=== PATIENT | male | born 1960 | race Caucasian/White ===

== ENCOUNTER → 2018-02-18 13:44 | Outpatient (CLI) | payer MEDICAID, SELFPAY ==
--- NOTE | 2018-02-18 13:48 | CT_ITS ---
STUDY: LOW DOSE CT LUNG CANCER SCREENING REASON FOR EXAM: Male, 57 years old. 40 pack-year smoking history. Hypertension. Lung cancer screening. History of positive PPD. RADIATION DOSAGE (If Supplied By Facility): CTDIvol = ( 2.01 ) mGy, DLP = ( 72.23 ) mGycm TECHNIQUE: No contrast was administered. Low dose technique was utilized (average mAS-38 and kVp 120). 1.25 mm axial source images with a slice interval of 1.25-mm were reconstructed in lung windows. Nodule measured using lung windows on PACS and/or independent workstation with automated measurement of minimum and maximum diameter. Nodule measurement reported as average diameter rounded to the nearest whole number. Growth is defined as an increase ins size of greater than 1.5 mm. COMPARISON: None. FINDINGS: Total lung nodules (excluding granulomas): Left lung subpleural less than 3 mm pulmonary nodule series 2 image 165 lateral pleural margin. No other left-sided pulmonary nodules. There are no right-sided pulmonary nodules. Emphysema: Severe bullous emphysema at the apices. Most prominent on the right. Endobronchial lesion: None. Aorta: Nondilated. Minimal arch atherosclerosis. Coronary arteries: There are densities are present in the proximal to mid LAD, proximal RCA, consistent with effort chronic calcifications, potentially a stent in the proximal LAD but uncertain. Heart: Normal heart size without effusion. Pulmonary artery: Normal caliber central pulmonary arteries. Mediastinal nodes: There is no evidence of mediastinal lymphadenopathy. Other chest and abdominal findings: No other acute upper abdominal, supraclavicular or thoracic process is evident in limited evaluation. CT/Low Dose CT Lung Screening IMPRESSION: Only a single tiny less than 3 mm solid subpleural pulmonary nodule is seen in the left lower lung along the lateral pleural margin. Nonspecific. No suspicious lesions. Bullous emphysema. Coronary atherosclerosis. ACR Lung RADS category 2, benign appearance, less than 1% chance of malignancy. One-year follow-up low dose CT of the chest is recommended for surveillance purposes. IMPORTANT NOTES FOR USE: ACR Lung-RADS Version 1.0 Assessment Categories Release Date: January 23, 2014 Category: Coded 0-4 bases on nodule(s) with highest degree of suspicion. Negative screen is defined as categories 1 and 2; a positive screen is defined as categories 3 and 4. Category 3 and 4A nodules that are unchanged on interval CT should be coded as category 2, and individuals returned to screening in 12 months. Category 4X: Category 3 or 4 nodules with additional imaging findings that increase the suspicion of lung cancer, such as spiculation, GGN that doubles in size in 1 year, enlarged lymph notes, etc. Category Modifiers: S (significant finding unrelated to lung cancer) and C (prior history of treated lung cancer) may be added to the 0-4 Lung-RADS Electronically Signed: Luis Adler, at 17:54 EDT Tel , Service support ,
== END ==
DX: J44.9 Chronic obstructive pulmonary disease, unspecified (principal); Z87.891 Personal history of nicotine dependence
CPT/HCPCS: G0297

== ENCOUNTER → 2018-05-20 07:23 | Outpatient (CLI) | payer MEDICAID, SELFPAY ==
--- NOTE | 2018-05-20 11:17 | PFTCOMP ---
COMPLETE PULMONARY FUNCTION TEST INTERPRETATION Brief HPI: Patient is a 58 year old male, currently under the care of myself, who presents to [facility] for complete pulmonary function tests secondary to diagnosis of COPD. Respiratory therapist reports good effort and reproducible results. Interpretation: Forced expiration spirometry shows a moderately-severe large airways obstructive ventilatory defect with an FEV1 of 56% predicted. There is no significant bronchodilator response by ATS criteria. Spirograms are of good quality and plateau slowly, indicating slowly emptying areas of the lungs. The respiratory flow volume loop shows decreased expiratory flow rates at all lung volumes consistent with airway obstruction. Lung volumes by body plethysmography show an elevated total lung capacity at 7.79 L, 116% predicted. FRC and RV are elevated out of proportion. Lung volume measurements are consistent with air-trapping. Diffusion capacity by carbon monoxide is decreased at 60% predicted. The airway resistance is elevated. Compared to previous pulmonary function tests from 04/23/2010, there has been a significant worsening in FEV1, air-trapping and DLCO. Impression: Irreversible moderately severe large airways obstructive ventilatory defect with a symmetric reduction diffusing capacity. There has been significant worsening compared to previous study.
== END ==
PROVIDERS: Visit Provider Internal Medicine Critical Care Medicine
DX: J44.9 Chronic obstructive pulmonary disease, unspecified (principal)
CPT/HCPCS: 94060; 94726; 94729

== ENCOUNTER → 2018-05-27 08:27 | Outpatient (CLI) | payer MEDICAID, SELFPAY ==
[2018-05-27 08:35] VITALS: PULSE 71; PULSE 73; PULSE 79; PULSE 81; PULSE 82; PULSE 83; PULSE 85; PULSE 89; O2SAT 95; O2SAT 98; O2SAT 99
--- NOTE | 2018-05-27 11:16 | PCM.PSN.6M ---
PSN 6 Minute Walk Test - 6 Minute Walk Test 6 Minute Walk Test: 6 Minute Walk Test PSN:6-Minute Walk Test Start: 05/27/18 09:00 Freq: Status: Active Protocol: RESP.6MINW Document 05/27/18 08:35 [facility] (Rec: 05/27/18 09:03 [facility] [id number]) 6 Minute Walk Test Date Performed 05/27/18 Time Performed 08:35 Height 5 ft 10 in Weight: 150 lb Weight in Pounds 150.[address]: Hernesto Johnson Assistive device used: None Pre-test Oxygen Delivery Method Room Air Pulse Ox (%) 98 Pulse Rate (60-100 beats/min) 71 Dyspnea Idania Scale (0-10) 0.5 Exertion Iadnia Scale (6-20) 6 1st minute Oxygen Delivery Method Room Air Pulse Ox (%) 99 Pulse Rate (60-100 beats/min) 85 Number of Rests Taken 0 2nd minute Oxygen Delivery Method Room Air Pulse Ox (%) 95 Pulse Rate (60-100 beats/min) 82 Number of Rests Taken 0 3rd minute Oxygen Delivery Method Room Air Pulse Ox (%) 95 Pulse Rate (60-100 beats/min) 79 Number of Rests Taken 0 Reported Symptoms Increased Work of Breathing 4th minute Oxygen Delivery Method Room Air Pulse Ox (%) 99 Pulse Rate (60-100 beats/min) 83 Number of Rests Taken 0 Reported Symptoms Increased Work of Breathing 5th minute Oxygen Delivery Method Room Air Pulse Ox (%) 98 Pulse Rate (60-100 beats/min) 81 Number of Rests Taken 0 Reported Symptoms Increased Work of Breathing 6th minute Oxygen Delivery Method Room Air Pulse Ox (%) 99 Pulse Rate (60-100 beats/min) 89 Number of Rests Taken 0 Reported Symptoms Increased Work of Breathing Post-test Oxygen Delivery Method Room Air Pulse Ox (%) 99 Pulse Rate (60-100 beats/min) 73 Dyspnea Idania Scale (0-10) 4 Exertion Idania Scale (6-20) 13 Reported Symptoms Increased Work of Breathing Full Laps Walked 18 Partial Lap, Number of Tiles Walked 17 Total Distance Walked (ft) 1079 - Interpretation Interpretation: The patient ambulated 1079 feet over the course of 6 minutes beginning on room air without assistive devices or breaks. Pretesting oxygen saturation was noted to be 98% on room air. With ambulation, the farhana oxygen saturation was 95%. There was no significant exertional oxygen desaturation. - Recommendations Recommendations: There is no indication for the use of supplemental oxygen at this time.
== END ==
PROVIDERS: Visit Provider Internal Medicine Critical Care Medicine
DX: J44.9 Chronic obstructive pulmonary disease, unspecified (principal)
CPT/HCPCS: 94618

== ENCOUNTER 2018-07-26 11:52 | Day surgery (SDC) | payer MEDICAID, SELFPAY ==
--- NOTE | 2018-07-26 11:55 | PCM.HP.BLA ---
History and Physical Date of Admission: 07/26/18 The patient presents today to update H&P for procedure scheduled with Dr. Davidson, at [facility] on 07/26/18, with MAC sedation. ?His PCP is reported to be Triny Patel, at the [facility]. I initially saw him on 06/02/18. That note has been reviewed. ?The patient has a history of polyps. The patient sees pain management, in [place], due to chronic back pain. The patient?drinks alcohol mostly on the weekends?and uses cannabis a few times a week. ???He also?has mild anxiety issues, but doesn't see anyone. ? The patient?requested?[facility] due to transportation issues. ? ? The patient was seen by Dr. Hwang?for colonoscopy 05/16/15. ?The procedure report has been reviewed and findings as follows: Impression: ??- Diverticulosis in the sigmoid colon and in the ?descending colon. ?- Two 5 mm polyps in the transverse colon and in the ?ascending colon. Resected and retrieved. ?- One 10 mm polyp in the descending colon. Resected and ?retrieved. ?- One 25 mm polyp at 20 cm proximal to the anus. ?Resected and retrieved. Clips were placed. ? FINAL DIAGNOSIS 1. Ascending colon, polypectomy (A) - Colonic mucosa with no significant diagnostic alteration. 2. Transverse colon, polypectomy (B) - Colonic mucosa with no significant diagnostic alteration. 3. Descending colon, polypectomy (C) - Fragments of tubular adenoma. 4. Colon, at 20 cm, polypectomy (D) - Tubular adenoma. ? I have reviewed the procedure and pathology reports, as well as the images, with the patient. ?Three year surveillance was recommended by Dr Hwang. ? ? Presenting complaint: The patient denies?change in bowel habits, rectal bleeding or abdominal pain. Having a bowel movement daily. ? ? The patient denies any upper GI complaints. ?He is edentulous and notes that eating chewy bread crust is difficult. ?He plans to get dentures as soon as possible. ? ?? REVIEW OF SYSTEMS: GENERAL: No weight loss, malaise or fevers. ?Plans to see dentist at [facility] regarding dentures. RESPIRATORY: ?COPD. ?Uses inhalers. CARDIOVASCULAR: Hypertension. On prescriptions with good control. GI: The patient states that his appetite has been good. ?He does?get hungry. There has been no?nausea, no?vomiting. He denies?dysphagia and denies?odynophagia. There has not?been indigestion or?heartburn. There has not?been regurgitation. Bowel habits have been regular. There has not?been diarrhea. There has not?been constipation. The patient denies?rectal bleeding. There has not?been melena. No abdominal pain. MUSCULOSKELETAL: Back pain relieved with Lyrica and?a TENS unit he uses once a day. PSYCH: Admits to mild situational anxiety. Negative for sleep disturbance, mood disorder and recent psychosocial stressors. HEMATOLOGY/LYMPHOLOGY Denies?prolonged bleeding, bruising easily or swollen nodes ENDOCRINE: Denies diabetes or thyroid. NEURO:Denies?history of headaches, syncope, paralysis, seizures or tremors All other reviewed and negative other than HPI. ? ? PAST?MEDICAL?HISTORY ? ? ? PAST MEDICAL HISTORY Diagnosis Date ? Back pain ? ? COPD (chronic obstructive pulmonary disease) (HCC) ? ? Unspecified essential hypertension ? ? ? PAST?SURGICAL?HISTORY ? PAST SURGICAL HISTORY Procedure Laterality Date ? COLONOSCOP W/ OR W/O BRSH SPEC ? 05/16/15 ? Colonoscopy ? PAST SURGICAL HISTORY OF ? 2005 ? implant on right eye ? PAST SURGICAL HISTORY OF ? 2013 ? growth removed from throat ? ? FAMILY?HISTORY ? FAMILY HISTORY Problem Relation Age of Onset ? other (lung cancer) Mother ? ? other (esophageal ?cancer) Father ? CURRENT?MEDICATIONS ? Current Outpatient Prescriptions: aclidinium bromide (TUDORZA PRESSAIR) 400 mcg/actuation aepb Inhale ?as instructed twice daily. Disp: Rfl: lisinopril (ZESTRIL, PRINIVIL) 20 mg tablet Take 20 mg by mouth once daily. Disp: Rfl: triamcinolone (KENALOG) 0.1 % lotion Apply ?to affected area twice daily. Disp: Rfl: budesonide-formoterol (SYMBICORT) 80-4.5 mcg/actuation inhaler Inhale 2 Puffs as instructed twice daily. Disp: Rfl: zolpidem (AMBIEN) 5 mg tablet Take 5 mg by mouth at bedtime as needed. Disp: Rfl: gabapentin (NEURONTIN) 600 mg tablet Take 600 mg by mouth every 8 hours. Disp: Rfl: ALBUTEROL SULFATE (PROVENTIL HFA INHALATION) Inhale ?as instructed as needed. ? Disp: Rfl: doxycycline 100 mg capsule Take 100 mg by mouth once daily. ? Disp: Rfl: amLODIPine (NORVASC) 2.5 mg tablet Take 2.5 mg by mouth once daily. ? Disp: Rfl: ? No current facility-administered medications for this visit. ? ? ? SOCIAL HISTORY: Patient is single. He quit smoking 4?years ago. ?He?reports his alcohol use as a 12 pack a week or so. The patient does smoke cannabis. ? ? PHYSICAL EXAMINATION: Blood pressure 120/71, pulse 81, height 177.8 cm (5' 10), weight 66.2 kg (146 lb). General Appearance: Well appearing, alert, in no acute distress, well-hydrated, well nourished. Skin: moderate rosacea. Head: Normocephalic, no masses, lesions or abnormalities. Eyes: Anicteric sclera. PEERLA Oropharynx: Teeth in various forms of repair. Some absent. Lips, mucosa, tongue normal, oropharynx normal. Neck: Supple, no adenopathy; thyroid symmetric, normal size. Lungs: Lungs clear to auscultation. No wheezing, rhonchi, rales. Heart: RRR without murmur. Abdomen: Abdomen soft, non-tender. Bowel sounds normal. No masses, organomegaly. Extremities: No deformities, edema, skin discoloration, clubbing or cyanosis. Peripheral Pulses: Normal. Neurologic: Gait normal. Reflexes normal and symmetric. Sensation grossly intact. ? ? Impression: history of polyps ?2)diverticulosis ? 3)chronic back pain - pain management ?4)COPD 5)anxiety ?6)alcohol and cannabis use ? ? Plan: This patient will be scheduled for a colonoscopy. I recommend MAC as his last procedure was with MAC and he sees pain management, drinks and uses cannabis. He requests [facility] due to transportation issues. ? The patient will be using GoL[employer]ely?as the prep. ?The preparation, as well as the procedure, has been explained in detail. The risks, benefits, anticipated outcomes and possible complications were mentioned. I explained the procedure in understandable terms and the patient was given printed material concerning the planned procedure. The patient had the opportunity to ask questions concerning the planned procedure. The patient freely consents to the planned procedure. ? The patient is asked to call with any questions for concerns, or should there be any change in health status between now and the scheduled procedure. ? ? I have personally interviewed and examined this patient. I have read the information the MA documented in this encounter. I spent 30?minutes in the visit, with more than 50% of the total [id number] time of the visit in counseling / coordination of care. ? Jazmin Mock RN APRN.[employer] ? ? ?2:07 PM
[2018-07-26 12:14] VITALS: BP 139/74; PULSE 87; RESP 18; TEMP 37.4; O2SAT 100; BMI 20.8
[2018-07-26 13:40] VITALS: BP 116/77; BP 139/74; PULSE 85; RESP 16; TEMP 36.9; O2SAT 97
--- NOTE | 2018-07-26 13:40 | OP.ENDO_ITS ---
Patient Name: Amor Bethea Procedure Date: 07/26/2018 1:04 PM Date of : 1960 Age: 58 Procedure: Colonoscopy Indications: High risk colon cancer surveillance: Personal history of colonic polyps Providers: Luis Davidson MD Referring MD: Luis Davidson MD Medicines: Monitored Anesthesia Care Patient Profile: This is a 58 year old male. Refer to note in patient chart for documentation of history and physical. Last Colonoscopy: more than 3 years ago. Complications: No immediate complications. Procedure: Pre-Anesthesia Assessment: - Prior to the procedure, a History and Physical was performed, and patient medications and allergies were reviewed. The patient is competent. The risks and benefits of the procedure and the sedation options and risks were discussed with the patient. All questions were answered and informed consent was obtained. Patient identification and proposed procedure were verified by the physician, the nurse and the wheel installer in the procedure room. Mental Status Examination: alert and oriented. Airway Examination: normal oropharyngeal airway and neck mobility. Respiratory Examination: clear to auscultation. CV Examination: normal. Prophylactic Antibiotics: The patient does not require prophylactic antibiotics. Prior Anticoagulants: The patient has taken no previous anticoagulant or antiplatelet agents. ASA Grade Assessment: III - A patient with severe systemic disease. After reviewing the risks and benefits, the patient was deemed in satisfactory condition to undergo the procedure. The anesthesia plan was to use monitored anesthesia care (MAC). Immediately prior to administration of medications, the patient was re-assessed for adequacy to receive sedatives. The heart rate, respiratory rate, oxygen saturations, blood pressure, adequacy of pulmonary ventilation, and response to care were monitored throughout the procedure. The physical status of the patient was re-assessed after the procedure. After I obtained informed consent, the scope was passed under direct vision. Throughout the procedure, the patient's blood pressure, pulse, and oxygen saturations were monitored continuously. The Colonoscope was introduced through the anus and advanced to the cecum, identified by the appendiceal orifice, ileocecal valve and palpation. The colonoscopy was performed without difficulty. The patient tolerated the procedure well. The quality of the bowel preparation was good. Scope In: 1:23:46 PM Scope Withdrawal Time 0 hours 7 minutes 42 seconds Scope Out: 1:36:10 PM Total Procedure Duration Time 0 hours 12 minutes 24 seconds Findings: The perianal and digital rectal examinations were normal. A few medium-mouthed diverticula were found in the sigmoid colon. The exam was otherwise without abnormality. The retroflexed view of the distal rectum and anal verge was normal and showed no anal or rectal abnormalities. Impression: - Diverticulosis in the sigmoid colon. - The examination was otherwise normal. - The distal rectum and anal verge are normal on retroflexion view. - No specimens collected. Recommendation: - Discharge patient to home. - Resume previous diet. - Continue present medications. - Repeat colonoscopy in 5 years for surveillance. Luis Davidson MD 07/26/2018 1:39:55 PM This report has been signed electronically. Number of Addenda: 0 Note Initiated On: 07/26/2018 1:04 PM
[2018-07-26 13:45] VITALS: BP 106/74; BP 139/74; PULSE 95; RESP 16; O2SAT 96
[2018-07-26 13:50] VITALS: BP 116/75; BP 139/74; PULSE 82; RESP 16; O2SAT 97
[2018-07-26 13:55] VITALS: BP 115/82; BP 139/74; PULSE 72; RESP 16; TEMP 36.9; O2SAT 96
[2018-07-26 14:11] VITALS: BP 139/74
== END 2018-07-26 14:11 | disposition home or self-care (01) ==
LOC: EN 11:52 → AC 11:54
PROVIDERS: Referring Provider Surgery; Visit Provider Surgery
PROC: 0DJD8ZZ Inspection of Lower Intestinal Tract, Via Natural or Artificial Opening Endoscopic (ICD-10-PCS; CPT 45378; principal; 2018-07-26 12:55)
DX: K57.30 Diverticulosis of large intestine without perforation or abscess without bleeding (principal); Z86.010 Personal history of colon polyps; M54.9 Dorsalgia, unspecified; G89.29 Other chronic pain; F41.9 Anxiety disorder, unspecified; J44.9 Chronic obstructive pulmonary disease, unspecified; I10 Essential (primary) hypertension; L71.9 Rosacea, unspecified; Z79.899 Other long term (current) drug therapy; F12.90 Cannabis use, unspecified, uncomplicated; F10.99 Alcohol use, unspecified with unspecified alcohol-induced disorder; F17.200 Nicotine dependence, unspecified, uncomplicated
CPT/HCPCS: 45378; J7120

== ENCOUNTER → 2018-09-09 10:20 | Outpatient (CLI) | payer MEDICAID, SELFPAY ==
[2018-08-31 09:07] VITALS: BMI 21.4
--- NOTE | 2018-09-09 11:02 | PCM.PR.TP ---
General Information - Education/Goals Individual Counseling: Initial Assessment: Dyspnea control techniques at rest, activity, and ADLs, Inhaled and respiratory medications, Exacerbation prevention & management, Smoking cessation, Advanced directives Patient Goals: Breathe better: Initial Assessment, Increase endurance/stamina: Initial Assessment, Return to recreation/hobby: Initial Assessment, Symptom management: Initial Assessment, Take medications correctly: Initial Assessment, Stop smoking/maintain cessation: Initial Assessment Exercise - Initial Assessment - Visit Date of Eval: 09/09/18 - Problem/Goals Problems: Deconditioning, No regular exercise, Knowledge deficit exercise guidelines, Knowledge deficit exercise safety Goals:: Aerobic exercise 30-60 mins x 9 weeks, SC: 2-3/wk - Exercise Prescription Mode:: Treadmill, Rower, Airdyne Frequency (x/week): 3 Duration:: 35-45 min MET LEVEL:: 2.5 HR (bpm):: 113 - 105-113 Exercise Progression: 0.5-1.0 METs/week - Plan Plan and Plan to Review:: Benefits of exercise, Core components of exercise, How to measure dyspnea level, How to monitor dyspnea level, Exercise intensity, Exercise safety guideline, Home exercise guidelines, Idania: 3-4/-13 Disease Management - Initial - Problems/Goals-Hypoxemia Hypoxemia Problems:: Poor knowledge of O2 use/safety Hypoxemia Goals:: Hypoxemia managed - Problems/Goals-Medications Medication Problems:: Incorrect inahled Rx use, technique Medication Goals: Adherence to prescribed medications, Correct technique/timing & care of MDI, DPI, nebulizer, and spacer. - Problems/Goals-Bronchial Hygiene Bronchial Hygiene Problems:: Respiratory infection Prevention/Management Bronchial Hygiene Goals:: Pt describes signs and symptoms of infection. - Initial Assessment SpO2:: 97 FiO2:: 21 Does pt report taking home meds as prescribed?: Yes Medications: Yes MDI, Yes DPI, No Spacer Patient Reports:: Prod cough daily <1 Tbsp - Plans Hypoxemia Plan:: Monitor SpO2 rest & with exercise, Train appropriate O2 use with exercise, Train O2 safety & systems Reviewed prescribed medications:: Purpose, Schedule, Side effects, Importance of compliance Instruct correct technique/timing & care:: MDI, DPI, Nebulizer, Return demo use of inhaler Bronchial Hygiene Plan: Controlled cough, Role of exercise in secretion clearance, Hydration, Hand hygiene, Signs/symptoms to report: Psychosocial - Initial Assess - Problems/Goals Problems: Impaired Q.O.L. Psychosocial Goals: Improved Q.O.L. - Psychosocial Test Depression:: Impaired QOL Referred to MD for counseling:: No - Plan Instructions given regarding:: Benefits of exercise, Relaxation techniques, Training in coping strategies Tobacco - Initial Assessment - Program Goals Tobacco Program Goals: Complete smoking cessation. Attend education classes. Improve Knowledge Test score - Stage of Change Stages of Change:: Action - Learning Barriers Learning Barriers: Vision, Ready to Learn - Family Support Do you have family support?: Yes - Tobacco Use Tobacco Use: Cigarettes How many cigarettes do you smoke per day?: 10 - >10/day Do you use smokeless tobacco?: No - Intervention Smoking Cessation Referral:: Yes - Patient needs Smoking Cessation Counseling; he is scheduled at 10:00 MWF Individual Education/Counseling:: Yes Education Schedule Given:: Yes - Education Gave Education Materials For:: Tobacco Triggers, Pulmonary Disease, Risk Factors, Breathing Techniques, Medical Compliance, Pulmonary A&P, Exacerbation Signs & Symptoms, Stress & Relaxation Nutrition/Wt Mgmt - Initial - Problems/Goals Goals: BMI 21-25 - Weight Management Knowledge Deficit Management of:: Lack of vitamin D/Ca++ supplement Admit Height:: 5 ft 10 in Admit Weight:: 147 lb 3.2 oz Admit BMI:: 21.1 - Diabetes Diabetes:: No - Intervention Referral to dietitian:: No Referral to Diabetic Clinic:: No Will attend diet classes:: Yes - Plan Nutrition Plan: Yes Review BMI or WC & identify target wt & strategies for wt control, Yes Nutrition education class:, Yes Medication education class [Prednisone]:, Yes Education re: Need for ongoing weight monitoring Patient Health Questionnaire Initial Assessment 1. Little interest or pleasure in doing things: Not at all 2. Feeling down, depressed, or hopeless: Not at all 3. Trouble falling or staying asleep, or sleeping too much: Not at all 4. Feeling tired or having little energy: More than half the days 5. Poor appetite or overeating: Not at all 6. Feeling bad about yourself -- or that you are a failure or have let yourself or your family down: Not at all 7. Trouble concentrating on things, such as reading the newspaper or watching television: Not at all 8. Moving or speaking so slowly that other people could have noticed. Or the opposite - being so fidgety or restless that you have been moving around a lot more than usual: Not at all 9. Thoughts that you would be better off , or of hurting yourself in some way: Not at all How difficult have these problems made it for you to do your work, take care of things at home, or get along with other people?: Not difficult at all Total Score: 2 COPD Knowledge Test Initial COPD is a lung disease that:: Makes it hard to breathe & gets worse over time In the [place] the term COPD describes 2 main lung conditions:: Emphysema & chronic bronchitis The most common lung irritant that causes COPD is:: Cigarette smoke Common signs and symptoms of COPD include:: An ongoing cough/cough that produces a large amount of mucus, & SOB If you have COPD, what steps can you take?: All of the above Swelling of the ankles is common in COPD:: False Fatigue [tiredness] is common in COPD:: False Wheezing is common in COPD:: True Crushing chest pain is common in COPD:: False Rapid weight loss is common in COPD:: False Breathlessness is a normal response to exercise: True Exercise should be avoided if it makes you short of breath: False All bronchodilators act within 10 minutes: True A spacer device increases the medication to the lungs: True Annual flu vaccine is recommended for pts w/lung disease: True COPD Knowledge Test Total Score:: 13 COPD Assessment Test [CAT] - Questions Never cough = 0, Cough all the time = 5: 5 No phlegm = 0, Chest full of phlegm = 5: 5 No chest tightness = 0, Chest very tight = 5: 1 No breathless w/exertion = 0, Very breathless w/exertion = 5: 5 No limitations w/activity = 0, Very limited w/activity = 5: 2 Confident leaving home = 0, Not at all confident = 5: 0 Sleep soundly = 0, Don't sleep soundly = 5: 0 Lots of energy = 0, No energy at all = 5: 3 Total CAT score:: 21 Self-Efficacy Initial Assessment We would like to know how confident you are in doing certain activities. Please select your confidence level for:: Select your confidence level for the following using the scale 1-10 where 1 is not at all confident and 10 is totally confident. Your score is the average of all 6 responses. Fatigue: How confident are you that you can keep the fatigue caused by your disease from interfering with the things you want to do? Select Number: 7 Physical Discomfort or Pain: How confident are you that you can keep the physical discomfort or pain of your disease from interfering with the things you want to do? Select Number: 7 Emotional Distress: How confident are you that you can keep the emotional distress caused by your disease from interfering with the things you want to do? Select Number: 8 Other Symptoms or Health Problems: How confident are you that you can keep other symptoms or health problems from interfering with the things you want to do? Select Number: 8 Different Tasks and Activities: How confident are you that you can do the different tasks and activities needed to manage your health condition so as to reduce your need to see a doctor? Select Number: 6 Medication: How confident are you that you can do things other than just taking medication to reduce how much your illness affects your everyday life? Select Number: 8 Total Score:: 7 Nutrition Survey - Nutrition Survey Instructions Scoring Instructions: Scoring is as follows: Yes = 1 points. No = 0 point. Patient score that is >/=12 is considered to be at potential nutritional risk and could benefit from a referral to a registered dietitian. - Nutrition Survey Initial Have you lost >10 lbs over the past 2 months without trying?: No Are you following a special diet at home for diabetes, low fat, or low salt?: No Are you interested in meeting with a dietitian for help understanding your diet?: No Do you eat less than 3 meals a day?: No Do you eat fatty meats (whatley, sausage, ribs, etc), fried foods, desserts, large amounts of salad dressings, margarine, butter, or cheese most days?: Yes Do you have food allergies? [Enter types in comment field]: No Do you eat in restaurants more than 3 times a week?: No Do you season food with salt, seasoning salt, or garlic salt?: Yes Do you used canned, boxed, frozen meals, or soups, seasoning packets?: Yes Total Score:: 3
--- NOTE | 2018-09-09 11:07 | PR.HP_ITS ---
History of Present Illness Arrival date:: 09/09/18 Arrival time:: 10:30 Date of Referral:: 08/31/18 Date of Evaluation: 09/09/18 Referring Physician: Dr. Hernesto Johnson Primary Diagnosis: COPD J44.9 History of Present Illness: Patient is a 58 yr old male patient of Dr. Johnson who recently had a PFT and 6- minute walk test performed to access his exercise tolerance and capability due to his COPD. mMRC Breathless Scale: When is the patient short of breath? Y/N Grade: Description of Breathlessness: 0 I only get breathless with strenuous exercise. 1 I get short of breath when hurrying on level ground or walking up a slight hill. 2 On level ground, I walk slower than people of the same age because of breathless, or have to stop for breath when walking at my own pace. 3 I stop for breath after walking 100 yards or after a few minutes on level ground. 4 I am too breathless to leave the house or I am breathless when dressing. Respiratory Problems: Yes: Fatigue, Able to Speak in Full Sentences, Dyspnea with Activity, Cough with Secretions No: Retain Secretions, Limited Range of Motion, Wheezing, Dizziness, Ankle Swelling, Hoarseness, Anxiety, Panic, Dyspnea Lying Down Flat Home Medications: Home Medications Amlodipine [Norvasc] 2.5 mg PO DAILY 08/05/13 Doxycycline [Vibramycin] 50 mg PO DAILY 08/05/13 Lisinopril [Zestril] 20 mg PO QHS 08/05/13 Aclidinium Ewell [Tudorza Pressair] 0 mcg IH BID 05/05/16 Albuterol Sulfate [Ventolin Hfa] 2 puff IH Q4H PRN 05/05/16 Pregabalin [Lyrica] 150 mg PO TID 05/05/16 Triamcinolone 0.1% Cream [Kenalog] 1 applic TP DAILY 05/05/16 mometasone-formoterol HFA 200 mcg-5 mcg/actuation aerosol inhaler 2 puff INHALATION Q12H 05/07/18 Ergocalciferol [Vitamin D] 50,000 unit PO SA 07/22/18 Allergies/Adverse Reactions: Allergies No Known Allergies Allergy (Verified 08/31/18 07:26) - Secretions Normal Color:: small amount maybe 1 teaspoon Thin:: Yes A.T.C.: Yes Hx of Sleep Apnea: No Do you snore loudly (louder than talking or can be heard through closed doors)?: Yes Do you often feel tired/ fatigued/ sleepy during daytime?: Yes Has anyone observed you stop breathing during sleep?: No History of Hypertension (for STOP score): Yes STOP Results: Positive Medical Utilization Do you use a peak flow meter at home?: No Do you use a spacer device with your inhalers?: No Number of hospital visits in the last year?: 0 Number of emergency room visits in the last year?: 0 Do you see your physician on a regular schedule?: Yes How often?: 3 months; both physician and Pauline Velásquez Advanced Directives - Advanced Directives Power of Legal Activity Adjudicator: No Living Will: No Advance Directives Information Provided: Yes Advance Directives on File: No DNR Order?:: No - MOLST See MOLST form: No Past Medical History Medical History: Past Medical History (Last Reviewed 08/31/18 @ 07:26 by Dinora Wright) Alcoholic fatty liver (Chronic) K70.0 Nicotine dependence (Chronic) F17.200 Alcohol abuse (Chronic) F10.10 GERD (gastroesophageal reflux disease) (Chronic) K21.9 Vitamin D deficiency (Chronic) E55.9 Hypertension (Chronic) I10 Hyponatremia (Acute) E87.1 COPD (chronic obstructive pulmonary disease) (Chronic) J44.9 Family History: Family History (Last Updated 09/09/18 @ 11:11 by Drake Goncalves, OPERATOR [employer], VISUAL BASIC DEVELOPER, BS) Other Cancer Hypertension Lung disease - Current/ Previous Services Pulmonary Rehab:: No - Comments Comments: Was previously doing exercise at [employer] and pool exercise for lower back problems. Social History - Smoking History Smoking Status: Heavy Smoker (>10/day) Years Smokin Packs Smoked per Day: 1 Hx Tobacco Use: Yes Hx Smoking Exposure: Yes - Alcohol Use Alcohol Usage: Yes - Beer's on weekend; previous alcoholic - Substance Abuse Hx Substance Use: No - Occupation Occupation (List type of work in comments):: Unemployed - Hobbies, Recreation, Social Activities Hobbies: None Recreational Activities: I am able to engage in all my recreational activities - caregiver for significant other; little time to enjoy recreation or social activities Functioning ADL/IADL - Current Ability Current Ability: Independent Self-Care (e.g.,grooming, dressing, & bathing), Independent Ambulation, Independent Transfer, Independent Household tasks (e.g., light meal prep, laundry, shopping) - Pt Functioning Prior to Problem Prior Functioning: Self-Care (e.g.,grooming, dressing, & bathing): Independent, Ambulation: Independent, Transfer: Independent, Household tasks (e.g., light meal prep, laundry, shopping): Independent Social Environment - Status Marital Status: Single - Current Living Arrangements Living Environment:: Spouse - 0 - Children How many children do you have?: 0 Do any of your children live nearby?: No - Safety Do you feel safe in your surroundings?: Yes - Assistance Do you need any assistance at home?: none Review of Systems Review of Systems: Right click = Denies ([place]). Left click = Reports ([place]) Respiratory: Reports: Cough, SOB upon Exertion, Appetite, Normal, Dizziness/Lightheadedness - if get up to fast or standing to fast, Fatigue, Sleep, Normal. Denies: Hemoptysis, Pleuritic Pain, SOB at Rest, Sputum production, Wheezing, Sexual changes Is Patient Pain Free?: Yes Pain Location: none, back - lower back pain; Dr. Cantu for pain management Risk Factor Assessment - Vital Signs Temperature: 98.7 F Pulse Rate: 89 Pulse Rhythm: Regular Respiratory Rate: 16 Pulse Ox: 97 Blood Pressure: 126/76 Nailbeds:: pink - Diabetes Nutrition Referral for Diabetes: No - Obesity Height: 5 ft 10 in Weight:: 147 lb 4.8 oz Weight in Pounds: 147.3 lbs Weight Source: Estimated by Patient Body Mass Index (BMI): 21.1 Nutritional Referral for Obesity: No - Physical Activity Physical Inactivity: None - Risk Stratification Risk Guidelines: Lowest Risk: Risk Factor for Smoking, Risk Factor for Dyslipidemia, Risk Factor for Diabetes, Risk Factor for Obesity, Risk Factor for Hypertension, Risk Factor for Depression, Moderate Risk: Risk Factor for Sedentary Lifestyle - caregiver for significant other is active. - For Smoking Smoking Risk Guidelines: Smoking Low Risk: None or quit greater than 6 months ago. Smoking Moderate Risk: Smoker or quit 6 months or less ago. Smoking High Risk: Smoker - For Dyslipidemia Dyslipidemia Risk Guidelines: Low Risk: Moderate Risk: High Risk: 15-25% fat 25.1-29% fat >/= 30% fat. <7% sat fat 7-9% sat fat >9% sat fat. <150 mg chol 150-299 mg chol >/= 300 mg chol. LDL <100 LDL 100-129 LDL >/= 130. Chol/HDL ratio <5.0 Chol/HDL ratio 5.0-6.0 Chol/HDL ratio >6.0. Triglycerides <100 Triglycerides 100-149 Triglycerides >/= 150 - For Diabetes Mellitus Diabetes Risk Guidelines: Diabetes Low Risk: HgA1c <6.5% and/or FBG <120. Diabetes Moderate Risk: HgA1c 6.6-7.9% and/or FBG 120-180. Diabetes High Risk: HgA1c >/= 8% and/or FBG >180 - For Obesity/Overweight Obesity/Overweight Risk Guidelines: Obesity Low Risk: BMI <25.0. Obesity Moderate Risk: BMI 25-29.9. Obesity High Risk: BMI >/= 30.0 - For Hypertension Hypertension Risk Guidelines: Hypertension Low Risk: Systolic <120 and Diastolic <80. Hypertension Moderate Risk: Systolic 120-139 and Diastolic 80-89. Hypertension High Risk: Systolic >/= 140 and Diastolic >/= 90 - For Sedentary Lifestyle Sedentary Lifestyle Risk Guidelines: Sedentary Lifestyle Low Risk: >/= 1,500 kcal/week. Sedentary Lifestyle Moderate Risk: 700-1,499 kcal/week. Sedentary Lifestyle High Risk: < 700 kcal/week - For Depression Depression Risk Guidelines: Depression Low Risk: Not clinically depressed. Depression Moderate Risk: Mildly depressed. Depression High Risk: Clinically depressed Motivation - Motivation to Participate On a scale of 1 to 10, how prepared are you to commit to attending program?: 10 What do you see as barriers to successfully being able to complete the program?: care of significant other @ home What do you see as the benefits of succesfully completing the program? In other words, what do you hope to get out of participating in the program?: able to do more activities lessen shortness of breath, stamina Are there issues you are dealing with that will interfere with completing the program?: none Do you have a spouse or signficant other, family or friends who will help support you to complete the program?: yes Diagnostic Data Review - Pulmonary Function Test FEV1:: 1.93 - 51% FVC:: 4.09 - 83% FEV1/FVC%:: 47 Gold Classification: GOLD class II(mod. COPD)with FEV1/FVC <70%, 50%</= FEV1< 50% predicted
[2018-09-09 11:22] VITALS: BP 126/76; PULSE 89; RESP 16; TEMP 37.1; O2SAT 97; BMI 21.1
[2018-09-09 12:01] VITALS: O2SAT 97; BMI 21.1
--- OUTSIDE RECORDS SUMMARY | 2018-10-26 04:48 | XMS RPT_ITS ---
:1960 Author Organization OHIP Support Name Relationship Address Phone MARCO A KAYLA Unavailable [address] + [place] [address] TALIA BETHEA Unavailable [address] + [place] [address] UE Unavailable Unavailable Unavailable DILDINE, KAYLA Unavailable [address] + [place] [address] MARLENE BETHEAN Unavailable [address] + [place] [address] UE Unavailable Unavailable Unavailable DILDINE, KAYLA Unavailable [address] + [place] [address] TALIA BETHEA Unavailable [address] + [place] [address] UE Unavailable Unavailable Unavailable DILDINE, KAYLA Unavailable [address] + [place] [address] ALEKSANDAR TALIA Unavailable [address] + [place] [address] UE Unavailable Unavailable Unavailable JOHN BETHEA Unavailable Unavailable +[place] [address] DILDINE, KAYLA Unavailable [address] + [place] [address] ALEKSANDAR TALIA Unavailable [address] + [place] [address] UE Unavailable Unavailable Unavailable DILDINE, KAYLA Unavailable [address] + [place] [address] MARLENE BETHEAN Unavailable [address] + [place] [address] UE Unavailable Unavailable Unavailable DILDINE, KAYLA Unavailable [address] + [place] [address] MARLENE BETHEAN Unavailable [address] + [place] [address] UE Unavailable Unavailable Unavailable DILDINE, KAYLA Unavailable [address] + [place] [address] MARLENE BETHEAN Unavailable [address] + [place] [address] UE Unavailable Unavailable Unavailable DILDINE, KAYLA Unavailable [address] + [place] [address] MARLENE BETHEAN Unavailable [address] + [place] [address] UE Unavailable Unavailable Unavailable DILDINE, KAYLA Unavailable [address] + [place] [address] TALIA BETHEA Unavailable [address] + [place] [address] UE Unavailable Unavailable Unavailable DILDINE, KAYLA Unavailable [address] + [place] [address] TALIA BETHEA Unavailable [address] + [place] [address] UE Unavailable Unavailable Unavailable JOHN BETHEA Unavailable Unavailable +[place] [address] DILDINE, KAYLA Unavailable [address] + [place] [address] TALIA BETHEA Unavailable Unavailable + [place] [address] UE Unavailable Unavailable Unavailable Care Team Providers Name Role Phone [facility] Attending Unavailable [facility], [facility] Referring Unavailable [facility], [facility] Primary Care Unavailable Triny Martinez Consulting Unavailable Hernesto Johnson Attending Unavailable Hernesto Johnson Referring Unavailable [facility] Primary Care Unavailable Hernesto Johnson Attending Unavailable [facility] Primary Care Unavailable Hernesto Johnson Attending Unavailable [facility] Primary Care Unavailable Alex, Hernesto Referring Unavailable Alex, Hernesto Attending Unavailable [facility], [facility] Referring Unavailable Alex, Hernesto Attending Unavailable Alex, Hernesto Referring Unavailable [facility] Primary Care Unavailable Alex, Hernesto Attending Unavailable [facility] Primary Care Unavailable Alex, Hernesto Referring Unavailable Alex, Hernesto Attending Unavailable Alex, Hernesto Referring Unavailable Kyle Bowles D.O. Attending Unavailable Alex, Hernesto Referring Unavailable Nurse, Standard Attending Unavailable [facility], [facility] Referring Unavailable Stuart, Luis Attending Unavailable [facility], [facility] Primary Care Unavailable Stuart, Luis Referring Unavailable Gurpreett EXPERIMENT[employer]CH[employer]IC [employer], Triny Consulting Unavailable Alex, Hernesto Attending Unavailable [facility], [facility] Referring Unavailable JAZMIN MOCK (FIBER DESIGNER) Attending Unavailable JAZMIN MOCK (FIBER DESIGNER) Attending Unavailable Sage Luna Attending Unavailable Amanda, Triny TEJADA Primary Care Unavailable Johan Enamorado Attending Unavailable Swimyrat, Triny TEJADA Primary Care Unavailable PROBLEMS PROBLEMS DATE TYPE CONDITION / CODE ATTENDING STATUS SOURCE 10/20/2018 Unknown J44.9 - Chronic Hernesto Johnson Active [place] obstructive [facility] pulmonary disease, [facility] unspecified / Repository J44.9(ICD-10) 07/19/2018 Active Encounter for JAZMIN MOCK Active [facility] screening for (FIBER DESIGNER) Clinic Main malignant neoplasm [place] of colon / Repository Z12.11(ICD-10) 07/19/2018 Active Personal history JAZMIN MOCK Active [facility] of colonic polyps (FIBER DESIGNER) Clinic Main / Z86.010(ICD-10) [facility] Repository 03/25/2018 Admitting Unknown / Sage Luna Active [facility] Medical diagnosis UNK(Unknown) [facility] Repository 02/18/2018 Unknown K76.0 - [facility] Active [place] (change of) liver, [facility] not elsewhere Hospital classified / Repository K76.0(ICD-10) 02/18/2018 Unknown E87.1 - CLINIC, [facility] Active [place] Hypo-osmolality [facility] and hyponatremia / Hospital E87.1(ICD-10) Repository PROCEDURES PROCEDURES No Procedure Records FoundRESULTS RESULTS LA - HISTORY AND Observed: 09/13/2018 Status: F Source: [place] PHYSICAL 7:03 PM [facility] [place] REPOSIT[facility] Pulmonary Rehab Reports [address] [place] [address] [place] - History AND Physical MR#: [id number] Acct: [id number] Name: ERIK BETHEA Rep #: [id number] : 1960 58 From: Drake Goncalves CROWN IRONER OPERATOR, COUNTER INTELLIGENCE TECHNICIAN, BS PCP: [facility] History of Present Illness Arrival date:: 09/09/18 Arrival time:: 10:30 Date of Referral:: 08/31/18 Date of Evaluation: 09/09/18 Referring Physician: Dr. Hernesto Johnson Primary Diagnosis: COPD J44.9 History of Present Illness: Patient is a 58 yr old male patient of Dr. Johnson who recently had a PFT and 6-minute walk test performed to access his exercise tolerance and capability due to his COPD. mMRC Breathless Scale: When is the patient short of breath? Y/N Grade: Description of Breathlessness: Respiratory Problems: Yes: Fatigue, Able to Speak in Full Sentences, Dyspnea with Activity, Cough with Secretions No: Retain Secretions, Limited Range of Motion, Wheezing, Dizziness, Ankle Swelling, Hoarseness, Anxiety, Panic, Dyspnea Lying Down Flat Home Medications: Home Medications Amlodipine [Norvasc] 2.5 mg PO DAILY 08/05/13 Doxycycline [Vibramycin] 50 mg PO DAILY 08/05/13 Lisinopril [Zestril] 20 mg PO QHS 08/05/13 Aclidinium [place] [Tudorza Pressair] 0 mcg IH BID 05/05/16 Albuterol Sulfate [Ventolin Hfa] 2 puff IH Q4H PRN 05/05/16 Pregabalin [Lyrica] 150 mg PO TID 05/05/16 Triamcinolone 0.1% Cream [Kenalog] 1 applic TP DAILY 05/05/16 mometasone-formoterol HFA 200 mcg-5 mcg/actuation aerosol inhaler 2 puff INHALATION Q12H 05/07/18 Ergocalciferol [Vitamin D] 50,000 unit PO SA 07/22/18 Allergies/Adverse Reactions: Allergies No Known Allergies Allergy (Verified 08/31/18 07:26) - Secretions Normal Color:: small amount maybe 1 teaspoon Thin:: Yes A.T.C.: Yes Hx of Sleep Apnea: No Do you snore loudly (louder than talking or can be heard through closed doors)?: Yes Do you often feel tired/ fatigued/ sleepy during daytime?: Yes Has anyone observed you stop breathing during sleep?: No History of Hypertension (for STOP score): Yes STOP Results: Positive Medical Utilization Do you use a peak flow meter at home?: No Do you use a spacer device with your inhalers?: No Number of hospital visits in the last year?: 0 Number of emergency room visits in the last year?: 0 Do you see your physician on a regular schedule?: Yes How often?: 3 months; both physician and Preston Velásquez Advanced Directives - Advanced Directives Power of Film Reader: No Living Will: No Advance Directives Information Provided: Yes Advance Directives on File: No DNR Order?:: No - MOLST See MOLST form: No Past Medical History Medical History: Past Medical History (Last Reviewed 08/31/18 @ 07:26 by Dinora Wright) Alcoholic fatty liver (Chronic) K70.0 Nicotine dependence (Chronic) F17.200 Alcohol abuse (Chronic) F10.10 GERD (gastroesophageal reflux disease) (Chronic) K21.9 Vitamin D deficiency (Chronic) E55.9 Hypertension (Chronic) I10 Hyponatremia (Acute) E87.1 COPD (chronic obstructive pulmonary disease) (Chronic) J44.9 Family History: Family History (Last Updated 09/09/18 @ 11:11 by Drake Goncalves, CROWN IRONER OPERATOR, COUNTER INTELLIGENCE TECHNICIAN, BS) Other Cancer Hypertension Lung disease - Current/ Previous Services Pulmonary Rehab:: No - Comments Comments: Was previously doing exercise at [employer] and pool exercise for lower back problems. Social History - Smoking History Smoking Status: Heavy Smoker (>10/day) Years Smokin Packs Smoked per Day: 1 Hx Tobacco Use: Yes Hx Smoking Exposure: Yes - Alcohol Use Alcohol Usage: Yes - Beer's on weekend; previous alcoholic - Substance Abuse Hx Substance Use: No - Occupation Occupation (List type of work in comments):: Unemployed - Hobbies, Recreation, Social Activities Hobbies: None Recreational Activities: I am able to engage in all my recreational activities - caregiver for significant other; little time to enjoy recreation or social activities Functioning ADL/IADL - Current Ability Current Ability: Independent Self-Care (e.g.,grooming, dressing, AND bathing), Independent Ambulation, Independent Transfer, Independent Household tasks (e.g., light meal prep, laundry, shopping) - Pt Functioning Prior to Problem Prior Functioning: Self-Care (e.g.,grooming, dressing, AND bathing): Independent, Ambulation: Independent, Transfer: Independent, Household tasks (e.g., light meal prep, laundry, shopping): Independent Social Environment - Status Marital Status: Single - Current Living Arrangements Living Environment:: Spouse - 0 - Children How many children do you have?: 0 Do any of your children live nearby?: No - Safety Do you feel safe in your surroundings?: Yes - Assistance Do you need any assistance at home?: none Review of Systems Review of Systems: Right click = Denies (Slash). Left click = Reports ([place]q) Respiratory: Reports: Cough, SOB upon Exertion, Appetite, Normal, Dizziness/Lightheadedness - if get up to fast or standing to fast, Fatigue, Sleep, Normal. Denies: Hemoptysis, Pleuritic Pain, SOB at Rest, Sputum production, Wheezing, Sexual changes Is Patient Pain Free?: Yes Pain Location: none, back - lower back pain; Dr. Cantu for pain management Risk Factor Assessment - Vital Signs Temperature: 98.7 F Pulse Rate: 89 Pulse Rhythm: Regular Respiratory Rate: 16 Pulse Ox: 97 Blood Pressure: 126/76 Nailbeds:: pink - Diabetes Nutrition Referral for Diabetes: No - Obesity Height: 5 ft 10 in Weight:: 147 lb 4.8 oz Weight in Pounds: 147.3 lbs Weight Source: Estimated by Patient Body Mass Index (BMI): 21.1 Nutritional Referral for Obesity: No - Physical Activity Physical Inactivity: None - Risk Stratification Risk Guidelines: Lowest Risk: Risk Factor for Smoking, Risk Factor for Dyslipidemia, Risk Factor for Diabetes, Risk Factor for Obesity, Risk Factor for Hypertension, Risk Factor for Depression, Moderate Risk: Risk Factor for Sedentary Lifestyle - caregiver for significant other is active. - For Smoking Smoking Risk Guidelines: Smoking Low Risk: None or quit greater than 6 months ago. Smoking Moderate Risk: Smoker or quit 6 months or less ago. Smoking High Risk: Smoker - For Dyslipidemia Dyslipidemia Risk Guidelines: Low Risk: Moderate Risk: High Risk: 15-25% fat 25.1-29% fat >/= 30% fat. <7% sat fat 7-9% sat fat >9% sat fat. <150 mg chol 150-299 mg chol >/= 300 mg chol. LDL <100 LDL 100-129 LDL >/= 130. Chol/HDL ratio <5.0 Chol/HDL ratio 5.0-6.0 Chol/HDL ratio >6.0. Triglycerides <100 Triglycerides 100-149 Triglycerides >/= 150 - For Diabetes Mellitus Diabetes Risk Guidelines: Diabetes Low Risk: HgA1c <6.5% and/or FBG <120. Diabetes Moderate Risk: HgA1c 6.6-7.9% and/or FBG 120- 180. Diabetes High Risk: HgA1c >/= 8% and/or FBG >180 - For Obesity/Overweight Obesity/Overweight Risk Guidelines: Obesity Low Risk: BMI <25.0. Obesity Moderate Risk: BMI 25-29.9. Obesity High Risk: BMI >/= 30.0 - For Hypertension Hypertension Risk Guidelines: Hypertension Low Risk: Systolic <120 and Diastolic <80. Hypertension Moderate Risk: Systolic 120-139 and Diastolic 80-89. Hypertension High Risk: Systolic >/= 140 and Diastolic >/= 90 - For Sedentary Lifestyle Sedentary Lifestyle Risk Guidelines: Sedentary Lifestyle Low Risk: >/= 1,500 kcal/week. Sedentary Lifestyle Moderate Risk: 700-1,499 kcal/week. Sedentary Lifestyle High Risk: < 700 kcal/week - For Depression Depression Risk Guidelines: Depression Low Risk: Not clinically depressed. Depression Moderate Risk: Mildly depressed. Depression High Risk: Clinically depressed Motivation - Motivation to Participate On a scale of 1 to 10, how prepared are you to commit to attending program?: 10 What do you see as barriers to successfully being able to complete the program?: care of significant other @ home What do you see as the benefits of succesfully completing the program? In other words, what do you hope to get out of participating in the program?: able to do more activities lessen shortness of breath, stamina Are there issues you are dealing with that will interfere with completing the program?: none Do you have a spouse or signficant other, family or friends who will help support you to complete the program?: yes Diagnostic Data Review - Pulmonary Function Test FEV1:: 1.93 - 51% FVC:: 4.09 - 83% FEV1/FVC%:: 47 Gold Classification: GOLD class II(mod. COPD)with FEV1/FVC <70%, 50%</= FEV1< 50% predicted 09/09/18 1124 <Electronically signed by Drake Goncalves CRT, RCP, BS> Date Drake Goncalves CRT, RCP, BS Outcome assessment reviewed. Exercise plan approved as documented. Treatment plan and goals support patient needs/abilities. Continue with current plan. I certify the patient demonstrates improvement and remains willing and capable of participation. the patient continues to benefit from pulmonary services/training. The patient may continue at current intensity, endurance and modality and progress per protocol. 09/13/18 190<Electronically signed by Lewis Chen MD> Cosigner Signature: Date Lewis Chen MD CC: Signed [place] - INDIVIDUAL Observed: 09/13/2018 Status: F Source: [place] TREATMENT PLAN 7:03 PM [facility] [place] RE[facility]IT[facility] Pulmonary Rehab Reports [address] [place] [address] [place] - Individual Treatment Plan MR#: [id number] Acct: [id number] Name: ERIK BETHEA Rep #: [id number] : 1960 58 From: Drake Goncalves CRT, RCP, BS PCP: [facility] General Information - Education/Goals Individual Counseling: Initial Assessment: Dyspnea control techniques at rest, activity, and ADLs, Inhaled and respiratory medications, Exacerbation prevention AND management, Smoking cessation, Advanced directives Patient Goals: Breathe better: Initial Assessment, Increase endurance/stamina: Initial Assessment, Return to recreation/hobby: Initial Assessment, Symptom management: Initial Assessment, Take medications correctly: Initial Assessment, Stop smoking/maintain cessation: Initial Assessment Exercise - Initial Assessment - Visit Date of Eval: 09/09/18 - Problem/Goals Problems: Deconditioning, No regular exercise, Knowledge deficit exercise guidelines, Knowledge deficit exercise safety Goals:: Aerobic exercise 30-60 mins x 9 weeks, [place]: 2-3/wk - Exercise Prescription Mode:: Treadmill, Rower, Airdyne Frequency (x/week): 3 Duration:: 35-45 min MET LEVEL:: 2.5 HR (bpm):: 113 - 105-113 Exercise Progression: 0.5-1.0 METs/week - Plan Plan and Plan to Review:: Benefits of exercise, Core components of exercise, How to measure dyspnea level, How to monitor dyspnea level, Exercise intensity, Exercise safety guideline, Home exercise guidelines, Idania: 3-4/11-13 Disease Management - Initial - Problems/Goals-Hypoxemia Hypoxemia Problems:: Poor knowledge of O2 use/safety Hypoxemia Goals:: Hypoxemia managed - Problems/Goals-Medications Medication Problems:: Incorrect inahled Rx use, technique Medication Goals: Adherence to prescribed medications, Correct technique/timing AND care of MDI, DPI, nebulizer, and spacer. - Problems/Goals-Bronchial Hygiene Bronchial Hygiene Problems:: Respiratory infection Prevention/Management Bronchial Hygiene Goals:: Pt describes signs and symptoms of infection. - Initial Assessment SpO2:: 97 FiO2:: 21 Does pt report taking home meds as prescribed?: Yes Medications: Yes MDI, Yes DPI, No Spacer Patient Reports:: Prod cough daily <1 Tbsp - Plans Hypoxemia Plan:: Monitor SpO2 rest AND with exercise, Train appropriate O2 use with exercise, Train O2 safety AND systems Reviewed prescribed medications:: Purpose, Schedule, Side effects, Importance of compliance Instruct correct technique/timing AND care:: MDI, DPI, Nebulizer, Return demo use of inhaler Bronchial Hygiene Plan: Controlled cough, Role of exercise in secretion clearance, Hydration, Hand hygiene, Signs/symptoms to report: Psychosocial - Initial Assess - Problems/Goals Problems: Impaired Q.O.L. Psychosocial Goals: Improved Q.O.L. - Psychosocial Test Depression:: Impaired QOL Referred to MD for counseling:: No - Plan Instructions given regarding:: Benefits of exercise, Relaxation techniques, Training in coping strategies Tobacco - Initial Assessment - Program Goals Tobacco Program Goals: Complete smoking cessation. Attend education classes. Improve Knowledge Test score - Stage of Change Stages of Change:: Action - Learning Barriers Learning Barriers: Vision, Ready to Learn - Family Support Do you have family support?: Yes - Tobacco Use Tobacco Use: Cigarettes How many cigarettes do you smoke per day?: 10 - >10/day Do you use smokeless tobacco?: No - Intervention Smoking Cessation Referral:: Yes - Patient needs Smoking Cessation Counseling; he is scheduled at 10:00 MWF Individual Education/Counseling:: Yes Education Schedule Given:: Yes - Education Gave Education Materials For:: Tobacco Triggers, Pulmonary Disease, Risk Factors, Breathing Techniques, Medical Compliance, Pulmonary A AND P, Exacerbation Signs AND Symptoms, Stress AND Relaxation Nutrition/Wt Mgmt - Initial - Problems/Goals Goals: BMI 21-25 - Weight Management Knowledge Deficit Management of:: Lack of vitamin D/Ca++ supplement Admit Height:: 5 ft 10 in Admit Weight:: 147 lb 3.2 oz Admit BMI:: 21.1 - Diabetes Diabetes:: No - Intervention Referral to dietitian:: No Referral to Diabetic Clinic:: No Will attend diet classes:: Yes - Plan Nutrition Plan: Yes Review BMI or WC AND identify target wt AND strategies for wt control, Yes Nutrition education class:, Yes Medication education class [Prednisone]:, Yes Education re: Need for ongoing weight monitoring Patient Health Questionnaire Initial Assessment 1. Little interest or pleasure in doing things: Not at all 2. Feeling down, depressed, or hopeless: Not at all 3. Trouble falling or staying asleep, or sleeping too much: Not at all 4. Feeling tired or having little energy: More than half the days 5. Poor appetite or overeating: Not at all 6. Feeling bad about yourself -- or that you are a failure or have let yourself or your family down: Not at all 7. Trouble concentrating on things, such as reading the newspaper or watching television: Not at all 8. Moving or speaking so slowly that other people could have noticed. Or the opposite - being so fidgety or restless that you have been moving around a lot more than usual: Not at all 9. Thoughts that you would be better off , or of hurting yourself in some way: Not at all How difficult have these problems made it for you to do your work, take care of things at home, or get along with other people?: Not difficult at all Total Score: 2 COPD Knowledge Test Initial COPD is a lung disease that:: Makes it hard to breathe AND gets worse over time In the [place] the term COPD describes 2 main lung conditions:: Emphysema AND chronic bronchitis The most common lung irritant that causes COPD is:: Cigarette smoke Common signs and symptoms of COPD include:: An ongoing cough/cough that produces a large amount of mucus, AND SOB If you have COPD, what steps can you take?: All of the above Swelling of the ankles is common in COPD:: False Fatigue [tiredness] is common in COPD:: False Wheezing is common in COPD:: True Crushing chest pain is common in COPD:: False Rapid weight loss is common in COPD:: False Breathlessness is a normal response to exercise: True Exercise should be avoided if it makes you short of breath: False All bronchodilators act within 10 minutes: True A spacer device increases the medication to the lungs: True Annual flu vaccine is recommended for pts w/lung disease: True COPD Knowledge Test Total Score:: 13 COPD Assessment Test [CAT] - Questions Never cough = 0, Cough all the time = 5: 5 No phlegm = 0, Chest full of phlegm = 5: 5 No chest tightness = 0, Chest very tight = 5: 1 No breathless w/exertion = 0, Very breathless w/exertion = 5: 5 No limitations w/activity = 0, Very limited w/activity = 5: 2 Confident leaving home = 0, Not at all confident = 5: 0 Sleep soundly = 0, Don't sleep soundly = 5: 0 Lots of energy = 0, No energy at all = 5: 3 Total CAT score:: 21 Self-Efficacy Initial Assessment We would like to know how confident you are in doing certain activities. Please select your confidence level for:: Select your confidence level for the following using the scale 1-10 where 1 is not at all confident and 10 is totally confident. Your score is the average of all 6 responses. Fatigue: How confident are you that you can keep the fatigue caused by your disease from interfering with the things you want to do? Select Number: 7 Physical Discomfort or Pain: How confident are you that you can keep the physical discomfort or pain of your disease from interfering with the things you want to do? Select Number: 7 Emotional Distress: How confident are you that you can keep the emotional distress caused by your disease from interfering with the things you want to do? Select Number: 8 Other Symptoms or Health Problems: How confident are you that you can keep other symptoms or health problems from interfering with the things you want to do? Select Number: 8 Different Tasks and Activities: How confident are you that you can do the different tasks and activities needed to manage your health condition so as to reduce your need to see a doctor? Select Number: 6 Medication: How confident are you that you can do things other than just taking medication to reduce how much your illness affects your everyday life? Select Number: 8 Total Score:: 7 Nutrition Survey - Nutrition Survey Instructions Scoring Instructions: Scoring is as follows: Yes = 1 points. No = 0 point. Patient score that is >/=12 is considered to be at potential nutritional risk and could benefit from a referral to a registered dietitian. - Nutrition Survey Initial Have you lost >10 lbs over the past 2 months without trying?: No Are you following a special diet at home for diabetes, low fat, or low salt?: No Are you interested in meeting with a dietitian for help understanding your diet?: No Do you eat less than 3 meals a day?: No Do you eat fatty meats (whatley, sausage, ribs, etc), fried foods, desserts, large amounts of salad dressings, margarine, butter, or cheese most days?: Yes Do you have food allergies? [Enter types in comment field]: No Do you eat in restaurants more than 3 times a week?: No Do you season food with salt, seasoning salt, or garlic salt?: Yes Do you used canned, boxed, frozen meals, or soups, seasoning packets?: Yes Total Score:: 3 09/09/18 1202 <Electronically signed by Drake Goncalves CRT, RCP, BS> Date Drake Goncalves CRT, RCP, BS Outcome assessment reviewed. Exercise plan approved as documented. Treatment plan and goals support patient needs/abilities. Continue with current plan. I certify the patient demonstrates improvement and remains willing and capable of participation. the patient continues to benefit from pulmonary services/training. The patient may continue at current intensity, endurance and modality and progress per protocol. 09/13/18 4353<Electronically signed by Lewis Chen MD> Cosigner Signature: Date Lewis Chen MD CC: Signed CBC AND DIFFERENTIAL Collected: 09/10/2018 Status: F Source: [place] 8:37 AM CLINIC REFERENCE REPOSITORY TYPE CODE TESTS RESULT OUT OF REFERENCE UNITS RANGE LAB WBC(LOINC) 3.70-11.00 k/uL WBC High 11.19 LAB RBC(LOINC) 4.20-6.00 m/uL RBC 4.54 LAB HGB(LOINC) 13.0-17.0 g/dL Hemoglobin 14.7 LAB HCT(LOINC) 39.0-51.0 % Hematocrit 44.6 LAB MCV(LOINC) 80.0-100.0 fL MCV 98.2 LAB MCH(LOINC) 26.0-34.0 pG MCH 32.4 LAB MCHC(LOINC 30.5-36.0 g/dL ) MCHC 33.0 LAB RDWCV(LOIN 11.5-15.0 % C) RDW-CV 13.9 LAB PLTCT(LOIN 150-400 k/uL C) Platelet Count 326 LAB MPV(LOINC) 9.0-12.7 fL MPV 10.3 LAB ANEUT(LOIN % C) Neut% 66.3 LAB AANEUT([place] 1.45-7.50 k/uL NC) Abs Neut 7.41 LAB ALYMP(LOIN % C) Lymph% 22.4 LAB AALYMP([place] 1.00-4.00 k/uL NC) Abs Lymph 2.51 LAB AMONO(LOIN % C) [place]% 9.2 LAB AAMONO([place] <0.87 k/uL NC) Abs [place] High 1.03 LAB AEOS(LOINC % ) Eosin% 1.5 LAB AAEOS(LOIN <0.46 k/uL C) Abs Eosin 0.17 LAB ABASO(LOIN % C) Baso% 0.6 LAB AABASO([place] <0.11 k/uL NC) Abs Baso 0.07 LAB AUNRBC([place] 0 /100 WBC NC) NRBCs 0.0 LAB ABNRBC([place] <0.01 k/uL NC) Absolute nRBC <0.01 LAB DTYP(LOINC ) DTYPE ADIFF Performed By: #### CBCDIF, CMP, TSH, HBA1C, VITD #### [facility] Routine Lab [address] [place], [place] [address] COMP METABOLIC PANEL Collected: 09/10/2018 Status: F Source: [place] 8:37 AM CLINIC REFERENCE REPOSITORY TYPE CODE TESTS RESULT OUT OF REFERENCE UNITS RANGE LAB TP(LOINC) 6.3-8.0 g/dL Protein, Total 6.9 LAB ALB(LOINC) 3.9-4.9 g/dL Albumin 4.1 LAB CA(LOINC) 8.5-10.2 mg/dL Calcium, Total 9.6 LAB TBIL(LOINC 0.2-1.3 mg/dL ) Bilirubin, Total 0.4 LAB ALKP(LOINC 38-113 U/L ) Alkaline Phosphatase 55 LAB AST(LOINC) 14-40 U/L AST 26 LAB GLU(LOINC) 74-99 mg/dL Glucose High 108 LAB BUN(LOINC) 9-24 mg/dL BUN 12 LAB CRET(LOINC 0.73-1.22 mg/dL ) Creatinine 0.86 LAB NA(LOINC) 136-144 mmol/L Sodium 136 LAB K(LOINC) 3.7-5.1 mmol/L Potassium 4.1 LAB CL(LOINC) 97-105 mmol/L Chloride 97 LAB CO2(LOINC) 22-30 mmol/L CO2 26 LAB AGAP(LOINC 9-18 mmol/L ) Anion Gap 13 LAB ALT(LOINC) 10-54 U/L ALT 15 LAB GFRAA(LOIN C) eGFR- >60 Amer. LAB GFRNAA([place] . NC) eGFR-All Other Races >60 Performed By: #### CBCDIF, CMP, TSH, HBA1C, VITD #### [facility] Routine Lab [address] [place], [place] [address] TSH Collected: 09/10/2018 Status: F Source: [place] 8:37 AM CLINIC REFERENCE REPOSITORY TYPE CODE TESTS RESULT OUT OF RANGE REFERENCE UNITS LAB TSH(LOINC) 0.400-5.500 uU/mL TSH 2.150 Performed By: #### CBCDIF, CMP, TSH, HBA1C, VITD #### [facility] Routine Lab [address] [place], [place] [address] HEMOGLOBIN A1C Collected: 09/10/2018 Status: F Source: [place] 8:37 AM [facility] REFERENCE REPOSITORY TYPE CODE TESTS RESULT OUT OF REFERENCE UNITS RANGE LAB HGBA1C([place] 4.3-5.6 % NC) Hemoglobin A1c 5.6 LAB HBA0(LOINC mg/dL ) Est. Average Glucose 114 Performed By: #### CBCDIF, CMP, TSH, HBA1C, VITD #### [facility] Routine Lab [address] [place], [place] [address] VITAMIN D 25 HYDROXY Collected: 09/10/2018 Status: F Source: [place] 8:37 AM [facility] REFERENCE REPOSITORY TYPE CODE TESTS RESULT OUT OF REFERENCE UNITS RANGE LAB VITD(LOINC) 31.0-80.0 ng/mL Vitamin D 25 41.9 Hydroxy Performed By: #### CBCDIF, CMP, TSH, HBA1C, VITD #### [facility] Routine Lab [address] [place], [place] [address] PULMONARY VISIT REPORT Observed: 08/31/2018 Status: F Source: [place] 9:37 AM [facility] REPOSITORY Pulmonary Medicine [address] [place] [address] OFFICE VISIT Date of Service: 08/31/18 MR#: [id number] Acct: [id number] Name: ERIK BETHEA Rep #: [id number] : 1960 Provider: Hernesto Johnson MD Age/Sex: 58/M Location: [facility] Status: Signed Assessment AND Plan Problems 1. Stage 2 moderate COPD by GOLD classification J44.9 Plan Patient is currently on triple therapy and appears to be tolerating this well. Discussed with patient about the signs and symptoms of exacerbation of the importance of avoiding such exposures. Patient also continues to smoke approximately 1/2 pack/day. Long discussion on the importance of complete smoking cessation given her advanced disease. Patient has lost 17% of lung function over the last 7 years. After extensive discussion, patient has agreed to attempt pulmonary rehab. After discussion of smoking cessation, patient states he will attempt cold turkey on September 28. Continue triple therapy. Referral to pulmonary rehab. Encourage smoking cessation. Orders Referrals: Plan Detail Follow Up 3 Months ([facility]) HPI 3 M FU: Chief Complaint: Follow-up test results Details: Patient is a 58-year-old male, currently in the care of [facility], who presents for evaluation secondary to recent test results. Since last visit, patient denies any ER visits, hospitalizations or prednisone burst. Overall, patient feels subjectively unchanged compared to previous. Patient reports that he has been compliant with Tudorza and Dulera therapy. Patient denies any complications such as thrush, hoarseness or sore throat. Patient feels that the medications are effective, but has had some difficulty with the cold weather. Patient has been using his albuterol, especially after exposure to this cold weather. Patient does report some difficulty with sleeping at night. Patient states that he typically wakes in the morning and because with production of clear sputum. Patient does not report any change in his cough production or frequency recently. Patient has attempted to cut back on his smoking. Patient rolls his own cigarettes, but estimates that he is only smoking 10/day as opposed to 20/day as he was previously. Patient states he is done this by extending periods between cigarettes. Patient does live with another smoker, but states that he has quit by cold turkey in the past. Testing personally reviewed with the patient Walking oximetry (05/27/2018): Ambulated 1079 feet over the course of 6 minutes with no significant desaturation Complete PFT (05/20/2018): Irreversible moderately severe large airways obstructive ventilatory defect with a symmetric reduction diffusing capacity and significant worsening compared to previous study in 2009 (FVC 87%, FEV1 56%, TLC 116%, DLCO 60%) HPI Comments Details: Intake Vital Signs08/31/18 Height 5 ft 10 in 08/31/18 Weight: 67.585 kg Intake Visit Reasons: 3 M FU Process Specialist Required: No Accompanied by: Self Is patient in pain?: No Allergies No Known Allergies Allergy (Verified 08/31/18 07:26) Medications Amlodipine [Norvasc] 2.5 mg PO DAILY 08/05/13 [History Confirmed 08/31/18] Doxycycline [Vibramycin] 50 mg PO DAILY 08/05/13 [History Confirmed 08/31/18] Lisinopril [Zestril] 20 mg PO QHS 08/05/13 [History Confirmed 08/31/18] Aclidinium [place] [Tudorza Pressair] 0 mcg IH BID 05/05/16 [History Confirmed 08/31/18] Albuterol Sulfate [Ventolin Hfa] 2 puff IH Q4H PRN 05/05/16 [History Confirmed 08/31/18] Pregabalin [Lyrica] 150 mg PO TID 05/05/16 [History Confirmed 08/31/18] Triamcinolone 0.1% Cream [Kenalog] 1 applic TP DAILY 05/05/16 [History Confirmed 08/31/18] mometasone-formoterol HFA 200 mcg-5 mcg/actuation aerosol inhaler 2 puff INHALATION Q12H 05/07/18 [History Confirmed 08/31/18] Ergocalciferol [Vitamin D] 50,000 unit PO SA 07/22/18 [History Confirmed 08/31/18] PFSH Medical History Alcoholic fatty liver (Chronic) Nicotine dependence (Chronic) Alcohol abuse (Chronic) GERD (gastroesophageal reflux disease) (Chronic) Vitamin D deficiency (Chronic) Hypertension (Chronic) Hyponatremia (Acute) COPD (chronic obstructive pulmonary disease) (Chronic) Social History Smoking Status: Current every day smoker second hand exposure: Yes alcohol intake: current alcohol intake frequency: a few times a week Alcohol type: beer substance use type: does not use Review of Systems Const CONSTITUTIONAL: Positive fatigue; negative anorexia, body ache, chills, daytime sleepiness, fever(s), night sweats, oral thrush, stops breathing during sleep, weight loss, sleeping in chair, weight loss, weight gain, frequent colds, seasonal allergies, other, headache(s) or orthopnea EETM Ear Nose Throat Mouth: Positive hearing normal; negative hoarseness, dry mouth in morning, change in vision, itchy eyes, eye pain, swallowing Difficulty, ear pain, headache(s), mouth pain, nasal congestion, nasal discharge, sinus pain, sinus pressure, sore throat, other, hard of hearing, nose bleed or post nasal drip Cardio Cardiovascular: Negative chest pain, chest pain at rest, chest pain with activity, irregular heart rhythm, edema, shortness of breath when lying down, palpitations, other or murmur Resp Respiratory: Positive as per HPI, shortness of breath shortness of breath: Positive with activity, wheezing, cough cough: Positive productive color: Positive clear and inhalers; negative pain with cough, chest congestion, chest tightness, pain on inspiration, increase use of rescue inhalers, snoring, apnea or other Gastro Gastrointestional: Negative bloody stools, change in appetite, difficulty swallowing, reflux, hematemesis, melena stool, loose stool, constipation or other Genitourinary: Negative blood in urine, nocturia, pain with urination or other Musc Musculoskeletal: Negative body pain, back pain, neck pain or other Skin/Breast Skin/Breast: Negative dry skin, itching, unusual bruising, breast lump, other or rash Neuro Neurological: Negative restless legs, confusion, weakness or other Psych Psychocological: Negative abnormal sleep pattern, anxiety, thoughts of hurting self/others, hopelessness or other Lymph Lymphatic: Negative easy bleeding, easy bruising, other or swollen lymph nodes Exam Const Constitutional: Positive conversant, cooperative, in no acute respiratory distress, healthy appearing, well developed, well nourished, good hygiene, appears older than stated age, smells of smoke and thin; negative ill appearing or wearing supplemental oxygen Head Head: Positive normocephalic and atraumatic; negative cyanosis of lips/distal nose, frontal sinus tenderness or maxillary sinus tenderness Eyes Eye: Positive clear conjunctiva; negative nystagmus, scleral abnormality or cataract present Ears Ear: Positive hearing normal and external ears normal; negative hard of hearing Nose Nose: Positive external nose normal, septum normal and no nasal discharge; negative epistaxis or nasal polyp Mouth Mouth: Positive oral mucosae normal, no lesions and posterior oropharynx is adequate; negative post nasal drip, malodorous breath or oral thrush present Mallampati Score: II: Mallampati Score Neck Neck: Positive normal visual inspection, full ROM and trachea midline; negative lymphadenopathy or JVD Chest Wall Chest: Positive symmetric chest movement and increased A/P diameter; negative crepitus or tenderness Resp lung sounds: Positive diminished and prolonged expiratory time; negative wheezes, rhonchi, rales, use of accessory muscles, wheeze present on forced exhalation or dullness to percussion Cardio Cardiac: Positive regular rate, regular rhythm, S1 normal and S2 normal; negative murmur, rub or gallop GI GI: Positive normal to inspection and normal bowel sounds; negative distended, ascites or epigastric tenderness Genitourinary: Positive deferred Musc Musculoskeletal: Positive steady gait; negative using an assistive device for ambulation, kyphosis or scoliosis Skin Pulmonary Skin Exam: Positive intact and dermal atrophy; negative rash, lesion, ulcers or scaly Pulses Pulse: Yes radial pulses present Extremities Extremities: Yes capillary refill normal, Yes clubbing, No cyanosis, No edema Tobacco stained digits Neuro Neurologic: Yes conversant, Yes no focal neuro deficits, Yes normal concentration, Yes understands questions, Yes cooperative, Yes normal cognition, Yes normal coordination Lymph Lymphatic: No lymphadenopathy Psych Appearance: Positive grossly normal Mental Status: Positive mental status grossly normal Mood: Positive congruent mood Affect: Positive normal affect Pulmonary Procedure Smoking Cessation Education: Yes education provided, 3-10 minutes, expresses understanding, continue to encourage smoking cessation and needs reinforcement Coding Level of Care Code Off vis,est,level 4 Diagnoses Stage 2 moderate COPD by GOLD classification J44.9 08/31/18 0937 <Electronically signed by Hernesto Johnson MD> Date Hernesto Johnson MD Cosigner Signature: Date (if applicable) CC: [facility] PROGRESS Observed: 08/01/2018 Status: COMPLETED Source: [place] 12:58 PM [facility] REPOSITORY HNO ID: [id number] Author: Luis Winchester Service: (none) Author Type: Physician Type: Progress Notes Filed: 08/01/2018 1:02 PM Note Text: OPERATIVE NOTATION FOR [facility] SURGICAL PROCEDURE. July 26, 2018 Leroy Bethea 1960 [id number] male PROCEDURE: COLONOSCOPY - [id number] SURGEON: Edita Winchester M.D. FACS HIV COUNSELOR: None DEPT: WQ PROVIDER: [id number] Winchester MD POS: [id number] DIAGNOSIS: (Z86.010) Personal history of colonic polyps (primary encounter diagnosis) ASA CLASS: 3 - Severe FINDINGS: COMPLICATIONS: None PMHx - PAST MEDICAL HISTORY Diagnosis Date - Back pain - COPD (chronic obstructive pulmonary disease) (HCC) - Unspecified essential hypertension COMORBIDITIES - COPD, Coumadin Tx and HTN Post Op Occurrences - None Wound Classification - Clean Contaminated Operative note dictated in the [facility] dictation system. Luis Winchester MD OPERATIVE REPORT - Observed: 07/26/2018 Status: F Source: [place] ENDOSCOPY 1:40 PM [facility] REPOSITORY [facility] Medical Records Department [address] [place] [address] Operative Report - Endoscopy MR#: [id number] Acct: [id number] Name: ERIK BETHEA Rep #: [id number] : 1960 58 From: Luis Winchester MD PCP: [facility] Status: [facility] Patient Name: Erik Bethea Procedure Date: 07/26/2018 1:04 PM Date of : 1960 Age: 58 Procedure: Colonoscopy Indications: High risk colon cancer surveillance: Personal history of colonic polyps Providers: Luis Winchester MD Referring MD: Luis Winchester MD Medicines: Monitored Anesthesia Care Patient Profile: This is a 58 year old male. Refer to note in patient chart for documentation of history and physical. Last Colonoscopy: more than 3 years ago. Complications: No immediate complications. Procedure: Pre-Anesthesia Assessment: - Prior to the procedure, a History and Physical was performed, and patient medications and allergies were reviewed. The patient is competent. The risks and benefits of the procedure and the sedation options and risks were discussed with the patient. All questions were answered and informed consent was obtained. Patient identification and proposed procedure were verified by the physician, the nurse and the care assistant in the procedure room. Mental Status Examination: alert and oriented. Airway Examination: normal oropharyngeal airway and neck mobility. Respiratory Examination: clear to auscultation. CV Examination: normal. Prophylactic Antibiotics: The patient does not require prophylactic antibiotics. Prior Anticoagulants: The patient has taken no previous anticoagulant or antiplatelet agents. ASA Grade Assessment: III - A patient with severe systemic disease. After reviewing the risks and benefits, the patient was deemed in satisfactory condition to undergo the procedure. The anesthesia plan was to use monitored anesthesia care (MAC). Immediately prior to administration of medications, the patient was re-assessed for adequacy to receive sedatives. The heart rate, respiratory rate, oxygen saturations, blood pressure, adequacy of pulmonary ventilation, and response to care were monitored throughout the procedure. The physical status of the patient was re-assessed after the procedure. After I obtained informed consent, the scope was passed under direct vision. Throughout the procedure, the patient's blood pressure, pulse, and oxygen saturations were monitored continuously. The Colonoscope was introduced through the anus and advanced to the cecum, identified by the appendiceal orifice, ileocecal valve and palpation. The colonoscopy was performed without difficulty. The patient tolerated the procedure well. The quality of the bowel preparation was good. Scope In: 1:23:46 PM Scope Withdrawal Time 0 hours 7 minutes 42 seconds Scope Out: 1:36:10 PM Total Procedure Duration Time 0 hours 12 minutes 24 seconds Findings: The perianal and digital rectal examinations were normal. A few medium-mouthed diverticula were found in the sigmoid colon. The exam was otherwise without abnormality. The retroflexed view of the distal rectum and anal verge was normal and showed no anal or rectal abnormalities. Impression: - Diverticulosis in the sigmoid colon. - The examination was otherwise normal. - The distal rectum and anal verge are normal on retroflexion view. - No specimens collected. Recommendation: - Discharge patient to home. - Resume previous diet. - Continue present medications. - Repeat colonoscopy in 5 years for surveillance. Luis Winchester MD 07/26/2018 1:39:55 PM This report has been signed electronically. Number of Addenda: 0 Note Initiated On: 07/26/2018 1:04 PM 07/26/18 1340 Date Luis Winchester [facility] Signature: Date (if indicated) CC: Triny TEJADA; Luis Winchester MD; [facility] Date Dictated: 07/26/18 1304 Date Transcribed: Deli Manager: DANI Signed HISTORY AND PHYSICAL Observed: 07/26/2018 Status: F Source: [place] EXAM 11:57 AM [facility] REPOSITORY [facility] Medical Records Department [address] [place] [address] History and Physical 07/26/18 1155 MR#: [id number] Acct: [id number] Name: ERIK BETHEA Rep #: [id number] : 1960 58 From: Luis Winchester MD PCP: [facility] Status: REG [facility] Y Location: [place] [address] History and Physical Date of Admission: 07/26/18 The patient presents today to update H AND P for procedure scheduled with Dr. Winchester, at [facility] on , with MAC sedation. His PCP is reported to be Triny Patel, at the [facility]. I initially saw him on 06/02/18. That note has been reviewed. The patient has a history of polyps. The patient sees pain management, in [place], due to chronic back pain. The patient drinks a lcohol mostly onthe weekends and uses cannabis a few times a week. He also has mild anxi ety issues, but doesn't see anyone. The patient requested [facility] due to transporta tion issues. The patient was seen by Dr. Hwang for colonoscopy 05/16/15. The procedure r eport has been reviewed and findings as follows: Impression: - Diverticulosis in the sigmoid colon and in thedescending colon. - Two 5 mm polyps in the transverse co rene and in the ascending colon. Resected and retrieved. - One 10 mm polyp in the descending colon. Resected and retrieved . - One 25 mm polyp at 20 cm proximal to the anus. Resected and retrieved. Clips were placed. FINAL DIAGNOSIS 1. Ascending colon, polypecto my (A) - Colonic mucosa with no significant diagnostic alteration. 2. Transverse colon, poly pectomy (B) - Colonic mucosa with no significant diagnostic alteration. 3. Descending colon, polypectomy (C) - Fragments of tubular adenoma. 4. Colon, at 20 cm, polypectomy (D) - Tubula r adenoma. I have reviewed the procedure and pathology reports, as well as the images, with t he patient. Three year surveillance was recommended by Dr Hwang. Presenting complaint: The patient denies change in bowel habits, rectal bleeding or abdominal pain. Having a bowel mo vement daily. The patient denies any upper GI complaints. He is edentulous and notes that eating chewy bread crust is difficult. He plans to get dentures as soonas possible. REVI EW OF SYSTEMS: GENERAL: No weight loss, malaise or fevers. Plans to see dentist at [facility] egarding dentures. RESPIRATORY: COPD. Uses inhalers. CARDIOVASCULAR: Hypertension. On presc riptions with good control. GI: The patient states that his appetite has been good. He does g et hungry. There has been no nausea, no vomiting. He denies dysphagia and denies odynophagia. T here has not been indigestion or heartburn. There has not been regurgitation. Bowel habits have been regular. There has not been diarrhea. There has not been constipation. The patient denies rectalbleeding. There has not been melena. No abdominal pain. MUSCULOSKELETAL: Back pain relie liane with Lyrica and a TENS unit he uses once a day. PSYCH: Admits to mild situational anxiety. Negative for sleep disturbance, mood disorder and recent psychosocial stressors. HEMATOLOGY/LY MPHOLOGY Denies prolonged bleeding, bruising easily or swollen nodes ENDOCRINE: Denies diabetes or thyroid. NEURO:Denieshistory of headaches, syncope, paralysis, seizures or tremors All othe r reviewed and negative other than HPI. PAST MEDICAL HISTORY PAST MEDICAL HISTORY Diagnosis Date Back pain COPD (chronic obstructive pulmonary disease) (HCC) Unspec ified essential hypertension PAST SURGICAL HISTORY PAST SURGICAL HISTORY Pr ocedure Laterality Date COLONOSCOP W/ OR W/O [facility] SPEC 05/16/15 Colonoscopy PAST SURG ICAL HISTORY OF 2005 implant on right eye PAST SURGICAL HISTORY OF 2013 growth rem elisabeth from throat FAMILY HISTORY FAMILYHISTORY Problem Relation Age of Onset other (lung cancer) Mother other (esophageal cancer) Father CURRENT MEDICATI ONS Current Outpatient Prescriptions: aclidinium bromide (TUDORZA PRESSAIR) 400 mcg/actuatio n aepb Inhale as instructed twice daily. Disp: Rfl: lisinopril (ZESTRIL, PRINIVIL) 20 mg ta blet Take 20 mg by mouth once daily. Disp: Rfl: triamcinolone (KENALOG)0.1 % lotion Apply t o affected area twice daily. Disp: Rfl: budesonide-formoterol (SYMBICORT) 80-4.5 mcg/actuati on inhaler Inhale 2 Puffs as instructed twice daily. Disp: Rfl: zolpidem (AMBIEN) 5 mg table t Take 5 mg by mouth at bedtime as needed. Disp: Rfl: gabapentin (NEURONTIN) 600 mg tablet T nicole 600 mg by mouth every 8 hours. Disp: Rfl: ALBUTEROL SULFATE (PROVENTIL HFA INHALATION)In javed as instructed as needed. Disp: Rfl: doxycycline 100 mg capsule Take 100 mg by mouth once daily. Disp: Rfl: amLODIPine (NORVASC) 2.5 mg tablet Take 2.5 mg by mouth once daily. Disp: Rfl: No current facility-administered medications for this visit. SOCIAL HISTORY: Patient is single. He quit smoking 4 years ago. He reports his alcohol use as a 12 p ack a week or so. The patient does smoke cannabis. PHYSICAL EXAMINATION: Blood pressure 12 0/71, pulse 81, height 177.8 cm (5' 10), weight 66.2 kg (146 lb). General Appearance: Well rosalind earing, alert, in no acutedistress, well-hydrated, well nourished. Skin: moderate rosacea. Head : Normocephalic, no masses, lesions or abnormalities. Eyes: Anicteric sclera. PEERLA Oropharynx : Teeth in various forms of repair.Some absent. Lips, mucosa, tongue normal, oropharynx normal. Neck: Supple, no adenopathy; thyroid symmetric, normal size. Lungs: Lungs clear to auscultatio n. No wheezing, rhonchi, rales. Heart: RRR without murmur. Abdomen: Abdomen soft, non-tender. B owel sounds normal. No masses, organomegaly. Extremities: No deformities, edema, skin discolora tion, clubbing or cyanosis. Peripheral Pulses: Normal.Neurologic: Gait normal. Reflexes normal and symmetric. Sensation grossly intact. Impression: history of polyps 2)diverticulosis 3)chronic back pain - pain management 4)COPD 5)anxiety 6)alcohol and cannabis use Plan: This patient will be scheduled for a colonoscopy. I recommend [facility] as his last procedure was [facility] and he sees pain management, drinks and [facility]. [facility] The patient will be using GoLytely as the prep. The preparation, a s well as the procedure, has been explained in detail. The risks, benefits, anticipated outcome s and possible complications were mentioned. I explained the procedure in understandable terms and the patient was given printed material concerning the planned procedure. The patient hadthe opportunity to ask questions concerning the planned procedure. The patient freely consents to the planned procedure. The patient is asked to call with any questions for concerns, or s hould there be any change in health status between now and the scheduled procedure. I have personally interviewed and examined this patient. I have read the information the MA documented in this encounter. I spent 30 minutes in the visit, with more than 50% of the total face-to-fa ce time of the visit in counseling / coordination of care. Jazmin Mock RN ROLL WEIGHER.SUPERVISOR FINISHING 07/26/18 1157 <Electronically signed by Luis Winchester MD> Date Luis Winchester MD [facility] Signature: Date (if applicable) CC: Luis Winchester MD; [facility] Signed CNOP Observed: 07/26/2018 Status: COMPLETED Source: [place] 12:00 AM [facility] REPOSITORY Operative Note (Enc) (GENSWS) Progress Notes: Luis Winchester MD 08/01/2018 1:02 PM Signed OPERATIVE NOTATION FOR [facility] SURGICAL PROCEDURE. July 26, 2018 Leroy Bethea 1960 [id number] male PROCEDURE: COLONOSCOPY - [id number] SURGEON: Edita Winchester M.D. FACS HIV COUNSELOR: None DEPT: WQ PROVIDER: [id number] Winchester MD POS: [id number] DIAGNOSIS: (Z86.010) Personal history of colonic polyps (primary encounter diagnosis) ASA CLASS: 3 - Severe FINDINGS: COMPLICATIONS: None PMHx - PAST MEDICAL HISTORY Diagnosis Date - Back pain - COPD (chronic obstructive pulmonary disease) (HCC) - Unspecified essential hypertension COMORBIDITIES - COPD, Coumadin Tx and HTN Post Op Occurrences - None Wound Classification - Clean Contaminated Operative note dictated in the [facility] dictation system. Luis Winchester MD Encounter Status:Closed by LUIS WINCHESTER MD on 08/01/18 CNOV Observed: 07/19/2018 Status: COMPLETED Source: [place] 1:20 PM [facility] REPOSITORY [facility] LEROY BETHEA ([id number]) 1960 M Date Time Provider Department 07/19/18 1:20 PM JAZMIN MOCK ([place]) [facility] During your visit today, we recorded the following information about you: Pulse Blood pressure Weight Height 81/minute 120/71 66.2 kg 1.778 m Jazmin Mock RN ROLL WEIGHER.SUPERVISOR FINISHING 07/19/2018 2:07 PM Signed The patient presents today to update [facility] for procedure scheduled with Dr. Winchester, at [facility] on 07/26/18, with MAC sedation. His PCP is reported to be Triny Patel, at the [facility]. I initially saw him on 06/02/18. That note has been reviewed. The patient has a history of polyps. The patient sees pain management, in [place], due to chronic back pain. The patient drinks alcohol mostly on the weekends and uses cannabis a few times a week. He also has mild anxiety issues, but doesn't see anyone. The patient requested [facility] due to transportation issues. ? The patient was seen by Dr. Hwang for colonoscopy 05/16/15. The procedure report has been reviewed and findings as follows: Impression: ? - Diverticulosis in the sigmoid colon and in the ? descending colon. ? - Two 5 mm polyps in the transverse colon and in the ? ascending colon. Resected and retrieved. ? - One 10 mm polyp in the descending colon. Resected and ? retrieved. ? - One 25 mm polyp at 20 cm proximal to the anus. ? Resected and retrieved. Clips were placed. ? FINAL DIAGNOSIS 1. Ascending colon, polypectomy (A) - Colonic mucosa with no significant diagnostic alteration. 2. Transverse colon, polypectomy (B) - Colonic mucosa with no significant diagnostic alteration. 3. Descending colon, polypectomy (C) - Fragments of tubular adenoma. 4. Colon, at 20 cm, polypectomy (D) - Tubular adenoma. ? I have reviewed the procedure and pathology reports, as well as the images, with the patient. Three year surveillance was recommended by Dr Hwang. ? ? Presenting complaint: The patient denies change in bowel habits, rectal bleeding or abdominal pain. Having a bowel movement daily. ? The patient denies any upper GI complaints. He is edentulous and notes that eating chewy bread crust is difficult. He plans to get dentures as soon as possible. ? REVIEW OF SYSTEMS: GENERAL: No weight loss, malaise or fevers. Plans to see dentist at [facility] regarding dentures. RESPIRATORY: COPD. Uses inhalers. CARDIOVASCULAR: Hypertension. On prescriptions with good control. GI: The patient states that his appetite has been good. He does get hungry. There has been no nausea, no vomiting. He denies dysphagia and denies odynophagia. There has not been indigestion or heartburn. There has not been regurgitation. Bowel habits have been regular. There has not been diarrhea. There has not been constipation. The patient denies rectal bleeding. There has not been melena. No abdominal pain. MUSCULOSKELETAL: Back pain relieved with Lyrica and a TENS unit he uses once a day. PSYCH: Admits to mild situational anxiety. Negative for sleep disturbance, mood disorder and recent psychosocial stressors. HEMATOLOGY/LYMPHOLOGY Denies prolonged bleeding, bruising easily or swollen nodes ENDOCRINE: Denies diabetes or thyroid. NEURO:Denies history of headaches, syncope, paralysis, seizures or tremors All other reviewed and negative other than HPI. ? ? PAST?MEDICAL?HISTORY PAST MEDICAL HISTORY Diagnosis Date - Back pain ? - COPD (chronic obstructive pulmonary disease) (HCC) ? - Unspecified essential hypertension ? ? ? PAST?SURGICAL?HISTORY PAST SURGICAL HISTORY Procedure Laterality Date - COLONOSCOP W/ OR W/O [facility] SPEC ? 05/16/15 ? Colonoscopy - PAST SURGICAL HISTORY OF ? 2005 ? implant on right eye - PAST SURGICAL HISTORY OF ? 2013 ? growth removed from throat ? ? FAMILY?HISTORY FAMILY HISTORY Problem Relation Age of Onset - other (lung cancer) Mother ? - other (esophageal cancer) Father ? ? ? CURRENT?MEDICATIONS ? Current Outpatient Prescriptions: aclidinium bromide (TUDORZA PRESSAIR) 400 mcg/actuation aepb Inhale as instructed twice daily. Disp: Rfl: lisinopril (ZESTRIL, PRINIVIL) 20 mg tablet Take 20 mg by mouth once daily. Disp: Rfl: triamcinolone (KENALOG) 0.1 % lotion Apply to affected area twice daily. Disp: Rfl: budesonide-formoterol (SYMBICORT) 80-4.5 mcg/actuation inhaler Inhale 2 Puffs as instructed twice daily. Disp: Rfl: zolpidem (AMBIEN) 5 mg tablet Take 5 mg by mouth at bedtime as needed. Disp: Rfl: gabapentin (NEURONTIN) 600 mg tablet Take 600 mg by mouth every 8 hours. Disp: Rfl: ALBUTEROL SULFATE (PROVENTIL HFA INHALATION) Inhale as instructed as needed. Disp: Rfl: doxycycline 100 mg capsule Take 100 mg by mouth once daily. Disp: Rfl: amLODIPine (NORVASC) 2.5 mg tablet Take 2.5 mg by mouth once daily. Disp: Rfl: ? No current facility-administered medications for this visit. ? ? SOCIAL HISTORY: Patient is single. He quit smoking 4 years ago. He reports his alcohol use as a 12 pack a week or so. The patient does smoke cannabis. ? ? PHYSICAL EXAMINATION: Blood pressure 120/71, pulse 81, height 177.8 cm (5' 10), weight 66.2 kg (146 lb). General Appearance: Well appearing, alert, in no acute distress, well-hydrated, well nourished. Skin: moderate rosacea. Head: Normocephalic, no masses, lesions or abnormalities. Eyes: Anicteric sclera. PEERLA Oropharynx: Teeth in various forms of repair. Some absent. Lips, mucosa, tongue normal, oropharynx normal. Neck: Supple, no adenopathy; thyroid symmetric, normal size. Lungs: Lungs clear to auscultation. No wheezing, rhonchi, rales. Heart: RRR without murmur. Abdomen: Abdomen soft, non-tender. Bowel sounds normal. No masses, organomegaly. Extremities: No deformities, edema, skin discoloration, clubbing or cyanosis. Peripheral Pulses: Normal. Neurologic: Gait normal. Reflexes normal and symmetric. Sensation grossly intact. ? ? Impression: history of polyps 2)diverticulosis 3)chronic back pain - pain management 4)COPD 5)anxiety 6)alcohol and cannabis use ? ? Plan: This patient will be scheduled for a colonoscopy. I recommend MAC as his last procedure was with MAC and he sees pain management, drinks and uses cannabis. He [facility] due to [facility] issues. The patient will be using GoLytely as the prep. The preparation, as well as the procedure, has been explained in detail. The risks, benefits, anticipated outcomes and possible complications were mentioned. I explained the procedure in understandable terms and the patient was given printed material concerning the planned procedure. The patient had the opportunity to ask questions concerning the planned procedure. The patient freely consents to the planned procedure. ? The patient is asked to call with any questions for concerns, or should there be any change in health status between now and the scheduled procedure. ? I have personally interviewed and examined this patient. I have read the information the MA documented in this encounter. I spent 30 minutes in the visit, with more than 50% of the total atkp-ly-fdel time of the visit in counseling / coordination of care. Jazmin Mock RN APRN.FELICITY Mock RN APRN.FELICITY 07/19/2018 1:51 PM Signed Please follow the provided instructions for colonoscopy. You will be using GoLytely as the laxative during the preparation. You may start the laxative as early as 1:00 in the afternoon. Your procedure will be with Dr. Winchester, on July 26. Referring Provider: SELF [[id number]] Allergies As of Date: 07/19/2018 (No Known Allergies) Date Reviewed: 07/19/2018 Reviewed by: Jackie Luna Ma - Fully Assessed Reason for Visit: Colonoscopy Consultation [Other] Primary Visit Diagnosis:Encounter for colonoscopy due to history of adenomatous colonic polyps [Z12.11, Z86.010] Order(s):COLONOSCOPY GEN ANES [[id number]] Order #: [id number] FUTURE peg 3350-electrolytes (COLYTE) 240-22.72-6.72 -5.84 gram solutionTake 4,000 mL by mouth one time only for 1 dose.Disp: 1 BottleRfl: 0 Prescriptions as of 07/19/2018 Sig: PEG 3350 240 GRAM-ELECTROLYTE* Take 4,000 mL by mouth one ti* LYRICA 150 MG CAPSULE Take 150 mg by mouth three ti* DULERA 200 MCG-5 MCG/ACTUATIO* Inhale 2 Puffs as instructed * VITAMIN D2 50,000 UNIT CAPSULE Take 1 capsule by mouth once * DOXYCYCLINE MONOHYDRATE 50 MG* Take 50 mg by mouth once huang* VENTOLIN HFA 90 MCG/ACTUATION* Inhale 2 Puffs as instructed * ACLIDINIUM BROMIDE 400 MCG/AC* Inhale as instructed twice d* LISINOPRIL 20 MG TABLET Take 20 mg by mouth once huang* TRIAMCINOLONE ACETONIDE 0.1 %* Apply to affected area twice* * PROVENTIL HFA INHALATION Inhale as instructed as need* * AMLODIPINE 2.5 MG TABLET Take 2.5 mg by mouth once santino* Problem List As Of Date 07/19/2018 Noted Resolved Sebaceous cyst [L72.3] INVALID FOR* Unspecified essential hypertension [I10] Back pain [M54.9] COPD (chronic obstructive pulmonary disease) (H*INVALID FOR* Special screening for malignant neoplasms, colo*INVALID FOR* Other instructions from your clinician: Please follow the provided instructions for colonoscopy. You will be using GoLytely as the laxative during the preparation. You may start the laxative as early as 1:00 in the afternoon. Your procedure will be with Dr. Winchester, on July 26. Prescriptions ordered this encounter Disp Refills Start End PEG 3350 240 GRAM-ELECTROLYTES 22.72* 1 Aly* 0 07/19/2018 07/19/2018 Route: ORAL Sig: Take 4,000 mL by mouth one time only for 1 dose. Encounter Status:Closed by JAZMIN MOCK CNP on 07/19/18 HISTORY PHYSICAL Observed: 07/18/2018 Status: COMPLETED Source: [place] 8:36 PM [facility] [place] REPOSITORY O ID: [id number] Author: Jazmin (Clock And Watch Assembler) [place] Service: (none) Author Type: Nurse Practitioner Type: HANDP Filed: 07/19/2018 2:07 PM Note Text: The patient presents today to update HANDP for procedure scheduled with Dr. Winchester, at [facility] on 07/26/18, with MAC sedation. His PCP is reported to be Triny Patel, at the [facility]. I initially saw him on 06/02/18. That note has been reviewed. The patient has a history of polyps. The patient sees pain management, in [place], due to chronic back pain. The patient drinks alcohol mostly on the weekends and uses cannabis a few times a week. He also has mild anxiety issues, but doesn't see anyone. The patient requested [facility] due to transportation issues. ? The patient was seen by Dr. Hwang for colonoscopy 05/16/15. The procedure report has been reviewed and findings as follows: Impression: ? - Diverticulosis in the sigmoid colon and in the ? descending colon. ? - Two 5 mm polyps in the transverse colon and in the ? ascending colon. Resected and retrieved. ? - One 10 mm polyp in the descending colon. Resected and ? retrieved. ? - One 25 mm polyp at 20 cm proximal to the anus. ? Resected and retrieved. Clips were placed. ? FINAL DIAGNOSIS 1. Ascending colon, polypectomy (A) - Colonic mucosa with no significant diagnostic alteration. 2. Transverse colon, polypectomy (B) - Colonic mucosa with no significant diagnostic alteration. 3. Descending colon, polypectomy (C) - Fragments of tubular adenoma. 4. Colon, at 20 cm, polypectomy (D) - Tubular adenoma. ? I have reviewed the procedure and pathology reports, as well as the images, with the patient. Three year surveillance was recommended by Dr Hwang. ? ? Presenting complaint: The patient denies change in bowel habits, rectal bleeding or abdominal pain. Having a bowel movement daily. ? The patient denies any upper GI complaints. He is edentulous and notes that eating chewy bread crust is difficult. He plans to get dentures as soon as possible. ? REVIEW OF SYSTEMS: GENERAL: No weight loss, malaise or fevers. Plans to see dentist at [facility] regarding dentures. RESPIRATORY: COPD. Uses inhalers. CARDIOVASCULAR: Hypertension. On prescriptions with good control. GI: The patient states that his appetite has been good. He does get hungry. There has been no nausea, no vomiting. He denies dysphagia and denies odynophagia. There has not been indigestion or heartburn. There has not been regurgitation. Bowel habits have been regular. There has not been diarrhea. There has not been constipation. The patient denies rectal bleeding. There has not been melena. No abdominal pain. MUSCULOSKELETAL: Back pain relieved with Lyrica and a TENS unit he uses once a day. PSYCH: Admits to mild situational anxiety. Negative for sleep disturbance, mood disorder and recent psychosocial stressors. HEMATOLOGY/LYMPHOLOGY Denies prolonged bleeding, bruising easily or swollen nodes ENDOCRINE: Denies diabetes or thyroid. NEURO:Denies history of headaches, syncope, paralysis, seizures or tremors All other reviewed and negative other than HPI. ? ? PAST?MEDICAL?HISTORY PAST MEDICAL HISTORY Diagnosis Date - Back pain ? - COPD (chronic obstructive pulmonary disease) (HCC) ? - Unspecified essential hypertension ? ? ? PAST?SURGICAL?HISTORY PAST SURGICAL HISTORY Procedure Laterality Date - COLONOSCOP W/ OR W/O [facility] SPEC ? 05/16/15 ? Colonoscopy - PAST SURGICAL HISTORY OF ? 2005 ? implant on right eye - PAST SURGICAL HISTORY OF ? 2013 ? growth removed from throat ? ? FAMILY?HISTORY FAMILY HISTORY Problem Relation Age of Onset - other (lung cancer) Mother ? - other (esophageal cancer) Father ? ? ? CURRENT?MEDICATIONS ? Current Outpatient Prescriptions: aclidinium bromide (TUDORZA PRESSAIR) 400 mcg/actuation aepb Inhale as instructed twice daily. Disp: Rfl: lisinopril (ZESTRIL, PRINIVIL) 20 mg tablet Take 20 mg by mouth once daily. Disp: Rfl: triamcinolone (KENALOG) 0.1 % lotion Apply to affected area twice daily. Disp: Rfl: budesonide-formoterol (SYMBICORT) 80-4.5 mcg/actuation inhaler Inhale 2 Puffs as instructed twice daily. Disp: Rfl: zolpidem (AMBIEN) 5 mg tablet Take 5 mg by mouth at bedtime as needed. Disp: Rfl: gabapentin (NEURONTIN) 600 mg tablet Take 600 mg by mouth every 8 hours. Disp: Rfl: ALBUTEROL SULFATE (PROVENTIL HFA INHALATION) Inhale as instructed as needed. Disp: Rfl: doxycycline 100 mg capsule Take 100 mg by mouth once daily. Disp: Rfl: amLODIPine (NORVASC) 2.5 mg tablet Take 2.5 mg by mouth once daily. Disp: Rfl: ? No current facility-administered medications for this visit. ? ? SOCIAL HISTORY: Patient is single. He quit smoking 4 years ago. He reports his alcohol use as a 12 pack a week or so. The patient does smoke cannabis. ? ? PHYSICAL EXAMINATION: Blood pressure 120/71, pulse 81, height 177.8 cm (5' 10), weight 66.2 kg (146 lb). General Appearance: Well appearing, alert, in no acute distress, well-hydrated, well nourished. Skin: moderate rosacea. Head: Normocephalic, no masses, lesions or abnormalities. Eyes: Anicteric sclera. PEERLA Oropharynx: Teeth in various forms of repair. Some absent. Lips, mucosa, tongue normal, oropharynx normal. Neck: Supple, no adenopathy; thyroid symmetric, normal size. Lungs: Lungs clear to auscultation. No wheezing, rhonchi, rales. Heart: RRR without murmur. Abdomen: Abdomen soft, non-tender. Bowel sounds normal. No masses, organomegaly. Extremities: No deformities, edema, skin discoloration, clubbing or cyanosis. Peripheral Pulses: Normal. Neurologic: Gait normal. Reflexes normal and symmetric. Sensation grossly intact. ? ? Impression: history of polyps 2)diverticulosis 3)chronic back pain - pain management 4)COPD 5)anxiety 6)alcohol and cannabis use ? ? Plan: This patient will be scheduled for a colonoscopy. I recommend MAC as his last procedure was with MAC and he sees pain management, drinks and uses cannabis. He requests [facility] due to transportation issues. The patient will be using GoLytely as the prep. The preparation, as well as the procedure, has been explained in detail. The risks, benefits, anticipated outcomes and possible complications were mentioned. I explained the procedure in understandable terms and the patient was given printed material concerning the planned procedure. The patient had the opportunity to ask questions concerning the planned procedure. The patient freely consents to the planned procedure. ? The patient is asked to call with any questions for concerns, or should there be any change in health status between now and the scheduled procedure. ? I have personally interviewed and examined this patient. I have read the information the MA documented in this encounter. I spent 30 minutes in the visit, with more than 50% of the total ziyh-tf-pdub time of the visit in counseling / coordination of care. Jazmin Mock RN ROLL WEIGHER.SUPERVISOR FINISHING PROGRESS Observed: 06/04/2018 Status: COMPLETED Source: [place] 3:48 PM [facility] REPOSITORY HNO ID: [id number] Author: David Choi Service: (none) Author Type: (none) Type: Progress Notes Filed: 06/04/2018 3:51 PM Note Text: Patient explained to me Sheron called and referred him to Dr Jacob and Aleshia. . However after speaking to the patient they decided to stay within the [facility] ~ Patient will be scheduled with Dr Winchester on David Choi CBC AND DIFFERENTIAL Collected: 06/04/2018 Status: F Source: [place] 8:39 AM CLINIC REFERENCE REPOSITORY TYPE CODE TESTS RESULT OUT OF REFERENCE UNITS RANGE LAB WBC(LOINC) 3.70-11.00 k/uL WBC 9.89 LAB RBC(LOINC) 4.20-6.00 m/uL RBC 4.56 LAB HGB(LOINC) 13.0-17.0 g/dL Hemoglobin 14.4 LAB HCT(LOINC) 39.0-51.0 % Hematocrit 42.8 LAB MCV(LOINC) 80.0-100.0 fL MCV 93.9 LAB MCH(LOINC) 26.0-34.0 pG MCH 31.6 LAB MCHC(LOINC 30.5-36.0 g/dL ) MCHC 33.6 LAB RDWCV(LOIN 11.5-15.0 % C) RDW-CV 13.4 LAB PLTCT(LOIN 150-400 k/uL C) Platelet Count 319 LAB MPV(LOINC) 9.0-12.7 fL MPV 10.0 LAB ANEUT(LOIN % C) Neut% 62.4 LAB AANEUT([place] 1.45-7.50 k/uL NC) Abs Neut 6.17 LAB ALYMP(LOIN % C) Lymph% 27.3 LAB AALYMP([place] 1.00-4.00 k/uL NC) Abs Lymph 2.70 LAB AMONO(LOIN % C) [place]% 7.6 LAB AAMONO([place] <0.87 k/uL NC) Abs [place] 0.75 LAB AEOS(LOINC % ) Eosin% 2.2 LAB AAEOS(LOIN <0.46 k/uL C) Abs Eosin 0.22 LAB ABASO(LOIN % C) Baso% 0.5 LAB AABASO([place] <0.11 k/uL NC) Abs Baso 0.05 LAB AUNRBC([place] 0 /100 WBC NC) NRBCs 0.0 LAB ABNRBC([place] <0.01 k/uL NC) Absolute nRBC <0.01 LAB DTYP(LOINC ) DTYPE ADIFF COMP METABOLIC PANEL Collected: 06/04/2018 Status: F Source: [place] 8:39 AM CLINIC REFERENCE REPOSITORY TYPE CODE TESTS RESULT OUT OF REFERENCE UNITS RANGE LAB TP(LOINC) 6.3-8.0 g/dL Protein, Total 6.7 LAB ALB(LOINC) 3.9-4.9 g/dL Albumin 4.1 LAB CA(LOINC) 8.5-10.2 mg/dL Calcium, Total 9.3 LAB TBIL(LOINC 0.2-1.3 mg/dL ) Bilirubin, Total 0.4 LAB ALKP(LOINC 36-108 U/L ) Alkaline Phosphatase 59 LAB AST(LOINC) 14-40 U/L AST 35 LAB GLU(LOINC) 74-99 mg/dL Glucose High 102 LAB BUN(LOINC) 9-24 mg/dL Low BUN 5 LAB CRET(LOINC 0.73-1.22 mg/dL ) Creatinine 0.80 LAB NA(LOINC) 136-144 mmol/L Low Sodium 127 LAB K(LOINC) 3.7-5.1 mmol/L Potassium 4.0 LAB CL(LOINC) 97-105 mmol/L Low Chloride 89 LAB CO2(LOINC) 22-30 mmol/L Low CO2 20 LAB AGAP(LOINC 9-18 mmol/L ) Anion Gap 18 LAB ALT(LOINC) 10-54 U/L ALT 18 LAB GFRAA(LOIN C) eGFR- >60 Amer. LAB GFRNAA([place] . NC) eGFR-All Other Races >60 LIPID PANEL, BASIC Collected: 06/04/2018 Status: F Source: [place] 8:39 AM CLINIC REFERENCE REPOSITORY TYPE CODE TESTS RESULT OUT OF REFERENCE UNITS RANGE LAB CHOL(LOINC <200 mg/dL ) Cholesterol 126 LAB TRIGLY([place] <150 mg/dL NC) Triglyceride 52 LAB HDL(LOINC) >39 mg/dL HDL-Cholesterol 66 LAB LDL(LOINC) <100 mg/dL LDL-Cholesterol 50 LAB NONHDL([place] <130 mg/dL NC) Non HDL Cholesterol 60 LAB FT(LOINC) hrs Fasting Time 12 LAB VLDL(LOINC <30 mg/dL ) VLDL Cholesterol 10 LAB TCHDL(LOIN <5.10 C) TC:HDL Ratio 1.91 LAB LDLHDL([place] <2.54 NC) LDL:HDL Ratio 0.76 HEMOGLOBIN A1C Collected: 06/04/2018 Status: F Source: [place] 8:39 AM [facility] REFERENCE REPOSITORY TYPE CODE TESTS RESULT OUT OF REFERENCE UNITS RANGE LAB HGBA1C([place] 4.3-5.6 % NC) Hemoglobin A1c 5.6 LAB HBA0(LOINC mg/dL ) Est. Average Glucose 114 VITAMIN D 25 HYDROXY Collected: 06/04/2018 Status: F Source: [place] 8:39 AM [facility] REFERENCE REPOSITORY TYPE CODE TESTS RESULT OUT OF REFERENCE UNITS RANGE LAB VITD(LOINC) 31.0-80.0 ng/mL Vitamin D 25 44.1 Hydroxy HISTORY PHYSICAL Observed: 06/02/2018 Status: COMPLETED Source: [place] 2:16 PM [facility] REPOSITORY HNO ID: [id number] Author: Jazmin Mock Service: (none) Author Type: Nurse Practitioner Type: HANDP Filed: 06/02/2018 5:26 PM Note Text: Leroy Bethea a 58 year old male who is returning for surveillance colonoscopy. His PCP is reported to be Triny Patel, at the [facility]. The patient was seen by Dr. Hwang for colonoscopy 05/16/15. The procedure report has been reviewed and findings as follows: Impression: ? ? - Diverticulosis in the sigmoid colon and in the ? descending colon. ? - Two 5 mm polyps in the transverse colon and in the ? ascending colon. Resected and retrieved. ? - One 10 mm polyp in the descending colon. Resected and ? retrieved. ? - One 25 mm polyp at 20 cm proximal to the anus. ? Resected and retrieved. Clips were placed. FINAL DIAGNOSIS 1. Ascending colon, polypectomy (A) - Colonic mucosa with no significant diagnostic alteration. 2. Transverse colon, polypectomy (B) - Colonic mucosa with no significant diagnostic alteration. 3. Descending colon, polypectomy (C) - Fragments of tubular adenoma. 4. Colon, at 20 cm, polypectomy (D) - Tubular adenoma. I have reviewed the procedure and pathology reports, as well as the images, with the patient. Three year surveillance was recommended by Dr Hwang. Presenting complaint: The patient denies change in bowel habits, rectal bleeding or abdominal pain. Having a bowel movement daily. REVIEW OF SYSTEMS: GENERAL: No weight loss, malaise or fevers RESPIRATORY: Reported history of COPD. Uses inhalers. CARDIOVASCULAR: Hypertension. On prescriptions with good control. GI: The patient states that his appetite has been good. He does get hungry. There has been no nausea, no vomiting. He denies dysphagia and denies odynophagia. There has not been indigestion or heartburn. There has not been regurgitation. Bowel habits have been regular. There has not been diarrhea. There has not been constipation. The patient denies rectal bleeding. There has not been melena. No abdominal pain. MUSCULOSKELETAL: Back pain relieved with Lyrica. Has a TENS unit he uses once a day. PSYCH: Negative for sleep disturbance, mood disorder and recent psychosocial stressors. HEMATOLOGY/LYMPHOLOGY Negative for prolonged bleeding, bruising easily or swollen nodes ENDOCRINE: Negative for cold or heat intolerance, polyuria, polydipsia and goiter NEURO: No history of headaches, syncope, paralysis, seizures or tremors All other reviewed and negative other than HPI. PAST MEDICAL HISTORY Diagnosis Date - Back pain - COPD (chronic obstructive pulmonary disease) (HCC) - Unspecified essential hypertension PAST SURGICAL HISTORY Procedure Laterality Date - COLONOSCOP W/ OR W/O [facility] SPEC 05/16/15 Colonoscopy - PAST SURGICAL HISTORY OF 2005 implant on right eye - PAST SURGICAL HISTORY OF 2013 growth removed from throat FAMILY HISTORY Problem Relation Age of Onset - other (lung cancer) Mother - other (esophageal cancer) Father Current Outpatient Prescriptions: aclidinium bromide (TUDORZA PRESSAIR) 400 mcg/actuation aepb Inhale as instructed twice daily. Disp: Rfl: lisinopril (ZESTRIL, PRINIVIL) 20 mg tablet Take 20 mg by mouth once daily. Disp: Rfl: triamcinolone (KENALOG) 0.1 % lotion Apply to affected area twice daily. Disp: Rfl: budesonide-formoterol (SYMBICORT) 80-4.5 mcg/actuation inhaler Inhale 2 Puffs as instructed twice daily. Disp: Rfl: zolpidem (AMBIEN) 5 mg tablet Take 5 mg by mouth at bedtime as needed. Disp: Rfl: gabapentin (NEURONTIN) 600 mg tablet Take 600 mg by mouth every 8 hours. Disp: Rfl: ALBUTEROL SULFATE (PROVENTIL HFA INHALATION) Inhale as instructed as needed. Disp: Rfl: doxycycline 100 mg capsule Take 100 mg by mouth once daily. Disp: Rfl: amLODIPine (NORVASC) 2.5 mg tablet Take 2.5 mg by mouth once daily. Disp: Rfl: No current facility-administered medications for this visit. SOCIAL HISTORY: Patient is single. He quit smoking 4 years ago. He reports his alcohol use as a 12 pack a week or so. The patient does smoke cannabis. PHYSICAL EXAMINATION: Blood pressure 132/72, pulse 75, height 177.8 cm (5' 10), weight 67.1 kg (148 lb). General Appearance: Well appearing, alert, in no acute distress, well-hydrated, well nourished. Skin: moderate rosacea. Head: Normocephalic, no masses, lesions or abnormalities. Eyes: Anicteric sclera. PEERLA Oropharynx: Teeth in various forms of repair. Some absent. Lips, mucosa, tongue normal, oropharynx normal. Neck: Supple, no adenopathy; thyroid symmetric, normal size. Lungs: Lungs clear to auscultation. No wheezing, rhonchi, rales. Heart: RRR without murmur. Abdomen: Abdomen soft, non-tender. Bowel sounds normal. No masses, organomegaly. Extremities: No deformities, edema, skin discoloration, clubbing or cyanosis. Peripheral Pulses: Normal. Neurologic: Gait normal. Reflexes normal and symmetric. Sensation grossly intact. Impression: history of polyps 2)diverticulosis 3)chronic back pain - pain management 4)anxiety 5)alcohol and cannabis use Plan: This patient will be scheduled for a colonoscopy. I recommend MAC as his last procedure was with MAC and he has anxiety issues, sees pain management, drinks and uses cannabis. He requests [facility] due to transportation issues. The patient will be using GoLytely as the prep. The preparation, as well as the procedure, has been explained in detail. The risks, benefits, anticipated outcomes and possible complications were mentioned. I explained the procedure in understandable terms and the patient was given printed material concerning the planned procedure. The patient had the opportunity to ask questions concerning the planned procedure. The patient freely consents to the planned procedure. The patient is asked to call with any questions for concerns, or should there be any change in health status between now and the scheduled procedure. I have personally interviewed and examined this patient. I have read the information the MA documented in this encounter. I spent 30 minutes in the visit, with more than 50% of the total [id number] time of the visit in counseling / coordination of care. Jazmin Mock RN APRN.FELICITY CASTRO Observed: 06/02/2018 Status: COMPLETED Source: [place] 2:00 PM [facility] REPOSITORY [facility] LEROY BETHEA ([id number]) 1960 M Date Time Provider Department 06/02/18 2:00 PM JAZMIN MOCK ([place]) [facility] During your visit today, we recorded the following information about you: Pulse Blood pressure Weight Height 75/minute 132/72 67.1 kg 1.778 m Jazmin Mock RN ROLL WEIGHER.SUPERVISOR FINISHING 06/02/2018 5:26 PM Signed Leroy Bethea a 58 year old male who is returning for surveillance colonoscopy. His PCP is reported to be Triny Patel, at the [facility]. The patient was seen by Dr. Hwang for colonoscopy 05/16/15. The procedure report has been reviewed and findings as follows: Impression: ? ? - Diverticulosis in the sigmoid colon and in the ? descending colon. ? - Two 5 mm polyps in the transverse colon and in the ? ascending colon. Resected and retrieved. ? - One 10 mm polyp in the descending colon. Resected and ? retrieved. ? - One 25 mm polyp at 20 cm proximal to the anus. ? Resected and retrieved. Clips were placed. FINAL DIAGNOSIS 1. Ascending colon, polypectomy (A) - Colonic mucosa with no significant diagnostic alteration. 2. Transverse colon, polypectomy (B) - Colonic mucosa with no significant diagnostic alteration. 3. Descending colon, polypectomy (C) - Fragments of tubular adenoma. 4. Colon, at 20 cm, polypectomy (D) - Tubular adenoma. I have reviewed the procedure and pathology reports, as well as the images, with the patient. Three year surveillance was recommended by Dr Hwang. Presenting complaint: The patient denies change in bowel habits, rectal bleeding or abdominal pain. Having a bowel movement daily. REVIEW OF SYSTEMS: GENERAL: No weight loss, malaise or fevers RESPIRATORY: Reported history of COPD. Uses inhalers. CARDIOVASCULAR: Hypertension. On prescriptions with good control. GI: The patient states that his appetite has been good. He does get hungry. There has been no nausea, no vomiting. He denies dysphagia and denies odynophagia. There has not been indigestion or heartburn. There has not been regurgitation. Bowel habits have been regular. There has not been diarrhea. There has not been constipation. The patient denies rectal bleeding. There has not been melena. No abdominal pain. MUSCULOSKELETAL: Back pain relieved with Lyrica. Has a TENS unit he uses once a day. PSYCH: Negative for sleep disturbance, mood disorder and recent psychosocial stressors. HEMATOLOGY/LYMPHOLOGY Negative for prolonged bleeding, bruising easily or swollen nodes ENDOCRINE: Negative for cold or heat intolerance, polyuria, polydipsia and goiter NEURO: No history of headaches, syncope, paralysis, seizures or tremors All other reviewed and negative other than HPI. PAST MEDICAL HISTORY Diagnosis Date - Back pain - COPD (chronic obstructive pulmonary disease) (HCC) - Unspecified essential hypertension PAST SURGICAL HISTORY Procedure Laterality Date - COLONOSCOP W/ OR W/O [facility] SPEC 05/16/15 Colonoscopy - PAST SURGICAL HISTORY OF 2005 implant on right eye - PAST SURGICAL HISTORY OF 2013 growth removed from throat FAMILY HISTORY Problem Relation Age of Onset - other (lung cancer) Mother - other (esophageal cancer) Father Current Outpatient Prescriptions: aclidinium bromide (TUDORZA PRESSAIR) 400 mcg/actuation aepb Inhale as instructed twice daily. Disp: Rfl: lisinopril (ZESTRIL, PRINIVIL) 20 mg tablet Take 20 mg by mouth once daily. Disp: Rfl: triamcinolone (KENALOG) 0.1 % lotion Apply to affected area twice daily. Disp: Rfl: budesonide-formoterol (SYMBICORT) 80-4.5 mcg/actuation inhaler Inhale 2 Puffs as instructed twice daily. Disp: Rfl: zolpidem (AMBIEN) 5 mg tablet Take 5 mg by mouth at bedtime as needed. Disp: Rfl: gabapentin (NEURONTIN) 600 mg tablet Take 600 mg by mouth every 8 hours. Disp: Rfl: ALBUTEROL SULFATE (PROVENTIL HFA INHALATION) Inhale as instructed as needed. Disp: Rfl: doxycycline 100 mg capsule Take 100 mg by mouth once daily. Disp: Rfl: amLODIPine (NORVASC) 2.5 mg tablet Take 2.5 mg by mouth once daily. Disp: Rfl: No current facility-administered medications for this visit. SOCIAL HISTORY: Patient is single. He quit smoking 4 years ago. He reports his alcohol use as a 12 pack a week or so. The patient does smoke cannabis. PHYSICAL EXAMINATION: Blood pressure 132/72, pulse 75, height 177.8 cm (5' 10), weight 67.1 kg (148 lb). General Appearance: Well appearing, alert, in no acute distress, well-hydrated, well nourished. Skin: moderate rosacea. Head: Normocephalic, no masses, lesions or abnormalities. Eyes: Anicteric sclera. PEERLA Oropharynx: Teeth in various forms of repair. Some absent. Lips, mucosa, tongue normal, oropharynx normal. Neck: Supple, no adenopathy; thyroid symmetric, normal size. Lungs: Lungs clear to auscultation. No wheezing, rhonchi, rales. Heart: RRR without murmur. Abdomen: Abdomen soft, non-tender. Bowel sounds normal. No masses, organomegaly. Extremities: No deformities, edema, skin discoloration, clubbing or cyanosis. Peripheral Pulses: Normal. Neurologic: Gait normal. Reflexes normal and symmetric. Sensation grossly intact. Impression: history of polyps 2)diverticulosis 3)chronic back pain - pain management 4)anxiety 5)alcohol and cannabis use Plan: This patient will be scheduled for a colonoscopy. I recommend MAC as his last procedure was with MAC and he has anxiety issues, sees pain management, drinks and uses cannabis. He requests [facility] due to transportation issues. The patient will be using GoLytely as the prep. The preparation, as well as the procedure, has been explained in detail. The risks, benefits, anticipated outcomes and possible complications were mentioned. I explained the procedure in understandable terms and the patient was given printed material concerning the planned procedure. The patient had the opportunity to ask questions concerning the planned procedure. The patient freely consents to the planned procedure. The patient is asked to call with any questions for concerns, or should there be any change in health status between now and the scheduled procedure. I have personally interviewed and examined this patient. I have read the information the MA documented in this encounter. I spent 30 minutes in the visit, with more than 50% of the total [id number] time of the visit in counseling / coordination of care. Jazmin Mock RN ROLL WEIGHER.FELICITY Mock RN APRN.FELICITY 06/02/2018 5:19 PM Addendum Please follow the provided instructions for colonoscopy. You will be using GoLytely as the laxative during the preparation. You may start the laxative as early as 1:00 in the afternoon. Your procedure will be with the deeper sedation you had before. This will be at [facility], due to your transportation problems. This might not be until late June or July. The personnel scheduler will contact you to schedule your procedure. David Choi 06/04/2018 3:51 PM Signed Patient explained to me Sheron called and referred him to Dr Jacob and Aleshia. . 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] Order(s):COLONOSCOPY GEN ANES [[id number]] Order #: [id number] FUTURE Prescriptions as of 06/02/2018 Sig: LYRICA 150 MG CAPSULE Take 150 mg by mouth three ti* DULERA 200 MCG-5 MCG/ACTUATIO* Inhale 2 Puffs as instructed * VITAMIN D2 50,000 UNIT CAPSULE Take 1 capsule by mouth once * DOXYCYCLINE MONOHYDRATE 50 MG* Take 50 mg by mouth once huang* VENTOLIN HFA 90 MCG/ACTUATION* Inhale 2 Puffs as instructed * ACLIDINIUM BROMIDE 400 MCG/AC* Inhale as instructed twice d* LISINOPRIL 20 MG TABLET Take 20 mg by mouth once huang* TRIAMCINOLONE ACETONIDE 0.1 %* Apply to affected area twice* * PROVENTIL HFA INHALATION Inhale as instructed as need* * AMLODIPINE 2.5 MG TABLET Take 2.5 mg by mouth once santino* Problem List As Of Date 06/02/2018 Noted Resolved Sebaceous cyst [L72.3] INVALID FOR* Unspecified essential hypertension [I10] Back pain [M54.9] COPD (chronic obstructive pulmonary disease) (H*INVALID FOR* Special screening for malignant neoplasms, colo*INVALID FOR* Other instructions from your clinician: Please follow the provided instructions for colonoscopy. You will be using GoLytely as the laxative during the preparation. You may start the laxative as early as 1:00 in the afternoon. Your procedure will be with the deeper sedation you had before. This will be at [facility], due to your transportation problems. This might not be until late June or July. The personnel scheduler will contact you to schedule your procedure. Medications Discontinued During This Encounter gabapentin (NEURONTIN) 600 mg tablet 06/02/2018 Class: Historical Med Route: ORAL Sig: Take 600 mg by mouth every 8 hours. Disc: Course of therapy completed zolpidem (AMBIEN) 5 mg tablet 06/02/2018 Class: Historical Med Route: ORAL Sig: Take 5 mg by mouth at bedtime as needed. Disc: Course of therapy completed doxycycline 100 mg capsule 06/02/2018 Class: Historical Med Route: ORAL Sig: Take 100 mg by mouth once daily. Disc: Reason for discontinue is not on file. budesonide-formoterol (SYMBICORT) 80* 06/02/2018 Class: Historical Med Route: INHALATION Sig: Inhale 2 Puffs as instructed twice daily. Disc: Reason for discontinue is not on file. Follow-up and Disposition History Recorded Encounter Status:Closed by JAZMIN MOCK CNP on 06/02/18 6 MINUTE WALK TEST Observed: 05/27/2018 Status: F Source: [place] 11:18 AM [facility] [place] REPOSITORY [facility] Pulmonary Services/Neurology [address] [place] [address] MR#: [id number] Acct: [id number] Name: ERIK BETHEA Glenda Rep #: [id number] : 1960 58 From: Kyle Bowles DO Referring Dr: Hernesto Johnson MD Date: Ordering Dr: Sex: M C Location: PSN PSN 6 Minute Walk Test - 6 Minute Walk Test 6 Minute Walk Test: 6 Minute Walk Test PSN:6-Minute Walk Test Start: 05/27/18 09:00 Freq: Status: Active Protocol: [id number].[id number] Document 05/27/18 08:35 [facility] [place] (Rec: 05/27/18 09:03 [facility] [id number] 6 Minute Walk Test Date Performed 05/27/18 Time Performed 08:35 Height 5 ft 10 in Weight: 150 lb Weight in Pounds 150.[address]: Hernesto Johnson Assistive device used: None Pre-test Oxygen Delivery Method Room Air Pulse Ox (%) 98 Pulse Rate (60-100 beats/min) 71 Dyspnea Idania Scale (0-10) 0.5 Exertion Idania Scale (6-20) 6 1st minute Oxygen Delivery Method Room Air Pulse Ox (%) 99 Pulse Rate (60-100 beats/min) 85 Number of Rests Taken 0 2nd minute Oxygen Delivery Method Room Air Pulse Ox (%) 95 Pulse Rate (60-100 beats/min) 82 Number of Rests Taken 0 3rd minute Oxygen Delivery Method Room Air Pulse Ox (%) 95 Pulse Rate (60-100 beats/min) 79 Number of Rests Taken 0 Reported Symptoms Increased Work of Breathing 4th minute Oxygen Delivery Method Room Air Pulse Ox (%) 99 Pulse Rate (60-100 beats/min) 83 Number of Rests Taken 0 Reported Symptoms Increased Work of Breathing 5th minute Oxygen Delivery Method Room Air Pulse Ox (%) 98 Pulse Rate (60-100 beats/min) 81 Number of Rests Taken 0 Reported Symptoms Increased Work of Breathing 6th minute Oxygen Delivery Method Room Air Pulse Ox (%) 99 Pulse Rate (60-100 beats/min) 89 Number of Rests Taken 0 Reported Symptoms Increased Work of Breathing Post-test Oxygen Delivery Method Room Air Pulse Ox (%) 99 Pulse Rate (60-100 beats/min) 73 Dyspnea Idania Scale (0-10) 4 Exertion Idania Scale (6-20) 13 Reported Symptoms Increased Work of Breathing Full Laps Walked 18 Partial Lap, Number of Tiles Walked 17 Total Distance Walked (ft) 1079 - Interpretation Interpretation: The patient ambulated 1079 feet over the course of 6 minutes beginning on room air without assistive devices or breaks. Pretesting oxygen saturation was noted to be 98% on room air. With ambulation, the farhana oxygen saturation was 95%. There was no significant exertional oxygen desaturation. - Recommendations Recommendations: There is no indication for the use of supplemental oxygen at this time. 05/27/18 1118 <Electronically signed by Kyle Bowles DO> Date Kyle Bowles DO CC: Date Dictated: 05/27/181115 Date Transcribed: 05/27/181115 Deli Manager: Kyle Bowles DO Signed PULMONARY FUNCTION Observed: 05/20/2018 Status: F Source: [place] REPORT COMP 11:20 AM [facility] [place] REPOSITORY [facility] Pulmonary Services/Neurology [address] [place] [address] MR#: [id number] Acct: [id number] Name: ERIK BETHEA Rep #: [id number] : 1960 58 From: Hernesto Johnson MD Referring Dr: Hernesto Johnson MD Status: REG CLI Ordering Dr: Date: Location[place] [facility] [place] Sex: M C COMPLETE PULMONARY FUNCTION TEST INTERPRETATION Brief HPI: Patient is a 58 year old male, currently under the care of myself, who presents to [facility] for complete pulmonary function tests secondary to diagnosis of COPD. Respiratory therapist reports good effort and reproducible results. Interpretation: Forced expiration spirometry shows a moderately-severe large airways obstructive ventilatory defect with an FEV1 of 56% predicted. There is no significant bronchodilator response by ATS criteria. Spirograms are of good quality and plateau slowly, indicating slowly emptying areas of the lungs. The respiratory flow volume loop shows decreased expiratory flow rates at all lung volumes consistent with airway obstruction. Lung volumes by body plethysmography show an elevated total lung capacity at 7.79 L, 116% predicted. FRC and RV are elevated out of proportion. Lung volume measurements are consistent with air-trapping. Diffusion capacity by carbon monoxide is decreased at 60% predicted. The airway resistance is elevated. Compared to previous pulmonary function tests from 04/23/2010, there has been a significant worsening in FEV1, air-trapping and DLCO. Impression: Irreversible moderately severe large airways obstructive ventilatory defect with a symmetric reduction diffusing capacity. There has been significant worsening compared to previous study. 05/20/18 1120 <Electronically signed by Hernesto Johnson MD> Date Hernesto Johnson MD CC: Hernesto Johnson MD; [facility] Date Dictated: 05/20/181116 Date Transcribed: 05/20/181116 Deli Manager: ROSSY Signed PULMONARY VISIT REPORT Observed: 05/13/2018 Status: F Source: [place] 4:39 PM [facility] [place] REPOSITORY [facility] [place] [address] [place] [address] OFFICE VISIT Date of Service: 05/13/18 MR#: [id number] Acct: [id number] Name: ERIK BETHEA Rep #: [id number] : 1960 Provider: Hernesto Johnson MD Age/Sex: 58/M [facility] Status: Signed Assessment AND Plan 1. Centrilobular emphysema J43.2 Plan Patient with extensive emphysematous changes right greater than left upper lobes. Patient may be a candidate for lung volume reduction surgery pending the results of complete pulmonary function test and walking oximetry. Did stress to the patient that continued smoking would lead to progression of disease. Will obtain an alpha-1 antitrypsin level given advanced lung disease at such young age. Cannot exclude patient being evaluated for lung transplantation. Patient is on appropriate inhaler therapy at this time, so no changes will be made. Obtain complete PFT and walking oximetry. Continue current medications. Possible LVRS 2. Cigarette nicotine dependence without complication F17.210 Plan Patient has quit 2 times previously with cold turkey technique. Stressed to the patient that active tobacco abuse will limit therapeutic options moving forward. Patient is aware that this will also lead to progression of disease. Patient will not be able to receive surgical interventions without smoking cessation. After review of options available, patient states that he plans on setting a quit date for tomorrow. Patient understands that 6 months of abstinence will be required for any alpha 1 antitrypsin replacement or surgical intervention evaluation. Total discussion time of 12 minutes Encourage smoking cessation by cold turkey technique Plan Detail Other Orders Orders: HPI Chronic obstructive pulmonary disease: Chief Complaint: Shortness of breath on exertion Details: Patient is a 58-year-old male, currently under the care of the [facility], who presents for evaluation secondary to concern with shortness of breath on exertion. Patient reports that he was diagnosed with COPD approximately 25 years ago with spirometry. Patient does give an extensive smoking history and has been placed on Tudorza and Dulera therapy with significant improvement in overall condition. Patient denies any thrush, hoarseness or sore throat. Patient does require albuterol approximately 2-4 times per week. Patient does have a cough productive of clear sputum, typically in the morning. Patient does report wheezing and chest tightness on a daily basis. Patient is unable to quantify exercise tolerance, but states he deals with breathlessness on a daily basis. Patient states that he tends to sleep okay. Patient denies any snoring or apneic events. Patient states that his partner of 25 years recently had a stroke and take significant time to care for during the day. Patient has been smoking one half pack a day for at least 35 years. Patient states he has quit twice in the past using a cold turkey technique. Patient does report some tremulous hands associated with use of nicotine repletion. Patient states that he typically fails smoking cessation secondary to high stress situations. Documentation reviewed 26 pages of documentation were reviewed from patient's primary care physician. Patient is currently on Tudorza, Dulera and albuterol. Chemistries are significant for hyponatremia of 131 with normal renal function. Patient's hemoglobin is 14.5 with no significant eosinophilia. Patient does suffer from chronic pain. Patient reportedly did have pulmonary care and [place] with last PFTs 5 years ago. Patient did have a screening CT scan of the chest that was personally reviewed with the patient. This does show extensive bullous formation, right greater than left apex. Intake Vital Signs05/13/18 Height 5 ft 10 in 05/13/18 Weight: 66.678 kg Intake Visit Reasons: COPD Accompanied by: Self Allergies No Known Allergies Allergy (Verified 05/05/16 09:06) Medications Amlodipine [Norvasc] 2.5 mg PO DAILY 08/05/13 [History Confirmed 05/13/16] Doxycycline [Vibramycin] 50 mg PO DAILY 08/05/13 [History Confirmed 05/05/16] Lisinopril [Zestril] 20 mg PO DAILY 08/05/13 [History Confirmed 05/05/16] Aclidinium [place] [Tudorza Pressair] 0 mcg IH BID 05/05/16 [History Confirmed 05/05/16] Albuterol Sulfate [Ventolin Hfa] 2 puff IH Q4H PRN 05/05/16 [History Confirmed 05/05/16] Budesonide/Formoterol Fumarate [Symbicort 80-4.5 Mcg Inhaler] 2 puff IH BID 05/05/16 [History Confirmed 05/13/16] Methocarbamol 750 mg PO TID 05/05/16 [History Confirmed 05/05/16] Pregabalin [Lyrica] 75 mg PO BID 05/05/16 [History Confirmed 05/05/16] Triamcinolone 0.1% Cream [Kenalog] 1 applic TP DAILY 05/05/16 [History Confirmed 05/05/16] mometasone-formoterol HFA 200 mcg-5 mcg/actuation aerosol inhaler 2 puff INHALATION Q12H 05/07/18 [History Confirmed 05/07/18] PFS Medical History Alcoholic fatty liver (Chronic) Nicotine dependence (Chronic) Alcohol abuse (Chronic) GERD (gastroesophageal reflux disease) (Chronic) Vitamin D deficiency (Chronic) Hypertension (Chronic) Hyponatremia (Acute) COPD (chronic obstructive pulmonary disease) (Chronic) Social History Smoking Status: Current every day smoker second hand exposure: Yes alcohol intake: current alcohol intake frequency: a few times a week Alcohol type: beer substance use type: does not use Review of Systems Const CONSTITUTIONAL: Negative anorexia, body ache, chills, daytime sleepiness, fever(s), night sweats, oral thrush, stops breathing during sleep, weight loss, sleeping in chair, fatigue, weight loss, weight gain, frequent colds, seasonal allergies, other, headache(s) or orthopnea EETM Ear Nose Throat Mouth: Positive hearing normal; negative hard of hearing, hoarseness, dry mouth in morning, change in vision, itchy eyes, eye pain, swallowing Difficulty, ear pain, nose bleed, headache(s), mouth pain, nasal congestion, nasal discharge, post nasal drip, sinus pain, sinus pressure, sore throat or other Cardio Cardiovascular: Negative chest pain, chest pain at rest, chest pain with activity, irregular heart rhythm, edema, shortness of breath when lying down, palpitations, murmur or other Resp Respiratory: Positive as per HPI, shortness of breath shortness of breath: Positive with activity, wheezing, cough cough: Positive productive color: Positive clear and chest tightness; negative pain with cough, chest congestion, pain on inspiration, inhalers, increase use of rescue inhalers, snoring, apnea or other Gastro Gastrointestional: Negative bloody stools, change in appetite, difficulty swallowing, reflux, hematemesis, melena stool, loose stool, constipation or other Genitourinary: Negative blood in urine, nocturia, pain with urination or other Musc Musculoskeletal: Negative body pain, back pain, neck pain or other Skin/Breast Skin/Breast: Negative dry skin, itching, rash, unusual bruising, breast lump or other Neuro Neurological: Negative restless legs, confusion, weakness or other Psych Psychocological: Negative abnormal sleep pattern, anxiety, thoughts of hurting self/others, hopelessness or other Lymph Lymphatic: Negative easy bleeding, easy bruising, swollen lymph nodes or other Exam Const Constitutional: Positive conversant, cooperative, in no acute respiratory distress, healthy appearing, well developed, well nourished and good hygiene Head Head: Positive normocephalic and atraumatic; negative cyanosis of lips/distal nose, frontal sinus tenderness or maxillary sinus tenderness Eyes Eye: Positive clear conjunctiva; negative nystagmus, scleral abnormality or cataract present Ears Ear: Positive hearing normal and external ears normal; negative hard of hearing Nose Nose: Positive external nose normal, septum normal and clear nasal discharge; negative epistaxis or nasal polyp Mouth Mouth: Positive oral mucosae normal, no lesions, edentulous and posterior oropharynx is adequate; negative post nasal drip, malodorous breath or oral thrush present Mallampati Score: II: Mallampati Score Neck Neck: Positive normal visual inspection, full ROM and trachea midline; negative lymphadenopathy or JVD Chest Wall Chest: Positive normal inspection of the chest and symmetric chest movement; negative crepitus or tenderness Resp lung sounds: Positive diminished, prolonged expiratory time and increased work of breathing; negative wheezes, rhonchi, rales, use of accessory muscles, wheeze present on forced exhalation or dullness to percussion Cardio Cardiac: Positive regular rate, regular rhythm, S1 normal and S2 normal; negative murmur, rub or gallop GI GI: Positive normal to inspection and normal bowel sounds; negative distended, ascites or epigastric tenderness Genitourinary: Positive deferred Musc Musculoskeletal: Positive steady gait; negative using an assistive device for ambulation, kyphosis or scoliosis Skin Pulmonary Skin Exam: Positive intact; negative rash, lesion, ulcers, erythema or dermal atrophy Tobacco stained fingers Pulses Pulse: Yes radial pulses present Extremities Extremities: Yes capillary refill normal, Yes clubbing, No cyanosis, No edema, No stasis dermatitis Neuro Neurologic: Yes conversant, Yes no focal neuro deficits, Yes cooperative, Yes understands questions, Yes normal concentration, Yes normal cognition, Yes normal coordination Lymph Lymphatic: No lymphadenopathy Psych Appearance: Positive grossly normal Mental Status: Positive mental status grossly normal Mood: Positive congruent mood Affect: Positive normal affect Pulmonary Procedure Smoking Cessation Education: Yes education provided, expresses understanding, greater than 10 minutes, continue to encourage smoking cessation, needs reinforcement and other (To initiate smoking cessation by cold turkey tomorrow) Coding Level of Care Code Off vis,new,level 4 Diagnoses Centrilobular emphysema J43.2 COPD type: emphysema Emphysema type: centrilobular Cigarette nicotine dependence without complication F17.210 Nicotine product type: cigarettes Substance use status: uncomplicated 05/13/18 1639 <Electronically signed by Hernesto Johnson MD> Date Hernesto Johnson MD Cosigner Signature: Date (if applicable) CC: [facility] CBC AND DIFFERENTIAL Collected: 02/23/2018 Status: F Source: [facility] 8:31 AM CLINIC REFERENCE REPOSITORY TYPE CODE TESTS RESULT OUT OF REFERENCE UNITS RANGE LAB WBC(LOINC) 3.70-11.00 k/uL WBC High 13.21 LAB RBC(LOINC) 4.20-6.00 m/uL RBC 4.56 LAB HGB(LOINC) 13.0-17.0 g/dL Hemoglobin 14.5 LAB HCT(LOINC) 39.0-51.0 % Hematocrit 44.9 LAB MCV(LOINC) 80.0-100.0 fL MCV 98.5 LAB MCH(LOINC) 26.0-34.0 pG MCH 31.8 LAB MCHC(LOINC 30.5-36.0 g/dL ) MCHC 32.3 LAB RDWCV(LOIN 11.5-15.0 % C) RDW-CV 14.3 LAB PLTCT(LOIN 150-400 k/uL C) Platelet Count 305 LAB MPV(LOINC) 9.0-12.7 fL MPV 10.6 LAB ANEUT(LOIN % C) Neut% 71.3 LAB AANEUT([place] 1.45-7.50 k/uL NC) Abs Neut High 9.42 LAB ALYMP(LOIN % C) Lymph% 18.3 LAB AALYMP([place] 1.00-4.00 k/uL NC) Abs Lymph 2.42 LAB AMONO(LOIN % C) [place]% 8.3 LAB AAMONO([place] <0.87 k/uL NC) Abs [place] High 1.09 LAB AEOS(LOINC % ) Eosin% 1.5 LAB AAEOS(LOIN <0.46 k/uL C) Abs Eosin 0.20 LAB ABASO(LOIN % C) Baso% 0.6 LAB AABASO([place] <0.11 k/uL NC) Abs Baso 0.08 LAB AUNRBC([place] 0 /100 WBC NC) NRBCs 0.0 LAB ABNRBC([place] <0.01 k/uL NC) Absolute nRBC <0.01 LAB DTYP(LOINC ) DTYPE ADIFF Performed By: #### CBCDIF, CMP, LIPB, HBA1C, VITD #### [facility] Routine Lab [address] [place], [place] [address] COMP METABOLIC PANEL Collected: 02/23/2018 Status: F Source: [place] 8:31 AM CLINIC REFERENCE REPOSITORY TYPE CODE TESTS RESULT OUT OF REFERENCE UNITS RANGE LAB TP(LOINC) 6.3-8.0 g/dL Protein, Total 6.8 LAB ALB(LOINC) 3.9-4.9 g/dL Albumin 4.5 LAB CA(LOINC) 8.5-10.2 mg/dL Calcium, Total 9.1 LAB TBIL(LOINC 0.2-1.3 mg/dL ) Bilirubin, Total 0.4 LAB ALKP(LOINC 36-108 U/L ) Alkaline Phosphatase 53 LAB AST(LOINC) 14-40 U/L AST 34 LAB GLU(LOINC) 74-99 mg/dL Glucose High 103 LAB BUN(LOINC) 9-24 mg/dL Low BUN 7 LAB CRET(LOINC 0.73-1.22 mg/dL ) Creatinine 0.80 LAB NA(LOINC) 136-144 mmol/L Low Sodium 131 LAB K(LOINC) 3.7-5.1 mmol/L Potassium 4.7 LAB CL(LOINC) 97-105 mmol/L Low Chloride 93 LAB CO2(LOINC) 22-30 mmol/L CO2 24 LAB AGAP(LOINC 9-18 mmol/L ) Anion Gap 14 LAB ALT(LOINC) 10-54 U/L ALT 22 LAB GFRAA(LOIN C) eGFR- >60 Amer. LAB GFRNAA([place] . NC) eGFR-All Other Races >60 Performed By: #### CBCDIF, CMP, LIPB, HBA1C, VITD #### [facility] Routine Lab [address] [place] [address] LIPID PANEL, BASIC Collected: 02/23/2018 Status: F Source: [place] 8:31 AM CLINIC REFERENCE REPOSITORY TYPE CODE TESTS RESULT OUT OF REFERENCE UNITS RANGE LAB CHOL(LOINC <200 mg/dL ) Cholesterol 145 LAB TRIGLY([place] <150 mg/dL NC) Triglyceride 36 LAB HDL(LOINC) >39 mg/dL HDL-Cholesterol 79 LAB LDL(LOINC) <100 mg/dL LDL-Cholesterol 59 LAB NONHDL([place] <130 mg/dL NC) Non HDL Cholesterol 66 LAB FT(LOINC) hrs Fasting Time 12 LAB VLDL(LOINC <30 mg/dL ) VLDL Cholesterol 7 LAB TCHDL(LOIN <5.10 C) TC:HDL Ratio 1.84 LAB LDLHDL([place] <2.54 NC) LDL:HDL Ratio 0.75 Performed By: #### CBCDIF, CMP, LIPB, HBA1C, VITD #### [facility] Routine Lab [address] [place], [place] [address] [phone] HEMOGLOBIN A1C Collected: 02/23/2018 Status: F Source: [place] 8:31 AM CLINIC REFERENCE REPOSITORY TYPE CODE TESTS RESULT OUT OF REFERENCE UNITS RANGE LAB HGBA1C([place] 4.3-5.6 % NC) Hemoglobin A1c 5.6 LAB HBA0(LOINC mg/dL ) Est. Average Glucose 114 Performed By: #### CBCDIF, CMP, LIPB, HBA1C, VITD #### [facility] Routine Lab [address], [place] [address] VITAMIN D 25 HYDROXY Collected: 02/23/2018 Status: F Source: [place] 8:31 AM [facility] REFERENCE REPOSITORY TYPE CODE TESTS RESULT OUT OF REFERENCE UNITS RANGE LAB VITD(LOINC) 31.0-80.0 ng/mL Vitamin D 25 58.2 Hydroxy Performed By: #### CBCDIF, CMP, LIPB, HBA1C, VITD #### [facility] Routine Lab [address] [place], [place] [address] LUNG Observed: 02/18/2018 Status: F Source: [place] SCREENING 1:49 PM [facility] REPOSITORY [facility] Imaging Services [address] [place] [address] Lung Screening MR#: [id number] Acct: [id number] Name: ERIK BETHEA Rep #: [id number] : 1960 M 57 From: Luis Adler MD PCP: [facility] Status: REG CLI Study: Low Dose CT Lung Screening Date of Exam: 02/18/18 Exam# [id number] [facility]: LOW DOSE CT LUNG CANCER SCREENING REASON FOR EXAM: Male, 57 years old. 40 pack-year smoking history. Hypertension. Lung cancer screening. History of positive PPD. RADIATION DOSAGE (If Supplied By Facility): CTDIvol = ( 2.01 ) mGy, DLP = ( 72.23 ) mGycm TECHNIQUE: No contrast was administered. Low dose technique was utilized (average mAS-38 and kVp 120). 1.25 mm axial source images with a slice interval of 1.25- mm were reconstructed in lung windows. Nodule measured using lung windows on PACS and/or independent workstation with automated measurement of minimum and maximum diameter. Nodule measurement reported as average diameter rounded to the nearest whole number. Growth is defined as an increase ins size of greater than 1.5 mm. COMPARISON: None. FINDINGS: Total lung nodules (excluding granulomas): Left lung subpleural less than 3 mm pulmonary nodule series 2 image 165 lateral pleural margin. No other left-sided pulmonary nodules. There are no right-sided pulmonary nodules. Emphysema: Severe bullous emphysema at the apices. Most prominent on the right. Endobronchial lesion: None. Aorta: Nondilated. Minimal arch atherosclerosis. Coronary arteries: There are densities are present in the proximal to mid LAD, proximal RCA, consistent with effort chronic calcifications, potentially a stent in the proximal LAD but uncertain. Heart: Normal heart size without effusion. Pulmonary artery: Normal caliber central pulmonary arteries. Mediastinal nodes: There is no evidence of mediastinal lymphadenopathy. Other chest and abdominal findings: No other acute upper abdominal, supraclavicular or thoracic process is evident in limited evaluation. CT/Low Dose CT Lung Screening IMPRESSION: Only a single tiny less than 3 mm solid subpleural pulmonary nodule is seen in the left lower lung along the lateral pleural margin. Nonspecific. No suspicious lesions. Bullous emphysema. Coronary atherosclerosis. ACR Lung RADS category 2, benign appearance, less than 1% chance of malignancy. One-year follow-up low dose CT of the chest is recommended for surveillance purposes. IMPORTANT NOTES FOR USE: ACR Lung-RADS Version 1.0 Assessment Categories Release Date: January 23, 2014 Category: Coded 0-4 bases on nodule(s) with highest degree of suspicion. Negative screen is defined as categories 1 and 2; a positive screen is defined as categories 3 and 4. Category 3 and 4A nodules that are unchanged on interval CT should be coded as category 2, and individuals returned to screening in 12 months. Category 4X: Category 3 or 4 nodules with additional imaging findings that increase the suspicion of lung cancer, such as spiculation, GGN that doubles in size in 1 year, enlarged lymph notes, etc. Category Modifiers: S (significant finding unrelated to lung cancer) and C (prior history of treated lung cancer) may be added to the 0-4 Lung-RADS Electronically Signed: Luis Adler, at 17:54 EDT Tel , Service support , CC: [facility] Deli Manager: Signed BASIC METABOLIC PANL Collected: 12/11/2017 Status: F Source: [place] 8:47 AM CLINIC REFERENCE REPOSITORY TYPE CODE TESTS RESULT OUT OF REFERENCE UNITS RANGE LAB GLU(LOINC) 74-99 mg/dL Glucose 85 LAB BUN(LOINC) 9-24 mg/dL BUN 10 LAB CRET(LOINC 0.73-1.22 mg/dL ) Creatinine 0.83 LAB NA(LOINC) 136-144 mmol/L Low Sodium 134 LAB K(LOINC) 3.7-5.1 mmol/L Potassium 4.2 LAB CL(LOINC) 97-105 mmol/L Chloride 98 LAB CO2(LOINC) 22-30 mmol/L CO2 24 LAB AGAP(LOINC 9-18 mmol/L ) Anion Gap 12 LAB CA(LOINC) 8.5-10.2 mg/dL Calcium, Total 9.5 LAB GFRAA(LOIN C) eGFR- >60 Amer. LAB GFRNAA([place] . NC) eGFR-All Other Races >60 CREATININE,URINE,RAN Collected: Status: F Source: [place] 12/11/2017 8:47 AM CLINIC REFERENCE REPOSITORY TYPE CODE TESTS RESULT OUT OF RANGE REFERENCE UNITS LAB UCRR(LOINC) 20-300 mg/dL 47.6 Creatinine,U rine,Ran SODIUM,URINE,RANDOM Collected: Status: F Source: [place] 12/11/2017 8:47 AM CLINIC REFERENCE REPOSITORY TYPE CODE TESTS RESULT OUT OF RANGE REFERENCE UNITS LAB UNAR(LOINC) 14-216 mmol/L 96 Sodium,Urine ,Random MAGNESIUM Collected: 11/24/2017 Status: F Source: [place] 11:09 AM CLINIC REFERENCE REPOSITORY TYPE CODE TESTS RESULT OUT OF REFERENCE UNITS RANGE LAB MG(LOINC) 1.7-2.3 mg/dL Magnesium 2.0 CBC AND DIFFERENTIAL Collected: 11/17/2017 Status: F Source: [place] 9:30 AM CLINIC REFERENCE REPOSITORY TYPE CODE TESTS RESULT OUT OF REFERENCE UNITS RANGE LAB WBC(LOINC) 3.70-11.00 k/uL WBC 9.75 LAB RBC(LOINC) 4.20-6.00 m/uL RBC 4.68 LAB HGB(LOINC) 13.0-17.0 g/dL Hemoglobin 14.8 LAB HCT(LOINC) 39.0-51.0 % Hematocrit 44.5 LAB MCV(LOINC) 80.0-100.0 fL MCV 95.1 LAB MCH(LOINC) 26.0-34.0 pG MCH 31.6 LAB MCHC(LOINC 30.5-36.0 g/dL ) MCHC 33.3 LAB RDWCV(LOIN 11.5-15.0 % C) RDW-CV 14.1 LAB PLTCT(LOIN 150-400 k/uL C) Platelet Count 311 LAB MPV(LOINC) 9.0-12.7 fL MPV 10.3 LAB ANEUT(LOIN % C) Neut% 58.1 LAB AANEUT([place] 1.45-7.50 k/uL NC) Abs Neut 5.67 LAB ALYMP(LOIN % C) Lymph% 30.1 LAB AALYMP([place] 1.00-4.00 k/uL NC) Abs Lymph 2.93 LAB AMONO(LOIN % C) [place]% 8.7 LAB AAMONO([place] <0.87 k/uL NC) Abs [place] 0.85 LAB AEOS(LOINC % ) Eosin% 2.5 LAB AAEOS(LOIN <0.46 k/uL C) Abs Eosin 0.24 LAB ABASO(LOIN % C) Baso% 0.6 LAB AABASO([place] <0.11 k/uL NC) Abs Baso 0.06 LAB AUNRBC([place] 0 /100 WBC NC) NRBCs 0.0 LAB ABNRBC([place] <0.01 k/uL NC) Absolute nRBC <0.01 LAB DTYP(LOINC ) DTYPE ADIFF ALT Collected: 11/17/2017 Status: F Source: [facility] 9:30 AM CLINIC REFERENCE REPOSITORY TYPE CODE TESTS RESULT OUT OF RANGE REFERENCE UNITS LAB ALT(LOINC) 10-54 U/L ALT 20 AST Collected: 11/17/2017 Status: F Source: [place] 9:30 AM CLINIC REFERENCE REPOSITORY TYPE CODE TESTS RESULT OUT OF RANGE REFERENCE UNITS LAB AST(LOINC) 14-40 U/L AST 32 BASIC METABOLIC PANL Collected: 11/17/2017 Status: F Source: [place] 9:30 AM [facility] REFERENCE REPOSITORY TYPE CODE TESTS RESULT OUT OF REFERENCE UNITS RANGE LAB GLU(LOINC) 74-99 mg/dL Glucose 86 LAB BUN(LOINC) 9-24 mg/dL Low BUN 5 LAB CRET(LOINC 0.73-1.22 mg/dL ) Creatinine 0.79 LAB NA(LOINC) 136-144 mmol/L Low Sodium 129 LAB K(LOINC) 3.7-5.1 mmol/L Potassium 4.2 LAB CL(LOINC) 97-105 mmol/L Low Chloride 94 LAB CO2(LOINC) 22-30 mmol/L CO2 24 LAB AGAP(LOINC 9-18 mmol/L ) Anion Gap 11 LAB CA(LOINC) 8.5-10.2 mg/dL Calcium, Total 9.0 LAB GFRAA(LOIN C) eGFR- >60 Amer. LAB GFRNAA([place] . NC) eGFR-All Other Races >60 LIPID PANEL, BASIC Collected: 11/17/2017 Status: F Source: [place] 9:30 AM CLINIC REFERENCE REPOSITORY TYPE CODE TESTS RESULT OUT OF REFERENCE UNITS RANGE LAB CHOL(LOINC <200 mg/dL ) Cholesterol 139 LAB TRIGLY([place] <150 mg/dL NC) Triglyceride 48 LAB HDL(LOINC) >39 mg/dL HDL-Cholesterol 75 LAB LDL(LOINC) <100 mg/dL LDL-Cholesterol 54 LAB NONHDL([place] <130 mg/dL NC) Non HDL Cholesterol 64 LAB FT(LOINC) hrs Fasting Time 12 LAB VLDL(LOINC <30 mg/dL ) VLDL Cholesterol 10 LAB TCHDL(LOIN <5.10 C) TC:HDL Ratio 1.85 LAB LDLHDL([place] <2.54 NC) LDL:HDL Ratio 0.72 VITAMIN D 25 HYDROXY Collected: 11/17/2017 Status: F Source: [place] 9:30 AM [facility] REFERENCE REPOSITORY TYPE CODE TESTS RESULT OUT OF REFERENCE UNITS RANGE LAB VITD(LOINC) 31.0-80.0 ng/mL Vitamin D 25 50.3 Hydroxy CBC AND DIFFERENTIAL Collected: 08/11/2017 Status: F Source: [facility] 9:30 AM CLINIC REFERENCE REPOSITORY TYPE CODE TESTS RESULT OUT OF REFERENCE UNITS RANGE LAB WBC(LOINC) 3.70-11.00 k/uL WBC 10.71 LAB RBC(LOINC) 4.20-6.00 m/uL RBC 4.52 LAB HGB(LOINC) 13.0-17.0 g/dL Hemoglobin 14.7 LAB HCT(LOINC) 39.0-51.0 % Hematocrit 43.2 LAB MCV(LOINC) 80.0-100.0 fL MCV 95.6 LAB MCH(LOINC) 26.0-34.0 pG MCH 32.5 LAB MCHC(LOINC 30.5-36.0 g/dL ) MCHC 34.0 LAB RDWCV(LOIN 11.5-15.0 % C) RDW-CV 13.7 LAB PLTCT(LOIN 150-400 k/uL C) Platelet Count 314 LAB MPV(LOINC) 9.0-12.7 fL MPV 10.3 LAB ANEUT(LOIN % C) Neut% 64.5 LAB AANEUT([place] 1.45-7.50 k/uL NC) Abs Neut 6.91 LAB ALYMP(LOIN % C) Lymph% 23.7 LAB AALYMP([place] 1.00-4.00 k/uL NC) Abs Lymph 2.54 LAB AMONO(LOIN % C) [place]% 9.2 LAB AAMONO([place] <0.87 k/uL NC) Abs [place] High 0.99 LAB AEOS(LOINC % ) Eosin% 1.9 LAB AAEOS(LOIN <0.46 k/uL C) Abs Eosin 0.20 LAB ABASO(LOIN % C) Baso% 0.7 LAB AABASO([place] <0.11 k/uL NC) Abs Baso 0.07 LAB AUNRBC([place] 0 /100 WBC NC) NRBCs 0.0 LAB ABNRBC([place] <0.01 k/uL NC) Absolute nRBC <0.01 LAB DTYP(LOINC ) DTYPE ADIFF COMP METABOLIC PANEL Collected: 08/11/2017 Status: F Source: [facility] 9:30 AM CLINIC REFERENCE REPOSITORY TYPE CODE TESTS RESULT OUT OF REFERENCE UNITS RANGE LAB TP(LOINC) 6.3-8.0 g/dL Protein, Total 6.8 LAB ALB(LOINC) 3.9-4.9 g/dL Albumin 4.4 LAB CA(LOINC) 8.5-10.2 mg/dL Calcium, Total 9.1 LAB TBIL(LOINC 0.2-1.3 mg/dL ) Bilirubin, Total 0.3 LAB ALKP(LOINC 36-108 U/L ) Alkaline Phosphatase 51 LAB AST(LOINC) 14-40 U/L AST 35 LAB GLU(LOINC) 74-99 mg/dL Glucose High 102 LAB BUN(LOINC) 9-24 mg/dL BUN 10 LAB CRET(LOINC 0.73-1.22 mg/dL ) Creatinine 0.88 LAB NA(LOINC) 136-144 mmol/L Sodium 136 LAB K(LOINC) 3.7-5.1 mmol/L Potassium 4.7 LAB CL(LOINC) 97-105 mmol/L Chloride 97 LAB CO2(LOINC) 22-30 mmol/L CO2 27 LAB AGAP(LOINC 9-18 mmol/L ) Anion Gap 12 LAB ALT(LOINC) 10-54 U/L ALT 21 LAB GFRAA(LOIN C) eGFR- >60 Amer. LAB GFRNAA([place] . NC) eGFR-All Other Races >60 LIPID PANEL, BASIC Collected: 08/11/2017 Status: F Source: [place] 9:30 AM CLINIC REFERENCE REPOSITORY TYPE CODE TESTS RESULT OUT OF REFERENCE UNITS RANGE LAB TRIGLY([place] 30-149 mg/dL NC) Triglyceride 30 LAB CHOL(LOINC 100-199 mg/dL ) Cholesterol 136 LAB HDL(LOINC) >45 mg/dL HDL-Cholesterol 81 LAB VLDL(LOINC 6-40 mg/dL ) VLDL Cholesterol 6 LAB LDL(LOINC) 60-129 mg/dL Low LDL-Cholesterol 49 LAB FT(LOINC) hrs Fasting Time UN LAB TCHDL(LOIN 1.00-5.00 C) TC:HDL Ratio 1.68 LAB LDLHDL([place] 0.50-3.55 NC) LDL:HDL Ratio 0.60 LAB NONHDL([place] 90-159 mg/dL NC) Low Non HDL Cholesterol 55 TSH Collected: 08/11/2017 Status: F Source: [facility] 9:30 AM CLINIC REFERENCE REPOSITORY TYPE CODE TESTS RESULT OUT OF RANGE REFERENCE UNITS LAB TSH(LOINC) 0.400-5.500 uU/mL TSH 1.480 FREE T4 Collected: 08/11/2017 Status: F Source: [place] 9:30 AM CLINIC REFERENCE REPOSITORY TYPE CODE TESTS RESULT OUT OF RANGE REFERENCE UNITS LAB FT4(LOINC) 0.9-1.7 ng/dL Free T4 1.1 VITAMIN D 25 HYDROXY Collected: 08/11/2017 Status: F Source: [place] 9:30 AM CLINIC REFERENCE REPOSITORY TYPE CODE TESTS RESULT OUT OF REFERENCE UNITS RANGE LAB VITD(LOINC) 31.0-80.0 ng/mL Vitamin D 25 50.2 Hydroxy BASIC METABOLIC PANL Collected: 05/12/2017 Status: F Source: [place] 10:04 AM CLINIC REFERENCE REPOSITORY TYPE CODE TESTS RESULT OUT OF REFERENCE UNITS RANGE LAB GLU(LOINC) 74-99 mg/dL Glucose 96 LAB BUN(LOINC) 9-24 mg/dL Low BUN 8 LAB CRET(LOINC 0.73-1.22 mg/dL ) Creatinine 0.82 LAB NA(LOINC) 136-144 mmol/L Low Sodium 133 LAB K(LOINC) 3.7-5.1 mmol/L Potassium 3.9 LAB CL(LOINC) 97-105 mmol/L Low Chloride 95 LAB CO2(LOINC) 22-30 mmol/L CO2 25 LAB AGAP(LOINC 9-18 mmol/L ) Anion Gap 13 LAB CA(LOINC) 8.5-10.2 mg/dL Calcium, Total 9.6 LAB GFRAA(LOIN C) eGFR- >60 Amer. LAB GFRNAA([place] . NC) eGFR-All Other Races >60 VITAMIN D 25 HYDROXY Collected: 05/12/2017 Status: F Source: [place] 10:04 AM CLINIC REFERENCE REPOSITORY TYPE CODE TESTS RESULT OUT OF REFERENCE UNITS RANGE LAB VITD(LOINC) 31.0-80.0 ng/mL Vitamin D 25 41.9 Hydroxy CBC AND DIFFERENTIAL Collected: 2017 Status: F Source: [place] 9:52 AM CLINIC REFERENCE REPOSITORY TYPE CODE TESTS RESULT OUT OF REFERENCE UNITS RANGE LAB WBC(LOINC) 3.70-11.00 k/uL WBC 8.79 LAB RBC(LOINC) 4.20-6.00 m/uL RBC 4.43 LAB HGB(LOINC) 13.0-17.0 g/dL Hemoglobin 14.3 LAB HCT(LOINC) 39.0-51.0 % Hematocrit 43.7 LAB MCV(LOINC) 80.0-100.0 fL MCV 98.6 LAB MCH(LOINC) 26.0-34.0 pG MCH 32.3 LAB MCHC(LOINC 30.5-36.0 g/dL ) MCHC 32.7 LAB RDWCV(LOIN 11.5-15.0 % C) RDW-CV 14.5 LAB PLTCT(LOIN 150-400 k/uL C) Platelet Count 251 LAB MPV(LOINC) 9.0-12.7 fL MPV 11.1 LAB ANEUT(LOIN % C) Neut% 68.8 LAB AANEUT([place] 1.45-7.50 k/uL NC) Abs Neut 6.05 LAB ALYMP(LOIN % C) Lymph% 20.4 LAB AALYMP([place] 1.00-4.00 k/uL NC) Abs Lymph 1.79 LAB AMONO(LOIN % C) [place]% 8.9 LAB AAMONO([place] 0.00-0.86 k/uL NC) Abs [place] 0.78 LAB AEOS(LOINC % ) Eosin% 1.1 LAB AAEOS(LOIN 0.00-0.45 k/uL C) Abs Eosin 0.10 LAB ABASO(LOIN % C) Baso% 0.8 LAB AABASO([place] 0.00-0.10 k/uL NC) Abs Baso 0.07 LAB AUNRBC([place] 0 /100 WBC NC) NRBCs 0.0 LAB NRBC(LOINC 0 /100 WBC ) NRBCs 0 LAB ABNRBC([place] k/uL NC) Absolute nRBC 0.00 LAB DTYP(LOINC ) DTYPE ADIFF COMP METABOLIC PANEL Collected: 2017 Status: F Source: [place] 9:52 AM CLINIC REFERENCE REPOSITORY TYPE CODE TESTS RESULT OUT OF REFERENCE UNITS RANGE LAB TP(LOINC) 6.3-8.0 g/dL Protein, Total 6.9 LAB ALB(LOINC) 3.9-4.9 g/dL Albumin 4.2 LAB CA(LOINC) 8.5-10.2 mg/dL Calcium, Total 9.3 LAB TBIL(LOINC 0.2-1.3 mg/dL ) Bilirubin, Total 0.8 LAB ALKP(LOINC 36-108 U/L ) Alkaline Phosphatase 62 LAB AST(LOINC) 14-40 U/L AST High 55 LAB GLU(LOINC) 74-99 mg/dL Glucose High 101 LAB BUN(LOINC) 9-24 mg/dL BUN 9 LAB CRET(LOINC 0.73-1.22 mg/dL ) Creatinine 0.86 LAB NA(LOINC) 136-144 mmol/L Low Sodium 133 LAB K(LOINC) 3.7-5.1 mmol/L Potassium 4.2 LAB CL(LOINC) 97-105 mmol/L Chloride 97 LAB CO2(LOINC) 22-30 mmol/L CO2 23 LAB AGAP(LOINC 9-18 mmol/L ) Anion Gap 13 LAB ALT(LOINC) 10-54 U/L ALT 30 LAB GFRAA(LOIN C) eGFR- >60 Amer. LAB GFRNAA([place] . [place]) eGFR-All Other Races >60 LIPID PANEL, BASIC Collected: 2017 Status: F Source: [facility] 9:52 AM CLINIC REFERENCE REPOSITORY TYPE CODE TESTS RESULT OUT OF REFERENCE UNITS RANGE LAB TRIGLY([place] 30-149 mg/dL NC) Triglyceride 45 LAB CHOL(LOINC 100-199 mg/dL ) Cholesterol 138 LAB HDL(LOINC) >45 mg/dL HDL-Cholesterol 88 LAB VLDL(LOINC 6-40 mg/dL ) VLDL Cholesterol 9 LAB LDL(LOINC) 60-129 mg/dL Low LDL-Cholesterol 41 LAB FT(LOINC) hrs Fasting Time 12 LAB TCHDL(LOIN 1.00-5.00 C) TC:HDL Ratio 1.57 LAB LDLHDL([place] 0.50-3.55 NC) Low LDL:HDL Ratio 0.47 LAB NONHDL([place] 90-159 mg/dL NC) Low Non HDL Cholesterol 50 VITAMIN D 25 HYDROXY Collected: 2017 Status: F Source: CARUTHERS 9:52 AM CLINIC REFERENCE REPOSITORY TYPE CODE TESTS RESULT OUT OF REFERENCE UNITS RANGE LAB VITD(LOINC) 31.0-80.0 ng/mL Low Vitamin D 25 8.6 Hydroxy ALLERGIES ALLERGIES DATE TYPE / CODE NAME / CODE REACTION SEVERITY SOURCE 08/31/2018 Drug No Known Unknown [facility] Allergy/416 Allergies/J03244 [facility] 056824(SNOM 0388(RXNORM) Repository ED CT) Drug NO KNOWN [facility] Class/12472 ALLERGIES [facility] 1003(SNOMED Repository CT) ENCOUNTERS ENCOUNTERS ADMIT/DISCHARGE ACCOUNT ADMITTING ENCOUNTER LOCATION SOURCE NUMBER CLASS 10/20/2018 [id number] Ambulatory [facility] Hospital ing:[place] Repository 09/27/2018/09/27/20 [id number] Ambulatory [address] Hospital ing:[place] Repository 09/09/2018 [id number] Ambulatory [facility] ing:[place] Repository 08/31/2018/08/31/20 [id number] Ambulatory BMSBuilding:B [place] 18 MS.[facility] Repository 07/28/[id number] [facility] [place] g:H.PMJ Repository 07/26/2018/07/26/20 [id number] Ambulatory [address] Hospital ing:ENRoom: Repository AC16 07/19/2018/07/20/20 [id number] Ambulatory [address] Repository 06/09/2018/06/09/20 [id number] Ambulatory BMSBuilding:B [place] 18 MS.[facility] Repository 06/02/2018/06/03/20 [id number] Ambulatory [address] Repository 05/27/2018 [id number] Ambulatory [facility] ing:PSN Repository 05/27/2018 [id number] Ambulatory BMSBuilding:[facility] Repository 05/20/2018 [id number] Ambulatory [facility] ing:PSN Repository 05/20/2018 [id number] Ambulatory BMSBuilding:W [facility] Repository 05/13/2018/05/13/20 [id number] Ambulatory BMSBuilding:B [place] 18 MS.[facility] Repository 03/25/[id number] [facility] [place] g:H.PMJ Repository 02/18/2018 [id number] Ambulatory [facility] ing:CT Repository PAYERS PAYERS ENCOUNTER GUARANTOR PAYER SUBSCRIBER SOURCE 10/20/2018 ERIK Doshi Primary ERIK W [place] [id number] 1/2 Insurance:CARESOURCEP THOMPSONDOB: Community A NOYESI chan Number: [id number], [place] [id number] Repository 247[address]Kgj: (330) Date:2018-09-09P O [phone] () [address]ATTN: [place] [address]GQ: 10/20/2018 Secondary NOT GIVENUNK [place] Insurance:SELF PAY [facility] Number: Effective Repository Date:2018-09-28 09/27/2018 ERIK W Primary ERIK W [place] [id number] 1/2 Insurance:CARESOURCEP THOMPSONDOB: Community A NOYESI reneberna Number: [id number], [place] [id number] Repository 988[address]Zwn: ([phone]) Date:2018-09-09P O [phone] () [address]ATTN: [place] [address]SS: 09/27/2018 Secondary NOT GIVENUNK [place] Insurance:SELF PAY [facility] Number: Effective Repository Date:2018-09-09 09/09/2018 ERIK W Primary ERIK W [place] [id number] 1/2 Insurance:CARESOURCEP THOMPSONDOB: [facility] A ROBYN reneberna Number: [id number], [place] [id number] Repository 24437Xth: ([phone]) Date:2018-09-09 O [phone] () [address]ATTN: [place] [address]JK: 09/09/2018 Secondary NOT GIVENUNK [place] Insurance:SELF PAY [facility] Number: Effective Repository Date:2018-09-09 08/31/2018 ERIK W Primary ERIK W [place] [id number] 1/2 Insurance:CARESOURCEP THOMPSONDOB: Community A NOLD [facility] Number: [id number], [place] [id number] Repository 34[address]Srt: ([phone]) Date:2018-05-13P O [phone] () [address]ATTN: [place] [address]US: 08/31/2018 Secondary NOT GIVENUNK [place] Insurance:SELF PAY [facility] Number: Effective Repository Date:2018-08-24 07/28/2018 ERIK W Primary ERIK Doshi [facility] [id number] Insurance:CARESOURCANAMARIA [facility] A NOLD olicberna Number: Repository [place], [place] [id number] [address]Vjw: NA Date:[address] () [address] [place] [address]KQ: 07/26/2018 ERIK W Primary ERIK Doshi [place] [id number] 12 Insurance:CARESOURCEP THOMPSONDOB: [facility] A NOLD olicy Number: [id number], [place] [id number] Repository 51991Zye: ([phone]) Date:2018-06-07 O [phone] () [address]ATTN: [place] [address]EB: 07/26/2018 Secondary NOT GIVENUNK [place] Insurance:SELF PAY [facility] Number: Effective Repository Date:2018-06-07 06/09/2018 ERIK W Primary ERIK Doshi [place] [id number] Insurance:CARESOURCEP THOMPSONDOB: Community A NOLD olicy Number: [id number], [place] [id number] Repository [address]Tus: ([phone]) Date:2018-06-09 O [phone] () [address]ATTN: [place] [address]HB: 06/09/2018 Secondary NOT GIVENUNK [place] Insurance:SELF PAY [facility] Number: Effective Repository Date:2018-06-09 05/27/2018 ERIK W Primary ERIK Doshi [place] [id number] Insurance:CARESOURCEP THOMPSONDOB: Community A NOLD olicberna Number: [id number], [place] [id number] Repository [address]Ccj: (330) Date:2018-05-13 O [phone] () [address]ATTN: [place] [address]AE: 05/27/2018 Secondary NOT GIVENUNK [place] Insurance:SELF PAY [facility] Number: Effective Repository Date:2018-05-13 05/27/2018 ERIK W Primary ERIK W [place] [id number] Insurance:CARESOURCEP THOMPSONDOB: Community A NOYESI chan Number: [id number], [place] [id number] Repository [address]Vda: (330) Date:2018-05-13 O [phone] () [address]ATTN: [place] [address]ZE: 05/27/2018 Secondary NOT GIVENUNK [place] Insurance:SELF PAY [facility] Number: Effective Repository Date:2018-05-27 05/20/2018 ERIK W Primary ERIK W [place] [id number] Insurance:CARESOURCEP THOMPSONDOB: Community A NOYESI chan Number: [id number], [place] [id number] Repository [address]Mis: ([phone]) Date:2018-05-13 O [phone] () [address]ATTN: [place] [address]AP: 05/20/2018 Secondary NOT GIVENUNK [place] Insurance:SELF PAY [facility] Number: Effective Repository Date:2018-05-13 05/20/2018 ERIK W Primary ERIK W [place] [id number] 12 Insurance:CARESOURCEP THOMPSONDOB: Community A NOLD edgardicberna Number: [id number], [place] [id number] Repository [address]Rik: (330) Date:2018-05-13 O [phone] () [address]ATTN: [place] [address]KQ: 05/20/2018 Secondary NOT GIVENUNK [place] Insurance:SELF PAY [facility] Number: Effective Repository Date:2018-05-20 05/13/2018 ERIK W Primary ERIK W [place] [id number] 1/2 Insurance:CARESOURCEP THOMPSONDOB: Community A NOLD olicy Number: [id number], [place] [id number] Repository [address]Zbs: (330) Date:2018-03-18P O [phone] () [address]ATTN: [place] [address]IN: 05/13/2018 Secondary NOT GIVENUNK [place] Insurance:SELF PAY [facility] Number: Effective Repository Date:2018-05-05 03/25/2018 ERIK W Primary ERIK W [facility] [id number] 1/2 [facility]P [facility] ROBYN renercberna Number: Repository [place], [place] [id number] [address]Slw: NA Date:[address] () [address] [place] [address]TK: 02/18/2018 David Doshi Primary ERIK Doshi [place] [id number] 1/2 Insurance:CARESOURCEP THOMPSONDOB: [facility] A Nold olicebrna Number: [id number], [place] [id number] Repository [address]Zii: (330) Date:2018-02-09P O [phone] () [address]ATTN: [place] [address]FX: 02/18/2018 Secondary NOT GIVENUNK [place] Insurance:SELF PAY [facility] Number: Effective Repository Date:2018-02-09
== END ==
PROVIDERS: Referring Provider Internal Medicine Critical Care Medicine; Visit Provider Internal Medicine Critical Care Medicine
DX: J44.9 Chronic obstructive pulmonary disease, unspecified (principal)

== ENCOUNTER 2018-09-27 10:15 | Outpatient (RCR) | payer MEDICAID, SELFPAY ==
[2018-09-09 12:01] VITALS: BMI 21.1
== END 2018-09-27 23:59 ==
LOC: PR 10:15
PROVIDERS: Visit Provider Internal Medicine Critical Care Medicine
DX: J44.9 Chronic obstructive pulmonary disease, unspecified (principal)
CPT/HCPCS: 97150; G0424

== ENCOUNTER 2018-10-25 10:15 | Outpatient (RCR) | payer MEDICAID, SELFPAY ==
[2018-09-09 12:01] VITALS: BMI 21.1
== END 2018-10-28 23:59 ==
LOC: PR 10:15
PROVIDERS: Referring Provider Internal Medicine Critical Care Medicine; Visit Provider Internal Medicine Critical Care Medicine
DX: J44.9 Chronic obstructive pulmonary disease, unspecified (principal)
CPT/HCPCS: 97150; G0424

== ENCOUNTER 2018-11-24 10:15 | Outpatient (RCR) | payer MEDICAID, SELFPAY ==
[2018-09-09 12:01] VITALS: BMI 21.1
== END 2018-11-25 23:59 ==
LOC: PR 10:15
PROVIDERS: Referring Provider Internal Medicine Critical Care Medicine; Visit Provider Internal Medicine Critical Care Medicine
DX: J44.9 Chronic obstructive pulmonary disease, unspecified (principal)
CPT/HCPCS: 97150; G0424

== ENCOUNTER 2018-12-06 10:15 | Outpatient (RCR) | payer MEDICAID, SELFPAY ==
[2018-09-09 12:01] VITALS: BMI 21.1
== END 2018-12-26 23:59 ==
LOC: PR 10:15
PROVIDERS: Referring Provider Internal Medicine Critical Care Medicine; Visit Provider Internal Medicine Critical Care Medicine
DX: J44.9 Chronic obstructive pulmonary disease, unspecified (principal)
CPT/HCPCS: 97150; G0424

== ENCOUNTER → 2019-03-03 | Outpatient (CLI) | payer MEDICAID, SELFPAY ==
[2018-12-01 09:08] VITALS: BMI 22.1
[2019-02-28 16:57] VITALS: BMI 22.1
--- NOTE | 2019-03-03 13:27 | PFT ---
INTRODUCTION: The patient is a 59-year-old male that presents for pulmonary function studies secondary to a diagnosis of COPD. Respiratory therapy reports good patient effort. Bronchodilators were used during testing. INTERPRETATION: Forced expiration spirometry demonstrates the presence of a moderately severe large airways obstructive ventilatory defect. There was a significant response to aerosolized bronchodilators noted, based upon change in FVC. Spirograms are of good quality and do not plateau indicating slow emptying of the lungs. Body plethysmography was performed and reveals an elevated RV to 132% of predicted, indicative of underlying air trapping. Diffusing capacity by single breath CO is mildly reduced at 63% of predicted. IMPRESSION: Partially reversible moderately severe large airways obstructive ventilatory defect with associated air trapping and mild reduction in diffusing capacity.
== END | disposition home or self-care (01) ==
LOC: PSN 10:56
PROVIDERS: Referring Provider Nurse Practitioner Acute Care; Visit Provider Nurse Practitioner Acute Care
DX: J44.9 Chronic obstructive pulmonary disease, unspecified (principal)
CPT/HCPCS: 94060; 94726; 94729

== ENCOUNTER 2019-04-14 11:00 | Outpatient (RCR) | payer MEDICAID, SELFPAY ==
[2019-02-28 16:57] VITALS: BMI 22.1
--- NOTE | 2019-03-09 10:28 | HP.PTEVAL_ITS ---
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 Date of Evaluation: 03/09/19 Physical Therapist: Barbie Sanchez PT, Cert MDT - Visit Plan Frequency: 2-3x /Week Duration: 4-6 Weeks Plan: PATIENT IS A GOOD CANDIDATE FOR AQUATIC THERAPY BUT RELUCTANT. POSTURE CORRECTION/STRENGTHENING, INSTRUCTION IN APPROPRIATE BODY MECHANICS AND ACTIVITY MODIFICATIONS. DLS STARTING WITH A NEUTRAL SPINE PROGRESSING ROM TOLERATED. KRISTA LE ROM, STRETCHING AND STRENGTHENING. HEP INSTRUCTION. - Subjective Findings: Work/Leisure: UNEMPLOYEED. 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 Disability: NO. Present symptoms: PATIENTS CHIEF COMPLAINT IS LOW BACK PAIN. PATIENT DENIES LE SX'S EXCEPT OCCASSIONAL RIGHT LE NUMBNESS. Present since: > 10 YEARS. Pain Scale: WORST 9/10, LEAST 1/10. Currently: 1/10. Commenced as a result of: NO APPARENT REASON. Symptoms at onset: LOW BACK. Worse: PROLONGED SITTING, PRLONGED STANDING, LIFTING, SOMETIMES BENDING. Better: LYING DOWN, TENS UNIT. Disturbed sleep: NO (LYRICA). Previous history/Previous treatment: AQUATIC THERAPY HERE AT [facility]. NO INJECTIONS. NO BACK SURGERY. (STATES INJECTIONS WERE SUGGESTED BUT HE IS RELUCTANT. LONG HISTORY OF CHIROPRACTIC NEEDED. Coughing/sneezing/straining: POSITIVE. Gait: PATIENT REPORTS HE CAN'T WALK VERY FAR DUE TO HIS BREATHING BUT WALKING DOESN'T SEEM TO BOTHER HIS BACK. NO FALLS. NO ASSISTIVE DEVICES. Difficulty initiating urinatin: NO. Accidents: NO. Unexplained weight loss: NO. Imaging: NO RECENT X-RAYS BUT REMOTE LUMBAR X-RAYS ABOUT 5 YEARS AGO - FINDINGS: Normal lumbar lordosis. There is no substantial scoliosis. There is a. normal alignment of the vertebrae. The vertebral bodies are unremarkable aside from the anterior superior. endplate of L4 which shows some deformity, likely from previous trauma. There is multi-level degenerative disc disease with multi-level disc space. narrowing. There is no demonstrated acute fracture. There is no. demonstrated spondylolysis of the pars interarticulares. The soft tissue structures are unremarkable. PMH: COPD. Recent major surgery: NO - Objective Sitting/Standing Posture: POOR. Lordosis: DECREASED. Lateral shift: NO. Relevant shift: N/A. Active Correction of posture: WORSE. Other Observations: INDEP GAIT INTO PT WITH NO AD'S OR LOB. Motor deficit: KRISTA LE'S 5/5 WITH MMT'ING EXCEPT HIPS 4/5. Sensory deficit: NO. ROM deficit: MILD KRISTA HIP FLEXOR TIGHTNESS. ALSO TIGHT HS'S AND GASTROC SOLEUS COMPLEX'S. Reflexes: UNABLE TO ELICIT KRISTA LE DTR'S. Dural Signs: NEGATIVE KRISTA LE'S. Lumbar mvmt loss: flex - NIL. ext - CORNEL - PROVOKES INCREASED LBP. RSG - MIN. L SG - MIN. Core strength: POOR. Palpation: NO ACUTE TENDERNESS. OTHER: TRIAL OF US AT 1.5 W/CM2 X 8 MIN TO KRISTA LUMBAR REGION WITH PATIENT PRONE. PATIENT REPORTED HAVING ABSOLUTELY NO PAIN AFTER TREATMENT WHICH HE REFERRED TO [facility]. - Goals Goal 1:: DECREASE C/O LOW BACK PAIN Goal Time Frame: 4-6 Weeks Goal 2:: IMPROVE LIFTING, SITTING, STANDING, SOCIAL LIFE, TRAVEL, AND HOMEMAKING FUNCTION Goal Time Frame: 4-6 Weeks Goal 3:: INSTRUCT IN PROPHYLAXIS Goal Time Frame: 4-6 Weeks - Rehabilitation Potential Rehabilitation Potential: Fair - Anticipated Interventions Patient/Client Instruction: Educate patient on: Condition, Plan of Care, Risk Factors, Benefits of Fitness Program For the Purpose of:: To improve self management Therapeutic Exercise to Include: Strength training, Body mechanics, Postural training, Flexibilty training, In an aquatic setting, Dynamic Lumbar Stabilization For the Purpose of:: To decrease pain, To increase ROM, To improve muscle performance and motor function, To increase tolerance to activ ity/condition/position, To improve ability of physical actions for home/community/work/leisure TENS: Yes IF ES: Yes Cryotherapy (ice pack, ice massage): Yes Thermo therapy (hot pack): Yes Ultrasound (thermal/non thermal): Yes For the Purpose of:: To decrease pain, To improve nutrient delivery to tissue Thank you for the opportunity to evaluate your patient. For Medicare and Medicare HMO plans, please review the plan of care and approve it. It will need to be FAXED BACK to us at [phone] for Medicare purposes. For Medicare only, by signing this I certify the plan of care. Please let me know if there are questions or concerns regarding this plan of care. Physician Signature: Date:
--- NOTE | 2019-04-14 11:33 | HP.PTDCSUM ---
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 for a total of 11 visit(s). Discharge Date: 04/14/19 Please see the following information for a summary of their discharge status. - Subjective Subjective: PATIENT REPORTS HE IS A LITTLE BIT BETTER. HE REPORTS THIS HAS LOOSENED HIM UP SOME. HE REPORTS THERE ARE TIMES NOW THAT HE DOESN'T HAVE PAIN. WHEN I LEAVE HERE I DON'T HAVE PAIN BUT THE PAIN DOES COME BACK THROUGH THE DAY. FOLLOW UP WITH DR. CORONEL ISN'T UNTIL JUNE. HE REPORTS THE PAIN MEDICINE DOESN'T HELP HIM LIKE IT USE TO. PATIENT REPORTS HE HAS BEEN DOING HIS HOME EX'S. HE REPORTS HE WANTS TO CONTINUE ON HIS OWN AT THIS POINT AT HOME. STATES HE HAS BEEN THINKING AOBUT A GYM MEMBERSHIP BUT DOESN'T PLAN TO DO THAT AT THIS TIME. - Pain LBP Pain Intensity (Out of 10): 1 - Overall Improvement % Improvement: 40 - Objective Objective/Function: UPON EXAM TODAY THERE ARE NO SIGNIFICANT CHANGES FROM INITIAL EVAL BUT HE IS INDEP WITH A HEP THAT HE REPORTS GIVES HIM TEMPORARY RELIEF. - Goals Goal 1:: DECREASE C/O LOW BACK PAIN Goal Progress: Progressing Goal 2:: IMPROVE LIFTING, SITTING, STANDING, SOCIAL LIFE, TRAVEL, AND HOMEMAKING FUNCTION Goal Progress: Progressing Goal 3:: INSTRUCT IN PROPHYLAXIS Goal Progress: Goal Met - Plan Plan: D/C TO HEP AND FOLLOW UP WITH DR. CORONEL NEEDED. PATIENT IS AGREEABLE. - D/C Information If there are questions or concerns regarding this patient's physical therapy, please feel free to call me at [phone]. Thank you for the referral of this patient. Sincerely, Barbie Sanchez, PT, Cert MDT
== END 2019-04-14 19:00 | disposition home or self-care (01) ==
LOC: PT 11:00
PROVIDERS: Referring Provider Physician Assistant; Visit Provider Physician Assistant
DX: M79.10 Myalgia, unspecified site (principal); M51.36 Other intervertebral disc degeneration, lumbar region
CPT/HCPCS: 97035; 97110; 97161; 97530

== ENCOUNTER → 2019-10-01 08:35 | Outpatient (CLI) | payer MEDICAID, SELFPAY ==
[2019-03-16 10:03] VITALS: BMI 19.9
[2019-09-30 10:23] VITALS: BMI 19.9
--- NOTE | 2019-10-01 08:30 | CT_ITS ---
STUDY: LOW DOSE CT LUNG CANCER SCREENING REASON FOR EXAM: Male, 59 years old. LUNG CANCER SCREENING. 1PPD X 40 + YEARS. EMPHYSEMA RADIATION DOSAGE (If Supplied By Facility): CTDIvol = ( 2.01 ) mGy, DLP = ( 78.51 ) mGycm TECHNIQUE: No contrast was administered. Low dose technique was utilized (average mAS-38 and kVp 120). 1.25 mm axial source images with a slice interval of 1.25-mm were reconstructed in lung windows. 2.5 mm axial source images with a slice interval of 2.5-mm were reconstructed in lung windows. 5.0 mm axial source images with a slice interval of 5.0-mm were reconstructed in soft tissue windows. Nodule measured using lung windows on PACS and/or independent workstation with automated measurement of minimum and maximum diameter. Nodule measurement reported as average diameter rounded to the nearest whole number. Growth is defined as an increase ins size of greater than 1.5 mm. COMPARISON: 18 Feb 2018 Findings: Examination is technically limited due to technique being optimized for lung cancer screening. Diagnostic information is available. There is a 6 cm left upper lobe perihilar dense consolidation/mass with mixed regular and irregular margin. The lesion surrounds the left upper lobe bronchus. Relationship to the pulmonary artery is difficult to ascertain due to lack of IV contrast. There is extension into the hilum and mediastinum. The rest of the lungs are clear and severely emphysematous with extensive apical right greater than left bullous replacement of the parenchyma. Pleural surfaces are intact. There is severe coronary artery disease. Cardiac chambers are normal in size and shape. Limited upper abdominal images cannot be reliably assessed. Osseous structures are evaluated in limited fashion. There is a lucency in the mid thoracic vertebra, unclear etiology. CT/Low Dose CT Lung Screening IMPRESSION: 1. Left upper lobe 6 cm lesion, lung cancer versus less likely pneumonia or combination. Definitive imaging with CT of the chest and pulmonary referral are advised. 2. Severe emphysema. 3. Severe coronary artery disease. IMPORTANT NOTES FOR USE: ACR Lung-RADS Version 1.0 Assessment Categories Release Date: January 23, 2014 Category: Coded 0-4 bases on nodule(s) with highest degree of suspicion. Negative screen is defined as categories 1 and 2; a positive screen is defined as categories 3 and 4. Category 3 and 4A nodules that are unchanged on interval CT should be coded as category 2, and individuals returned to screening in 12 months. Category 4X: Category 3 or 4 nodules with additional imaging findings that increase the suspicion of lung cancer, such as spiculation, GGN that doubles in size in 1 year, enlarged lymph notes, etc. Category Modifiers: S (significant finding unrelated to lung cancer) and C (prior history of treated lung cancer) may be added to the 0-4 Lung-RADS Electronically Signed: Peterson Farias, at 18:45 EST Tel , Service support ,
== END ==
PROVIDERS: Referring Provider Nurse Practitioner Acute Care; Visit Provider Nurse Practitioner Acute Care
DX: F17.210 Nicotine dependence, cigarettes, uncomplicated (principal)
CPT/HCPCS: G0297

== ENCOUNTER → 2019-10-07 06:47 | Outpatient (CLI) | payer MEDICAID, SELFPAY ==
[2019-09-30 10:23] VITALS: BMI 19.9
--- NOTE | 2019-10-07 06:51 | CT_ITS ---
STUDY: CT CHEST WITH CONTRAST REASON FOR EXAM: Male, 59 years old. Abnormal lung screening CT, left upper lung irregularity. Hx emphysema, current smoker. RADIATION DOSAGE (If Supplied By Facility): CTDIvol = ( 9.17 ) mGy, DLP = ( 358.46 ) mGycm TECHNIQUE: Transaxial imaging was performed following intravenous administration of IV 100mL Isovue-300. Individualized dose optimization techniques were used for this CT. COMPARISON: 10/01/2019 FINDINGS: Severe pulmonary emphysema. A spiculated mass is present in the lingula highly suspicious for malignancy. This lesion measures 7.9 x 6.0 cm on image 78 of series 4. It extends along the pulmonary fissure margin. It extends medially to the left hilum. There is focal near occlusion of the left lower lobe artery, likely related to tumor encasement and possibly arterial invasion. There is associated occlusion of the lingular bronchus. There is encasement of the left lower lobe bronchus with moderate to severe stenosis, although the left lower lobe bronchus remains grossly patent at this time. There is no demonstrated pleural abnormality. Normal heart and pericardium. Normal aorta arch and descending thoracic aorta. Normal osseous structures. There is no demonstrated abnormality of the visualized upper abdomen. CT/Chest WITH Contrast IMPRESSION: Spiculated lingular mass suspicious for malignancy. There is associated occlusion of the lingular bronchus and near occlusion of the left lower lobe pulmonary artery. There is encasement of the left lower lobe bronchus without porfirio left lower lobe bronchus occlusion. Electronically Signed: Devon Jackson MD at 7:27 EST Tel , Service support ,
[2019-10-07 08:51] LABS: Hematocrit 39.8 % (40-54); Hemoglobin 13.5 g/dL (13.0-16.5); Mean Corp Hgb Conc 33.9 g/dL (32-36); Mean Corpuscular Hgb 30.6 pg (27.0-32.0); Mean Corpuscular Volume 90.2 fL (80-94); Mean Platelet Vol. 8.4 fl (6.2-12.0); Platelet Count 324 K/mm3 (150-450); RBC Distribution Width CV 13.7 % (11.6-14.6); RBC Distribution Width SD 45.6 fl (35.1-43.9); Red Blood Count 4.41 M/mm3 (4.6-6.2)
[2019-10-07 09:19] LABS: International Normalized Ratio 1.2; Prothrombin Time (Protime)PT. 14.6 SECONDS (11.7-14.9)
== END ==
PROVIDERS: Nurse Practitioner Acute Care; Referring Provider Internal Medicine Critical Care Medicine; Visit Provider Internal Medicine Critical Care Medicine
DX: R91.8 Other nonspecific abnormal finding of lung field (principal); R06.02 Shortness of breath
CPT/HCPCS: 36415; 71260; 85027; 85610; 85730; Q9967

== ENCOUNTER 2019-10-14 11:27 | Day surgery (SDC) | payer MEDICAID, SELFPAY ==
[2019-10-07 07:33] VITALS: BMI 19.9
[2019-10-14] VITALS (12 sets, daily range): BP systolic 84–118; BP diastolic 49–73; PULSE 81–101; RESP 18; TEMP 36.6–36.7; O2SAT 92–100; BMI 19.1
--- NOTE | 2019-10-14 | LUNB_PTH ---
PATIENT: ERIK HUERTAS LOC: EN U#:[id number] AGE/SX: 59/M ROOM: RE10/14/[address]: Dr. Hernesto Johnson MD : 1960 BED: DIS: 10/14/2019 SPEC #: [id number] RECD: 10/14/19 13:21 STATUS: MARGARET OLIVER #: [id number] LUCINA: 10/14/19 00:[address]: Hernesto Johnson DEPT: SURGICAL PATHOLOGY RECD BY: Rommel Whitley ENTERED: 10/14/19 14:20 SP TYPE: LUNG BX OTHR DR: Triny Patel, EMAIL PRODUCTION SPECIALIST-C [facility] Tissues: Left upper lobe of lung, NOS Procedures: Surgery Specimen Level IV HEADER OPERATION: Bronchoscopy with biopsies PRE-OP DIAGNOSIS: Lung mass TISSUE SUBMITTED: Endobronchial biopsy left upper lobe MICROSCOPIC DIAGNOSIS Left upper lobe endobronchial biopsy: Non-small cell carcinoma, squamous cell carcinoma. See comment. AM:pema 10/17/19 COMMENT Immunohistochemistry ([id number]) supports the above diagnosis. Please see corresponding cytology ([id number]). Case has been reviewed in consultation with Dr. Blackburn who concurs with the above diagnosis. IDC:LITTLE MICROSCOPIC DESCRIPTION Slides are reviewed. GROSS DESCRIPTION Received in fixative is one container labeled with the patient's name and designated endobronchial biopsy BHARGAV. The specimen consists of multiple irregular fragments of light stanton soft tissue that in aggregate measure 1 x 0.2 x 0.1 cm. The specimen is totally submitted in one cassette. / LITTLE:pema 10/14/19 TC:0 CPT: 73728
--- NOTE | 2019-10-14 | IMM_PTH ---
PATIENT: ERIK HUERTAS LOC: EN U#:[id number] AGE/SX: 59/M ROOM: RE10/14/[address]: Dr. Hernesto Johnson MD : 1960 BED: DIS: 10/14/2019 SPEC #: [id number] RECD: 10/17/19 13:17 STATUS: MARGARET REQ #: [id number] LUCINA: 10/14/19 00:[address]: Hernesto Johnson DEPT: IMMUNOHISTOCHEMISTRY RECD BY: Chantelle Donovan ENTERED: 10/17/19 13:20 SP TYPE: IMMUNO OTHR DR: Triny Patel, BODY AND FENDER MECHANIC-C [facility] Tissues: Lung, NOS Procedures: Synapto (add) RCC (add) NAPSIN A (add) CD56 (add) CHROMO (add) CK14 (add) CK20 (add) CK5-6 (add) CK7 (add) CK8 (add) JASON-2 (add) HEP PAR (add) KI-67 (add) P53 (add) TTF1 (add) Pankeratin (initial) P40 (add) PSAP (add) S-100 (add) PHYSICIAN & INSTITUTION [place] [address] SPECIMEN INFORMATION: Tissue Source: Left upper lobe, biopsy Clinical Info: Lung mass Specimen Number: [id number] CPT code: 74838, 41792 x18 METHODOLOGY: Deparaffinized sections of prefer/formalin-fixed tissue or PAP/DQ stained slides are incubated with monoclonal/polyclonal antibodies/oligonucleotide probes. Localization is made via biotin free immunoperoxidase method. Appropriate controls are performed and reacted as expected. Results on target cell population are indicated in the following table: RESULTS: ANTIBODY / CLONE RESULT AE1-3 (AE1/AE3/PCK26) positive CK7 (OV-TL12/30) negative CK8 (38qbhgG51) positive, dim CK20 (KS20.8) negative JASON-2 (SP21) positive, dim S-100 (4C4.9) negative CD56 (123C3.D5) negative Chromo (LK2H10) negative Synapto (polyclonal) negative TTF-1 (8G7G3/1) negative Napsin A (Rabbit Polyclonal) negative HepPar (OCh1E5) negative RCC (PN-15) negative PSAP (PASE/4LJ) negative CK5-6 (D5 & 1684) positive CK14 (LL002) positive P40 (BC28) positive P53 (DO-7) positive, 80% Ki-67 (30-9) positive, 70% These tests were developed and their performance characteristics determined by [facility]. They may not have been cleared or approved by the U.S. Food and Drug Administration. The FDA has determined that such clearance or approval is not necessary. The above immunohistochemical/dualISH markers are ordered and reviewed by the Pathologist. INTERPRETATION: Left upper lobe, biopsy: Squamous cell carcinoma. AM:pema 10/18/19
--- NOTE | 2019-10-14 | FLU_PTH ---
PATIENT: ERIK HUERTAS LOC: EN U#:[id number] AGE/SX: 59/M ROOM: RE10/14/[address]: Dr. Hernesto Johnson MD : 1960 BED: DIS: 10/14/2019 SPEC #: [id number] RECD: 10/14/19 13:21 STATUS: MARGARET REDereje #: [id number] LUCINA: 10/14/19 00:[address]: Hernesto Johsnon DEPT: CYTOLOGY RECD BY: Rommel Whitley ENTERED: 10/14/19 14:19 SP TYPE: Fluid OTHR DR: Triny Patel, TALENT ENGINEER-C [facility] Tissues: Left upper lobe of lung, NOS Procedures: Special Stain Group II Surgery Specimen Level IV Cytospin Fluid HEADER OPERATION: Bronchoscopy (MAC) PRE-OP DIAGNOSIS: Lung mass TISSUE SUBMITTED: BHARGAV washings for cytology DIAGNOSIS CYTOLOGY Left upper lobe of lung, washings (cytospin and cell block): Rare atypical squamoid cells present, suspicious a squamoid malignancy. AM:pema 10/17/19 COMMENT See corresponding surgical case ([id number]). Case has been reviewed in consultation with Dr. Blackburn who concurs with the above diagnosis. IDC:SJ CYTOLOGY STUDY Slides are reviewed. CYTOLOGY GROSS Received is 20 ml of red cloudy fluid labeled with the patient's name and and designated per the requisition as BHARGAV washings. Submitted for cytology preparation including cell block. / pema 10/14/19 TC:? CPT: 63095, 98289
--- NOTE | 2019-10-14 12:06 | PCM.HP.BLA ---
Problem List (1) Lung mass Status: Acute (2) Smoking greater than 40 pack years Status: Acute (3) Stage 2 moderate COPD by GOLD classification Status: Chronic Comment: FEV1 56% (4) Alcoholic fatty liver Status: Chronic (5) Nicotine dependence Status: Chronic Qualifiers: (6) Alcohol abuse Status: Chronic (7) GERD (gastroesophageal reflux disease) Status: Chronic (8) Vitamin D deficiency Status: Chronic History and Physical Date of Admission: 10/14/19 Assessment & Plan 1. Lung mass R91.8 Plan Proceed with bronchoscopy and potential endobronchial biopsies 2. Stage 2 moderate COPD by GOLD classification J44.9 Plan He does not appear to be in exacerbation of his COPD today. Continue current maintenance medications. No additional antibiotics or prednisone necessary at this time. Keep previously scheduled routine follow-up. Continue to encourage smoking cessation. HPI ct results: Chief Complaint: Test results HPI Comments Details: This patient presents to the office today to follow-up on recent test results. He is ambulatory and currently on room air. He has not been seen in the ED or urgent care for any respiratory illnesses since his last office visit. He has not required any antibiotics or prednisone for any breathing problems. He is compliant with Dulera twice daily. He reports rinsing his mouth out after each use. He denies any medication side effect such as sore throat or thrush. He is also compliant with Tudorza daily. He does utilize his rescue inhaler 3-4 times daily. Currently he has a cough that is productive of clear-colored sputum. He also reports an increase in shortness of breath on exertion. He complains of chest congestion and chest tightness. He also has postnasal drip. He continues to smoke cigarettes, is unclear on how many per day. He states that he rolls his own. CT of the chest completed on October 01, 2019, low-dose CT lung screen identified a 6 cm left upper lobe perihilar dense consolidation with mixed regular and irregular margins. CT of the chest with contrast completed on October 07, 2019 showing a 7.9 x 6.0 cm mass in the lingula highly suspicious for malignancy, extending along the pulmonary fissure margin and medially into the left hilum. Encasement of the left lower lobe bronchus without left lower lobe occlusion. Intake Vital Signs 10/07/19 BMI 19.9 10/07/19 Height 5 ft 10 in 10/07/19 Weight: 135 lb 10/07/19 BMI 19.3 10/07/19 BP 130/73 H 10/07/19 Blood Pressure Location Lt brachial 10/07/19 Position Sitting 10/07/19 Respiration 18 10/07/19 Pulse 99 10/07/19 Pulse Source Monitor 10/07/19 Temp 97.5 F L 10/07/19 Temperature Source Oral 10/07/19 Pulse Oximetry (%) 98 10/07/19 Oxygen Delivery Method room air Intake Visit Reasons: ct results Allergies No Known Allergies Allergy (Verified 10/07/19 07:32) Medications Amlodipine [Norvasc] 2.5 mg PO DAILY 08/05/13 [History Confirmed 10/07/19] Lisinopril [Zestril] 20 mg PO QHS 08/05/13 [History Confirmed 10/07/19] Albuterol Sulfate [Ventolin Hfa] 2 puff IH Q4H PRN 05/05/16 [History Confirmed 10/07/19] Pregabalin [Lyrica] 150 mg PO TID 05/05/16 [History Confirmed 10/07/19] Triamcinolone 0.1% Cream [Kenalog] 1 applic TP DAILY 05/05/16 [History Confirmed 10/07/19] mometasone-formoterol HFA 200 mcg-5 mcg/actuation aerosol inhaler 2 puff INHALATION Q12H 05/07/18 [History Confirmed 10/07/19] Ergocalciferol [Vitamin D] 50,000 unit PO SA 07/22/18 [History Confirmed 10/07/19] albuterol sulfate 2.5 mg INHALATION Q4H PRN #180 ml 06/16/19 [Rx Confirmed 10/07/19] aclidinium bromide 400 mcg/actuation breath activated powder inhaler 1 inh INHALATION BID #1 ea 08/30/19 [Rx Confirmed 10/07/19] PFSH Medical History Alcoholic fatty liver (Chronic) Nicotine dependence (Chronic) Alcohol abuse (Chronic) GERD (gastroesophageal reflux disease) (Chronic) Vitamin D deficiency (Chronic) Hypertension (Chronic) Hyponatremia (Acute) COPD (chronic obstructive pulmonary disease) (Chronic) Family History Other Cancer Hypertension Lung disease Social History (Updated 10/10/19 @ 15:07 by ALIZA Montejo) Smoking Status: Heavy Smoker (>10/day) Tobacco: How many years used: 43 second hand exposure: Yes alcohol intake: current alcohol intake frequency: a few times a week Alcohol type: beer substance use type: does not use Review of Systems Const CONSTITUTIONAL: No anorexia, No body ache, No chills, No daytime sleepiness, No fever(s), No night sweats, No stops breathing during sleep, No weight loss, No weight gain, No sleeping in chair, No orthopnea, No fatigue, No headache(s), No frequent colds, No seasonal allergies, No other EETM Ear Nose Throat Mouth: No hoarseness, No Dry mouth in morning, No change in vision, No itchy eyes, No eye pain, No Swallowing Difficulty, No ear pain, No nose bleed, No headache(s), No mouth pain, No nasal congestion, No nasal discharge, No sinus pain, No sinus pressure, No sore throat, No other Cardio Cadriovascular: No chest pain, No chest pain at rest, No chest pain with activity, No irregular heart rhythm, No shortness of breath when lying down, No palpitations, No other Resp Respiratory: Yes as per HPI, No shortness of breath at rest, No pain with cough, No chest congestion, No cough, No chest tightness, No pain on inspiration, No Inhalers, No Increase use of Rescue Inhalers, No snoring, No apnea, No other Gastro Gastrointestional: Negative bloody stools, change in appetite, difficulty swallowing, reflux, hematemesis, melena stool, loose stool, constipation or other Genitourinary: Negative blood in urine, nocturia, pain with urination or other Musc Musculoskeletal: Negative body pain, back pain, neck pain or other Skin/Breast Skin/Breast: No dry skin, No itching, No unusual bruising, No breast lump, No other Neuro Neurological: Negative restless legs, confusion, weakness or other Psych Psychocological: Negative abnormal sleep pattern, anxiety, thoughts of hurting self/others, hopelessness or other Lymph Lymphatic: No easy bleeding, No easy bruising, No other Exam Const Constitutional: Positive conversant, cooperative, in no acute respiratory distress, well developed, well nourished, good hygiene, thin and appears older than stated age; negative wearing supplemental oxygen or ill appearing Head Head: Yes normocephalic, Yes atraumatic Eyes Eye: Positive clear conjunctiva; negative nystagmus Ears Ear: Positive hearing normal and external ears normal; negative hard of hearing Nose Nose: Yes external nose normal, No nasal polyp Mouth Mouth: Positive oral mucosae normal, no lesions, edentulous and posterior oropharynx is adequate; negative malodorous breath, oral thrush present or post nasal drip Mallampati Score: II: Mallampati Score Neck Neck: Positive normal visual inspection, full ROM and trachea midline; negative lymphadenopathy or JVD Chest Wall Chest: Positive symmetric chest movement and increased A/P diameter; negative crepitus or tenderness Resp lung sounds: Positive diminished, wheezes (much improved from last exam), prolonged expiratory time and normal respiratory effort; negative rhonchi, rales, dullness to percussion or use of accessory muscles Cardio Cardiac: Positive regular rate, regular rhythm, S1 normal and S2 normal; negative murmur, rub or gallop GI GI: Positive normal to inspection; negative distended, ascites or epigastric tenderness Genitourinary: Positive deferred Musc Musculoskeletal: Positive steady gait; negative using an assistive device for ambulation, kyphosis or scoliosis Skin Pulmonary Skin Exam: Positive intact and dermal atrophy; negative lesion, rash, ulcers or scaly Pulses Pulse: Yes radial pulses present Extremities Extremities: Yes capillary refill normal, Yes clubbing, No cyanosis, No edema Tobacco stained digits Neuro Neurologic: Yes no focal neuro deficits, Yes conversant, Yes cooperative, Yes normal cognition, Yes normal coordination, Yes normal concentration, Yes understands questions, No tremor Lymph Lymphatic: No lymphadenopathy, No tenderness, No cervical adenopathy Psych Appearance: Positive grossly normal, eye contact and well kempt Mental Status: Positive mental status grossly normal Mood: Positive congruent mood Affect: Positive normal affect Code Visit 9xxxx: Other Procedure See Report - See bronchoscopy documentation
[2019-10-14] MEDS: Lactated Ringers 1,000 ML 100 ML IV ×2 (12:22→13:44)
[2019-10-14 13:26] LABS: Cytology, Washings SEE PATHOLOGY REPORT
[2019-10-14 15:16] LABS: Lymphocytes 10 %; Neutrophil (Segs) 90 %
[2019-10-14 15:35] LABS: Appearance/Body Fluid CLEAR; Color/Body Fluid RED; Source- Body Fluid BRONCHIAL LAVAGE
[2019-10-14 15:39] LABS: White Blood Count/Body Fluid 1350 /mm3
[2019-10-17 13:52] LABS: Pathologist Comment/Body Fluid Reviewed
--- NOTE | 2019-10-17 14:23 | OP.BRONCH_ITS ---
Patient Name: Amor Bethea Procedure Date: 10/14/2019 12:37 PM Date of : 1960 Age: 59 Procedure: Bronchoscopy Indications: Left lower lobe mass Providers: Hernesto Johnson MD Referring MD: Triny Patel Medicines: Lidocaine applied to nares and subglottic space Complications: No immediate complications Procedure: Pre-Anesthesia Assessment: - A History and Physical has been performed. The patient's medications, allergies and sensitivities have been reviewed. - The risks and benefits of the procedure and the sedation options and risks were discussed with the patient. All questions were answered and informed consent was obtained. - Patient identification and proposed procedure were verified prior to the procedure by the physician, the nurse and the county health officer. The procedure was verified in the endoscopy suite. - Using IV propofol under the supervision of an county health officer was determined to be medically necessary for this procedure based on review of the patient's medical history, medications, and prior anesthesia history. After I obtained informed consent, the scope was passed under direct vision. Throughout the procedure, the patient's blood pressure, pulse, and oxygen saturations were monitored continuously. The bronchoscope was introduced through the right nostril and advanced to the tracheobronchial tree of both lungs. The patient tolerated the procedure fairly well. Findings: Right Lung Abnormalities: An anatomic variant with moderate narrowing of the lumen was found in the right upper lobe. Left Lung Abnormalities: A completely obstructing mass was found proximally in the left upper lobe. The mass was large and exophytic, infiltrative and polypoid. The lesion was not traversed. Area pretreated with 2 cc of topical epinephrine. Endobronchial biopsies of a mass were performed in the left upper lobe using a forceps and sent for histopathology examination. Five samples were obtained. Washings were obtained in the left upper lobe and sent for routine cytology. The return was bloody. Multiple specimens were obtained and pooled into one specimen, which was sent for analysis. Mucosal irregularity was found in the left lower lobe. Biopsy of mucosal abnormality unable to be performed secondary to bleeding from promary lesion. Impression: - Left lower lobe mass - An anatomic variant was found in the right upper lobe. - An exophytic, infiltrative and polypoid mass was found in the left upper lobe. This lesion is likely malignant. - Mucosal irregularity was visualized in the left lower lobe. - An endobronchial biopsy was performed. - Washings were obtained. Recommendation: - The patient will be observed post-procedure, until all discharge criteria are met. - Await biopsy and washing results. - Patient has a contact number available for emergencies. The signs and symptoms of potential delayed complications were discussed with the patient. Return to normal activities tomorrow. Written discharge instructions were provided to the patient. Procedure Code(s): --- Professional --- 05690, Bronchoscopy, rigid or flexible, including fluoroscopic guidance, when performed; with bronchial or endobronchial biopsy(s), single or multiple sites Diagnosis Code(s): --- Professional --- R91.8, Other nonspecific abnormal finding of lung field J98.9, Respiratory disorder, unspecified CPT copyright 2017 [employer] [place] [employer]. All rights reserved. The codes documented in this report are preliminary and upon computer technology instructor review may be revised to meet current compliance requirements. MD Hernesto Pinzon MD 10/14/2019 1:09:50 PM This report has been signed electronically. Number of Addenda: 0 Note Initiated On: 10/14/2019 12:37 PM
== END 2019-10-14 14:31 | disposition home or self-care (01) ==
LOC: EN 11:28 → AC 11:29 → ACINP 12:16 → AC 12:19
PROVIDERS: Referring Provider Nurse Practitioner Family; Visit Provider Internal Medicine Critical Care Medicine
PROC: 0BJ08ZZ Inspection of Tracheobronchial Tree, Via Natural or Artificial Opening Endoscopic (ICD-10-PCS; CPT 31622; principal; 2019-10-14 12:15)
DX: R91.8 Other nonspecific abnormal finding of lung field (principal); J98.9 Respiratory disorder, unspecified; J44.9 Chronic obstructive pulmonary disease, unspecified; K70.0 Alcoholic fatty liver; F10.10 Alcohol abuse, uncomplicated; K21.9 Gastro-esophageal reflux disease without esophagitis; I10 Essential (primary) hypertension; E55.9 Vitamin D deficiency, unspecified; Z79.899 Other long term (current) drug therapy; F17.210 Nicotine dependence, cigarettes, uncomplicated
CPT/HCPCS: 31625; 88108; 88305; 88309; 88313; 88341; 88342; 89050; J7120; J2405

== ENCOUNTER → 2019-10-21 07:17 | Outpatient (CLI) | payer MEDICAID, SELFPAY ==
[2019-10-19 13:03] VITALS: BMI 19.3
--- NOTE | 2019-10-21 07:18 | MRI_ITS ---
STUDY: MRI BRAIN WITH AND WITHOUT CONTRAST REASON FOR EXAM: Male, 59 years old. new lung ca staging, no complaints from patient TECHNIQUE: Standardized multiplanar fat and water weighted pulse sequences were obtained. 12ml Dotarem via IV was administered for the contrast portion of the examination. COMPARISON: None. FINDINGS: There is mild cerebral atrophy with widening of the extra-axial spaces and ventricular dilatation. There are a limited number of small white matter hyperintensities, distributed throughout the deep white matter tracts of the cerebral hemispheres, consistent with mild chronic white matter ischemic changes. There is no evidence for recent intracranial ischemia or other cause of cytotoxic edema on diffusion weighted imaging (DWI). Normal T2* images of the brain without demonstrated susceptibility artifact. There is no demonstrated hemosiderin stain. Normal bilateral basal ganglia. Normal thalami. There is no extra-axial fluid accumulation. Normal flow voids within the major intracranial circulation suggesting patency by spin echo criteria. Normal venous enhancement. There is no enhancing intra-axial or extra-axial abnormality. Normal sella turcica, pituitary gland, infundibular stalk, optic chiasm and hypothalamus. Normal tectal plate and pineal gland. Normal midbrain, zuleima and medulla. Normal cerebellum. Normal basal cisterns. Normal bilateral temporal bones. Normal bilateral internal auditory canals. No demonstrated orbital abnormality, within the constraints of a routine brain study. Normal visualized paranasal sinuses. Normal calvarium and skull base. Normal visualized soft tissue structures. Normal visualized upper cervical spine. MRI/Brain W/WO Contrast IMPRESSION: Involutional changes of the brain, as described above. No MR evidence of metastatic disease. Electronically Signed: Luis Parikh MD at 10:33 EST Tel , Service support ,
== END ==
LOC: MRI 07:18
PROVIDERS: Referring Provider Internal Medicine Medical Oncology; Visit Provider Internal Medicine Medical Oncology
DX: C34.12 Malignant neoplasm of upper lobe, left bronchus or lung (principal)
CPT/HCPCS: 70553; A9575

== ENCOUNTER → 2019-11-07 12:57 | Outpatient (CLI) | payer MEDICAID, SELFPAY ==
[2019-10-25 14:03] VITALS: BMI 19.3
[2019-10-31 11:02] VITALS: BMI 19.1
[2019-11-03 13:36] VITALS: BMI 19.3
--- NOTE | 2019-11-07 12:58 | ECHOD_ITS ---
Left Ventricle Normal size and thickness. The estimated ejection fraction is 65 %. Normal diastology for age. No regional wall motion abnormalities noted. Right Ventricle Mildly dilated right ventricle. Normal systolic function. Atria Normal left atrium. Normal right atrium. Normal atrial septum. Mitral Valve The mitral valve is structurally normal. No prolapse or stenosis seen. Tricuspid Valve Normal tricuspid valve. Trivial tricuspid valve insufficiency. Unable to estimate RV systolic pressure due to insufficient tricuspid regurgitant envelope. Aortic Valve Normal aortic valve. Trisinus/trileaflet aortic valve. Pulmonic Valve The pulmonic valve is not well visualized. Great Vessels Normal aortic root. Normal arch. Normal inferior vena cava. Inferior vena cava collapse with sniff. Pericardium/Pleural No pericardial effusion. MMode/2D Measurements & Calculations LVIDd: 4.1 cm IVSd: 0.76 cm Ao root diam: 3.1 cm LVIDs: 3.0 cm LVPWd: 0.70 cm RVDd: 4.4 cm FS: 27.6 % LAV(MOD-bp): 34.6 ml LVAd ap4: 33.1 cm2 SV(MOD-sp4): 57.8 ml LAV(MOD-bp) Indexed: 19.6 ml/m2 EDV(MOD-sp4): 106.2 ml LAV(MOD-sp2): 37.4 ml EDV(sp4-el): 110.4 ml LAV(MOD-sp4): 32.2 ml LVAs ap4: 19.5 cm2 ESV(MOD-sp4): 48.5 ml ESV(sp4-el): 48.2 ml EF(MOD-sp4): 54.4 % EF(sp4-el): 56.3 % SV(sp4-el): 62.2 ml LA dimension(2D): 2.5 cm LA A4 area: 13.6 cm2 RA A4 area: 14.0 cm2 Time Measurements MV dec time: 0.24 sec Doppler Measurements & Calculations MV E max jorje: 72.9 cm/sec Lat Peak E' Jorje: 10.1 cm/sec Med Peak E' Jorje: 12.6 cm/sec MV A max jorje: 52.2 cm/sec E/E' lat: 7.2 E/E' med: 5.8 MV E/A: 1.4 Ao V2 max: 140.0 cm/sec LV V1 max: 96.1 cm/sec Ao max P.8 mmHg LV V1 max P.7 mmHg Interpretation Summary The estimated ejection fraction is 65 %. Normal diastology for age. Mildly dilated right ventricle. Unable to estimate RV systolic pressure due to insufficient tricuspid regurgitant envelope. The study was technically difficult. There is no comparison study available. Ordering Physician: Cyril Rangel Referring Physician: Cyril Rangel
== END ==
LOC: CVS 12:58
PROVIDERS: Referring Provider Internal Medicine Cardiovascular Disease; Visit Provider Internal Medicine Cardiovascular Disease
DX: R07.89 Other chest pain (principal); F17.210 Nicotine dependence, cigarettes, uncomplicated
CPT/HCPCS: 93306

== ENCOUNTER → 2019-11-08 10:32 | Outpatient (CLI) | payer MEDICAID, SELFPAY ==
[2019-10-25 14:03] VITALS: BMI 19.3
[2019-10-31 11:02] VITALS: BMI 19.1
[2019-11-03 13:36] VITALS: BMI 19.3
--- NOTE | 2019-11-08 10:32 | STEWCON_ITS ---
Reason For Study: CHEST PAIN Stress Results Protocol: [facility] Protocol WITH DEFINITY Maximum Predicted HR: 163 bpm Target HR: 139 bpm % Maximum Predicted HR: 82 % DurationHeart Rate Stage (mm:ss) (bpm) BP Comment BASELINE 100 120/684CC DEFINITY STAGE 1 3:00 130 140/80 STAGE 2 0:08 133 / INCREASED SOB RECOVERY 96 130/63 Stress Duration: 3:08 mm:ss Maximum Stress HR: 133 bpm Baseline Echocardiogram Findings The estimated ejection fraction is 65 %. Normal size and thickness. Stress Echo Wall motion Data Resting WM Intermediate WM Stress WM Resting Wall Motion Wall Motion Stress No regional wall motion Mid-Anterior : Mildly abnormalities noted. hypokinetic. Mid-anteroseptal : Mildly hypokinetic. EKG Data The baseline ECG displays normal sinus rhythm. The patient exercised according to the regular Hernesto protocol for a total duration of 3:08. The maximum heart rate attained was 131 beats per minute. This was 80% of maximum predicted heart rate. The patient exercised into stage 2 of the Hernesto protocol. During stress, there were no ST or T wave changes noted to suggest ischemia. No clinical angina was noted. Interpretation Summary The estimated ejection fraction is 65 %. Mid-Anterior : Mildly hypokinetic Mid-anteroseptal : Mildly hypokinetic Abnormal, adequate, treadmill echocardiogram. Positive for ischemia by echocardiographic criteria. Patient appeared to develop mid anterior and anteroseptal hypokinesis at peak exercise. No anginal symptoms noted. Rare PVCs and ventricular couplets noted. Poor exercise capacity for age. Test terminated due to attainment of target heart rate and dyspnea. Final LVEF is 65%. Patient tolerated procedure well. No complications. The study was technically difficult. Contrast injection was performed. Ordering Physician: Cyril Rangel Referring Physician: Cyril Rangel Performed By: Kell Doyle, AGUSTINA, RVT
== END ==
LOC: CVS 10:32
PROVIDERS: Referring Provider Internal Medicine Cardiovascular Disease; Visit Provider Internal Medicine Cardiovascular Disease
DX: R06.02 Shortness of breath (principal); R07.89 Other chest pain; F17.210 Nicotine dependence, cigarettes, uncomplicated; I10 Essential (primary) hypertension; Z71.3 Dietary counseling and surveillance; R63.4 Abnormal weight loss; C34.90 Malignant neoplasm of unspecified part of unspecified bronchus or lung
CPT/HCPCS: 93017; 93350; 97802; Q9957; A4216; C8928

== ENCOUNTER 2019-11-08 14:31 | Outpatient (RCR) | payer MEDICAID, SELFPAY ==
[2019-10-31 11:02] VITALS: BMI 19.1
[2019-11-03 13:36] VITALS: BMI 19.3
[2019-11-08 13:08] VITALS: BMI 19.3
== END 2019-11-26 23:59 ==
LOC: NS 14:31
PROVIDERS: Visit Provider Student in an Organized Health Care Education/Training Program
DX: Z71.3 Dietary counseling and surveillance (principal); R63.4 Abnormal weight loss; C34.90 Malignant neoplasm of unspecified part of unspecified bronchus or lung
CPT/HCPCS: 97802

== ENCOUNTER 2019-11-10 05:57 | Day surgery (SDC) | payer MEDICAID, SELFPAY ==
--- NOTE | 2019-10-25 02:39 | HP_ITS ---
HPI HPI History of Present Illness Surgical H&P: Yes Details: Mr. 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 Hernesto Johnson presumably for possible left lung malignancy invading the pericardium and chest pain. Apparently he is not a candidate for surgical resection, and was referred to oncology who recommended chemotherapy and/or radiation therapy. There was also some comment as to whether the patient has coronary disease seen on CT scan. His screening EKG dated 10/25/2019 shows normal sinus rhythm, normal axis, possible old anteroseptal wall myocardial infarction. He denies any CVA or TIA. On further history the patient has a strong positive family history of lung cancer in his parents and IA in his brother. He has never had a stress test, echocardiogram and unknown lipids at this time. Patient states that about 2 months ago he began developing substernal chest pain, mostly nonexertional, 3?4 out of 10 in severity, lasting all day, and relieved with Aleve. He denies any exertional chest pain but does complain of dyspnea on exertion which may be an anginal equivalent. He has thankfully quit smoking. He has never had a stress test, catheterization. In our office today's blood pressure is 120/60, pulse is 103 and regular. His physical exam demonstrates clear lungs bilaterally with very distant breath sounds, regular rate and rhythm, normal S1/S2, no murmurs detected. He has no edema.. EKG is as above. Lipids are pending. Intake Vital Signs 10/25/19 Height 5 ft 10 in 10/25/19 Weight: 135 lb 10/25/19 BP 120/60 10/25/19 Blood Pressure Location Lt brachial 10/25/19 Position Sitting 10/25/19 Respiration 20 H 10/25/19 Pulse 103 H 10/25/19 Pulse Source Auscultation Intake Visit Reasons: CP (PMW Indra SINGLETON) Allergies No Known Allergies Allergy (Verified 10/25/19 14:20) Medications Amlodipine [Norvasc] 2.5 mg PO DAILY 08/05/13 [History Confirmed 10/19/19] Lisinopril [Zestril] 20 mg PO QHS 08/05/13 [History Confirmed 10/19/19] Albuterol Sulfate [Ventolin Hfa] 2 puff IH Q4H PRN 05/05/16 [History Confirmed 10/19/19] Pregabalin [Lyrica] 150 mg PO TID 05/05/16 [History Confirmed 10/19/19] Triamcinolone 0.1% Cream [Kenalog] 1 applic TP DAILY PRN 05/05/16 [History Confirmed 10/19/19] mometasone-formoterol HFA 200 mcg-5 mcg/actuation aerosol inhaler 2 puff INHALATION Q12H 05/07/18 [History Confirmed 10/19/19] Ergocalciferol [Vitamin D] 50,000 unit PO SA 07/22/18 [History Confirmed 10/19/19] albuterol sulfate 2.5 mg INHALATION Q4H PRN #180 ml 06/16/19 [Rx Confirmed 10/19/19] Aclidinium [place] [Tudorza Pressair] 1 inh INHALATION BID 10/13/19 [History Confirmed 10/19/19] Doxycycline Hyclate 50 mg PO DAILY 10/14/19 [History Confirmed 10/19/19] Disability Placard See Rx Instructions .ROUTE .MEDSUPPLY #1 ea 10/19/19 [Rx Confirmed 10/19/19] aspirin 81 mg tablet,delayed release 81 mg PO DAILY #30 tab 10/25/19 [Rx Confirmed 10/25/19] PFSH Family History Father Esophageal cancer Mother Lung cancer Brother , Cause unknown No problems noted. Brother CAD (coronary artery disease) Myocardial infarction Brother CAD (coronary artery disease) Myocardial infarction Other Cancer Hypertension Lung disease Social History (Updated 10/25/19 @ 14:39 by Cyril Rangel MD) Smoking Status: Light Smoker (<10/day) Tobacco: How many years used: 43 second hand exposure: Yes alcohol intake: current alcohol intake frequency: a few times a week Alcohol type: beer substance use type: does not use Cardiology Exam Const Appearance: cooperative, healthy appearing and no acute distress Nutritional Appearance: well nourished Orientation: alert, oriented x3 and oriented to person Head Head: normal to inspection, normocephalic and atraumatic Nose: external nose normal Face and Sinus: face symmetric Mouth: oral mucosae normal Eyes General: appearance normal, both eyes and all related structures Eyelids: eyelids normal Conjunctivae: conjunctivae normal Pupils: PERRL and normal by confrontation EOM: EOM intact bilaterally Neck Neck: normal visual inspection and full ROM Carotids: normal carotid upstroke Chest Chest inspection: normal inspection of the chest Auscultation: Bilateral: Clear to Auscultation Cardio Palpation: normal PMI Rate: regular rate Rhythm: regular rhythm Heart sounds: S1 normal and S2 normal GI GI: normal to inspection, no hepatosplenomegaly and bowel sounds present Neuro General: alert, awake, oriented x3, CN's II-XI intact bilaterally and moves all extremities Skin Skin: no rashes or lesions noted Extremities Pulses: Normal: Right Femoral Pulse, Left Femoral Pulse, Right Dorsalis Pedis Pulse, Left Dorsalis Pedis Pulse, Right Posterior Tibial Pulse, Left Posterior Tibial Pulse, Right Radial Pulse, Left Radial Pulse Lower Extremity Edema: None: Bilateral Psych Psychological: normal affect Assessment & Plan 1. Chest discomfort R07.89 Plan 1. Chest discomfort: Patient has several risk factors for possible coronary Klo[place] disease and has been having chest pain on and off for the past 2 months, superimposed upon newly diagnosed left-sided lung cancer with possible encroachment on the pericardium. There is also evidence by CAT scan that he may have coronary occlusive disease as well given the detection of coronary calcification. Given the patient's chest pain, risk factors, previous smoking, I recommended he undergo a 2D echo with Doppler to determine if he has any kind of infiltration of his tumor into the pericardial space. In addition I recommended he undergo a treadmill echocardiogram to evaluate for possible coronary occlusive disease. The patient stress test is grossly abnormal, he may require diagnostic coronary angiogram. I would be hesitant to place the patient on dual antiplatelet therapy at this time given possible infiltration into his pericardium from his left lung tumor. I do think it is reasonable to start baby aspirin 81 mg p.o. daily. If the patient stress test is negative, I recommend continuing to treat the patient with antihypertensive therapy in the form of amlodipine and lisinopril. Orders Orders: 12 Lead EKG performed by [facility] Today Echo Complete Today Stress Test Echo w/o Contrast Today 2. Cigarette nicotine dependence with other nicotine-induced disorder F17.200 Plan 2. Tobacco abuse: The patient has a greater than 05-efii-lexw smoking history and review of his CAT scan demonstrates severe bullous emphysema particularly of the right side. This makes left lung resection essentially impossible, and would most likely only benefit from chemotherapy and/or radiation therapy for his lung mass. Patient states that he is quit tobacco about 2 weeks ago. 3. Hyperlipidemia E78.5 Plan 3. Hyperlipidemia: In attempt to complete his cardiac evaluation I recommended a fasting lipid profile. I would not recommend antilipid therapy unless the patient's LFTs are within normal limits given his previous alcohol abuse. 4. Return office in 6 months. This note was generated using a voice recognition system and there may be incorrect words, spelling or punctuation that were not noted when reviewing the office note prior to saving. Plan Detail Other Orders Orders: 12 Lead EKG performed by [facility] Today R06.02 Lipid Profile 1 Week E78.00 Liver Profile 1 Week E78.00 Echo Complete Today F17.210 Stress Test Echo w/o Contrast Today F17.210, I10, R06.02 Other Medications New: aspirin 81 mg PO DAILY 30 tabs 11RF Follow Up +6M (Juan Carlos) Coding Level of Care Code Off vis,new,level 4 Diagnoses Chest discomfort R07.89 Cigarette nicotine dependence with other nicotine-induced disorder F17.200 Hyperlipidemia E78.5 Coding Level of Care Code Off vis,new,level 4 Diagnoses Chest discomfort R07.89 Cigarette nicotine dependence with other nicotine-induced disorder F17.200 Hyperlipidemia E78.5 Supplemental Info Supplemental Information Pulmonary Pulmonary Function Test 03/03/19 Pulmonary Exercise Test 05/27/18 10/25/19 1440 <Electronically signed by Cyril Rangel MD> Date _ Cyril Rangel MD
[2019-10-31 11:02] VITALS: BMI 19.1
--- NOTE | 2019-11-08 02:35 | HP_ITS ---
Intake Vital Signs 11/08/19 BMI 19.3 11/08/19 Height 5 ft 10 in 11/08/19 Weight: 136 lb 4 oz 11/08/19 BMI 19.5 11/08/19 BP 139/83 H 11/08/19 Blood Pressure Location Rt brachial 11/08/19 Position Sitting 11/08/19 Respiration 16 11/08/19 Pulse 89 11/08/19 Pulse Source Monitor 11/08/19 Temp 98.1 F 11/08/19 Temp Source Oral 11/08/19 Pulse Oximetry (%) 96 11/08/19 Oxygen Delivery Method room air Intake Visit Reasons: PORT PLACEMENT Chief Complaint: Port placement Actuarial Clerk Required: No Is patient in pain?: No Allergies No Known Allergies Allergy (Verified 11/03/19 13:35) Medications Amlodipine [Norvasc] 2.5 mg PO DAILY 08/05/13 [History Confirmed 11/08/19] Lisinopril [Zestril] 20 mg PO QHS 08/05/13 [History Confirmed 11/08/19] Albuterol Sulfate [Ventolin Hfa] 2 puff IH Q4H PRN 05/05/16 [History Confirmed 11/08/19] Pregabalin [Lyrica] 150 mg PO TID 05/05/16 [History Confirmed 11/08/19] Triamcinolone 0.1% Cream [Kenalog] 1 applic TP DAILY PRN 05/05/16 [History Confirmed 11/08/19] mometasone-formoterol HFA 200 mcg-5 mcg/actuation aerosol inhaler 2 puff INHALATION Q12H 05/07/18 [History Confirmed 11/08/19] Ergocalciferol [Vitamin D] 50,000 unit PO SA 07/22/18 [History Confirmed 11/08/19] albuterol sulfate 2.5 mg INHALATION Q4H PRN #180 ml 06/16/19 [Rx Confirmed 11/08/19] Aclidinium [place] [Tudorza Pressair] 1 inh INHALATION BID 10/13/19 [History Confirmed 11/08/19] Doxycycline Hyclate 50 mg PO DAILY 10/14/19 [History Confirmed 11/08/19] Disability Placard See Rx Instructions .ROUTE .MEDSUPPLY #1 ea 10/19/19 [Rx Confirmed 11/08/19] aspirin 81 mg tablet,delayed release 81 mg PO DAILY #30 tab 10/25/19 [Rx Confirmed 11/08/19] clopidogrel 75 mg tablet 75 mg PO DAILY #30 tab 11/08/19 [Rx Confirmed 11/08/19] [facility] Medical History Shortness of breath (Acute) Lung mass (Acute) Chest discomfort (Acute) Smoking greater than 40 pack years (Chronic) Stage 2 moderate COPD by GOLD classification (Chronic) Alcoholic fatty liver (Chronic) Nicotine dependence (Chronic) Alcohol abuse (Chronic) GERD (gastroesophageal reflux disease) (Chronic) Vitamin D deficiency (Chronic) Hypertension (Chronic) Hyponatremia (Acute) COPD (chronic obstructive pulmonary disease) (Chronic) Hypertension (Chronic) Surgical History Growth removed from throat (Chronic ~2017) Family History Father Esophageal cancer Mother Lung cancer Diabetes Brother , Cause unknown No problems noted. Brother CAD (coronary artery disease) Myocardial infarction Brother CAD (coronary artery disease) Myocardial infarction Other Cancer Hypertension Lung disease Social History (Updated 11/08/19 @ 14:[address] Quinn Sterling MD) Smoking Status: Light Smoker (<10/day) Tobacco: How many years used: 43 second hand exposure: Yes alcohol intake: current alcohol intake frequency: a few times a week Alcohol type: beer substance use type: does not use HPI HPI HPI: ERIK ALEKSANDAR, is a 59 M who presents to the office today for HPI HPI Surgical H&P: Yes HPI: ERIK HUERTAS, is a 59 M who presents to the office today for port placement consultation. ROS General General: Yes weight change and fatigue; no appetite, colon cancer, breast cancer or weakness HEENT HEENT: Yes eye surgery; no difficulty swallowing, eye injury, swollen glands or hoarseness Endo Endocrine: No thyroid disease, diabetes mellitus, thyroid cancer, Hair loss, heat intolerance or cold intolerance Skin Skin: No rash or changing moles Breast Breast: No left breast lump, right breast lump, nipple discharge, breast pain, abnormal mammogram, abnormal US or breast enlargement Musc Musculoskeletal: Yes back problems and arthritis; no rheumatoid arthritis, gout or joint pain Cardio Cardiovascular: Yes high blood pressure; no murmur, pacemaker, heart disease, atrial fibrillation, heart attack, heart stent, palpitations, shortness of breat with exertion or chest pain Psych Psychiatric: No depression, anxiety or hearing voices Resp Respiratory: Yes shortness of breath, No sleep apnea, Yes cough, Yes COPD, No asthma, Yes emphysema, Yes wheezing Gastro Gastrointestinal: No abdominal pain, No nausea or vomiting, No diarrhea, No constipation, No blood in stool, No acid reflux, No hemorrhoids, No ulcers, No gallbladder problem, No black,tarry stools Tan Hematologic: Yes blood thinners (ASA ), No blood disorders, No bleeding, No anemia, No blood clots Neuro Neurologic: No system reviewed and no additional complaints, except as docu, No as per HPI, No abnormal walking, No abnormal hearing, No abnormal movements, No abnormal speech, No behavioral changes, No burning sensations, No confusion, No seizure-like activity, No unsteadiness, No dizziness, No localized weakness, No frequent falls, No headache(s), No lack of coordination, No loss of vision, No memory loss, No numbness, No other visual disturbances, No radiating pain, No restless legs, No sensory deficit, No fainting, No tingling, No tremor(s), No weakness, No other Exam Const General: cooperative Orientation: alert, oriented x3 Chest Breast Palpation: No nipple discharge Resp Effort & Inspection: normal respiratory effort Auscultation: clear to auscultation bilaterally Cardio Rate: regular rate Rhythm: regular rhythm Heart Sounds: no murmurs GI Inspection: non-distended Palpation: soft, nontender Assessment & Plan Problems 1. Squamous cell carcinoma of left lung C34.92 2. Chest discomfort R07.89 3. Encounter for adjustment and management of vascular access device Z45.2 Plan The patient has several issues going on. The patient had a stress echo done today for chest discomfort. He had a CT scan which showed possible atherosclerosis of the coronary vessels. Patient also has a left lung cancer and he is in need of a chest port placement. I discussed his treatment with Dr. Rangel. The patient is to be started on Plavix as soon as possible with plans for heart cath next week. I will plan to place the port on under very light MAC anesthesia and mostly local. That will give him some time to heal before his heart cath. He will be placed on Plavix starting 2 days postoperative. I discussed port placement with the patient in detail. I discussed the risks including but not limited to bleeding, infection, pneumothorax, DVT. Patient understands the risks and is willing to proceed with right chest port placement. Quinn Sterling MD Pager: [facility] [address] [place] [address], [address] [place] [address] Office: Coding Level of Care Code Off vis,new,level 3 Diagnoses Squamous cell carcinoma of left lung C34.92 ??Laterality: left Chest discomfort R07.89 Encounter for adjustment and management of vascular access device Z45.2 11/08/19 [id number] <Electronically signed by Quinn moore MD> Date _ Quinn Sterling MD I have re-examined the patient. There are no clinical changes since date of exam. Plan to proceed with chest replacement under mostly local sedation. Patient can start his Plavix on Thursday and proceed with heart cath next week.
[2019-11-09 15:24] VITALS: BMI 19.3
[2019-11-10] VITALS (7 sets, daily range): BP systolic 107–119; BP diastolic 69–83; PULSE 87–104; RESP 16–18; TEMP 36.5–36.8; O2SAT 93–99; BMI 19.3
[2019-11-10] MEDS: Lactated Ringers 1,000 ML 100 ML IV (06:34)
[2019-11-10] MEDS: Cefazolin 2 GM in 0.9% Normal Saline 100 ML IV (07:22)
[2019-11-10] MEDS: Bupiv/Epi 0.5% Mpf 30 ML Vial (07:38)
--- NOTE | 2019-11-10 08:02 | RAD_ITS ---
STUDY: X-RAY CHEST REASON FOR EXAM: Male, 59 years old. PORT PLACEMENT TECHNIQUE: Single AP portable view of the chest. COMPARISON: None. FINDINGS: A right-sided portacatheter as been placed. The tip is in the proximal portion of the superior vena cava. EKG electrodes are seen. Emphysematous changes in the upper lobes. Increased markings at the lung bases suggestive of scarring. There is no demonstrated pleural abnormality. Normal size heart. Normal mediastinum and thong. Normal visualized pulmonary arteries. There is atherosclerotic calcification of the aortic arch with tortuosity. Normal visualized thoracic spine. Normal visualized ribs, clavicles, and shoulders. There is no demonstrated abnormality of the visualized soft tissue structures of the upper abdomen. RAD/CXR for Line Placement IMPRESSION: The tip of the right-sided portacatheter is in the proximal portion of the superior vena cava. Electronically Signed: Darren Chi, at 8:36 EST , Service support ,
--- NOTE | 2019-11-10 08:19 | OP.PCM_ITS ---
Problem List (1) Encounter for adjustment and management of vascular access device Status: Acute Report of Operation Date of Procedure: 11/10/19 Pre-Operative Diagnosis: Need for vascular access port Post-Operative Diagnosis: Same Surgery/Procedure Performed:: Ultrasound and fluoroscopy guided right chest port placement utilizing right IJ Description of Procedure: After obtaining informed consent patient was brought back to the operating room MAC anesthesia was induced and the right chest and neck were prepped in normal sterile fashion. Ultrasound was used to evaluate both IJs and the right IJ was selected. Next, using a needle, the right IJ was accessed and a guidewire was passed on into the superior vena cava under fluoroscopy guidance. A small incision was made over the puncture site and the dilator introducer was placed over the guidewire. Next this was capped and the pocket was made for the port. 1% lidocaine with epinephrine was injected in the proposed port site. An incision was made with scalpel. Electrocautery was used to make a pocket under the skin and subcutaneous tissue. Hemostasis was obtained. Next, the catheter was tunneled up to the neck incision site and placed through the introducer. The peel-away introducer was removed and the position of the catheter was confirmed on fluoroscopy. Next, the catheter was trimmed and attached to the port with the locking device. Interrupted 2-0 Vicryl sutures were used to anchor the port to the chest wall and then the port was placed inside the pocket. The pocket was then flushed with saline and the port irrigated with saline. There was good blood return and the port flushed easily. Next, heparin was injected into the port. The skin was closed with subcutaneous interrupted 3-0 Vicryl sutures. A single 3-0 Vicryl sutures placed under the skin at the neck incision site. Steri-Strips were placed as well as op sites. Patient tolerated procedure well, was taken to PACU in stable condition. Chest x-ray will be obtained. Grafts/Implants Used: 8 [place] [employer] - Admit VTE Documentation VTE Mechan Device Prophylaxis: SCD's
--- NOTE | 2019-11-10 08:22 | DCINST_ITS ---
Discharge Diet: No Restrictions - Pain medication may cause nausea. You should typically eat light foods as you take your pain medication. Discharge Activity: Return to Normal Activity, May Shower - with your bandage in place in 1-2 days after surgery. DO NOT SHOWER WHEN YOUR PORT IS ACCESSED. Call your doctor if your incision/area has: Continuous Slow Oozing, Sudden Increased Bleeding, Increased Pain/ Swelling, Increased Redness Call your doctor if you observe: Fever of 101 or Higher Remove Dressing in (days):: 3 - When you remove the bandage, leave the steri- strips intact until they fall off. Additional Dressing/Incision Instructions:: Okay to begin Plavix on Thursday Allergies/Adverse Reactions: Allergies No Known Allergies Allergy (Verified 11/10/19 06:22) Medications to take at Discharge Amlodipine [Norvasc] 2.5 mg PO DAILY 08/05/13 Lisinopril [Zestril] 20 mg PO QHS 08/05/13 Albuterol Sulfate [Ventolin Hfa] 2 puff IH Q4H PRN 05/05/16 Pregabalin [Lyrica] 150 mg PO TID 05/05/16 Triamcinolone 0.1% Cream [Kenalog] 1 applic TP DAILY PRN 05/05/16 mometasone-formoterol HFA 200 mcg-5 mcg/actuation aerosol inhaler 2 puff INHALATION Q12H 05/07/18 Ergocalciferol [Vitamin D] 50,000 unit PO SA 07/22/18 albuterol sulfate 2.5 mg INHALATION Q4H PRN #180 ml 06/16/19 Aclidinium [place] [Tudorza Pressair] 1 inh INHALATION BID 10/13/19 Doxycycline Hyclate 50 mg PO DAILY 10/14/19 aspirin 81 mg tablet,delayed release 81 mg PO DAILY #30 tab 10/25/19 Lidocaine/Prilocaine [Lidocaine-Prilocaine Cream] 1 applicatio TP DAILY PRN PRN 30 Days #1 tube 11/09/19 Ondansetron [Ondansetron Odt] 8 mg PO Q8H PRN PRN 10 Days #30 tab.rapdis 11/09/19 Primary Care Physician: Pauline Thronton [Primary Care Provider] - Test Results: Test results from this visit will be discussed in further detail at your follow- up appointment, if applicable. Please Follow Up With: Quinn Sterling MD When: Please call to schedule 2 week follow up appointment. [phone]
== END 2019-11-10 08:59 | disposition home or self-care (01) ==
LOC: SDC 05:57 → AC 05:58
PROVIDERS: Referring Provider Surgery; Visit Provider Surgery
PROC: (CPT 36561; principal; 2019-11-10 07:15)
DX: Z45.2 Encounter for adjustment and management of vascular access device (principal); C34.92 Malignant neoplasm of unspecified part of left bronchus or lung; J44.9 Chronic obstructive pulmonary disease, unspecified; I10 Essential (primary) hypertension; K76.0 Fatty (change of) liver, not elsewhere classified; K21.9 Gastro-esophageal reflux disease without esophagitis; M19.90 Unspecified osteoarthritis, unspecified site; E78.5 Hyperlipidemia, unspecified; Z79.02 Long term (current) use of antithrombotics/antiplatelets; Z79.82 Long term (current) use of aspirin; Z79.899 Other long term (current) drug therapy; Z87.891 Personal history of nicotine dependence
CPT/HCPCS: 36561; 76937; 71045; 77001; J7120; C1788

== ENCOUNTER → 2019-11-16 08:01 | Day surgery (SDC) | payer MEDICAID, SELFPAY ==
--- NOTE | 2019-10-25 02:39 | HP_ITS ---
HPI HPI History of Present Illness Surgical H&P: Yes Details: Mr. 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 Hernesto Johnson presumably for possible left lung malignancy invading the pericardium and chest pain. Apparently he is not a candidate for surgical resection, and was referred to oncology who recommended chemotherapy and/or radiation therapy. There was also some comment as to whether the patient has coronary disease seen on CT scan. His screening EKG dated 10/25/2019 shows normal sinus rhythm, normal axis, possible old anteroseptal wall myocardial infarction. He denies any CVA or TIA. On further history the patient has a strong positive family history of lung cancer in his parents and [place] in his brother. He has never had a stress test, echocardiogram and unknown lipids at this time. Patient states that about 2 months ago he began developing substernal chest pain, mostly nonexertional, 3?4 out of 10 in severity, lasting all day, and relieved with Aleve. He denies any exertional chest pain but does complain of dyspnea on exertion which may be an anginal equivalent. He has thankfully quit smoking. He has never had a stress test, catheterization. In our office today's blood pressure is 120/60, pulse is 103 and regular. His physical exam demonstrates clear lungs bilaterally with very distant breath sounds, regular rate and rhythm, normal S1/S2, no murmurs detected. He has no edema.. EKG is as above. Lipids are pending. Intake Vital Signs 10/25/19 Height 5 ft 10 in 10/25/19 Weight: 135 lb 10/25/19 BP 120/60 10/25/19 Blood Pressure Location Lt brachial 10/25/19 Position Sitting 10/25/19 Respiration 20 H 10/25/19 Pulse 103 H 10/25/19 Pulse Source Auscultation Intake Visit Reasons: CP (PMW Indra SINGLETON) Allergies No Known Allergies Allergy (Verified 10/25/19 14:20) Medications Amlodipine [Norvasc] 2.5 mg PO DAILY 08/05/13 [History Confirmed 10/19/19] Lisinopril [Zestril] 20 mg PO QHS 08/05/13 [History Confirmed 10/19/19] Albuterol Sulfate [Ventolin Hfa] 2 puff IH Q4H PRN 05/05/16 [History Confirmed 10/19/19] Pregabalin [Lyrica] 150 mg PO TID 05/05/16 [History Confirmed 10/19/19] Triamcinolone 0.1% Cream [Kenalog] 1 applic TP DAILY PRN 05/05/16 [History Confirmed 10/19/19] mometasone-formoterol HFA 200 mcg-5 mcg/actuation aerosol inhaler 2 puff INHALATION Q12H 05/07/18 [History Confirmed 10/19/19] Ergocalciferol [Vitamin D] 50,000 unit PO SA 07/22/18 [History Confirmed 10/19/19] albuterol sulfate 2.5 mg INHALATION Q4H PRN #180 ml 06/16/19 [Rx Confirmed 10/19/19] Aclidinium [place] [Tudorza Pressair] 1 inh INHALATION BID 10/13/19 [History Confirmed 10/19/19] Doxycycline Hyclate 50 mg PO DAILY 10/14/19 [History Confirmed 10/19/19] Disability Placard See Rx Instructions .ROUTE .MEDSUPPLY #1 ea 10/19/19 [Rx Confirmed 10/19/19] aspirin 81 mg tablet,delayed release 81 mg PO DAILY #30 tab 10/25/19 [Rx Confirmed 10/25/19] PFSH Family History Father Esophageal cancer Mother Lung cancer Brother , Cause unknown No problems noted. Brother CAD (coronary artery disease) Myocardial infarction Brother CAD (coronary artery disease) Myocardial infarction Other Cancer Hypertension Lung disease Social History (Updated 10/25/19 @ 14:39 by Cyril Rangel MD) Smoking Status: Light Smoker (<10/day) Tobacco: How many years used: 43 second hand exposure: Yes alcohol intake: current alcohol intake frequency: a few times a week Alcohol type: beer substance use type: does not use Cardiology Exam Const Appearance: cooperative, healthy appearing and no acute distress Nutritional Appearance: well nourished Orientation: alert, oriented x3 and oriented to person Head Head: normal to inspection, normocephalic and atraumatic Nose: external nose normal Face and Sinus: face symmetric Mouth: oral mucosae normal Eyes General: appearance normal, both eyes and all related structures Eyelids: eyelids normal Conjunctivae: conjunctivae normal Pupils: PERRL and normal by confrontation EOM: EOM intact bilaterally Neck Neck: normal visual inspection and full ROM Carotids: normal carotid upstroke Chest Chest inspection: normal inspection of the chest Auscultation: Bilateral: Clear to Auscultation Cardio Palpation: normal PMI Rate: regular rate Rhythm: regular rhythm Heart sounds: S1 normal and S2 normal GI GI: normal to inspection, no hepatosplenomegaly and bowel sounds present Neuro General: alert, awake, oriented x3, CN's II-XI intact bilaterally and moves all extremities Skin Skin: no rashes or lesions noted Extremities Pulses: Normal: Right Femoral Pulse, Left Femoral Pulse, Right Dorsalis Pedis Pulse, Left Dorsalis Pedis Pulse, Right Posterior Tibial Pulse, Left Posterior Tibial Pulse, Right Radial Pulse, Left Radial Pulse Lower Extremity Edema: None: Bilateral Psych Psychological: normal affect Assessment & Plan 1. Chest discomfort R07.89 Plan 1. Chest discomfort: Patient has several risk factors for possible coronary Klo[place] disease and has been having chest pain on and off for the past 2 months, superimposed upon newly diagnosed left-sided lung cancer with possible encroachment on the pericardium. There is also evidence by CAT scan that he may have coronary occlusive disease as well given the detection of coronary calcification. Given the patient's chest pain, risk factors, previous smoking, I recommended he undergo a 2D echo with Doppler to determine if he has any kind of infiltration of his tumor into the pericardial space. In addition I recommended he undergo a treadmill echocardiogram to evaluate for possible coronary occlusive disease. The patient stress test is grossly abnormal, he may require diagnostic coronary angiogram. I would be hesitant to place the patient on dual antiplatelet therapy at this time given possible infiltration into his pericardium from his left lung tumor. I do think it is reasonable to start baby aspirin 81 mg p.o. daily. If the patient stress test is negative, I recommend continuing to treat the patient with antihypertensive therapy in the form of amlodipine and lisinopril. Orders Orders: 12 Lead EKG performed by [facility] Today Echo Complete Today Stress Test Echo w/o Contrast Today 2. Cigarette nicotine dependence with other nicotine-induced disorder F17.200 Plan 2. Tobacco abuse: The patient has a greater than 80-[id number]-fzgm smoking history and review of his CAT scan demonstrates severe bullous emphysema particularly of the right side. This makes left lung resection essentially impossible, and would most likely only benefit from chemotherapy and/or radiation therapy for his lung mass. Patient states that he is quit tobacco about 2 weeks ago. 3. Hyperlipidemia E78.5 Plan 3. Hyperlipidemia: In attempt to complete his cardiac evaluation I recommended a fasting lipid profile. I would not recommend antilipid therapy unless the patient's LFTs are within normal limits given his previous alcohol abuse. 4. Return office in 6 months. This note was generated using a voice recognition system and there may be incorrect words, spelling or punctuation that were not noted when reviewing the office note prior to saving. Plan Detail Other Orders Orders: 12 Lead EKG performed by [facility] Today R06.02 Lipid Profile 1 Week E78.00 Liver Profile 1 Week E78.00 Echo Complete Today F17.210 Stress Test Echo w/o Contrast Today F17.210, I10, R06.02 Other Medications New: aspirin 81 mg PO DAILY 30 tabs 11RF Follow Up +6M (Juan Carlos) Coding Level of Care Code Off vis,new,level 4 Diagnoses Chest discomfort R07.89 Cigarette nicotine dependence with other nicotine-induced disorder F17.200 Hyperlipidemia E78.5 Coding Level of Care Code Off vis,new,level 4 Diagnoses Chest discomfort R07.89 Cigarette nicotine dependence with other nicotine-induced disorder F17.200 Hyperlipidemia E78.5 Supplemental Info Supplemental Information Pulmonary Pulmonary Function Test 03/03/19 Pulmonary Exercise Test 05/27/18 10/25/19 1440 <Electronically signed by Cyril Rangel MD> Date _ Cyril Rangel MD
[2019-10-31 11:02] VITALS: BMI 19.1
[2019-11-03 13:36] VITALS: BMI 19.3
--- NOTE | 2019-11-08 02:35 | HP_ITS ---
Intake Vital Signs 11/08/19 BMI 19.3 11/08/19 Height 5 ft 10 in 11/08/19 Weight: 136 lb 4 oz 11/08/19 BMI 19.5 11/08/19 BP 139/83 H 11/08/19 Blood Pressure Location Rt brachial 11/08/19 Position Sitting 11/08/19 Respiration 16 11/08/19 Pulse 89 11/08/19 Pulse Source Monitor 11/08/19 Temp 98.1 F 11/08/19 Temp Source Oral 11/08/19 Pulse Oximetry (%) 96 11/08/19 Oxygen Delivery Method room air Intake Visit Reasons: PORT PLACEMENT Chief Complaint: Port placement Surgical Brace Maker Required: No Is patient in pain?: No Allergies No Known Allergies Allergy (Verified 11/03/19 13:35) Medications Amlodipine [Norvasc] 2.5 mg PO DAILY 08/05/13 [History Confirmed 11/08/19] Lisinopril [Zestril] 20 mg PO QHS 08/05/13 [History Confirmed 11/08/19] Albuterol Sulfate [Ventolin Hfa] 2 puff IH Q4H PRN 05/05/16 [History Confirmed 11/08/19] Pregabalin [Lyrica] 150 mg PO TID 05/05/16 [History Confirmed 11/08/19] Triamcinolone 0.1% Cream [Kenalog] 1 applic TP DAILY PRN 05/05/16 [History Confirmed 11/08/19] mometasone-formoterol HFA 200 mcg-5 mcg/actuation aerosol inhaler 2 puff INHALATION Q12H 05/07/18 [History Confirmed 11/08/19] Ergocalciferol [Vitamin D] 50,000 unit PO SA 07/22/18 [History Confirmed 11/08/19] albuterol sulfate 2.5 mg INHALATION Q4H PRN #180 ml 06/16/19 [Rx Confirmed 11/08/19] Aclidinium [place] [Tudorza Pressair] 1 inh INHALATION BID 10/13/19 [History Confirmed 11/08/19] Doxycycline Hyclate 50 mg PO DAILY 10/14/19 [History Confirmed 11/08/19] Disability Placard See Rx Instructions .ROUTE .MEDSUPPLY #1 ea 10/19/19 [Rx Confirmed 11/08/19] aspirin 81 mg tablet,delayed release 81 mg PO DAILY #30 tab 10/25/19 [Rx Confirmed 11/08/19] clopidogrel 75 mg tablet 75 mg PO DAILY #30 tab 11/08/19 [Rx Confirmed 11/08/19] [facility] Medical History Shortness of breath (Acute) Lung mass (Acute) Chest discomfort (Acute) Smoking greater than 40 pack years (Chronic) Stage 2 moderate COPD by GOLD classification (Chronic) Alcoholic fatty liver (Chronic) Nicotine dependence (Chronic) Alcohol abuse (Chronic) GERD (gastroesophageal reflux disease) (Chronic) Vitamin D deficiency (Chronic) Hypertension (Chronic) Hyponatremia (Acute) COPD (chronic obstructive pulmonary disease) (Chronic) Hypertension (Chronic) Surgical History Growth removed from throat (Chronic ~2017) Family History Father Esophageal cancer Mother Lung cancer Diabetes Brother , Cause unknown No problems noted. Brother CAD (coronary artery disease) Myocardial infarction Brother CAD (coronary artery disease) Myocardial infarction Other Cancer Hypertension Lung disease Social History (Updated 11/08/19 @ 14:[address] Quinn Sterling MD) Smoking Status: Light Smoker (<10/day) Tobacco: How many years used: 43 second hand exposure: Yes alcohol intake: current alcohol intake frequency: a few times a week Alcohol type: beer substance use type: does not use HPI HPI HPI: ERIK ALEKSANDAR, is a 59 M who presents to the office today for HPI HPI Surgical H&P: Yes HPI: ERIK HUERTAS, is a 59 M who presents to the office today for port placement consultation. ROS General General: Yes weight change and fatigue; no appetite, colon cancer, breast cancer or weakness HEENT HEENT: Yes eye surgery; no difficulty swallowing, eye injury, swollen glands or hoarseness Endo Endocrine: No thyroid disease, diabetes mellitus, thyroid cancer, Hair loss, heat intolerance or cold intolerance Skin Skin: No rash or changing moles Breast Breast: No left breast lump, right breast lump, nipple discharge, breast pain, abnormal mammogram, abnormal US or breast enlargement Musc Musculoskeletal: Yes back problems and arthritis; no rheumatoid arthritis, gout or joint pain Cardio Cardiovascular: Yes high blood pressure; no murmur, pacemaker, heart disease, atrial fibrillation, heart attack, heart stent, palpitations, shortness of breat with exertion or chest pain Psych Psychiatric: No depression, anxiety or hearing voices Resp Respiratory: Yes shortness of breath, No sleep apnea, Yes cough, Yes COPD, No asthma, Yes emphysema, Yes wheezing Gastro Gastrointestinal: No abdominal pain, No nausea or vomiting, No diarrhea, No constipation, No blood in stool, No acid reflux, No hemorrhoids, No ulcers, No gallbladder problem, No black,tarry stools Tan Hematologic: Yes blood thinners (ASA ), No blood disorders, No bleeding, No anemia, No blood clots Neuro Neurologic: No system reviewed and no additional complaints, except as docu, No as per HPI, No abnormal walking, No abnormal hearing, No abnormal movements, No abnormal speech, No behavioral changes, No burning sensations, No confusion, No seizure-like activity, No unsteadiness, No dizziness, No localized weakness, No frequent falls, No headache(s), No lack of coordination, No loss of vision, No memory loss, No numbness, No other visual disturbances, No radiating pain, No restless legs, No sensory deficit, No fainting, No tingling, No tremor(s), No weakness, No other Exam Const General: cooperative Orientation: alert, oriented x3 Chest Breast Palpation: No nipple discharge Resp Effort & Inspection: normal respiratory effort Auscultation: clear to auscultation bilaterally Cardio Rate: regular rate Rhythm: regular rhythm Heart Sounds: no murmurs GI Inspection: non-distended Palpation: soft, nontender Assessment & Plan Problems 1. Squamous cell carcinoma of left lung C34.92 2. Chest discomfort R07.89 3. Encounter for adjustment and management of vascular access device Z45.2 Plan The patient has several issues going on. The patient had a stress echo done today for chest discomfort. He had a CT scan which showed possible atherosclerosis of the coronary vessels. Patient also has a left lung cancer and he is in need of a chest port placement. I discussed his treatment with Dr. Rangel. The patient is to be started on Plavix as soon as possible with plans for heart cath next week. I will plan to place the port on under very light MAC anesthesia and mostly local. That will give him some time to heal before his heart cath. He will be placed on Plavix starting 2 days postoperative. I discussed port placement with the patient in detail. I discussed the risks including but not limited to bleeding, infection, pneumothorax, DVT. Patient understands the risks and is willing to proceed with right chest port placement. Quinn Sterling MD Pager: [facility] [address] [place] [address], [address] [place] [address] Office: Coding Level of Care Code Off vis,new,level 3 Diagnoses Squamous cell carcinoma of left lung C34.92 ??Laterality: left Chest discomfort R07.89 Encounter for adjustment and management of vascular access device Z45.2 11/08/19 2605 <Electronically signed by Quinn moore MD> Date _ Quinn Sterling MD I have re-examined the patient. There are no clinical changes since date of exam. Plan is for minimal sedation and mostly local anesthesia to place this chest port. Patient may start his Plavix on Thursday. Proceed with heart cath next week.
[2019-11-14 13:11] VITALS: BMI 19.3
--- NOTE | 2019-11-16 09:25 | PCM.HP.BLA ---
Problem List (1) Abnormal stress test Status: Acute (2) Chest discomfort Status: Acute (3) Nicotine dependence Status: Chronic Qualifiers: (4) Smoking greater than 40 pack years Status: Chronic History and Physical Date of Admission: 11/16/19 [facility] [address] [place] [address] OFFICE VISIT Date of Service: 10/25/19 MR#: [id number] Acct: [id number] Name: ERIK HUERTAS Rep #: [id number] : 1960 Provider: Cyril Rangel MD Age/Sex: 59/M Location: [facility] [place].[facility] Status: Signed HPI HPI History of Present Illness Surgical H&P: Yes Details: Mr. Huertas is a very pleasant 59-year-old nondiabetic hypertensive gentleman with a greater than 42-osyl-trwd smoking history, stage II moderate COPD with large blebs, alcoholic fatty liver, recently quit nicotine about 2 weeks ago, alcohol abuse, hypertension, squamous cell cancer of the left lung referred to our office by Dr. Hernesto Johnson presumably for possible left lung malignancy invading the pericardium and chest pain. Apparently he is not a candidate for surgical resection, and was referred to oncology who recommended chemotherapy and/or radiation therapy. There was also some comment as to whether the patient has coronary disease seen on CT scan. His screening EKG dated 10/25/2019 shows normal sinus rhythm, normal axis, possible old anteroseptal wall myocardial infarction. He denies any CVA or TIA. On further history the patient has a strong positive family history of lung cancer in his parents and [place] in his brother. He has never had a stress test, echocardiogram and unknown lipids at this time. Patient states that about 2 months ago he began developing substernal chest pain, mostly nonexertional, 3?4 out of 10 in severity, lasting all day, and relieved with Aleve. He denies any exertional chest pain but does complain of dyspnea on exertion which may be an anginal equivalent. He has thankfully quit smoking. He has never had a stress test, catheterization. In our office today's blood pressure is 120/60, pulse is 103 and regular. His physical exam demonstrates clear lungs bilaterally with very distant breath sounds, regular rate and rhythm, normal S1/S2, no murmurs detected. He has no edema.. EKG is as above. Lipids are pending. Intake Vital Signs 10/25/19 Height 5 ft 10 in 10/25/19 Weight: 135 lb 10/25/19 BP 120/60 10/25/19 Blood Pressure Location Lt brachial 10/25/19 Position Sitting 10/25/19 Respiration 20 H 10/25/19 Pulse 103 H 10/25/19 Pulse Source Auscultation Intake Visit Reasons: CP (PMW Indra SINGLETON) Allergies No Known Allergies Allergy (Verified 10/25/19 14:20) Medications Amlodipine [Norvasc] 2.5 mg PO DAILY 08/05/13 [History Confirmed 10/19/19] Lisinopril [Zestril] 20 mg PO QHS 08/05/13 [History Confirmed 10/19/19] Albuterol Sulfate [Ventolin Hfa] 2 puff IH Q4H PRN 05/05/16 [History Confirmed 10/19/19] Pregabalin [Lyrica] 150 mg PO TID 05/05/16 [History Confirmed 10/19/19] Triamcinolone 0.1% Cream [Kenalog] 1 applic TP DAILY PRN 05/05/16 [History Confirmed 10/19/19] mometasone-formoterol HFA 200 mcg-5 mcg/actuation aerosol inhaler 2 puff INHALATION Q12H 05/07/18 [History Confirmed 10/19/19] Ergocalciferol [Vitamin D] 50,000 unit PO SA 07/22/18 [History Confirmed 10/19/19] albuterol sulfate 2.5 mg INHALATION Q4H PRN #180 ml 06/16/19 [Rx Confirmed 10/19/19] Aclidinium [place] [Tudorza Pressair] 1 inh INHALATION BID 10/13/19 [History Confirmed 10/19/19] Doxycycline Hyclate 50 mg PO DAILY 10/14/19 [History Confirmed 10/19/19] Disability Placard See Rx Instructions .ROUTE .MEDSUPPLY #1 ea 10/19/19 [Rx Confirmed 10/19/19] aspirin 81 mg tablet,delayed release 81 mg PO DAILY #30 tab 10/25/19 [Rx Confirmed 10/25/19] PFSH Family History Father Esophageal cancer Mother Lung cancer Brother , Cause unknown No problems noted. Brother CAD (coronary artery disease) Myocardial infarction Brother CAD (coronary artery disease) Myocardial infarction Other Cancer Hypertension Lung disease Social History (Updated 10/25/19 @ 14:39 by Cyril Rangel MD) Smoking Status: Light Smoker (<10/day) Tobacco: How many years used: 43 second hand exposure: Yes alcohol intake: current alcohol intake frequency: a few times a week Alcohol type: beer substance use type: does not use Cardiology Exam Const Appearance: cooperative, healthy appearing and no acute distress Nutritional Appearance: well nourished Orientation: alert, oriented x3 and oriented to person Head Head: normal to inspection, normocephalic and atraumatic Nose: external nose normal Face and Sinus: face symmetric Mouth: oral mucosae normal Eyes General: appearance normal, both eyes and all related structures Eyelids: eyelids normal Conjunctivae: conjunctivae normal Pupils: PERRL and normal by confrontation EOM: EOM intact bilaterally Neck Neck: normal visual inspection and full ROM Carotids: normal carotid upstroke Chest Chest inspection: normal inspection of the chest Auscultation: Bilateral: Clear to Auscultation Cardio Palpation: normal PMI Rate: regular rate Rhythm: regular rhythm Heart sounds: S1 normal and S2 normal GI GI: normal to inspection, no hepatosplenomegaly and bowel sounds present Neuro General: alert, awake, oriented x3, CN's II-XI intact bilaterally and moves all extremities Skin Skin: no rashes or lesions noted Extremities Pulses: Normal: Right Femoral Pulse, Left Femoral Pulse, Right Dorsalis Pedis Pulse, Left Dorsalis Pedis Pulse, Right Posterior Tibial Pulse, Left Posterior Tibial Pulse, Right Radial Pulse, Left Radial Pulse Lower Extremity Edema: None: Bilateral Psych Psychological: normal affect Assessment & Plan 1. Chest discomfort R07.89 Plan 1. Chest discomfort: Patient has several risk factors for possible coronary [place] disease and has been having chest pain on and off for the past 2 months, superimposed upon newly diagnosed left-sided lung cancer with possible encroachment on the pericardium. There is also evidence by CAT scan that he may have coronary occlusive disease as well given the detection of coronary calcification. Given the patient's chest pain, risk factors, previous smoking, I recommended he undergo a 2D echo with Doppler to determine if he has any kind of infiltration of his tumor into the pericardial space. In addition I recommended he undergo a treadmill echocardiogram to evaluate for possible coronary occlusive disease. The patient stress test is grossly abnormal, he may require diagnostic coronary angiogram. I would be hesitant to place the patient on dual antiplatelet therapy at this time given possible infiltration into his pericardium from his left lung tumor. I do think it is reasonable to start baby aspirin 81 mg p.o. daily. If the patient stress test is negative, I recommend continuing to treat the patient with antihypertensive therapy in the form of amlodipine and lisinopril. Orders Orders: 12 Lead EKG performed by [facility] Today Echo Complete Today Stress Test Echo w/o Contrast Today 2. Cigarette nicotine dependence with other nicotine-induced disorder F17.200 Plan 2. Tobacco abuse: The patient has a greater than 11-bdwg-zmnj smoking history and review of his CAT scan demonstrates severe bullous emphysema particularly of the right side. This makes left lung resection essentially impossible, and would most likely only benefit from chemotherapy and/or radiation therapy for his lung mass. Patient states that he is quit tobacco about 2 weeks ago. 3. Hyperlipidemia E78.5 Plan 3. Hyperlipidemia: In attempt to complete his cardiac evaluation I recommended a fasting lipid profile. I would not recommend antilipid therapy unless the patient's LFTs are within normal limits given his previous alcohol abuse. 4. Return office in 6 months. This note was generated using a voice recognition system and there may be incorrect words, spelling or punctuation that were not noted when reviewing the office note prior to saving. Plan Detail Other Orders Orders: 12 Lead EKG performed by [facility] Today R06.02 Lipid Profile 1 Week E78.00 Liver Profile 1 Week E78.00 Echo Complete Today F17.210 Stress Test Echo w/o Contrast Today F17.210, I10, R06.02 Other Medications New: aspirin 81 mg PO DAILY 30 tabs 11RF Follow Up +6M (Rangel) Coding Level of Care Code Off vis,new,level 4 Diagnoses Chest discomfort R07.89 Cigarette nicotine dependence with other nicotine-induced disorder F17.200 Hyperlipidemia E78.5 Coding Level of Care Code Off vis,new,level 4 Diagnoses Chest discomfort R07.89 Cigarette nicotine dependence with other nicotine-induced disorder F17.200 Hyperlipidemia E78.5 Supplemental Info Supplemental Information Pulmonary Pulmonary Function Test 03/03/19 Pulmonary Exercise Test 05/27/18 10/25/19 1020 <Electronically signed by Cyril Rangel MD> Date Cyril Rangel MD Cosigner Signature: Date (if applicable) CC: Triny TEJADA ~ Interventional cardiology addendum: Patient seen and examined on day of procedure. The risk/benefits of the procedure were thoroughly explained the patient including specific attention to lack of onsite surgical backup. Left heart catheterization to follow.
--- NOTE | 2019-11-16 09:51 | CL.D_ITS ---
Patient Name: ERIK HUERTAS Study Date: 11/16/2019 Performing: Cyril Rangel MD Ht: 70.07 inches 178 cm : 1960 Wt: 134.48 lbs 61 kg Age: 59 Gender: male BSA: 1.76 PROCEDURE(S) PERFORMED EW96-HEF/COR/LV CLINICAL PROFILE AND INDICATIONS Indications: New Onset Angina <= 2 months, Suspected CAD Heart Failure: None Stress/Imaging Stress Echocardiogram: Yes Result: Positive Low RiskStress Echocardiogram: Positiv e Low Risk Angina Classification Anginal Classification w/in 2 Weeks: Anginal Equivalent Dyspnea CAD Presentations: Unstable angina. Comorbidities/Risk Factors: Current/Recent Smoker (< 1year) Hypertension Dyslipidemia Chronic Lung Disease CONCLUSIONS Perserved Left Ventricular systolic function with normal EDP LVEF: by LV gram 65 % RECOMMENDATIONS Management as per referring Pattern Molder d/c plavix, manual sheath removal. DESCRIPTION OF PROCEDURE The patient arrived to the procedure lab. The risks and benefits of the procedure as well as a full d escription of our services here and current unavailability of surgical backup were fully explained to the patient and/or their significant other prior to the catheterization. The Timeout was completed, verifying the correct patient and procedure. The patient's procedural site was prepped and draped in the usual fashion. Local anesthetic was given subcutaneously to right groin region with Lidocaine 2%. Using a modified Seldinger technique, arterial access was obtained via the right femoral artery, a 4 Fr sheath was inserted Left Coronary Artery selective angiography was performed in multiple views us ing a 4 Fr. JL5 catheter. Right Coronary Artery selective angiography was then performed in multiple views using a 4 Fr. 3DRC catheter. Left Ventriculography was performed in HAYES projection using a 4 Fr . Pigtail catheter. LV to AO pullback pressures were then recorded.The arterial sheath was pulled and manual compression applied until hemostasis is achieved. CORONARY ANGIOGRAPHY DOMINANCE: Right Dominant LEFT HEART ASSESSMENT Left Ventricular Ejection Fraction: by LV Gram 65 % Normal LV wall motion Normal Left Ventricular systolic function LVEDP: 8 mmHg LEFT MAIN: Angiographically normal LEFT ANTERIOR DESCENDING ARTERY: PROX LAD: Moderate calcification, Mild luminal irregularities less than 30% CIRCUMFLEX ARTERY: Mild luminal irregularities less than 30% RIGHT CORONARY ARTERY: MID RCA: Mild calcification, Mild luminal irregularities less than 30% COMPLICATIONS No Complications PROCEDURE MEDICATIONS Oxygen: 2 L/min via nasal cannula SUMMARY OF HEMODYNAMIC DATA Time AIR REST ECG 08:23:18 ECG 09:21:06 AO 118/64 (84) SA 09:32:06 LV 124/-17, 12 09:37:54 LV 124/-17, 11 09:38:01 LVp 128/-18, 10 09:38:15 AOp 124/60 (87) 09:38:20 Signed By Cyril Rangel MD On 11/16/2019 09:50:37 Cyril Rangel MD
== END ==
PROVIDERS: Referring Provider Internal Medicine Cardiovascular Disease; Visit Provider Internal Medicine Cardiovascular Disease
DX: R94.39 Abnormal result of other cardiovascular function study (principal); R06.09 Other forms of dyspnea; R07.89 Other chest pain; E78.5 Hyperlipidemia, unspecified; J44.9 Chronic obstructive pulmonary disease, unspecified; K70.0 Alcoholic fatty liver; I10 Essential (primary) hypertension; C34.92 Malignant neoplasm of unspecified part of left bronchus or lung; Z79.82 Long term (current) use of aspirin; Z79.899 Other long term (current) drug therapy; F10.10 Alcohol abuse, uncomplicated; Z87.891 Personal history of nicotine dependence
CPT/HCPCS: 93458; J7040; Q9967; C1769; C1894

== ENCOUNTER 2020-01-24 13:15 | Outpatient (RCR) | payer MEDICAID, SELFPAY ==
[2019-10-31 11:02] VITALS: BMI 19.1
[2019-11-24 08:30] VITALS: BMI 19.3
[2020-01-24 11:45] VITALS: BMI 17.5
== END 2020-01-24 23:59 | disposition home or self-care (01) ==
LOC: NS 13:15
PROVIDERS: PCP Nurse Practitioner Family; Visit Provider Student in an Organized Health Care Education/Training Program
DX: Z71.3 Dietary counseling and surveillance (principal); R63.4 Abnormal weight loss; C34.90 Malignant neoplasm of unspecified part of unspecified bronchus or lung
CPT/HCPCS: 97803

== ENCOUNTER 2020-01-25 11:39 | Emergency (ER) | payer MEDICAID, SELFPAY ==
[2019-10-31 11:02] VITALS: BMI 19.1
[2020-01-25 11:23] VITALS: BMI 17.5
[2020-01-25 11:40] VITALS: BP 108/69; PULSE 117; RESP 30; TEMP 36.8; O2SAT 98; BMI 17.4
--- NOTE | 2020-01-25 11:55 | RAD_ITS ---
STUDY: X-RAY CHEST REASON FOR EXAM: Male, 59 years old. SOB, COUGH, FEVER, LUNG CA TECHNIQUE: Single AP portable view of the chest. COMPARISON: Comparison is made with prior study dated November 10, 2011. FINDINGS: A right-sided portacatheter is seen with the tip in the midportion of the superior vena cava. EKG electrodes are seen. There now is evidence of a 9.6 cm x 4.9 cm mass in the right midlung. This is superimposed on emphysematous changes in the lung apices worse on the right side. There is also evidence of a 4.6 cm x 5.2 cm rounded mass in the right lower lobe adjacent to the heart border. Stable increased markings in the left lung bases with scarring. Correlation with the CT scan of the thorax is recommended for further evaluation. There is no demonstrated pleural abnormality. Normal size heart. Normal mediastinum and thong. Normal visualized pulmonary arteries. Normal visualized aortic arch and descending thoracic aorta. There are diffuse degenerative changes of the visualized thoracic spine. Normal visualized ribs, clavicles, and shoulders. There is no demonstrated abnormality of the visualized soft tissue structures of the upper abdomen. RAD/Chest 1 View (Portable) IMPRESSION: New masses in the right lung as described. Correlation with a CT scan of the thorax is recommended. Electronically Signed: Darren Chi, at 13:17 EDT , Service support ,
--- NOTE | 2020-01-25 11:56 | EKG12_ITS ---
Test Reason : SOB Blood Pressure : / mmHG Vent. Rate : 109 BPM Atrial Rate : 109 BPM P-R Int : 146 ms QRS Dur : 070 ms QT Int : 314 ms P-R-T Axes : 057 045 047 degrees QTc Int : 422 ms Sinus tachycardia Otherwise normal ECG Confirmed by AISHA HERNANDEZ, SHANTELLE ([id number]), acquisition editor IBRAHIMA HWANG ([id number]) on 01/30/2020 2:15:52 PM Referred By: ENDY Confirmed By:SHANTELLE LEONARD MD
--- NOTE | 2020-01-25 11:57 | ED.VIS.GEN ---
History of Present Illness Chief Complaint: Shortness of Breath Informant: Patient Onset: Days - Onset January 22 Context: Gradual Onset Timing: Continuous Quality: Shortness of breath Location: Respiratory Current Severity: Mild Maximum Severity: Severe Worsened by: Any activity Relieved by: Nothing Associated Symptoms: Cough, chills, subjective fever Narrative: Patient is a 59-year-old male with history of stage III non-small carcinoma diagnosed September. Last chemotherapy 4 to 5 weeks ago. He reports decreased appetite and weight loss over the past several weeks. He reports chills for the past several days with increased shortness of breath and cough that is essentially nonproductive. He denies hemoptysis. He reports central chest pain that is chronic. He states he quit smoking. He denies leg pain, swelling discoloration. He denies headache. He does report mild nasal congestion. Denies change in smell or taste. Denies ear symptoms. Denies neck pain or neck stiffness. Denies vomiting or diarrhea. Denies urologic symptoms. 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 (2) Radiation esophagitis Status: Acute (3) Chest discomfort Status: Acute (4) Alcohol abuse Status: Chronic (5) COPD (chronic obstructive pulmonary disease) Status: Chronic (6) Hypertension Status: Chronic (7) Squamous cell lung cancer Status: Chronic Past Medical History - Allergies and Home Meds Allergies/Adverse Reactions: Allergies No Known Allergies Allergy (Verified 01/25/20 11:44) Primary Care Physician: Triny Patel NP-C [Primary Care Provider] - Prior records reviewed: Yes Lives: Spouse/ Significant Other Smoking Status: Former smoker Alcohol: Occasional Drugs: None Review of Systems General: Reports: Chills, Fever, Malaise, Subjective, Sweats, Weight loss Eyes: Denies: Visual changes - bilaterally, Blurred Vision - bilaterally ENT: Reports: Rhinorrhea. Denies: Bilateral ear pain, Sore throat Cardiovascular: Reports: Chest pain. Denies: Palpitations, Heart racing Respiratory: Reports: Dyspnea, Cough, Sputum, Dyspnea on exertion. Denies: Orthopnea, Paroxysmal nocturnal dyspnea Gastrointestinal: Denies: Abdominal pain, Nausea, Vomiting, Diarrhea, Melena, Hematochezia Genitourinary: Denies: Dysuria, Hematuria, Frequency Musculoskeletal: Denies: Myalgias, Arthralgias, Neck pain, Back pain, Swelling, Extremity Pain, -, - Skin: Denies: Rash, Wounds Neurological: Reports: Weakness. Denies: Headache, Numbness Endocrine: Denies: Polyuria, Polydipsia Hematologic: Denies: Easy bruising, Easy bleeding Physical Exam Vital Signs/Narrative: Vital Signs Temp Pulse Resp BP Pulse Ox 01/25/20 11:40 98.3 F 117 H 30 H 108/69 98 Inital Vital Signs reviewed: Yes General: Well developed, Cachectic, Acute Distress Head: Normocephalic, Atraumatic Eyes: Perrl, EOMI, Pale conjunctiva. Negative for: Scleral icterus ENT: TM's clear, Dry mucous membranes, Nasal congestion. Negative for: Sinus tenderness Neck: Supple, Nontender, No lymphadenopathy, No JVD Cardiovascular: Regular rhythm, No murmurs, Normal S1, Normal S2, Tachycardia Respiratory: Chest nontender, Rales - Left lower lobe posteriorly with egophony and increased vocal fremitus., Decreased Air Movement - Decreased to absent breath sounds on the right.. Negative for: CTA bilaterally Abdomen: Soft, Nontender, Nondistended, Normal bowel sounds Rectal: Deferred Back: Nontender, Normal Inspection Extremities: Nontender, No edema, - - There is no asymmetry, swelling, discoloration, leg vein distention, palpable cords or tenderness along the distribution of the deep venous system. Skin: Normal color, No rash, No Trauma. Negative for: Cyanosis, Diaphoresis, Jaundice Neurological: Alert, Oriented x3, Cranial nerves II-XII grossly intact, Normal Strength, Normal Sensation Psychological: Normal affect Diagnostic/Tx/Re-eval Chest X-Ray - ED: 1 View, Read by ED Physician, - - There is significant progression from prior chest x-ray obtained November 10, 2019. There is a large right peripheral mid lung mass with atelectasis. There is increased interstitial markings on the left compared to prior as well. There is no evidence of pneumothorax. X-ray interpreted by me at 1311 Impressions Chest X-Ray 01/25/20 11:55 IMPRESSION: New masses in the right lung as described. Correlation with a CT scan of the thorax is recommended. Electronically Signed: Darren Chi, at 13:17 EDT , Service support , 01/25/20 11:55 Chest 1 View (Portable) [RAD] Stat 01/25/20 13:48 CTA Chest W/WO Contrast [CT] Stat Laboratory Results 01/25/20 01/25/20 01/25/20 12:16 12:16 12:16 WBC 12.7 H RBC 3.05 L Hgb 10.2 L Hct 29.3 L MCV 96.1 H MCH 33.4 H MCHC 34.8 RDW Std Deviation 73.9 H RDW Coeff of Rush 21.4 H Plt Count 198 MPV 8.6 Immature Gran % (Auto) 1.000 H Neut % (Auto) 82.5 H Lymph % (Auto) 3.3 L [place] % (Auto) 12.4 H Eos % (Auto) 0.6 Baso % (Auto) 0.2 Absolute Neuts (auto) 10.5 H Absolute Lymphs (auto) 0.42 L Nucleated RBC % 0 Differential Comment Diff Path Review May foll Platelet Estimate ADEQUATE Anisocytosis 1+ Sodium 125 L Potassium 3.5 Chloride 93 L Carbon Dioxide 25.0 Anion Gap 7 BUN 8 Creatinine 0.57 L Estim Creat Clear Calc 111.92 Est GFR (MDRD) Af Amer 189 Est GFR (MDRD) Non-Af 156 BUN/Creatinine Ratio 14.0 Glucose 145 H Lactic Acid 1.2 Calcium 8.1 L Total Bilirubin 0.70 AST 25 ALT 23 Alkaline Phosphatase 94 Total Protein 5.8 L Albumin 2.0 L Globulin 3.8 Albumin/Globulin Ratio 0.5 L Patient does have a new right lung mass. With concern for PE and high pretest probability will obtain CTA of the chest which will delineate his new mass since October and rule out patient's case was turned over to Dr. Vital the afternoon physician. - Rhythm Strip Rhythm Strip: Sinus Tach Rate: 115 - EKG Initial EKG Interpretation: Sinus Tachycardia - Sinus tachycardia with a ventricular rate of 109. TX interval is 146 ms. QRS duration 70 ms. QT duration 314 ms. [place] is normal. Other than sinus tachycardia the EKG is normal - Medical Decision Making Patient presents with shortness of breath and chills this may represent respiratory infection (the upper versus lower), progression of cancer, pulmonary embolus, congestive heart failure, exacerbation of COPD. Patient feels much warmer than documented temperature. Will have nurse recheck. If positive will test for COVID. Chest x-ray, EKG and appropriate blood work was ordered to evaluate this patient. ED Disposition - Plan for ED Patient: Referrals: Triny Patel, [employer] WORKER-C [Primary Care Provider] -
--- NOTE | 2020-01-25 12:10 | NURSING ---
NO OLD EKGS
[2020-01-25 12:29] LABS: Absolute Lymphocyte Count 0.42 X10^3/uL (0.83-4.51); Absolute Neutrophil Count 10.5 X10^3/uL (2.0-7.7); Basophil# 0.02 X10^3/uL; Basophil% 0.2 % (0-1); Eosinophil# 0.07 X10^3/uL; Eosinophils% 0.6 % (0-5); Hematocrit 29.3 % (40-54); Hemoglobin 10.2 g/dL (13.0-16.5); Lymphocyte # 0.42 X10^3/ul (4.0); Lymphocyte % 3.3 % (19-41); Mean Corp Hgb Conc 34.8 g/dL (32-36); Mean Corpuscular Hgb 33.4 pg (27.0-32.0); Mean Corpuscular Volume 96.1 fL (80-94); Mean Platelet Vol. 8.6 fl (6.2-12.0); Monocyte# 1.57 X10^3/uL; Monocyte% 12.4 % (0-10); NRBC Flagged by Analyzer 0 % (0-5); Neutrophil # 10.46 X10^3/uL (2.7-7.7); Neutrophil % 82.5 % (47-70); POSITIVE DIFFERENTIAL YES; POSITIVE MORPHOLOGY YES; Platelet Count 198 K/mm3 (150-450); RBC Distribution Width CV 21.4 % (11.6-14.6); RBC Distribution Width SD 73.9 fl (35.1-43.9); Red Blood Count 3.05 M/mm3 (4.6-6.2); White Blood Count 12.7 K/mm3 (4.4-11.0)
[2020-01-25 12:45] LABS: ALB/GLOB Ratio 0.5 RATIO (0.9-2.4); AST(SGOT) 25 U/L (15-37); Alanine Aminotransfer ALT/SGPT 23 U/L (16-61); Alkaline Phosphatase 94 U/L (45-117); Anion Gap 7 (5-15); BUN 8 mg/dL (7-18); Calcium,Total 8.1 mg/dL (8.5-10.1); Chloride 93 mmol/L (98-107); Creatinine, Serum 0.57 mg/dL (0.70-1.30); EST Glomerular Filtration Rate 156 mL/min (>60); Est Glom Filt Rate - Afr Amer 189 mL/min (>60); Estimated Creatinine Clearance 111.92 ml/min; Globulin 3.8 g/dL (2.2-4.2); Glucose 145 mg/dL (74-106); Potassium 3.5 mmol/L (3.5-5.1); Protein, Total 5.8 g/dL (6.4-8.2); Sodium Level 125 mmol/L (136-145)
[2020-01-25 12:46] VITALS: O2SAT 95
[2020-01-25 12:48] LABS: Lactic Acid 1.2 mmol/L (0.4-1.9)
[2020-01-25 12:49] VITALS: BP 109/67; PULSE 115; RESP 18; TEMP 37.2; O2SAT 96
[2020-01-25 13:23] LABS: Differential Indicated SCAN CRITERIA MET
[2020-01-25 13:25] LABS: Anisocytosis 1+; Platelet Estimate ADEQUATE (ADEQ)
--- NOTE | 2020-01-25 13:48 | CT_ITS ---
STUDY: CTA CHEST REASON FOR EXAM: Male, 59 years old. HX LUNG CANCER WITH NEW MASS SEEN ON CXR RADIATION DOSAGE (If Supplied By Facility): CTDIvol = ( 4.73 ) mGy, DLP = ( 179.18 ) mGycm TECHNIQUE: The examination was performed with the intravenous administration of IV 100mL Isovue-370. Post-processing of the angiographic images was performed, with multiplanar reformation and 3D reconstruction. Individualized dose optimization techniques were used for this CT. COMPARISON: Comparison is made with prior chest radiograph done earlier in the day. FINDINGS: A right-sided portacatheter is seen. The tip is in the mid superior vena cava. Normal enhancement of the main pulmonary artery and right and left pulmonary arteries. Normal enhancement of the bilateral peripheral pulmonary arteries. There is no demonstrated pulmonary embolism. Normal thoracic aorta and visualized great vessels. There is no demonstrated aortic dissection. There are calcifications of the coronary arteries. Normal mediastinum. Normal hilar regions. Normal visualized trachea and bronchi. Hyperinflation. Diffuse emphysematous changes with multiple bleb formation worse in the upper lobes and much worse in the right upper lobe. An air-fluid level is seen within a bulla in the left aspect of the right upper lobe measuring 11 cm x 6.4 cm. An air-fluid level is seen within the. There is also evidence of an adjacent infected bulla with an air-fluid level measuring 3.1 cm x 4.5 cm. Is also evidence of diffuse consolidation with air bronchograms in the lateral aspect of the right middle lobe. An infected bulla with an air-fluid level measuring 5.4 cm x 3.7 cm is seen in the anterior aspect of the right middle lobe. Blunting of both costophrenic angles. Normal chest wall structures. There are mild degenerative changes of thoracic spine. Normal visualized upper abdomen. CT/CTA Chest W/WO Contrast IMPRESSION: Hypoinflation with diffuse emphysematous changes worse in the upper lobes. Multiple large bulla are seen in the upper lobes more prominent on the right side with several bulla appear to be infected with air-fluid level. Dense consolidation in the lateral aspect of the right middle lobe with air bronchograms. Radiographic follow-up is recommended. Electronically Signed: Darren Chi, at 14:26 EDT , Service support ,
[2020-01-25 14:35] VITALS: BP 120/75; PULSE 106; RESP 31; O2SAT 96
[2020-01-25 14:55] LABS: Osmolality, Serum 257 mOsm/KG (275-295)
[2020-01-25 15:25] LABS: Osmolality, Urine 473 mOsm/KG
--- NOTE | 2020-01-25 16:01 | ED.VISSUMM ---
- ER Visit Summary Date of Service: 01/25/20 Chief Complaint: [] History of Present Illness: The patient is a 59 M [] Physical Examination: [] Test Results: [] Emergency Department Course and Treatment: Patient signed out to me follow-up on CT scan of chest. There is a concerning mass of the chest x-ray with his cancer history. CT scan negative for mass however noted infectious blebs. Patient is not hypoxic, his white count is 12, he was tachycardic on arrival reevaluation low 100s. Respiratory rate in the 20s he is not needing oxygen or any respiratory distress. I discussed with the patient with his immunosuppression history for admission however he declines this states he would like to go home, he states he has an appointment with his oncologist tomorrow. He did have a sodium 125 most recent was 127. Due to patient wanting to go home I discussed with his oncologist Dr. German, will do Levaquin, will do steroids for cover for pneumonitis with his radiation history. He will keep his appointment tomorrow. Return if any worsening symptoms. All questions were answered. In addition, due to acute new onset shortness of breath with immunosuppression, I did call OD and cleared for testing for COVID and is pending. Treatment Plan: [] Disposition: Discharge home Impression: 1. Pneumonia 2. Hyponatremia This note was generated with [employer] dictation software. It may contain incorrect words, spelling, and punctuation that were not noted in review of the chart prior to signing ED Disposition - Plan for ED Patient: Disposition: Home or Assisted Living Diagnosis: Pneumonia, Hyponatremia Instructions: ED PNEUMONITIS Adult, Pneumonia, ED Hyponatremia Prescriptions: Levofloxacin [Levaquin] 750 mg PO DAILY #6 tab Transmission Status: Pending to [email or web address] predniSONE tablet 60 mg PO DAILY #15 tab Transmission Status: Pending to [email or web address] Referrals: Triny Patel NP-Indra [Primary Care Provider] - Bogdan German MD [NON-STAFF] - Keep Saima appointment
[2020-01-25] MEDS: levoFLOXacin 750 MG Tablet PO (16:06)
[2020-01-25] MEDS: MethylPREDNISolone 125 MG/2 ML Vial 60 MG IV (16:11)
[2020-01-25 16:14] VITALS: BP 117/81; PULSE 119; RESP 22; TEMP 36.8; O2SAT 96
[2020-01-26 09:46] LABS: Pathologist Review Reviewed
--- NOTE | 2020-01-27 17:47 | ED.RN ---
LEFT MESSAGE FOR PT TO CALL BACK
--- NOTE | 2020-01-27 18:19 | ED.RN ---
THIS NURSE NOTIFIED PT COVID NEGATIVE
== END 2020-01-25 16:49 | disposition home or self-care (01) ==
PROVIDERS: Emergency Medicine; Emergency Provider Emergency Medicine; PCP Nurse Practitioner Family
DX: J44.0 Chronic obstructive pulmonary disease with (acute) lower respiratory infection (principal); J18.9 Pneumonia, unspecified organism; E87.1 Hypo-osmolality and hyponatremia; I10 Essential (primary) hypertension; C34.90 Malignant neoplasm of unspecified part of unspecified bronchus or lung; Z79.82 Long term (current) use of aspirin; Z79.899 Other long term (current) drug therapy; Z87.891 Personal history of nicotine dependence
CPT/HCPCS: 36591; 71045; 71275; 80053; 83605; 83930; 83935; 85025; 87635; 93005; 96361; 96374; 96523; 99284; G2023; J7030; J7040; Q9967; A4216; U0004

== ENCOUNTER 2020-01-31 10:41 | Inpatient (IN) | payer MEDICAID, SELFPAY ==
[2019-10-31 11:02] VITALS: BMI 19.1
[2020-01-31] VITALS (8 sets, daily range): BP systolic 104–128; BP diastolic 66–75; PULSE 96–111; RESP 16–22; TEMP 36–36.8; O2SAT 94–98; BMI 17.4; BMI 17.5; BMI 18.5
--- NOTE | 2020-01-31 11:06 | ED.DCSUM_ITS ---
History of Present Illness Chief Complaint: Shortness of Breath Narrative: This patient is a 59-year-old male who presents with shortness of breath. He does have a history of lung cancer. He is not currently receiving radiation or chemotherapy. He was seen in the ER about 1 week ago. At that time he underwent work-up including laboratory studies chest x-ray CT imaging of the chest. This showed infected bullae in the lungs with air-fluid levels as well as right middle lobe consolidation/pneumonia. They did discuss hospitalization at that time but patient wanted to try outpatient management. He was treated with Levaquin. He has not improved. He does continue to have cough which is occasionally productive and feels short of breath with exertion. He was seen in the oncology office yesterday and had repeat laboratory studies and imaging. He was advised to be evaluated in the emergency department. He declined at that time. He returned again today for IV fluids and continue to be symptomatic so was advised to come to the emergency department and be hospitalized. No fevers that he is aware of. He denies any vomiting diarrhea or pain. Past Medical History - Allergies and Home Meds Allergies/Adverse Reactions: Allergies No Known Allergies Allergy (Verified 01/31/20 10:42) Primary Care Physician: Triny Patel NP-C [Primary Care Provider] - Prior records reviewed: Yes Past Medical History: - - Hypertension, COPD, lung cancer Smoking Status: Former smoker Review of Systems All systems negative except as indicated General: Denies: Fever Eyes: Denies: Visual changes - bilaterally ENT: Denies: Bilateral ear pain Cardiovascular: Denies: Chest pain Respiratory: Reports: Dyspnea, Cough, Sputum, Dyspnea on exertion Gastrointestinal: Denies: Abdominal pain, Nausea, Vomiting, Diarrhea Musculoskeletal: Denies: Myalgias, Arthralgias Skin: Denies: Rash Neurological: Denies: Headache Physical Exam Vital Signs/Narrative: Vital Signs Temp Pulse Resp BP Pulse Ox 01/31/20 10:43 97.9 F 111 H 16 127/66 H 96 Inital Vital Signs reviewed: Yes General: Well nourished, No Acute Distress Head: Normocephalic Eyes: EOMI ENT: Moist mucous membranes Neck: Supple Cardiovascular: Regular rhythm, Tachycardia Respiratory: No distress. Negative for: Rales, Wheezing Abdomen: Soft, Nontender Skin: Normal color Neurological: Alert Psychological: Normal affect Diagnostic/Tx/Re-eval Impressions Chest X-Ray 01/31/20 12:00 IMPRESSION: Improved aeration of both lungs with a persistent infected bulla in the right upper lobe although this has improved as well. Electronically Signed: Darren Chi, at 12:31 EDT , Service support , 01/31/20 12:00 Chest 1 View (Portable) [RAD] Stat Laboratory Results 01/31/20 01/31/20 01/31/20 11:35 11:35 11:35 WBC 12.9 H RBC 2.62 L Hgb 8.7 L Hct 25.6 L MCV 97.7 H MCH 33.2 H MCHC 34.0 RDW Std Deviation 73.0 H RDW Coeff of [place] 20.5 H Plt Count 363 MPV 8.7 Immature Gran % (Auto) 4.500 H Neut % (Auto) 76.6 H Lymph % (Auto) 3.1 L [place] % (Auto) 14.0 H Eos % (Auto) 1.6 Baso % (Auto) 0.2 Absolute Neuts (auto) 9.9 H Absolute Lymphs (auto) 0.40 L Nucleated RBC % 0 Differential Comment SCANNED Diff Path Review May foll Anisocytosis 2+ Microcytosis 1+ Macrocytosis 1+ Sodium 129 L Potassium 3.7 Chloride 99 Carbon Dioxide 24.0 Anion Gap 6 BUN 11 Creatinine 0.44 L Estim Creat Clear Calc 144.98 Est GFR (MDRD) Af Amer 257 Est GFR (MDRD) Non-Af 212 BUN/Creatinine Ratio 25.2 H Glucose 127 H Lactic Acid 1.0 Calcium 7.7 L - Medical Decision Making Laboratory studies and imaging as above. Chest x-ray does show persistent pneumonia and infected bullae however this does appear to be improving. Given that he continues to have symptoms and has been treated with IV fluids as an outpatient couple days in a row and he was sent and I do feel he may benefit from broad-spectrum antibiotics and hospitalization. He was treated with Zosyn and vancomycin here. He will be discussed with the hospitalist and admitted. ED Disposition - Plan for ED Patient: Disposition: Acute Care Hospital [facility] Diagnosis: Pneumonia Referrals: Triny Patel NP-C [Primary Care Provider] -
[2020-01-31] MEDS: Vancomycin IV 1,000 MG/200 ML BAG 200 MG IV ×2 (11:35→23:41)
[2020-01-31] MEDS: 0.9% Normal Saline 1,000 ML 999 ML IV (11:35)
[2020-01-31 11:50] LABS: Absolute Neutrophil Count 9.9 X10^3/uL (2.0-7.7); Basophil# 0.02 X10^3/uL; Basophil% 0.2 % (0-1); Eosinophil# 0.21 X10^3/uL; Eosinophils% 1.6 % (0-5); Hematocrit 25.6 % (40-54); Hemoglobin 8.7 g/dL (13.0-16.5); Lymphocyte % 3.1 % (19-41); Mean Corpuscular Hgb 33.2 pg (27.0-32.0); Mean Corpuscular Volume 97.7 fL (80-94); Mean Platelet Vol. 8.7 fl (6.2-12.0); Monocyte# 1.81 X10^3/uL; NRBC Flagged by Analyzer 0 % (0-5); Neutrophil # 9.87 X10^3/uL (2.7-7.7); Neutrophil % 76.6 % (47-70); POSITIVE DIFFERENTIAL YES; POSITIVE MORPHOLOGY YES; Platelet Count 363 K/mm3 (150-450); RBC Distribution Width CV 20.5 % (11.6-14.6); Red Blood Count 2.62 M/mm3 (4.6-6.2); White Blood Count 12.9 K/mm3 (4.4-11.0)
[2020-01-31 11:53] LABS: Differential Indicated SCAN CRITERIA MET
--- NOTE | 2020-01-31 12:00 | RAD_ITS ---
STUDY: X-RAY CHEST REASON FOR EXAM: Male, 59 years old. Sob, recent pneumonia, sent over from the cancer center, previous negative Covid test TECHNIQUE: Single AP portable view of the chest. COMPARISON: Comparison is made with prior examination dated January 30, 2020. FINDINGS: A right-sided portacatheter is seen with the tip in the mid portion of the superior vena cava. Persistent infiltration in the right upper lobe with a bulla filled with fluid. This measures 7.4 cm by 6.3 cm. This has improved as compared to prior study study. Improved aeration of the left lung base as well. Residual blunting of both costophrenic angles. Normal size heart. Normal mediastinum and thong. Normal visualized pulmonary arteries. There is atherosclerotic calcification of the aortic arch with tortuosity. Normal visualized thoracic spine. Normal visualized ribs, clavicles, and shoulders. There is no demonstrated abnormality of the visualized soft tissue structures of the upper abdomen. RAD/Chest 1 View (Portable) IMPRESSION: Improved aeration of both lungs with a persistent infected bulla in the right upper lobe although this has improved as well. Electronically Signed: Darren Chi, at 12:31 EDT , Service support ,
[2020-01-31 12:02] LABS: Anion Gap 6 (5-15); BUN 11 mg/dL (7-18); BUN/Creat Ratio 25.2 RATIO (10-20); Calcium,Total 7.7 mg/dL (8.5-10.1); Chloride 99 mmol/L (98-107); Creatinine, Serum 0.44 mg/dL (0.70-1.30); EST Glomerular Filtration Rate 212 mL/min (>60); Est Glom Filt Rate - Afr Amer 257 mL/min (>60); Estimated Creatinine Clearance 144.98 ml/min; Glucose 127 mg/dL (74-106); Potassium 3.7 mmol/L (3.5-5.1); Sodium Level 129 mmol/L (136-145)
[2020-01-31 12:10] LABS: Differential Comment SCANNED
[2020-01-31 12:11] LABS: Anisocytosis 2+; Macrocytosis 1+; Microcytosis 1+
--- NOTE | 2020-01-31 13:07 | HP.PCM_ITS ---
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 The patient is a 59 year old M with past medical history as mentioned above presented to the emergency room because of shortness of breath. His symptoms started 1 week ago with exertional shortness of breath, he can walk only for about 10 feet before he gets short of breath, has been progressive, aggravated by more activity, somewhat relieved by rest and associated with dry cough with no sputum production. He denies fever or chills. He reported weight loss of about 10 pounds over the last couple of weeks. He denied sick contacts or recent travel. He was tested for COVID-19 on January 25, 2020 and it was negative. Upon onset of his symptoms which was 1 week ago, he came to the emergency department, had chest x-ray and CTA chest and was recommended to be admitted for pneumonia but he refused. He was sent home on Levaquin for 1 week which was done today. He mentioned that his shortness of breath did not improve as well as the cough and he thinks Levaquin made no difference. He had a history of squamous cell carcinoma of the left lung status post chemotherapy and radiation, last chemotherapy was 5 weeks ago and last radiation was 4 weeks ago. In the emergency department, patient was afebrile, blood pressure stable, heart rate was around 110 but improved, pulse ox was 96% on room air. Routine blood work was remarkable for mild leukocytosis, hemoglobin of 8.7 g/dL, sodium of 129. Chest x-ray revealed right midlung opacity with air-fluid level and consolidation. Patient had CTA chest on January 25, 2020 which revealed multiple large poorly in the upper lobes more on the right side with several bullae appeared to be infected with air-fluid level, dense consolidation on the lateral aspect of the right middle lobe with air bronchogram. He is being admitted for healthcare associated pneumonia with failure of outpatient treatment. Past Medical History Past Medical History (Chronic Problems): Chronic Problems (Last Updated 01/31/20 @ 13:[address] 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 Per C done 11/16/19 per [facility] @ [facility] Smoking greater than 40 pack years (Chronic) Stage 2 moderate COPD by GOLD classification (Chronic) FEV1 56% Alcoholic fatty liver (Chronic) Nicotine dependence (Chronic) Alcohol abuse (Chronic) GERD (gastroesophageal reflux disease) (Chronic) Vitamin D deficiency (Chronic) Hypertension (Chronic) Hyponatremia (Chronic) COPD (chronic obstructive pulmonary disease) (Chronic) Medical History: Medical History (Last Updated 01/31/20 @ 13:[address] 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 Hypertension I10 Allergies No Known Allergies Allergy (Verified 01/31/20 10:42) Home Medications: Ambulatory Orders Medication Instructions Recorded Amlodipine [Norvasc] 2.5 mg PO DAILY 08/05/13 Lisinopril [Zestril] 20 mg PO QHS 08/05/13 Albuterol Sulfate [Ventolin Hfa] 2 puff IH Q4H PRN 05/05/16 Triamcinolone 0.1% Cream [Kenalog] 1 applic TP DAILY PRN 05/05/16 mometasone-formoterol HFA 200 2 puff INHALATION Q12H 05/07/18 mcg-5 mcg/actuation aerosol inhaler Ergocalciferol [Vitamin D] 50,000 unit PO SA 07/22/18 albuterol sulfate 2.5 mg INHALATION Q4H PRN #180 ml 06/16/19 Aclidinium [place] [Tudorza 1 inh INHALATION BID 10/13/19 Pressair] aspirin 81 mg tablet,delayed 81 mg PO DAILY #30 tab 10/25/19 release Ondansetron [Ondansetron Odt] 8 mg PO Q8H PRN PRN 10 Days #30 11/09/19 tab.rapdis Esomeprazole Mag Trihydrate 20 mg PO DAILY #30 cap 11/30/19 [Nexium] Magic Mouth Wash 15 ml PO Q6H PRN PRN #300 ml 12/07/19 Senna [Senokot] 2 tab PO DAILY #60 tab 01/04/20 Morphine Sulfate 10 mg PO Q4H PRN PRN #14 solution 01/12/20 Sucralfate [Carafate] 1 gm PO 4X/DAY #120 udc 01/12/20 Baclofen 5 mg PO TID #30 tab 01/24/20 Levofloxacin [Levaquin] 750 mg PO DAILY #6 tab 01/25/20 predniSONE tablet 60 mg PO DAILY #15 tab 01/25/20 Surgical History: Surgical History (Last Reviewed 01/31/20 @ 13:[address] Lilian Duncan MD) History of left heart catheterization (Chronic) Onset Date: 11/16/19 Z98.890 LEFT MAIN: Angiographically normal; LEFT ANTERIOR DESCENDING ARTERY: PROX LAD: Moderate calcification, Mild luminal irregularities less than 30%; CIRCUMFLEX ARTERY: Mild luminal irregularities less than 30%; RIGHT CORONARY ARTERY: MID RCA: Mild calcification, Mild luminal irregularities less than 30%. Per LHC done 11/16/19 per [facility] @ [facility] Growth removed from throat Onset Date: ~[address] Springer Psychiatric History: No pertinent psych hx Lives: Spouse/ Significant Other Smoking Status: Former smoker Alcohol: None Drugs: None - *Family History Maternal Family History: Family History (Last Reviewed 01/31/20 @ 13:[address] Lilian Duncan MD) Father Esophageal cancer Mother Lung cancer Diabetes Brother No problems noted. Brother CAD (coronary artery disease) Myocardial infarction Brother CAD (coronary artery disease) Myocardial infarction Other Cancer Hypertension Lung disease Review of Systems Constitutional: Reports: Weakness, Weight Change. Denies: Anorexia, Chills, Fever Eyes: Denies: Blurred vision, Double vision, Drainage HEENT: Reports: Dysphasia. Denies: Difficulty Hearing, Ear Pain, Eye Pain, Nasal Congestion, Sore Throat Cardiovascular: Denies: Chest Pain, Chest Pressure, Chest Tightness, Heaviness, Light Headedness, Palpitations, Syncope Respiratory: Reports: Cough, Shortness of Breath, Shortness of breath upon exertion. Denies: Sputum production, Wheezing Gastrointestinal: Denies: Abdominal Pain, Constipation, Diarrhea, Nausea, Vomiting Genitourinary: Denies: Dysuria, Frequency, Hematuria Musculoskeletal: Denies: Arm Pain, Back Pain, Foot Pain Skin: Denies: Dryness, Rash Neurological: Denies: Balance problems, Double vision, Change in Speech, Slurred speech, Confusion, Headaches, Incoordination, Numbness, Tingling Psychiatric: Denies: Anxiety, Depression Endocrine: Denies: Change in Body Habitus, Polydipsia, Polyuria VTE Information - Inpt Only VTE Present on Admission: No VTE Mechan Device Prophylaxis: None VTE Pharm Prophylaxis ordered?: Yes Patient Problems: Active and Suspected Problems (Last Updated 01/31/20 @ 13:[address] Lilian Duncan MD) Pneumonia (Acute) - Physical Exam Vitals/I&O's: Vital Signs Temp Pulse Resp BP Pulse Ox 96.8 F L 96 20 H 119/73 96 01/31/20 12:51 01/31/20 12:51 01/31/20 12:51 01/31/20 12:51 01/31/20 12:51 Oxygen Delivery Method Room Air Weight: 122 lb Body Mass Index (BMI) 17.4 Intake and Output for Last 24 Hours 01/29/20 01/30/20 01/31/20 23:59 23:59 23:59 Intake Total 1300 / 1300 Balance 1300 / 1300 General: Alert, Oriented x3, Cooperative, No apparent distress HEENT: Atraumatic, PERRLA, EOMI, Normocephalic Oral: Moist Mucosa, No Gingival or Mucosal Lesions/ Ulcerations Neck: Supple, No JVD, Negative Carotid Bruits, Trachea Midline, Thyroid Normal Size and Texture Lungs: No wheeze, No rales, Diminished, Rhonchi, - - Decreased breath sounds bilateral, scattered rhonchi. Cardiovascular: Regular rate, Regular Rhythm, Normal S1, Normal S2, PMI Normal Abdomen: Bowel Sounds Present, Soft, Non Tender, Non-Distended, No Hepato- splenomegaly Extremities: No clubbing, No cyanosis, Edema - Trace edema. Skin: No rashes, No breakdown Lymphatic: No Cervical, Supraclavicular, or Inguinal Adenopathy Neurological: Cranial nerves II-XII grossly intact, Motor Exam 5/5 strength throughout Psych/Mental Status: Normal Affect, Appropriate, Alert and oriented to time, place, person, mood and affect Laboratory Results 01/31/20 11:35: WBC 12.9 H, RBC 2.62 L, Hgb 8.7 L, Hct 25.6 L, MCV 97.7 H, MCH 33.2 H, MCHC 34.0, RDW Std Deviation 73.0 H, RDW Coeff of Rush 20.5 H, Plt Count 363, MPV 8.7, Immature Gran % (Auto) 4.500 H, Neut % (Auto) 76.6 H, Lymph % (Auto) 3.1 L, [place] % (Auto) 14.0 H, Eos % (Auto) 1.6, Baso % (Auto) 0.2, Absolute Neuts (auto) 9.9 H, Absolute Lymphs (auto) 0.40 L, Nucleated RBC % 0, Differential Comment SCANNED, Diff Path Review May foll, Anisocytosis 2+, Microcytosis 1+, Macrocytosis 1+ 01/31/20 11:35: Sodium 129 L, Potassium 3.7, Chloride 99, Carbon Dioxide 24.0, Anion Gap 6, BUN 11, Creatinine 0.44 L, Estim Creat Clear Calc 144.98, Est GFR (MDRD) Af Amer 257, Est GFR (MDRD) Non-Af 212, BUN/Creatinine Ratio 25.2 H, Glucose 127 H, Calcium 7.7 L 01/31/20 11:35: Lactic Acid 1.0 Clinical Impression(s) from Imaging Studies Chest X-Ray 01/31/20 12:00 IMPRESSION: Improved aeration of both lungs with a persistent infected bulla in the right upper lobe although this has improved as well. Electronically Signed: Darren Chi, at 12:31 EDT , Service support , Assessment/Plan All Active Problems (Last Updated 01/31/20 @ 13:[address] Lilian Duncan MD) Pneumonia (Acute) This is a 59 years old male patient presented to the emergency room because of 1 week history of shortness of breath and dry cough, was on Levaquin for pneumonia as outpatient without improvement of symptoms, found to have large infected bullae on the right mid lung along with consolidation and he is being admitted for healthcare associated pneumonia with failure of outpatient bakari tment. #1 Healthcare associated pneumonia: Chest x-ray reviewed as well as CTA chest that was done on January 25, 2020. Patient was on Levaquin for 1 week without improvement. He is afebrile, does have some leukocytosis. No evidence of sepsis or severe sepsis. Lactic acid was normal. Patient tested negative for COVID-19 on January 25, 2020. Plan: Admit to [facility] floor, sputum culture, blood culture, pneumococcal and Legionella antigen, start IV Zosyn and vancomycin, pulmonology consult, Mucinex twice daily, Tylenol PRN, repeat CBC and BMP tomorrow morning, PT OT evaluation and treatment. #2 hyponatremia: It is chronic. 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 Plan for fluid restriction less than 1000 cc daily, repeat BMP tomorrow morning. #3 squamous cell carcinoma of the left lung: Status post chemotherapy and radiation, last chemo was 5 weeks ago and last radiation treatment was 4 weeks ago. #4 chronic anemia: Secondary to cancer and chemotherapy. Hemoglobin and hematocrit are stable, no bleeding, no indication for blood transfusion. #5 radiation esophagitis: Patient still complaining of burning upon swallowing. Plan to continue Magic mouthwash. #6 COPD: DuoNeb every 6 hours, albuterol PRN, incentive spirometer. #7 hypertension: Blood pressure stable, continue Norvasc and lisinopril. #8 history of alcohol abuse: Denied any drinking recently. #9 GERD: Continue PPI. #10 DVT prophylaxis: Subcu Lovenox. This note was generated with [employer] dictation software. It may contain incorrect words, spelling, and punctuation that were not noted in checking the note before signing. Inpatient E&M: 79206 Init Hosp L3
--- NOTE | 2020-01-31 14:38 | EKG12_ITS ---
Test Reason : SOB Blood Pressure : / mmHG Vent. Rate : 111 BPM Atrial Rate : 111 BPM P-R Int : 138 ms QRS Dur : 082 ms QT Int : 342 ms P-R-T Axes : 057 052 056 degrees QTc Int : 465 ms Sinus tachycardia Otherwise normal ECG When compared with ECG of 25-JAN-2020 12:27, No significant change was found Confirmed by DELROY BEASLEY ([id number]), school photograph editor NIKI LOVELACE ([id number]) on 02/02/2020 3:21:24 PM Referred By: GLADYS Confirmed By:DELROY BEASLEY
--- NOTE | 2020-01-31 15:29 | PCM.RX.CS ---
Consult Pharmacy has been consulted to manage selected antiobiotic: Vancomycin Type of Consult: New start Suspected Infection: Pneumonia Labs: Sodium 129 mmol/L (136-145) L 01/31/20 11:35 Potassium 3.7 mmol/L (3.5-5.1) 01/31/20 11:35 Chloride 99 mmol/L (98-107) 01/31/20 11:35 Carbon Dioxide 24.0 mmol/L (21.0-32.0) 01/31/20 11:35 Anion Gap 6 (5-15) 01/31/20 11:35 BUN 11 mg/dL (7-18) 01/31/20 11:35 Creatinine 0.44 mg/dL (0.70-1.30) L 01/31/20 11:35 Est GFR (MDRD) Af Amer 257 mL/min (>60) 01/31/20 11:35 Est GFR (MDRD) Non-Af 212 mL/min (>60) 01/31/20 11:35 BUN/Creatinine Ratio 25.2 RATIO (10-20) H 01/31/20 11:35 Glucose 127 mg/dL (74-106) H 01/31/20 11:35 Weight used for dosin kg Goal Trough: 15-20 mcg/mL Pharmacy Plan for Drug Dosin/5--New admission to [facility] for HAP SrCr 0.44 (rounded to 0.8 due to pt bmi of 18) Goal Trough: 15-20 Labs: -Covid (-) 12/2019 -other labs pending Administered Vancomycin doses: 5/5-1000mg @ 1135 in the ER Recommend Vancomycin 1000mg IV q12h, at 11 and 23, starting 01/30. Per clinical Pharmacology, est trough is 17 Trough level: 01/31 @ 2230 Pharmacy Service will continue to monitor and adjust dosing as required.
[2020-01-31] MEDS: Sucralfate 1 GM Tablet PO ×2 (16:15→21:42)
[2020-01-31] MEDS: Baclofen 10 MG Tablet 5 MG PO ×2 (16:15→21:42)
[2020-01-31] MEDS: Pantoprazole Sodium 20 MG Tablet PO (16:16)
[2020-01-31] MEDS: BMX LIQUID 180 ML 15 ML PO ×2 (16:16→21:48)
--- NOTE | 2020-01-31 16:32 | CPS ---
Patient refused Nasal Swab at this time for the Resp. Panel. aware
[2020-01-31] MEDS: oxyCODONE 5 MG Tablet PO (17:33)
[2020-01-31] MEDS: Ipratropium/Albuterol Sulfate 3 ML AMPUL.NEB INHALATION (18:54)
[2020-01-31] MEDS: 0.9% Saline Lock 10 ML Syringe IV (19:48)
[2020-01-31] MEDS: guaiFENesin 1,200 MG Tablet 1200 MG PO (21:42)
[2020-01-31] MEDS: morphine (oral solution) 10MG/0.5ML Syringe 10 MG PO (23:41)
[2020-02-01] VITALS (13 sets, daily range): BP systolic 104–128; BP diastolic 66–76; PULSE 97–128; RESP 18–19; TEMP 36.6–38.2; O2SAT 94–96; BMI 18.5
[2020-02-01] MEDS: Acetaminophen 325 MG Tablet 650 MG PO (02:18)
[2020-02-01] MEDS: Baclofen 10 MG Tablet 5 MG PO ×3 (06:08→22:24)
[2020-02-01] MEDS: Sucralfate 1 GM Tablet PO ×4 (06:08→22:24)
[2020-02-01] MEDS: Ipratropium/Albuterol Sulfate 3 ML AMPUL.NEB INHALATION ×2 (06:59→20:00)
[2020-02-01 07:04] LABS: Absolute Lymphocyte Count 0.64 X10^3/uL (0.83-4.51); Absolute Neutrophil Count 7.5 X10^3/uL (2.0-7.7); Basophil# 0.01 X10^3/uL; Basophil% 0.1 % (0-1); Eosinophil# 0.66 X10^3/uL; Eosinophils% 5.8 % (0-5); Hematocrit 25.5 % (40-54); Hemoglobin 8.7 g/dL (13.0-16.5); Lymphocyte # 0.64 X10^3/ul (4.0); Lymphocyte % 5.7 % (19-41); Mean Corp Hgb Conc 34.1 g/dL (32-36); Mean Corpuscular Volume 96.6 fL (80-94); Mean Platelet Vol. 8.8 fl (6.2-12.0); Monocyte# 2.11 X10^3/uL; Monocyte% 18.7 % (0-10); NRBC Flagged by Analyzer 0 % (0-5); Neutrophil # 7.46 X10^3/uL (2.7-7.7); POSITIVE DIFFERENTIAL YES; POSITIVE MORPHOLOGY YES; Platelet Count 392 K/mm3 (150-450); RBC Distribution Width CV 20.4 % (11.6-14.6); RBC Distribution Width SD 72.5 fl (35.1-43.9); Red Blood Count 2.64 M/mm3 (4.6-6.2); White Blood Count 11.3 K/mm3 (4.4-11.0)
[2020-02-01 07:18] LABS: Differential Indicated SCAN CRITERIA MET
[2020-02-01 07:25] LABS: Anisocytosis 2+; Differential Comment SCANNED; Macrocytosis 1+; Microcytosis 1+
[2020-02-01 07:27] LABS: Anion Gap 8 (5-15); BUN 7 mg/dL (7-18); BUN/Creat Ratio 15.9 RATIO (10-20); Calcium,Total 8.1 mg/dL (8.5-10.1); Chloride 97 mmol/L (98-107); Creatinine, Serum 0.44 mg/dL (0.70-1.30); EST Glomerular Filtration Rate 211 mL/min (>60); Est Glom Filt Rate - Afr Amer 255 mL/min (>60); Estimated Creatinine Clearance 153.66 ml/min; Glucose 110 mg/dL (74-106); Potassium 3.6 mmol/L (3.5-5.1); Sodium Level 129 mmol/L (136-145)
[2020-02-01] MEDS: BMX LIQUID 180 ML 15 ML PO ×3 (07:31→16:27)
[2020-02-01] MEDS: morphine (oral solution) 10MG/0.5ML Syringe 10 MG PO ×4 (07:33→22:36)
--- NOTE | 2020-02-01 08:46 | PCM.CONS.PUL ---
Reason for Consult Date of Consultation: 02/01/20 Reason for Consultation: Healthcare associated pneumonia, history of lung cancer History of Present Illness: The patient is a 59-year-old male, with a history as outlined below, who presented to the emergency department on January 30 with complaints of shortness of breath. The patient does have a known history of stage II COPD, nicotine dependency in remission and squamous cell carcinoma of the left lung. He is followed chronically by Dr. Johnosn in the pulmonary medicine clinic, having last been seen by him in November 2019. The patient was just evaluated by his radiation oncologist, Dr. Rosen on January 29, at which time, the patient was noted to be complaining of lightheadedness and shortness of breath. It was recommended at that time that the patient present to the emergency department for evaluation. However, the patient declined to do so. In fact, the patient was evaluated in the emergency department on January 24 with similar complaints including cough and shortness of breath. It was also recommended that the patient be admitted to the hospital at that time, but the patient declined admission. A CTA chest had been obtained on January 24, which demonstrated no evidence for pulmonary embolism. Diffuse emphysematous changes with bleb formation was noted. There was concerned that several of the bulla appeared to have air-fluid levels concerning for infection. There was also noted to be dense consolidation within the right lower lobe with air bronchograms. The patient was discharged from the emergency department on January 24 with a one-week course of Levaquin. On presentation to the emergency department, the patient was noted to be afebrile and hemodynamically stable. He was maintaining appropriate oxygen saturations on room air. Laboratory evaluation revealed a mildly elevated white blood cell count to 13,000. Chemistry profile was remarkable only for a sodium of 129. Lactate was within normal limits. Prior COVID testing on January 24 was negative. Past Medical History Past Medical History (Chronic Problems): Chronic Problems (Last Updated 01/31/20 @ 13:[address] 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 Per C done 11/16/19 per [facility] @ [facility] Smoking greater than 40 pack years (Chronic) Stage 2 moderate COPD by GOLD classification (Chronic) FEV1 56% Alcoholic fatty liver (Chronic) Nicotine dependence (Chronic) Alcohol abuse (Chronic) GERD (gastroesophageal reflux disease) (Chronic) Vitamin D deficiency (Chronic) Hypertension (Chronic) Hyponatremia (Chronic) COPD (chronic obstructive pulmonary disease) (Chronic) Medical History: Medical History (Last Updated 01/31/20 @ 13:[address] 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 Hypertension I10 Allergies No Known Allergies Allergy (Verified 01/31/20 10:42) Home Medications: Ambulatory Orders Medication Instructions Recorded Amlodipine [Norvasc] 2.5 mg PO DAILY 08/05/13 Lisinopril [Zestril] 20 mg PO QHS 08/05/13 Albuterol Sulfate [Ventolin Hfa] 2 puff IH Q4H PRN 05/05/16 Triamcinolone 0.1% Cream [Kenalog] 1 applic TP DAILY PRN 05/05/16 mometasone-formoterol HFA 200 2 puff INHALATION Q12H 05/07/18 mcg-5 mcg/actuation aerosol inhaler Ergocalciferol [Vitamin D] 50,000 unit PO SA 07/22/18 albuterol sulfate 2.5 mg INHALATION Q4H PRN #180 ml 06/16/19 Aclidinium [place] [Tudorza 1 inh INHALATION BID 10/13/19 Pressair] aspirin 81 mg tablet,delayed 81 mg PO DAILY #30 tab 10/25/19 release Ondansetron [Ondansetron Odt] 8 mg PO Q8H PRN PRN 10 Days #30 11/09/19 tab.rapdis Esomeprazole Mag Trihydrate 20 mg PO DAILY #30 cap 11/30/19 [Nexium] Magic Mouth Wash 15 ml PO Q6H PRN PRN #300 ml 12/07/19 Senna [Senokot] 2 tab PO DAILY #60 tab 01/04/20 Morphine Sulfate 10 mg PO Q4H PRN PRN #14 solution 01/12/20 Sucralfate [Carafate] 1 gm PO 4X/DAY #120 udc 01/12/20 Baclofen 5 mg PO TID #30 tab 01/24/20 predniSONE tablet 60 mg PO DAILY #15 tab 01/25/20 Amoxicillin/Potassium Clav 1 ea PO BID #60 tab 02/02/20 [Augmentin 875-125 Tablet] Doxycycline 100 mg PO BID #60 cap 02/02/20 Surgical History: Surgical History (Last Reviewed 01/31/20 @ 13:[address] Lilian Duncan MD) History of left heart catheterization (Chronic) Onset Date: 11/16/19 Z98.890 LEFT MAIN: Angiographically normal; LEFT ANTERIOR DESCENDING ARTERY: PROX LAD: Moderate calcification, Mild luminal irregularities less than 30%; CIRCUMFLEX ARTERY: Mild luminal irregularities less than 30%; RIGHT CORONARY ARTERY: MID RCA: Mild calcification, Mild luminal irregularities less than 30%. Per LHC done 11/16/19 per [facility] @ [facility] Growth removed from throat Onset Date: ~[address] Springer Psychiatric History: No pertinent psych hx Lives: Spouse/ Significant Other Smoking Status: Former smoker Alcohol: None Drugs: None - *Family History Maternal Family History: Family History (Last Reviewed 01/31/20 @ 13:[address] Lilian Duncan MD) Father Esophageal cancer Mother Lung cancer Diabetes Brother No problems noted. Brother CAD (coronary artery disease) Myocardial infarction Brother CAD (coronary artery disease) Myocardial infarction Other Cancer Hypertension Lung disease Review of Systems Constitutional: Denies: Chills, Fever Eyes: Denies: Blurred vision, Double vision HEENT: Denies: Head Aches, Sinus Congestion, Sinus Drainage Cardiovascular: Denies: Chest Pain Respiratory: Reports: Cough, Shortness of Breath Gastrointestinal: Denies: Abdominal Pain, Nausea, Vomiting Genitourinary: Denies: Dysuria Musculoskeletal: Denies: Joint Pain, Joint Tenderness Skin: Denies: Rash, Wounds Neurological: Denies: Numbness, Tingling, Focal weakness Psychiatric: Denies: Anxiety, Depression, Homicidal Ideations, Suicidal Ideations Hematologic/ Lymphatic: Reports: Anemia Patient Problems: Active and Suspected Problems (Last Updated 01/31/20 @ 13:[address] Lilian Duncan MD) Pneumonia (Acute) Objective: The patient's most recent lab work, culture data and imaging studies have all been personally reviewed. Strep and urine Legionella antigens were negative. Blood and sputum cultures are pending. MRSA screen is pending. - Physical Exam Vitals/I&O's: Vital Signs Temp Pulse Resp BP Pulse Ox 98.3 F 119 H 19 H 128/66 H 94 02/01/20 04:19 02/01/20 08:00 02/01/20 07:10 02/01/20 02:46 02/01/20 07:47 Oxygen Delivery Method Room Air Weight: 129 lb 4.8 oz Body Mass Index (BMI) 18.5 Intake and Output for Last 24 Hours 01/30/20 01/31/20 02/01/20 23:59 23:59 23:59 Intake Total 1720.25 / 1720.25 401 / 401 Output Total 300 / 300 600 / 600 Balance 1420.25 / 1420.25 -199 / -199 General: Alert, Cooperative, No apparent distress, - - Sitting in bedside recliner. HEENT: Atraumatic, PERRLA, Normocephalic Oral: No Gingival or Mucosal Lesions/ Ulcerations Neck: Supple, No Nodes, Trachea Midline Lungs: No rhonchi, No wheeze, No rales, Diminished Cardiovascular: Regular rate, Regular Rhythm Abdomen: Bowel Sounds Present, Soft, Non Tender Extremities: No clubbing, No cyanosis, No edema Skin: No breakdown Musculoskeletal: No Tenderness to Palpation of Joints or Extremities Lymphatic: No Cervical, Supraclavicular, or Inguinal Adenopathy Neurological: Cranial nerves II-XII grossly intact, Neuro grossly intact Psych/Mental Status: Normal Affect, Appropriate Labs (Last 48 Hours) 01/31/20 01/31/20 01/31/20 11:35 11:35 11:35 WBC 12.9 H RBC 2.62 L Hgb 8.7 L Hct 25.6 L MCV 97.7 H MCH 33.2 H MCHC 34.0 RDW Std Deviation 73.0 H RDW Coeff of Rush 20.5 H Plt Count 363 MPV 8.7 Immature Gran % (Auto) 4.500 H Neut % (Auto) 76.6 H Lymph % (Auto) 3.1 L [place] % (Auto) 14.0 H Eos % (Auto) 1.6 Baso % (Auto) 0.2 Absolute Neuts (auto) 9.9 H Absolute Lymphs (auto) 0.40 L Nucleated RBC % 0 Differential Comment SCANNED Diff Path Review May foll Anisocytosis 2+ Microcytosis 1+ Macrocytosis 1+ Sodium 129 L Potassium 3.7 Chloride 99 Carbon Dioxide 24.0 Anion Gap 6 BUN 11 Creatinine 0.44 L Estim Creat Clear Calc 144.98 Est GFR (MDRD) Af Amer 257 Est GFR (MDRD) Non-Af 212 BUN/Creatinine Ratio 25.2 H Glucose 127 H Lactic Acid 1.0 Calcium 7.7 L 02/01/20 02/01/20 06:45 06:45 WBC 11.3 H RBC 2.64 L Hgb 8.7 L Hct 25.5 L MCV 96.6 H MCH 33.0 H MCHC 34.1 RDW Std Deviation 72.5 H RDW Coeff of Rush 20.4 H Plt Count 392 MPV 8.8 Immature Gran % (Auto) 3.700 H Neut % (Auto) 66.0 Lymph % (Auto) 5.7 L [place] % (Auto) 18.7 H Eos % (Auto) 5.8 H Baso % (Auto) 0.1 Absolute Neuts (auto) 7.5 Absolute Lymphs (auto) 0.64 L Nucleated RBC % 0 Differential Comment SCANNED Diff Path Review May foll Anisocytosis 2+ Microcytosis 1+ Macrocytosis 1+ Sodium 129 L Potassium 3.6 Chloride 97 L Carbon Dioxide 24.0 Anion Gap 8 BUN 7 Creatinine 0.44 L Estim Creat Clear Calc 153.66 Est GFR (MDRD) Af Amer 255 Est GFR (MDRD) Non-Af 211 BUN/Creatinine Ratio 15.9 Glucose 110 H Lactic Acid Calcium 8.1 L Microbiology 01/31/20 20:00 Urine, Random Legionella Antigen - Final 01/31/20 20:00 Urine, Random Streptococcus pneumoniae Antigen (M - Final Clinical Impression(s) from Imaging Studies Chest X-Ray 01/31/20 12:00 IMPRESSION: Improved aeration of both lungs with a persistent infected bulla in the right upper lobe although this has improved as well. Electronically Signed: Darren Chi, at 12:31 EDT , Service support , Current Medications Acetaminophen (Tylenol) 650 mg PO Q6H PRN PRN PRN Reason: Pain Score 1-10/Temp > 100.7 F Last Admin: 02/01/20 02:18 Dose: 650 mg Documented by: Albuterol/Ipratropium (Duoneb) 3 ml INHALATION Q6H.RT [facility] Last Admin: 02/01/20 06:59 Dose: 3 ml Documented by: Amlodipine Besylate (Norvasc) 2.5 mg PO DAILY [facility] Aspirin (Ecotrin) 81 mg PO DAILY@0800 GE Baclofen (Lioresal) 5 mg PO TID [facility] Last Admin: 02/01/20 06:08 Dose: 5 mg Documented by: Enoxaparin Sodium (Lovenox) 40 mg SC DAILY [facility] Guaifenesin (Mucinex) 1,200 mg PO BID [facility] Last Admin: 01/31/20 21:42 Dose: 1,200 mg Documented by: Heparin Sodium (Beef Lung) () 50 units IV UD PRN PRN Reason: Port-a-Cath (VAD)Heparin Flush Sodium Chloride () 250 mls @ 15 mls/hr IV .[id number] PRN PRN Reason: Saline Flush Last Infusion: 02/01/20 06:09 Dose: 0 mls/hr Documented by: Sodium Chloride () 250 mls @ 15 mls/hr IV .[id number] PRN PRN Reason: Additional IVPB Infusion Vancomycin HCl (Vancomycin) 1,000 mg in 200 mls @ 200 mls/hr IV Q12H [facility] Last Infusion: 02/01/20 00:45 Dose: Infused Documented by: Vancomycin IV Pharmacy to Dose (1 ea/ Sodium Chloride) 500 mls @ 250 mls/hr IV X1 PRN; Protocol PRN Reason: Rx to Dose Piperacillin Sod/Tazobactam (Sod 3.375 gm/ Sodium Chloride) 50 mls @ 12.5 mls/hr IV Q8 [facility] Last Admin: 02/01/20 06:09 Dose: 12.5 mls/hr Documented by: Lidocaine/Diphenhydr/Alum/Mg/Simeth () 15 ml PO ACHS PRN PRN Reason: PAIN 1-10 Last Admin: 02/01/20 07:31 Dose: 15 ml Documented by: Lisinopril (Zestril) 20 mg PO QHS [facility] Last Admin: 01/31/20 21:43 Dose: Not Given Documented by: Morphine Sulfate (Roxanol (Ir Oral Solution)) 10 mg PO Q4H PRN PRN PRN Reason: Pain Score 6-10/10 Last Admin: 02/01/20 07:33 Dose: 10 mg Documented by: Nutritional Formula (Lactose Free) (Ensure Enlive) 120 ml PO 4X/DAY [facility] Last Admin: 01/31/20 21:42 Dose: 120 ml Documented by: Ondansetron HCl (Zofran) 4 mg IV Q8H PRN PRN PRN Reason: NAUSEA/VOMITING Pantoprazole Sodium (Protonix) 20 mg PO DAILY [facility] Last Admin: 01/31/20 16:16 Dose: 20 mg Documented by: Senna/Docusate Sodium (Senokot-S, Rachelle-Colace) 2 tablet PO BID PRN PRN PRN Reason: Constipation Sodium Chloride () 10 - 40 ml IV UD PRN PRN Reason: Port-a-Cath (VAD) Flush Last Admin: 01/31/20 19:48 Dose: 10 ml Documented by: Sodium Chloride (0.9% Nacl (Sterile) Posiflush) 10 - 40 ml IV UD PRN PRN Reason: Port access or dressing change Sucralfate (Carafate) 1 gm PO 1HR_ACHS [facility] Last Admin: 02/01/20 06:08 Dose: 1 gm Documented by: Zolpidem Tartrate (Ambien (Generic)) 5 mg PO QHS PRN PRN PRN Reason: INSOMNIA Assessment/Plan All Active Problems (Last Updated 01/31/20 @ 13:[address] Lilian Duncan MD) Pneumonia (Acute) RECOMMENDATIONS: 1. Continue empiric Zosyn and vancomycin. Check MRSA screen. 2. Continue scheduled bronchodilators and start IV steroids. 3. Obtain infectious diseases consultation. 4. Perform walking oximetry study prior to consideration for discharge home. IMPRESSIONS: 1. Shortness of breath secondary to COPD with exacerbation due to healthcare associated pneumonia/infected bullae The patient does have radiographic evidence of a consolidation with air bronchograms with associated bullae with air-fluid levels, suggesting infection. The patient failed to respond to outpatient treatment with p.o. Levaquin. Therefore, the patient was admitted to the hospital for further management. For now, recommend continuing scheduled bronchodilators and IV steroids. Agree with empiric antimicrobials with vancomycin and Zosyn. Sputum culture is currently pending. Will check MRSA screen as well. Consultation has been placed to infectious diseases to assist with antimicrobial management and duration of treatment. From review of the patient's CT chest, any attempt at aspirating one of the bullae would likely be significantly high risk for potential pneumothorax. I would recommend completing a full treatment course of antibiotics, with plans for repeat chest imaging once the treatment course has completed. This note was generated with [employer] dictation software. It may contain incorrect words, spelling, and punctuation that were not noted in checking the note before signing. Inpatient E&M: 01550 Init Hosp L3
[2020-02-01] MEDS: Pantoprazole Sodium 20 MG Tablet PO (09:00)
[2020-02-01] MEDS: amLODIPine 2.5 MG Tablet PO (09:00)
[2020-02-01] MEDS: guaiFENesin 1,200 MG Tablet 1200 MG PO ×2 (09:00→22:24)
[2020-02-01] MEDS: Aspirin E.C. 81 MG Tablet PO (09:00)
[2020-02-01] MEDS: Enoxaparin 40 MG/0.4 ML Syringe SC (09:00)
--- NOTE | 2020-02-01 10:19 | PCM.PN.HOSP ---
Patient Problems: Active and Suspected Problems (Last Updated 01/31/20 @ 13:[address] Lilian Duncan MD) Pneumonia (Acute) Subjective: Patient seen and examined. He was admitted with a complaint of shortness of breath and is being managed for healthcare associated pneumonia. CT of chest done on January 25, 2020 showed multiple large bullae which appeared infected in the upper lobes more on the right side with dense consolidation in the lateral aspect of the right middle lobe with air bronchogram. Patient refused inpatient treatment then and was discharged on 1 week Levaquin but shortness of breath persisted so he came into the ED. Of note, COVID test done at his initial presentation in the ED on January 25, 2020 was negative. Patient seen today. He still complains of feeling short of breath but states it is improving. He still has an occasional cough and denies any fever or chills, nausea vomiting or diarrhea. Review of symptoms otherwise negative. Labs and vitals reviewed. Vitals/I&O's: Vital Signs Temp Pulse Resp BP Pulse Ox 98.1 F 109 H 18 107/71 94 02/01/20 09:00 02/01/20 09:00 02/01/20 09:00 02/01/20 09:00 02/01/20 09:00 Oxygen Delivery Method Room Air Weight: 129 lb 4.8 oz Body Mass Index (BMI) 18.5 Intake and Output for Last 24 Hours 01/30/20 01/31/20 02/01/20 23:59 23:59 23:59 Intake Total 1720.25 / 1720.25 401 / 401 Output Total 300 / 300 600 / 600 Balance 1420.25 / 1420.25 -199 / -199 General: Alert, Oriented x3, Cooperative, No apparent distress, - - looks much older than stated age HEENT: Atraumatic, PERRLA, EOMI, Normocephalic Oral: Dry Mucosa Neck: Supple, No JVD, Negative Carotid Bruits Lungs: - - diminished breath sounds bibasally, no wheezes or crackles. Cardiovascular: Regular Rhythm, Normal S1, Normal S2, No murmurs, Tachycardic Abdomen: Bowel Sounds Present, Soft, Non Tender, Non-Distended, No Hepato-splenomegaly Extremities: No clubbing, No cyanosis, No edema, Capillary Refill Less than 3 Seconds Skin: No rashes, No breakdown Musculoskeletal: No Tenderness to Palpation of Joints or Extremities, - - chemotherapy port in place Lymphatic: No Cervical, Supraclavicular, or Inguinal Adenopathy Neurological: Cranial nerves II-XII grossly intact Psych/Mental Status: Normal Affect, Appropriate, Alert and oriented to time, place, person, mood and affect Microbiology Past 72 Hours 01/31/20 20:00 Urine, Random Legionella Antigen - Final 01/31/20 20:00 Urine, Random Streptococcus pneumoniae Antigen (M - Final Laboratory Results 01/31/20 11:35: WBC 12.9 H, RBC 2.62 L, Hgb 8.7 L, Hct 25.6 L, MCV 97.7 H, MCH 33.2 H, MCHC 34.0, RDW Std Deviation 73.0 H, RDW Coeff of Rush 20.5 H, Plt Count 363, MPV 8.7, Immature Gran % (Auto) 4.500 H, Neut % (Auto) 76.6 H, Lymph % (Auto) 3.1 L, [place] % (Auto) 14.0 H, Eos % (Auto) 1.6, Baso % (Auto) 0.2, Absolute Neuts (auto) 9.9 H, Absolute Lymphs (auto) 0.40 L, Nucleated RBC % 0, Differential Comment SCANNED, Diff Path Review May foll, Anisocytosis 2+, Microcytosis 1+, Macrocytosis 1+ 01/31/20 11:35: Sodium 129 L, Potassium 3.7, Chloride 99, Carbon Dioxide 24.0, Anion Gap 6, BUN 11, Creatinine 0.44 L, Estim Creat Clear Calc 144.98, Est GFR (MDRD) Af Amer 257, Est GFR (MDRD) Non-Af 212, BUN/Creatinine Ratio 25.2 H, Glucose 127 H, Calcium 7.7 L 01/31/20 11:35: Lactic Acid 1.0 02/01/20 06:45: WBC 11.3 H, RBC 2.64 L, Hgb 8.7 L, Hct 25.5 L, MCV 96.6 H, MCH 33.0 H, MCHC 34.1, RDW Std Deviation 72.5 H, RDW Coeff of Rush 20.4 H, Plt Count 392, MPV 8.8, Immature Gran % (Auto) 3.700 H, Neut % (Auto) 66.0, Lymph % (Auto) 5.7 L, [place] % (Auto) 18.7 H, Eos % (Auto) 5.8 H, Baso % (Auto) 0.1, Absolute Neuts (auto) 7.5, Absolute Lymphs (auto) 0.64 L, Nucleated RBC % 0, Differential Comment SCANNED, Diff Path Review May foll, Anisocytosis 2+, Microcytosis 1+, Macrocytosis 1+ 02/01/20 06:45: Sodium 129 L, Potassium 3.6, Chloride 97 L, Carbon Dioxide 24.0, Anion Gap 8, BUN 7, Creatinine 0.44 L, Estim Creat Clear Calc 153.66, Est GFR (MDRD) Af Amer 255, Est GFR (MDRD) Non-Af 211, BUN/Creatinine Ratio 15.9, Glucose 110 H, Calcium 8.1 L 02/01/20 09:10: MRSA (PCR) Pending Diagnostic Data Chest X-Ray 01/31/20 12:00 IMPRESSION: Improved aeration of both lungs with a persistent infected bulla in the right upper lobe although this has improved as well. Electronically Signed: Darren Chi, at 12:31 EDT , Service support , Current Medications Acetaminophen (Tylenol) 650 mg PO Q6H PRN PRN PRN Reason: Pain Score 1-10/Temp > 100.7 F Last Admin: 02/01/20 02:18 Dose: 650 mg Documented by: Albuterol/Ipratropium (Duoneb) 3 ml INHALATION Q6H.RT [facility] Last Admin: 02/01/20 06:59 Dose: 3 ml Documented by: Amlodipine Besylate (Norvasc) 2.5 mg PO DAILY [facility] Last Admin: 02/01/20 09:00 Dose: 2.5 mg Documented by: Aspirin (Ecotrin) 81 mg PO DAILY@0800 [facility] Last Admin: 02/01/20 09:00 Dose: 81 mg Documented by: Baclofen (Lioresal) 5 mg PO TID [facility] Last Admin: 02/01/20 06:08 Dose: 5 mg Documented by: Enoxaparin Sodium (Lovenox) 40 mg SC DAILY [facility] Last Admin: 02/01/20 09:00 Dose: 40 mg Documented by: Guaifenesin (Mucinex) 1,200 mg PO BID [facility] Last Admin: 02/01/20 09:00 Dose: 1,200 mg Documented by: Heparin Sodium (Beef Lung) () 50 units IV UD PRN PRN Reason: Port-a-Cath (VAD)Heparin Flush Sodium Chloride () 250 mls @ 15 mls/hr IV .[id number] PRN PRN Reason: Saline Flush Last Infusion: 02/01/20 06:09 Dose: 0 mls/hr Documented by: Sodium Chloride () 250 mls @ 15 mls/hr IV .[id number] PRN PRN Reason: Additional IVPB Infusion Vancomycin HCl (Vancomycin) 1,000 mg in 200 mls @ 200 mls/hr IV Q12H [facility] Last Infusion: 02/01/20 00:45 Dose: Infused Documented by: Vancomycin IV Pharmacy to Dose (1 ea/ Sodium Chloride) 500 mls @ 250 mls/hr IV X1 PRN; Protocol PRN Reason: Rx to Dose Piperacillin Sod/Tazobactam (Sod 3.375 gm/ Sodium Chloride) 50 mls @ 12.5 mls/hr IV Q8 [facility] Last Admin: 02/01/20 06:09 Dose: 12.5 mls/hr Documented by: Lidocaine/Diphenhydr/Alum/Mg/Simeth () 15 ml PO ACHS PRN PRN Reason: PAIN 1-10 Last Admin: 02/01/20 07:31 Dose: 15 ml Documented by: Lisinopril (Zestril) 20 mg PO QHS [facility] Last Admin: 01/31/20 21:43 Dose: Not Given Documented by: Morphine Sulfate (Roxanol (Ir Oral Solution)) 10 mg PO Q4H PRN PRN PRN Reason: Pain Score 6-10/10 Last Admin: 02/01/20 07:33 Dose: 10 mg Documented by: Nutritional Formula (Lactose Free) (Ensure Enlive) 120 ml PO 4X/DAY [facility] Last Admin: 02/01/20 09:01 Dose: 120 ml Documented by: Ondansetron HCl (Zofran) 4 mg IV Q8H PRN PRN PRN Reason: NAUSEA/VOMITING Pantoprazole Sodium (Protonix) 20 mg PO DAILY [facility] Last Admin: 02/01/20 09:00 Dose: 20 mg Documented by: Senna/Docusate Sodium (Senokot-S, Rachelle-Colace) 2 tablet PO BID PRN PRN PRN Reason: Constipation Sodium Chloride () 10 - 40 ml IV UD PRN PRN Reason: Port-a-Cath (VAD) Flush Last Admin: 01/31/20 19:48 Dose: 10 ml Documented by: Sodium Chloride (0.9% Nacl (Sterile) Posiflush) 10 - 40 ml IV UD PRN PRN Reason: Port access or dressing change Sucralfate (Carafate) 1 gm PO 1HR_ACHS [facility] Last Admin: 02/01/20 06:08 Dose: 1 gm Documented by: Zolpidem Tartrate (Ambien (Generic)) 5 mg PO QHS PRN PRN PRN Reason: INSOMNIA STROKE Vital Signs/Narrative: Vital Signs Temp Pulse Resp BP Pulse Ox 02/01/20 09:00 98.1 F 109 H 18 107/71 94 02/01/20 08:00 119 H 02/01/20 07:47 94 02/01/20 07:10 101 H 19 H Medical Necessity - Tobacco Use Smoking Status: Former smoker Assessment/Plan All Active Problems (Last Updated 01/31/20 @ 13:[address] Lilian Duncan MD) Pneumonia (Acute) 1. health associated pneumonia wbc is down to 11.3 today. COVID was negative on IV zosyn and vancomycin CXR on admission showed improvement in aeration of both lungs with a persistent infected bulla in the right upper lobe, though it had improved as well. pulmonology consulted on braething treatments with duonebs urine for strep and legionella are negative on Mucinex. 2. Hyponatremia: chronic. na is 129 today. Likely from lung cancer. 3. Squamous cell carcinoma of the left lung: chemotherapy port in place. Last had chemo 5 weeks ago and radiation 4 weeks ago 4. Chronic anemia: Open is 8.7. Likely due to cancer. 5. Radiation esophagitis: On Magic mouthwash. Has occasional burning with swallowing. 6. COPD: Not in exacerbation. On breathing treatments with bronchodilators 7. Hypertension: on amlodipine and norvasc. 8. History of alcohol use: Stable. 9. GERD: On PPI DVT prophylaxis: Lovenox Inpatient E&M: 82405 Subs Hosp L3
--- NOTE | 2020-02-01 10:50 | CASEMGMT ---
RN DOYLE Face to Face with patient for initial transition planning/care coordination assessment. RN CM introduced self and role at [facility]. Patient lying in bed, alert and oriented. Patient willing to participate in assessment and is able to answer all questions appropriately. Care providers, pharmacy, and demographics verified. Patient wishes to discharge home, denies need for home health at this time. Patient states he has no further needs or concerns at this time. CM to follow for discharge planning needs that may arise. PCP: Amanda Specialists: Maxi, oncologist; Silas radiologist Preferred Pharmacy: [facility] Insurance: [employer] Prescription Benefit: yes Living Will/HPOA: none LNOK: Significant other, Meenakshi Living Arrangements: Patient lives with significant other in mobile home with 4 steps and railing to enter the home. Patient states he is independent Transportation: self, friends DME/HHC: Patient states he has nebulizer machine at home. Patient denies need for additional DME at this time. Patient denies previous HHC. Disposition Plan: Patient to discharge home with family support and follow-up plans in place. Amrita BALDWIN, RN, CM
--- NOTE | 2020-02-01 10:50 | PCM.NTREPORT ---
Nutrition Therapy Report - History Nutrition Services has been consulted to:: Conduct nutrition education Current diet / nutrition support order:: cardiac/low cholesterol; ensure enlive 120mL 4x/day - Anthropometric Measurements Height:: 5 ft 10 in Weight:: 58.649 kg Body Mass Index (BMI):: 18.5 - Relevant Labs Relevant Labs:: WBC 11.3 K/mm3 (4.4-11.0) H 02/01/20 06:45 RBC 2.64 M/mm3 (4.6-6.2) L 02/01/20 06:45 Hgb 8.7 g/dL (13.0-16.5) L 02/01/20 06:45 Hct 25.5 % (40-54) L 02/01/20 06:45 MCV 96.6 fL (80-94) H 02/01/20 06:45 MCH 33.0 pg (27.0-32.0) H 02/01/20 06:45 RDW Std Deviation 72.5 fl (35.1-43.9) H 02/01/20 06:45 RDW Coeff of Rush 20.4 % (11.6-14.6) H 02/01/20 06:45 Immature Gran % (Auto) 3.700 % (0.0-0.9) H 02/01/20 06:45 Neut % (Auto) 76.6 % (47-70) H 01/31/20 11:35 Lymph % (Auto) 5.7 % (19-41) L 02/01/20 06:45 Christian % (Auto) 18.7 % (0-10) H 02/01/20 06:45 Eos % (Auto) 5.8 % (0-5) H 02/01/20 06:45 Absolute Neuts (auto) 9.9 X10^3/uL (2.0-7.7) H 01/31/20 11:35 Absolute Lymphs (auto) 0.64 X10^3/uL (0.83-4.51) L 02/01/20 06:45 Sodium 129 mmol/L (136-145) L 02/01/20 06:45 Chloride 97 mmol/L (98-107) L 02/01/20 06:45 Creatinine 0.44 mg/dL (0.70-1.30) L 02/01/20 06:45 BUN/Creatinine Ratio 25.2 RATIO (10-20) H 01/31/20 11:35 Glucose 110 mg/dL (74-106) H 02/01/20 06:45 Calcium 8.1 mg/dL (8.5-10.1) L 02/01/20 06:45 - Assessment Food / Nutrition-Related History:: Pt following w/ outpatient RDN during cancer treatment. States he is able to swallow much better than during previous RDN visit on 01/24/20. PO intake severely compromised d/t painful swallow for past few months. Drinks Ensure at home- tries to have 5x/day. Accepting of Ensure w/ medpass this AM. Consumed 50% of belarusian toast at breakfast. CBW 129.3#. Wt on 01/24/20 was 122.4# suggesting recent wt gain, which is ideal. Wt on 11/08/19 was 135.4#-4.5% wt loss x 3 months, not significant at this time. Nutrition focused physical exam suggests mild muscle wasting and fat loss in upper extremities, orbital region. - Nutrition Diagnosis Problem / Etiology / Signs & Symptoms (PES):: Inadequate oral intake related to painful swallow, radiation esophagitis as evidenced by minimal PO intake, meeting <75% of pt's estimated needs over past 1 month. Evidence of Malnutrition Exists:: Yes Moderate PCM:: Chronic Illness - Nutrition Intervention Nutrition Prescription:: [id number] calories/day, 70-90 g protein - Food / Nutrient Delivery Interventions Summary of nutrition intervention:: Agreeable to continuing ONS as ordered- 120mL 4x/day in between meals. Pt is happy his ability to swallow has improved. Will continue to follow w/ outpatient RDN. No questions for RDN at this time. Nutrition support ordered as / adjusted to:: Will liberalize diet to regular in light of moderate malnutrition. Continue Ensure w/ medpass. Nutrition education provided?: No - pt w/ no questions today - MNT Monitoring Further MNT monitoring and evaluation required?: Yes MNT Follow-up in:: 3-5 days
[2020-02-01 11:21] LABS: M R Staph aureus DNA By PCR Negative (Negative); Probe Check PASS; Specimen Processing Control PASS
[2020-02-01] MEDS: Vancomycin IV 1,000 MG/200 ML BAG 200 MG IV ×2 (11:38→23:25)
[2020-02-01 12:03] LABS: Pathologist Review Reviewed
--- NOTE | 2020-02-01 17:34 | PCM.HP.ID ---
Problem List (1) Pneumonia Status: Acute Reason for Consult: lung abscess Consulted by: Dr. Bowles History of Present Illness: The patient is a 59 year old M with h/o COPD and lung cancer, port in place, presented with worsening dyspnea, cough, not feeling well. Some fever. Sx started about 1-2 weeks ago, went to ED 01/24, CT chest done, given levaquin but he reports never actually getting the rx. Came back with worsening symptoms, fever to 100.7, started on vanc/zosyn. Having some sputum, no aches. Full ROS performed and neg except as noted above. - Medical History Past Medical History (Chronic Problems): Chronic Problems (Last Updated 01/31/20 @ 13:[address] 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 Per [facility] done 11/16/19 per [facility] @ [facility] Smoking greater than 40 pack years (Chronic) Stage 2 moderate COPD by GOLD classification (Chronic) FEV1 56% Alcoholic fatty liver (Chronic) Nicotine dependence (Chronic) Alcohol abuse (Chronic) GERD (gastroesophageal reflux disease) (Chronic) Vitamin D deficiency (Chronic) Hypertension (Chronic) Hyponatremia (Chronic) COPD (chronic obstructive pulmonary disease) (Chronic) Allergies/Adverse Reactions: Allergies No Known Allergies Allergy (Verified 01/31/20 10:42) Home Medications: Ambulatory Orders Medication Instructions Recorded Amlodipine [Norvasc] 2.5 mg PO DAILY 08/05/13 Lisinopril [Zestril] 20 mg PO QHS 08/05/13 Albuterol Sulfate [Ventolin Hfa] 2 puff IH Q4H PRN 05/05/16 Triamcinolone 0.1% Cream [Kenalog] 1 applic TP DAILY PRN 05/05/16 mometasone-formoterol HFA 200 2 puff INHALATION Q12H 05/07/18 mcg-5 mcg/actuation aerosol inhaler Ergocalciferol [Vitamin D] 50,000 unit PO SA 07/22/18 albuterol sulfate 2.5 mg INHALATION Q4H PRN #180 ml 06/16/19 Aclidinium [place] [Tudorza 1 inh INHALATION BID 10/13/19 Pressair] aspirin 81 mg tablet,delayed 81 mg PO DAILY #30 tab 10/25/19 release Ondansetron [Ondansetron Odt] 8 mg PO Q8H PRN PRN 10 Days #30 11/09/19 tab.rapdis Esomeprazole Mag Trihydrate 20 mg PO DAILY #30 cap 11/30/19 [Nexium] Magic Mouth Wash 15 ml PO Q6H PRN PRN #300 ml 12/07/19 Senna [Senokot] 2 tab PO DAILY #60 tab 01/04/20 Morphine Sulfate 10 mg PO Q4H PRN PRN #14 solution 01/12/20 Sucralfate [Carafate] 1 gm PO 4X/DAY #120 udc 01/12/20 Baclofen 5 mg PO TID #30 tab 01/24/20 Levofloxacin [Levaquin] 750 mg PO DAILY #6 tab 01/25/20 predniSONE tablet 60 mg PO DAILY #15 tab 01/25/20 - Social History SMOKING STATUS:: Former smoker Vital Signs Temp Pulse Resp BP Pulse Ox 98.9 F 108 H 18 104/68 96 02/01/20 14:50 02/01/20 14:50 02/01/20 14:50 02/01/20 14:50 02/01/20 14:50 Oxygen Delivery Method Room Air Weight: 58.649 kg Body Mass Index (BMI) 18.5 Microbiology Past 72 Hours 01/31/20 17:35 Gram Stain - Final Sputum, Expectorated/Coughed 01/31/20 20:00 Legionella Antigen - Final Urine, Random 01/31/20 20:00 Streptococcus pneumoniae Antigen (M - Final Urine, Random Laboratory Tests Past 24 Hrs 01/31/20 02/01/20 02/01/20 11:35 06:45 06:45 WBC 11.3 H RBC 2.64 L Hgb 8.7 L Hct 25.5 L MCV 96.6 H MCH 33.0 H MCHC 34.1 RDW Std Deviation 72.5 H RDW Coeff of Rush 20.4 H Plt Count 392 MPV 8.8 Immature Gran % (Auto) 3.700 H Neut % (Auto) 66.0 Lymph % (Auto) 5.7 L [place] % (Auto) 18.7 H Eos % (Auto) 5.8 H Baso % (Auto) 0.1 Absolute Neuts (auto) 7.5 Absolute Lymphs (auto) 0.64 L Nucleated RBC % 0 Differential Comment SCANNED Diff Path Review Reviewed May foll Anisocytosis 2+ Microcytosis 1+ Macrocytosis 1+ Sodium 129 L Potassium 3.6 Chloride 97 L Carbon Dioxide 24.0 Anion Gap 8 BUN 7 Creatinine 0.44 L Estim Creat Clear Calc 153.66 Est GFR (MDRD) Af Amer 255 Est GFR (MDRD) Non-Af 211 BUN/Creatinine Ratio 15.9 Glucose 110 H Calcium 8.1 L MRSA (PCR) 02/01/20 09:10 WBC RBC Hgb Hct MCV MCH MCHC RDW Std Deviation RDW Coeff of Rush Plt Count MPV Immature Gran % (Auto) Neut % (Auto) Lymph % (Auto) [place] % (Auto) Eos % (Auto) Baso % (Auto) Absolute Neuts (auto) Absolute Lymphs (auto) Nucleated RBC % Differential Comment Diff Path Review Anisocytosis Microcytosis Macrocytosis Sodium Potassium Chloride Carbon Dioxide Anion Gap BUN Creatinine Estim Creat Clear Calc Est GFR (MDRD) Af Amer Est GFR (MDRD) Non-Af BUN/Creatinine Ratio Glucose Calcium MRSA (PCR) Negative - Other Studies Radiology: [] reviewed CT images, large air fluid levels Other Studies: [] Route of nutrition/ use of supplements: [] Nutritional Intake: [] IV Site: [] Macdonald Catheter: [] - Physical Exam General: Alert, Oriented x3, Cooperative, No apparent distress HEENT: Atraumatic, PERRLA, EOMI Neck: Supple, No Nodes Lungs: Diminished Cardiovascular: Regular rate, Regular Rhythm Abdomen: Soft, Non Tender, Non-Distended Extremities: No edema Skin: No rashes IV Site: Central Line, without redness Musculoskeletal: No Tenderness to Palpation of Joints or Extremities Neurological: Cranial nerves II-XII grossly intact - Assessment/Plan Antibiotics: [] Assessment/Plan: [] Active and Suspected Problems (Last Updated 01/31/20 @ 13:[address] Lilian Duncan MD) Pneumonia (Acute) Lung abscesses - large air fluid levels. Pending sputum cx. No h/o TB exposure. No hemoptysis. On vanc/zosyn. Tentative plan will be for discharge with long course of po abx and serial outpt lung imaging to gauge progress. Will follow, thank you, d/w Dr. Bowles.
[2020-02-01] MEDS: Lisinopril 20 MG Tablet PO (22:21)
[2020-02-01 23:25] LABS: Vancomycin, Trough Level 6.3 ug/mL (5.0-15.0)
[2020-02-02] VITALS (13 sets, daily range): BP systolic 93–118; BP diastolic 60–70; PULSE 88–110; RESP 18–20; TEMP 36.2–36.7; O2SAT 94–98
--- NOTE | 2020-02-02 00:28 | PCM.RX.CS ---
Consult Pharmacy has been consulted to manage selected antiobiotic: Vancomycin Type of Consult: Follow-up Suspected Infection: Pneumonia Labs: Sodium 129 mmol/L (136-145) L 02/01/20 06:45 Potassium 3.6 mmol/L (3.5-5.1) 02/01/20 06:45 Chloride 97 mmol/L (98-107) L 02/01/20 06:45 Carbon Dioxide 24.0 mmol/L (21.0-32.0) 02/01/20 06:45 Anion Gap 8 (5-15) 02/01/20 06:45 BUN 7 mg/dL (7-18) 02/01/20 06:45 Creatinine 0.44 mg/dL (0.70-1.30) L 02/01/20 06:45 Est GFR (MDRD) Af Amer 255 mL/min (>60) 02/01/20 06:45 Est GFR (MDRD) Non-Af 211 mL/min (>60) 02/01/20 06:45 BUN/Creatinine Ratio 15.9 RATIO (10-20) 02/01/20 06:45 Glucose 110 mg/dL (74-106) H 02/01/20 06:45 Vancomycin Trough 6.3 ug/mL (5.0-15.0) 02/01/20 22:25 Microbiology: Microbiology 01/31/20 17:35 Sputum, Expectorated/Coughed Gram Stain - Final 01/31/20 20:00 Urine, Random Legionella Antigen - Final 01/31/20 20:00 Urine, Random Streptococcus pneumoniae Antigen (M - Final Goal Trough: 15-20 mcg/mL Pharmacy Plan for Drug Dosing: Pharmacy Service will continue to monitor and adjust dosing as required. TROUGH 6.3 INCREASE TO 1GM Q8H Follow-Up Labs: Trough Vancomycin Labs to be done on [date and time ordered]: 02/01 @ [id number]
[2020-02-02] MEDS: Ipratropium/Albuterol Sulfate 3 ML AMPUL.NEB INHALATION ×4 (01:30→19:17)
[2020-02-02] MEDS: Vancomycin IV 1,000 MG/200 ML BAG 200 MG IV ×3 (04:56→21:02)
[2020-02-02 06:00] LABS: Absolute Lymphocyte Count 0.36 X10^3/uL (0.83-4.51); Absolute Neutrophil Count 7.3 X10^3/uL (2.0-7.7); Basophil# 0.02 X10^3/uL; Basophil% 0.2 % (0-1); Hematocrit 28.9 % (40-54); Hemoglobin 9.7 g/dL (13.0-16.5); Lymphocyte # 0.36 X10^3/ul (4.0); Lymphocyte % 4.4 % (19-41); Mean Corp Hgb Conc 33.6 g/dL (32-36); Mean Corpuscular Hgb 33.7 pg (27.0-32.0); Mean Corpuscular Volume 100.3 fL (80-94); Mean Platelet Vol. 8.9 fl (6.2-12.0); Monocyte# 0.25 X10^3/uL; Monocyte% 3.1 % (0-10); NRBC Flagged by Analyzer 0 % (0-5); Neutrophil % 89.5 % (47-70); POSITIVE DIFFERENTIAL YES; POSITIVE MORPHOLOGY YES; Platelet Count 487 K/mm3 (150-450); RBC Distribution Width CV 19.9 % (11.6-14.6); Red Blood Count 2.88 M/mm3 (4.6-6.2); White Blood Count 8.2 K/mm3 (4.4-11.0)
[2020-02-02 06:03] LABS: Differential Indicated SCAN CRITERIA MET
[2020-02-02 06:23] LABS: Anion Gap 7 (5-15); BUN 8 mg/dL (7-18); BUN/Creat Ratio 13.4 RATIO (10-20); Calcium,Total 8.7 mg/dL (8.5-10.1); Chloride 97 mmol/L (98-107); EST Glomerular Filtration Rate 148 mL/min (>60); Est Glom Filt Rate - Afr Amer 179 mL/min (>60); Estimated Creatinine Clearance 112.68 ml/min; Glucose 266 mg/dL (74-106); Potassium 3.7 mmol/L (3.5-5.1); Sodium Level 131 mmol/L (136-145)
[2020-02-02] MEDS: Sucralfate 1 GM Tablet PO ×4 (06:29→22:16)
[2020-02-02] MEDS: Baclofen 10 MG Tablet 5 MG PO ×3 (06:29→22:15)
[2020-02-02 07:00] LABS: Anisocytosis 1+; Hypochromasia 1+; Macrocytosis 1+; Platelet Estimate SLT INC (ADEQ)
[2020-02-02] MEDS: Enoxaparin 40 MG/0.4 ML Syringe SC (08:18)
[2020-02-02] MEDS: amLODIPine 2.5 MG Tablet PO (08:18)
[2020-02-02] MEDS: BMX LIQUID 180 ML 15 ML PO ×3 (08:18→16:51)
[2020-02-02] MEDS: guaiFENesin 1,200 MG Tablet 1200 MG PO ×2 (08:18→22:16)
[2020-02-02] MEDS: morphine (oral solution) 10MG/0.5ML Syringe 10 MG PO ×4 (08:18→20:54)
[2020-02-02] MEDS: Aspirin E.C. 81 MG Tablet PO (08:18)
[2020-02-02] MEDS: Pantoprazole Sodium 20 MG Tablet PO (08:18)
--- NOTE | 2020-02-02 08:28 | PN_ITS ---
Patient Problems: Active and Suspected Problems (Last Updated 01/31/20 @ 13:[address] Lilian Duncan MD) Pneumonia (Acute) Subjective: Patient seen and examined. He feels much better today. He still coughing but he says he is not able to expectorate any sputum. He denies any fever, chills, nausea or vomiting or diarrhea and denies any shortness of breath. Review of systems otherwise negative. Vitals reviewed. He has remained hemodynamically stable. White cell count is down to 8.2 today. Sodium is 131. Vitals/I&O's: Vital Signs Temp Pulse Resp BP Pulse Ox 98.1 F 110 H 18 118/69 98 02/02/20 08:23 02/02/20 08:23 02/02/20 08:23 02/02/20 08:23 02/02/20 08:23 Oxygen Delivery Method Room Air Weight: 129 lb 4.782 oz Body Mass Index (BMI) 18.5 Intake and Output for Last 24 Hours 01/31/20 02/01/20 02/02/20 23:59 23:59 23:59 Intake Total 1720.25 / 1720.25 1619.42 / 2179.42 1194.58 / 1194.58 Output Total 300 / 300 600 / 600 Balance 1420.25 / 1420.25 1019.42 / 1579.42 1194.58 / 1194.58 General: Alert, Oriented x3, Cooperative, No apparent distress, HEENT: Atraumatic, PERRLA, EOMI, Normocephalic Oral: Dry Mucosa Neck: Supple, No JVD, Negative Carotid Bruits Lungs: - - mildly diminished breath sounds bibasally, no wheezes or crackles. Cardiovascular: Regular Rhythm, Normal S1, Normal S2, No murmurs, Tachycardic Abdomen: Bowel Sounds Present, Soft, Non Tender, Non-Distended, No Hepato- splenomegaly Extremities: No clubbing, No cyanosis, No edema, Capillary Refill Less than 3 Seconds Skin: No rashes, No breakdown Musculoskeletal: No Tenderness to Palpation of Joints or Extremities, - - chemotherapy port in place Lymphatic: No Cervical, Supraclavicular, or Inguinal Adenopathy Neurological: Cranial nerves II-XII grossly intact Psych/Mental Status: Normal Affect, Appropriate, Alert and oriented to time, place, person, mood and affect Microbiology Past 72 Hours 01/31/20 17:35 Sputum, Expectorated/Coughed Gram Stain - Final 01/31/20 20:00 Urine, Random Legionella Antigen - Final 01/31/20 20:00 Urine, Random Streptococcus pneumoniae Antigen (M - Final Laboratory Results 01/31/20 11:35: Diff Path Review Reviewed 02/01/20 09:10: MRSA (PCR) Negative 02/01/20 22:25: Vancomycin Trough 6.3 02/02/20 05:28: WBC 8.2, RBC 2.88 L, Hgb 9.7 L, Hct 28.9 L, MCV 100.3 H, MCH 33.7 H, MCHC 33.6, RDW Std Deviation 73.0 H, RDW Coeff of Rush 19.9 H, Plt Count 487 H, MPV 8.9, Immature Gran % (Auto) 2.800 H, Neut % (Auto) 89.5 H, Lymph % (Auto) 4.4 L, [place] % (Auto) 3.1, Eos % (Auto) 0.0, Baso % (Auto) 0.2, Absolute Neuts (auto) 7.3, Absolute Lymphs (auto) 0.36 L, Nucleated RBC % 0, Differential Comment COMMENT, Platelet Estimate SLT INC, Hypochromasia 1+, Anisocytosis 1+, Macrocytosis 1+ 02/02/20 05:28: Sodium 131 L, Potassium 3.7, Chloride 97 L, Carbon Dioxide 27.0, Anion Gap 7, BUN 8, Creatinine 0.60 L, Estim Creat Clear Calc 112.68, Est GFR (MDRD) Af Amer 179, Est GFR (MDRD) Non-Af 148, BUN/Creatinine Ratio 13.4, Glucose 266 H, Calcium 8.7 Diagnostic Data Chest X-Ray 01/31/20 12:00 IMPRESSION: Improved aeration of both lungs with a persistent infected bulla in the right upper lobe although this has improved as well. Electronically Signed: Darren Chi, at 12:31 EDT , Service support , Current Medications Acetaminophen (Tylenol) 650 mg PO Q6H PRN PRN PRN Reason: Pain Score 1-10/Temp > 100.7 F Last Admin: 02/01/20 02:18 Dose: 650 mg Documented by: Albuterol/Ipratropium (Duoneb) 3 ml INHALATION Q6H.RT [facility] Last Admin: 02/02/20 07:19 Dose: 3 ml Documented by: Amlodipine Besylate (Norvasc) 2.5 mg PO DAILY [facility] Last Admin: 02/02/20 08:18 Dose: 2.5 mg Documented by: Aspirin (Ecotrin) 81 mg PO DAILY@0800 [facility] Last Admin: 02/02/20 08:18 Dose: 81 mg Documented by: Baclofen (Lioresal) 5 mg PO TID [facility] Last Admin: 02/02/20 06:29 Dose: 5 mg Documented by: Enoxaparin Sodium (Lovenox) 40 mg SC DAILY [facility] Last Admin: 02/02/20 08:18 Dose: 40 mg Documented by: Guaifenesin (Mucinex) 1,200 mg PO BID [facility] Last Admin: 02/02/20 08:18 Dose: 1,200 mg Documented by: Heparin Sodium (Beef Lung) () 50 units IV UD PRN PRN Reason: Port-a-Cath (VAD)Heparin Flush Sodium Chloride () 250 mls @ 15 mls/hr IV .[id number] PRN PRN Reason: Saline Flush Last Infusion: 02/02/20 06:30 Dose: 0 mls/hr Documented by: Sodium Chloride () 250 mls @ 15 mls/hr IV .[id number] PRN PRN Reason: Additional IVPB Infusion Vancomycin IV Pharmacy to Dose (1 ea/ Sodium Chloride) 500 mls @ 250 mls/hr IV X1 PRN; Protocol PRN Reason: Rx to Dose Piperacillin Sod/Tazobactam (Sod 3.375 gm/ Sodium Chloride) 50 mls @ 12.5 mls/hr IV Q8 [facility] Last Admin: 02/02/20 06:30 Dose: 12.5 mls/hr Documented by: Vancomycin HCl (Vancomycin) 1,000 mg in 200 mls @ 200 mls/hr IV Q8H [facility] Last Infusion: 02/02/20 05:56 Dose: Infused Documented by: Lidocaine/Diphenhydr/Alum/Mg/Simeth () 15 ml PO ACHS PRN PRN Reason: PAIN 1-10 Last Admin: 02/02/20 08:18 Dose: 15 ml Documented by: Lisinopril (Zestril) 20 mg PO QHS [facility] Last Admin: 02/01/20 22:21 Dose: 20 mg Documented by: Methylprednisolone (Solu-Medrol) 40 mg IV Q6 [facility] Last Admin: 02/02/20 06:30 Dose: 40 mg Documented by: Morphine Sulfate (Roxanol (Ir Oral Solution)) 10 mg PO Q4H PRN PRN PRN Reason: Pain Score 6-10/10 Last Admin: 02/02/20 08:18 Dose: 10 mg Documented by: Nutritional Formula (Lactose Free) (Ensure Enlive) 120 ml PO 4X/DAY [facility] Last Admin: 02/02/20 08:18 Dose: 120 ml Documented by: Ondansetron HCl (Zofran) 4 mg IV Q8H PRN PRN PRN Reason: NAUSEA/VOMITING Pantoprazole Sodium (Protonix) 20 mg PO DAILY [facility] Last Admin: 02/02/20 08:18 Dose: 20 mg Documented by: Senna/Docusate Sodium (Senokot-S, Rachelle-Colace) 2 tablet PO BID PRN PRN PRN Reason: Constipation Sodium Chloride () 10 - 40 ml IV UD PRN PRN Reason: Port-a-Cath (VAD) Flush Last Admin: 01/31/20 19:48 Dose: 10 ml Documented by: Sodium Chloride (0.9% Nacl (Sterile) Posiflush) 10 - 40 ml IV UD PRN PRN Reason: Port access or dressing change Sucralfate (Carafate) 1 gm PO 1HR_ACHS [facility] Last Admin: 02/02/20 06:29 Dose: 1 gm Documented by: Zolpidem Tartrate (Ambien (Generic)) 5 mg PO QHS PRN PRN PRN Reason: INSOMNIA STROKE Vital Signs/Narrative: Vital Signs Temp Pulse Resp BP Pulse Ox 02/02/20 08:23 98.1 F 110 H 18 118/69 98 02/02/20 07:44 102 H Medical Necessity - Tobacco Use Smoking Status: Former smoker Assessment/Plan All Active Problems (Last Updated 01/31/20 @ 13:[address] Lilian Duncan MD) Pneumonia (Acute) 1. health associated pneumonia * feells much better today * on IV zosyn and vancomycin * CXR on admission showed improvement in aeration of both lungs with a persistent infected bulla in the right upper lobe, though it had improved as well. * pulmonology on board- advocate completing full course of antibiotic treatment, and repeating chest imaging afterwards. * on breathing treatments with duonebs * urine for strep and legionella are negative * on Mucinex. * 2. Hyponatremia: chronic. Na is 131. 3. Squamous cell carcinoma of the left lung: chemotherapy port in place. Last had chemo 5 weeks ago and radiation 4 weeks ago 4. Chronic anemia: Open is 8.7. Likely due to cancer. 5. Radiation esophagitis: On Magic mouthwash. Has occasional burning with swallowing. 6. COPD: On breathing treatments with bronchodilators 7. Hypertension: on amlodipine and norvasc. 8. History of alcohol use: Stable. 9. GERD: On PPI DVT prophylaxis: [facility] Inpatient E&M: [id number] [facility] Hosp L2
--- NOTE | 2020-02-02 10:49 | PN.ID_ITS ---
Patient Problems: Active and Suspected Problems (Last Updated 01/31/20 @ 13:[address] Lilian Duncan MD) Pneumonia (Acute) Subjective: Feeling better, no fever, breathing easier. - Physical Exam Vitals/I&O's: Vital Signs Temp Pulse Resp BP Pulse Ox 98.1 F 110 H 18 118/69 98 02/02/20 08:23 02/02/20 08:23 02/02/20 08:23 02/02/20 08:23 02/02/20 08:23 Oxygen Delivery Method Room Air Weight: 58.649 kg Body Mass Index (BMI) 18.5 Intake and Output for Last 24 Hours 01/31/20 02/01/20 02/02/20 23:59 23:59 23:59 Intake Total 1720.25 / 1720.25 1619.42 / 2179.42 1244.58 / 1244.58 Output Total 300 / 300 600 / 600 Balance 1420.25 / 1420.25 1019.42 / 1579.42 1244.58 / 1244.58 General: Alert, Cooperative, No apparent distress Lungs: Clear to auscultation, Diminished Cardiovascular: Regular rate, Regular Rhythm Abdomen: Soft, Non Tender, Non-Distended Skin: No rashes Microbiology Past 72 Hours 01/31/20 17:35 Sputum, Expectorated/Coughed Gram Stain - Final 01/31/20 20:00 Urine, Random Legionella Antigen - Final 01/31/20 20:00 Urine, Random Streptococcus pneumoniae Antigen (M - Final Laboratory Results 01/31/20 11:35: Diff Path Review Reviewed 02/01/20 09:10: MRSA (PCR) Negative 02/01/20 22:25: Vancomycin Trough 6.3 02/02/20 05:28: WBC 8.2, RBC 2.88 L, Hgb 9.7 L, Hct 28.9 L, MCV 100.3 H, MCH 33.7 H, MCHC 33.6, RDW Std Deviation 73.0 H, RDW Coeff of Rush 19.9 H, Plt Count 487 H, MPV 8.9, Immature Gran % (Auto) 2.800 H, Neut % (Auto) 89.5 H, Lymph % (Auto) 4.4 L, [place] % (Auto) 3.1, Eos % (Auto) 0.0, Baso % (Auto) 0.2, Absolute Neuts (auto) 7.3, Absolute Lymphs (auto) 0.36 L, Nucleated RBC % 0, Differential Comment COMMENT, Platelet Estimate SLT INC, Hypochromasia 1+, Anisocytosis 1+, Macrocytosis 1+ 02/02/20 05:28: Sodium 131 L, Potassium 3.7, Chloride 97 L, Carbon Dioxide 27.0, Anion Gap 7, BUN 8, Creatinine 0.60 L, Estim Creat Clear Calc 112.68, Est GFR (MDRD) Af Amer 179, Est GFR (MDRD) Non-Af 148, BUN/Creatinine Ratio 13.4, Glucose 266 H, Calcium 8.7 Current Medications Acetaminophen (Tylenol) 650 mg PO Q6H PRN PRN PRN Reason: Pain Score 1-10/Temp > 100.7 F Last Admin: 02/01/20 02:18 Dose: 650 mg Documented by: Albuterol/Ipratropium (Duoneb) 3 ml INHALATION Q6H.RT [facility] Last Admin: 02/02/20 07:19 Dose: 3 ml Documented by: Amlodipine Besylate (Norvasc) 2.5 mg PO DAILY [facility] Last Admin: 02/02/20 08:18 Dose: 2.5 mg Documented by: Aspirin (Ecotrin) 81 mg PO DAILY@0800 [facility] Last Admin: 02/02/20 08:18 Dose: 81 mg Documented by: Baclofen (Lioresal) 5 mg PO TID [facility] Last Admin: 02/02/20 06:29 Dose: 5 mg Documented by: Enoxaparin Sodium (Lovenox) 40 mg SC DAILY [facility] Last Admin: 02/02/20 08:18 Dose: 40 mg Documented by: Guaifenesin (Mucinex) 1,200 mg PO BID [facility] Last Admin: 02/02/20 08:18 Dose: 1,200 mg Documented by: Heparin Sodium (Beef Lung) () 50 units IV UD PRN PRN Reason: Port-a-Cath (VAD)Heparin Flush Sodium Chloride () 250 mls @ 15 mls/hr IV .[id number] PRN PRN Reason: Saline Flush Last Infusion: 02/02/20 10:33 Dose: 15 mls/hr Documented by: Sodium Chloride () 250 mls @ 15 mls/hr IV .[id number] PRN PRN Reason: Additional IVPB Infusion Vancomycin IV Pharmacy to Dose (1 ea/ Sodium Chloride) 500 mls @ 250 mls/hr IV X1 PRN; Protocol PRN Reason: Rx to Dose Piperacillin Sod/Tazobactam (Sod 3.375 gm/ Sodium Chloride) 50 mls @ 12.5 mls/hr IV Q8 [facility] Last Infusion: 02/02/20 10:32 Dose: Infused Documented by: Vancomycin HCl (Vancomycin) 1,000 mg in 200 mls @ 200 mls/hr IV Q8H [facility] Last Infusion: 02/02/20 05:56 Dose: Infused Documented by: Lidocaine/Diphenhydr/Alum/Mg/Simeth () 15 ml PO ACHS PRN PRN Reason: PAIN 1-10 Last Admin: 02/02/20 08:18 Dose: 15 ml Documented by: Lisinopril (Zestril) 20 mg PO QHS [facility] Last Admin: 02/01/20 22:21 Dose: 20 mg Documented by: Methylprednisolone (Solu-Medrol) 40 mg IV Q6 [facility] Last Admin: 02/02/20 06:30 Dose: 40 mg Documented by: Morphine Sulfate (Roxanol (Ir Oral Solution)) 10 mg PO Q4H PRN PRN PRN Reason: Pain Score 6-10/10 Last Admin: 02/02/20 08:18 Dose: 10 mg Documented by: Nutritional Formula (Lactose Free) (Ensure Enlive) 120 ml PO 4X/DAY [facility] Last Admin: 02/02/20 08:18 Dose: 120 ml Documented by: Ondansetron HCl (Zofran) 4 mg IV Q8H PRN PRN PRN Reason: NAUSEA/VOMITING Pantoprazole Sodium (Protonix) 20 mg PO DAILY [facility] Last Admin: 02/02/20 08:18 Dose: 20 mg Documented by: Senna/Docusate Sodium (Senokot-S, Rachelle-Colace) 2 tablet PO BID PRN PRN PRN Reason: Constipation Sodium Chloride () 10 - 40 ml IV UD PRN PRN Reason: Port-a-Cath (VAD) Flush Last Admin: 01/31/20 19:48 Dose: 10 ml Documented by: Sodium Chloride (0.9% Nacl (Sterile) Posiflush) 10 - 40 ml IV UD PRN PRN Reason: Port access or dressing change Sucralfate (Carafate) 1 gm PO 1HR_ACHS GE Last Admin: 02/02/20 06:29 Dose: 1 gm Documented by: Zolpidem Tartrate (Ambien (Generic)) 5 mg PO QHS PRN PRN PRN Reason: INSOMNIA Medical Necessity - Tobacco Use Smoking Status: Former smoker Route of nutrition/ use of supplements: [] Nutritional Intake: [] IV Site: [] Macdonald Catheter: [] - Assessment/Plan Antibiotics: [] Assessment/Plan: [] Active and Suspected Problems (Last Updated 01/31/20 @ 13:[address] Lilian Duncan MD) Pneumonia (Acute) Lung abscesses/infected bullae - large air fluid levels. Neg sputum cx so far. No h/o TB exposure. No hemoptysis. On vanc/zosyn. Ok discharge with long course of po doxy and augmentin and serial outpt lung imaging to gauge progress. ID followup in 2 weeks. Will follow, d/w Dr. Bowles.
[2020-02-02 11:26] LABS: Pathologist Review Reviewed
--- NOTE | 2020-02-02 11:51 | PN_ITS ---
Patient Problems: Active and Suspected Problems (Last Updated 01/31/20 @ 13:[address] Lilian Duncan MD) Pneumonia (Acute) Subjective: The patient was seen and examined at the bedside this morning. Events from the last 24 hours have been reviewed. The patient is currently afebrile, hemodynamically stable and maintaining appropriate oxygen saturations on room air. Shortness of breath has improved. Objective: The patient's most recent lab work, culture data and imaging studies have all been personally reviewed. Strep and urine Legionella antigens were negative. Blood cultures have shown no growth to date. Sputum culture is pending. - Physical Exam Vitals/I&O's: Vital Signs Temp Pulse Resp BP Pulse Ox 98.1 F 110 H 18 118/69 98 02/02/20 08:23 02/02/20 08:23 02/02/20 08:23 02/02/20 08:23 02/02/20 08:23 Oxygen Delivery Method Room Air Weight: 129 lb 4.782 oz Body Mass Index (BMI) 18.5 Intake and Output for Last 24 Hours 01/31/20 02/01/20 02/02/20 23:59 23:59 23:59 Intake Total 1720.25 / 1720.25 1619.42 / 2179.42 1244.58 / 1244.58 Output Total 300 / 300 600 / 600 Balance 1420.25 / 1420.25 1019.42 / 1579.42 1244.58 / 1244.58 General: Alert, Cooperative, No apparent distress HEENT: Atraumatic, Normocephalic Oral: No Gingival or Mucosal Lesions/ Ulcerations Neck: Supple, No Nodes, Trachea Midline Lungs: No rhonchi, No wheeze, No rales, Diminished Cardiovascular: Regular rate, Regular Rhythm, Normal S1, Normal S2 Abdomen: Bowel Sounds Present, Soft, Non Tender Extremities: No clubbing, No cyanosis Skin: No breakdown Musculoskeletal: No Tenderness to Palpation of Joints or Extremities Lymphatic: No Cervical, Supraclavicular, or Inguinal Adenopathy Neurological: Neuro grossly intact Psych/Mental Status: Normal Affect, Appropriate Labs (Last 48 Hours) 01/31/20 01/31/20 01/31/20 11:35 11:35 11:35 WBC 12.9 H RBC 2.62 L Hgb 8.7 L Hct 25.6 L MCV 97.7 H MCH 33.2 H MCHC 34.0 RDW Std Deviation 73.0 H RDW Coeff of Rush 20.5 H Plt Count 363 MPV 8.7 Immature Gran % (Auto) 4.500 H Neut % (Auto) 76.6 H Lymph % (Auto) 3.1 L [place] % (Auto) 14.0 H Eos % (Auto) 1.6 Baso % (Auto) 0.2 Absolute Neuts (auto) 9.9 H Absolute Lymphs (auto) 0.40 L Nucleated RBC % 0 Differential Comment SCANNED Diff Path Review Reviewed Platelet Estimate Hypochromasia Anisocytosis 2+ Microcytosis 1+ Macrocytosis 1+ Sodium 129 L Potassium 3.7 Chloride 99 Carbon Dioxide 24.0 Anion Gap 6 BUN 11 Creatinine 0.44 L Estim Creat Clear Calc 144.98 Est GFR (MDRD) Af Amer 257 Est GFR (MDRD) Non-Af 212 BUN/Creatinine Ratio 25.2 H Glucose 127 H Lactic Acid 1.0 Calcium 7.7 L Vancomycin Trough MRSA (PCR) 02/01/20 02/01/20 02/01/20 06:45 06:45 09:10 WBC 11.3 H RBC 2.64 L Hgb 8.7 L Hct 25.5 L MCV 96.6 H MCH 33.0 H MCHC 34.1 RDW Std Deviation 72.5 H RDW Coeff of Rush 20.4 H Plt Count 392 MPV 8.8 Immature Gran % (Auto) 3.700 H Neut % (Auto) 66.0 Lymph % (Auto) 5.7 L [place] % (Auto) 18.7 H Eos % (Auto) 5.8 H Baso % (Auto) 0.1 Absolute Neuts (auto) 7.5 Absolute Lymphs (auto) 0.64 L Nucleated RBC % 0 Differential Comment SCANNED Diff Path Review Reviewed Platelet Estimate Hypochromasia Anisocytosis 2+ Microcytosis 1+ Macrocytosis 1+ Sodium 129 L Potassium 3.6 Chloride 97 L Carbon Dioxide 24.0 Anion Gap 8 BUN 7 Creatinine 0.44 L Estim Creat Clear Calc 153.66 Est GFR (MDRD) Af Amer 255 Est GFR (MDRD) Non-Af 211 BUN/Creatinine Ratio 15.9 Glucose 110 H Lactic Acid Calcium 8.1 L Vancomycin Trough MRSA (PCR) Negative 02/01/20 02/02/20 02/02/20 22:25 05:28 05:28 WBC 8.2 RBC 2.88 L Hgb 9.7 L Hct 28.9 L MCV 100.3 H MCH 33.7 H MCHC 33.6 RDW Std Deviation 73.0 H RDW Coeff of Rush 19.9 H Plt Count 487 H MPV 8.9 Immature Gran % (Auto) 2.800 H Neut % (Auto) 89.5 H Lymph % (Auto) 4.4 L [place] % (Auto) 3.1 Eos % (Auto) 0.0 Baso % (Auto) 0.2 Absolute Neuts (auto) 7.3 Absolute Lymphs (auto) 0.36 L Nucleated RBC % 0 Differential Comment COMMENT Diff Path Review Platelet Estimate SLT INC Hypochromasia 1+ Anisocytosis 1+ Microcytosis Macrocytosis 1+ Sodium 131 L Potassium 3.7 Chloride 97 L Carbon Dioxide 27.0 Anion Gap 7 BUN 8 Creatinine 0.60 L Estim Creat Clear Calc 112.68 Est GFR (MDRD) Af Amer 179 Est GFR (MDRD) Non-Af 148 BUN/Creatinine Ratio 13.4 Glucose 266 H Lactic Acid Calcium 8.7 Vancomycin Trough 6.3 MRSA (PCR) Microbiology 01/31/20 11:45 Blood Culture (Wb) - Anticubital Left Blood Culture - Preliminary No growth in 48 hours. 01/31/20 11:35 Blood Culture (Wb) - Port Blood Culture - Preliminary No growth in 48 hours. 01/31/20 17:35 Sputum, Expectorated/Coughed Gram Stain - Final 01/31/20 20:00 Urine, Random Legionella Antigen - Final 01/31/20 20:00 Urine, Random Streptococcus pneumoniae Antigen (M - Final Clinical Impression(s) from Imaging Studies Chest X-Ray 01/31/20 12:00 IMPRESSION: Improved aeration of both lungs with a persistent infected bulla in the right upper lobe although this has improved as well. Electronically Signed: Darren Chi, at 12:31 EDT , Service support , Current Medications Acetaminophen (Tylenol) 650 mg PO Q6H PRN PRN PRN Reason: Pain Score 1-10/Temp > 100.7 F Last Admin: 02/01/20 02:18 Dose: 650 mg Documented by: Albuterol/Ipratropium (Duoneb) 3 ml INHALATION Q6H.RT [facility] Last Admin: 02/02/20 07:19 Dose: 3 ml Documented by: Amlodipine Besylate (Norvasc) 2.5 mg PO DAILY [facility] Last Admin: 02/02/20 08:18 Dose: 2.5 mg Documented by: Aspirin (Ecotrin) 81 mg PO DAILY@0800 [facility] Last Admin: 02/02/20 08:18 Dose: 81 mg Documented by: Baclofen (Lioresal) 5 mg PO TID [facility] Last Admin: 02/02/20 06:29 Dose: 5 mg Documented by: Enoxaparin Sodium (Lovenox) 40 mg SC DAILY [facility] Last Admin: 02/02/20 08:18 Dose: 40 mg Documented by: Guaifenesin (Mucinex) 1,200 mg PO BID [facility] Last Admin: 02/02/20 08:18 Dose: 1,200 mg Documented by: Heparin Sodium (Beef Lung) () 50 units IV UD PRN PRN Reason: Port-a-Cath (VAD)Heparin Flush Sodium Chloride () 250 mls @ 15 mls/hr IV .[id number] PRN PRN Reason: Saline Flush Last Infusion: 02/02/20 10:33 Dose: 15 mls/hr Documented by: Sodium Chloride () 250 mls @ 15 mls/hr IV .[id number] PRN PRN Reason: Additional IVPB Infusion Vancomycin IV Pharmacy to Dose (1 ea/ Sodium Chloride) 500 mls @ 250 mls/hr IV X1 PRN; Protocol PRN Reason: Rx to Dose Piperacillin Sod/Tazobactam (Sod 3.375 gm/ Sodium Chloride) 50 mls @ 12.5 mls/hr IV Q8 [facility] Last Infusion: 02/02/20 10:32 Dose: Infused Documented by: Vancomycin HCl (Vancomycin) 1,000 mg in 200 mls @ 200 mls/hr IV Q8H [facility] Last Infusion: 02/02/20 05:56 Dose: Infused Documented by: Lidocaine/Diphenhydr/Alum/Mg/Simeth () 15 ml PO ACHS PRN PRN Reason: PAIN 1-10 Last Admin: 02/02/20 08:18 Dose: 15 ml Documented by: Lisinopril (Zestril) 20 mg PO QHS [facility] Last Admin: 02/01/20 22:21 Dose: 20 mg Documented by: Methylprednisolone (Solu-Medrol) 40 mg IV Q6 [facility] Last Admin: 02/02/20 11:03 Dose: 40 mg Documented by: Morphine Sulfate (Roxanol (Ir Oral Solution)) 10 mg PO Q4H PRN PRN PRN Reason: Pain Score 6-10/10 Last Admin: 02/02/20 08:18 Dose: 10 mg Documented by: Nutritional Formula (Lactose Free) (Ensure Enlive) 120 ml PO 4X/DAY [facility] Last Admin: 02/02/20 08:18 Dose: 120 ml Documented by: Ondansetron HCl (Zofran) 4 mg IV Q8H PRN PRN PRN Reason: NAUSEA/VOMITING Pantoprazole Sodium (Protonix) 20 mg PO DAILY [facility] Last Admin: 02/02/20 08:18 Dose: 20 mg Documented by: Senna/Docusate Sodium (Senokot-S, Rachelle-Colace) 2 tablet PO BID PRN PRN PRN Reason: Constipation Sodium Chloride () 10 - 40 ml IV UD PRN PRN Reason: Port-a-Cath (VAD) Flush Last Admin: 01/31/20 19:48 Dose: 10 ml Documented by: Sodium Chloride (0.9% Nacl (Sterile) Posiflush) 10 - 40 ml IV UD PRN PRN Reason: Port access or dressing change Sucralfate (Carafate) 1 gm PO 1HR_ACHS [facility] Last Admin: 02/02/20 11:03 Dose: 1 gm Documented by: Zolpidem Tartrate (Ambien (Generic)) 5 mg PO QHS PRN PRN PRN Reason: INSOMNIA Medical Necessity - Tobacco Use Smoking Status: Former smoker Assessment/Plan All Active Problems (Last Updated 01/31/20 @ 13:[address] Lilian Duncan MD) Pneumonia (Acute) RECOMMENDATIONS: 1. Plan for prolonged course of p.o. antibiotics with doxycycline and Augmentin per ID recommendations. 2. Continue bronchodilators and steroids. Transition to prednisone 40 mg daily with plans for a 5-day burst at discharge. 3. Perform walking oximetry study prior to consideration for discharge home. 4. The patient should follow-up in the pulmonary medicine clinic within 2 weeks of discharge home. 5. Repeat chest imaging would be indicated upon completion of his antibiotic course. IMPRESSIONS: 1. Shortness of breath secondary to COPD with exacerbation due to healthcare associated pneumonia/infected bullae The patient does have radiographic evidence of a consolidation with air bronchograms with associated bullae with air-fluid levels, suggesting infection. The patient failed to respond to outpatient treatment with p.o. Levaquin. Therefore, the patient was admitted to the hospital for further management. For now, recommend continuing scheduled bronchodilators and steroids. Agree with empiric antimicrobials. Per infectious diseases, the plan is to discharge patient home with a prolonged course of p.o. doxycycline and Augmentin. Follow- up chest imaging would be indicated upon completion of the antibiotic treatment course. From review of the patient's CT chest, any attempt at aspirating one of the bullae would likely be significantly high risk for potential pneumothorax. This note was generated with [employer] dictation software. It may contain incorrect words, spelling, and punctuation that were not noted in checking the note before signing. Inpatient E&M: [id number] Subs Hosp L2
[2020-02-02 20:55] LABS: Vancomycin, Trough Level 11.2 ug/mL (5.0-15.0)
[2020-02-02] MEDS: Lisinopril 20 MG Tablet PO (22:17)
--- NOTE | 2020-02-02 22:54 | PCM.RX.CS ---
Consult Pharmacy has been consulted to manage selected antiobiotic: Vancomycin Type of Consult: Follow-up Suspected Infection: Pneumonia Labs: Sodium 131 mmol/L (136-145) L 02/02/20 05:28 Potassium 3.7 mmol/L (3.5-5.1) 02/02/20 05:28 Chloride 97 mmol/L (98-107) L 02/02/20 05:28 Carbon Dioxide 27.0 mmol/L (21.0-32.0) 02/02/20 05:28 Anion Gap 7 (5-15) 02/02/20 05:28 BUN 8 mg/dL (7-18) 02/02/20 05:28 Creatinine 0.60 mg/dL (0.70-1.30) L 02/02/20 05:28 Est GFR (MDRD) Af Amer 179 mL/min (>60) 02/02/20 05:28 Est GFR (MDRD) Non-Af 148 mL/min (>60) 02/02/20 05:28 BUN/Creatinine Ratio 13.4 RATIO (10-20) 02/02/20 05:28 Glucose 266 mg/dL (74-106) H 02/02/20 05:28 Vancomycin Trough 11.2 ug/mL (5.0-15.0) 02/02/20 20:20 Microbiology: Microbiology 01/31/20 17:35 Sputum, Expectorated/Coughed Gram Stain - Final 01/31/20 17:35 Sputum, Expectorated/Coughed Respiratory Culture - Preliminary Presumptive C albicans 01/31/20 11:45 Blood Culture (Wb) - Anticubital Left Blood Culture - Preliminary No growth in 48 hours. 01/31/20 11:35 Blood Culture (Wb) - Port Blood Culture - Preliminary No growth in 48 hours. 01/31/20 20:00 Urine, Random Legionella Antigen - Final 01/31/20 20:00 Urine, Random Streptococcus pneumoniae Antigen (M - Final Goal Trough: 15-20 mcg/mL Pharmacy Plan for Drug Dosing: Pharmacy Service will continue to monitor and adjust dosing as required. TROUGH 11.2 INCREASE TO 1250MG Q8H Follow-Up Labs: Trough Vancomycin Labs to be done on [date and time ordered]: 02/03 @ [id number]
[2020-02-03] VITALS (8 sets, daily range): BP systolic 114–125; BP diastolic 69–72; PULSE 81–118; RESP 18–20; TEMP 36.4–36.5; O2SAT 95–98
[2020-02-03] MEDS: Ipratropium/Albuterol Sulfate 3 ML AMPUL.NEB INHALATION (00:49)
[2020-02-03] MEDS: 0.9% Saline Lock 10 ML Syringe IV ×3 (00:49→10:30)
[2020-02-03] MEDS: morphine (oral solution) 10MG/0.5ML Syringe 10 MG PO ×3 (00:54→08:12)
[2020-02-03 05:42] LABS: Absolute Neutrophil Count 20.6 X10^3/uL (2.0-7.7); Basophil# 0.03 X10^3/uL; Basophil% 0.1 % (0-1); Hematocrit 26.8 % (40-54); Lymphocyte % 2.6 % (19-41); Mean Corp Hgb Conc 33.6 g/dL (32-36); Mean Corpuscular Hgb 33.6 pg (27.0-32.0); Mean Platelet Vol. 8.8 fl (6.2-12.0); Monocyte# 1.08 X10^3/uL; Monocyte% 4.8 % (0-10); NRBC Flagged by Analyzer 0 % (0-5); Neutrophil # 20.64 X10^3/uL (2.7-7.7); Neutrophil % 91.1 % (47-70); POSITIVE DIFFERENTIAL YES; POSITIVE MORPHOLOGY YES; Platelet Count 562 K/mm3 (150-450); RBC Distribution Width SD 72.1 fl (35.1-43.9); Red Blood Count 2.68 M/mm3 (4.6-6.2); White Blood Count 22.7 K/mm3 (4.4-11.0)
[2020-02-03 05:50] LABS: Differential Indicated SCAN CRITERIA MET
[2020-02-03] MEDS: Sucralfate 1 GM Tablet PO (06:06)
[2020-02-03] MEDS: Baclofen 10 MG Tablet 5 MG PO (06:06)
[2020-02-03 06:15] LABS: Anion Gap 5 (5-15); BUN 11 mg/dL (7-18); BUN/Creat Ratio 21.4 RATIO (10-20); Calcium,Total 8.5 mg/dL (8.5-10.1); Chloride 99 mmol/L (98-107); Creatinine, Serum 0.52 mg/dL (0.70-1.30); EST Glomerular Filtration Rate 176 mL/min (>60); Est Glom Filt Rate - Afr Amer 212 mL/min (>60); Estimated Creatinine Clearance 130.02 ml/min; Glucose 182 mg/dL (74-106); Potassium 3.7 mmol/L (3.5-5.1); Sodium Level 132 mmol/L (136-145)
[2020-02-03 06:21] LABS: Differential Comment SCANNED; Ovalocyte RARE; Reactive Lymphocyte RARE; Stomatocyte RARE
[2020-02-03] MEDS: BMX LIQUID 180 ML 15 ML PO (08:13)
[2020-02-03] MEDS: Aspirin E.C. 81 MG Tablet PO (08:17)
[2020-02-03] MEDS: Pantoprazole Sodium 20 MG Tablet PO (08:18)
[2020-02-03] MEDS: amLODIPine 2.5 MG Tablet PO (08:18)
[2020-02-03] MEDS: guaiFENesin 1,200 MG Tablet 1200 MG PO (08:18)
[2020-02-03] MEDS: predniSONE 20 MG Tablet 40 MG PO (08:28)
--- NOTE | 2020-02-03 10:13 | DCINST_ITS ---
- Discharge Diagnoses Current Active Problems: Current Active and Chronic Problems (Last Updated 01/31/20 @ 13:[address] Lilian Duncan MD) Pneumonia (Acute) You will use the following diet at home:: Cardiac Your food should be the consistency of: Regular Your liquids should be the consistency of: Regular/Thin Discharge Activity: Return to Normal Activity Weight Bearing Status: Weight bearing as tolerated Call your doctor if you observe: Fever of 101 or Higher, Shortness of breath, Dizziness, Fainting spells, - - worsening cough Instructions: Healthcare-Associated Pneumonia Allergies/Adverse Reactions: Allergies No Known Allergies Allergy (Verified 01/31/20 10:42) Medications to take at Discharge Amlodipine [Norvasc] 2.5 mg PO DAILY 08/05/13 Lisinopril [Zestril] 20 mg PO QHS 08/05/13 Albuterol Sulfate [Ventolin Hfa] 2 puff IH Q4H PRN 05/05/16 Triamcinolone 0.1% Cream [Kenalog] 1 applic TP DAILY PRN 05/05/16 mometasone-formoterol HFA 200 mcg-5 mcg/actuation aerosol inhaler 2 puff INHALATION Q12H 05/07/18 Ergocalciferol [Vitamin D] 50,000 unit PO SA 07/22/18 albuterol sulfate 2.5 mg INHALATION Q4H PRN #180 ml 06/16/19 Aclidinium [place] [Tudorza Pressair] 1 inh INHALATION BID 10/13/19 aspirin 81 mg tablet,delayed release 81 mg PO DAILY #30 tab 10/25/19 Ondansetron [Ondansetron Odt] 8 mg PO Q8H PRN PRN 10 Days #30 tab.rapdis 11/09/19 Esomeprazole Mag Trihydrate [Nexium] 20 mg PO DAILY #30 cap 11/30/19 Magic Mouth Wash 15 ml PO Q6H PRN PRN #300 ml 12/07/19 Senna [Senokot] 2 tab PO DAILY #60 tab 01/04/20 Morphine Sulfate 10 mg PO Q4H PRN PRN #14 solution 01/12/20 Sucralfate [Carafate] 1 gm PO 4X/DAY #120 udc 01/12/20 Baclofen 5 mg PO TID #30 tab 01/24/20 predniSONE tablet 60 mg PO DAILY #15 tab 01/25/20 Amoxicillin/Potassium Clav [Augmentin 875-125 Tablet] 1 ea PO BID #60 tab 02/02/20 Doxycycline 100 mg PO BID #60 cap 02/02/20 The following prescriptions were given: Amoxicillin/Potassium Clav [Augmentin 875-125 Tablet] 1 ea PO BID #60 tab Transmission Status: Received by [id number] Doxycycline 100 mg PO BID #60 cap Transmission Status: Received by [facility] Primary Care Physician: Triny Patel NP-C [Primary Care Provider] - Test Results: Test results from this visit will be discussed in further detail at your follow- up appointment, if applicable. Please Follow Up With: Triny Patel NP-C When: 1 week Please Follow Up With: Bogdan German MD When: Thursday Please Follow Up With: Carlos Mcqueen MD When: 2 weeks Proposed Discharge Date: 02/03/20
--- NOTE | 2020-02-03 10:16 | DS.PCM_ITS ---
Discharge Date and Diagnosis Date of Admission: 01/31/20 Date of Discharge: 02/03/20 - Primary Discharge Diagnosis Active and Suspected Problems (Last Updated 01/31/20 @ 13:[address] Lilian Duncan MD) Health associated pneumonia - Secondary Discharge Diagnosis Chronic Problems (Last Updated 01/31/20 @ 13:[address] 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 Per [facility] done 11/16/19 per [facility] @ [facility] Smoking greater than 40 pack years (Chronic) Stage 2 moderate COPD by GOLD classification (Chronic) FEV1 56% Alcoholic fatty liver (Chronic) Nicotine dependence (Chronic) Alcohol abuse (Chronic) GERD (gastroesophageal reflux disease) (Chronic) Vitamin D deficiency (Chronic) Hypertension (Chronic) Hyponatremia (Chronic) COPD (chronic obstructive pulmonary disease) (Chronic) Hospital Course and Treatment Imaging Results: Diagnostic Data Chest X-Ray 01/31/20 12:00 IMPRESSION: Improved aeration of both lungs with a persistent infected bulla in the right upper lobe although this has improved as well. Electronically Signed: Darren Alon, at 12:31 EDT , Service support , infectious disease- Dr Mcqueen Pulmonology- Dr Bowles Operations: None Procedures: None Summary of Care Provided: The patient is a 59 year old M with an extensive PMH as outlined, who was admitted with a complaint of shortness of breath of 1 week's duration, which had been gradually worsening, associated with dry cough with no sputum production. He also had associated weight loss of about 10 pounds over the last couple of weeks prior to admission. Of note, patient had a history of COPD and squamous cell lung cancer for which he was undergoing treatment by oncology. He had been seen in the ED on January 25, 2020 and had chest x-ray and CT of the chest which showed pneumonia and it was recommended that patient be admitted; however he refused admission. He was discharged with a prescription for p.o. Levaquin for 1 week. However shortness of breath did not improve and cough also did not improve. Of note, COVID 19 test was done when he was admitted on January 25, 2020 and test came back negative. Shortness of breath persisted so patient came back to the emergency room on 01/31/2020. In the emergency room, he was afebrile and saturating at 96% on room air. He was hemodynamically stable. Labs showed no leukocytosis and hemoglobin was 8.7 with sodium of 129 which is chronic. Chest x-ray showed right midlung opacity with air-fluid level and consolidation. CTA of the chest which had been done on January 25, 2020 showed multiple large bullae in the upper lobes mainly on the right side with several bullae appearing infected with air-fluid levels and dense consolidation on the lateral aspect of the right middle lobe with air bronchogram. He was admitted and managed for healthcare associated pneumonia with failure of outpatient treatment. He was started on IV vancomycin and IV Zosyn. Which and infectious diseases were consulted. He was hydrated with IV fluids. Urine for strep and Legionella were negative. Patient shortness of breath improved. Blood cultures were negative. Patient felt much better and symptoms resolved. He was therefore discharged home on 02/03/2020. ID saw him and recommended patient going on p.o. doxycycline and p.o. Augmentin for 30 days. He is to follow-up with his primary care doctor and to follow-up with pulmonology and infectious diseases. Patient seen and examined to discharge. He felt much better and had no complaints. Review of systems otherwise negative. Labs and vitals reviewed. Home medication reviewed and reconciled. White cell count noted to have trended up to 22 but this is likely due to the steroids that he has been on. o/e: Vital Signs Temp Pulse Resp BP Pulse Ox 97.7 F L 94 18 125/72 H 95 02/03/20 11:00 02/03/20 11:00 02/03/20 11:00 02/03/20 11:02/03/20 11:00 [] General: Alert, Oriented x3, Cooperative, No apparent distress, looks much better. HEENT: Atraumatic, PERRLA, EOMI, Normocephalic Oral: Dry Mucosa Neck: Supple, No JVD, Negative Carotid Bruits Lungs: - - mildly diminished breath sounds bibasally, no wheezes or crackles. Cardiovascular: Regular Rhythm, Normal S1, Normal S2, No murmurs, Tachycardic Abdomen: Bowel Sounds Present, Soft, Non Tender, Non-Distended, No Hepato- splenomegaly Extremities: No clubbing, No cyanosis, No edema, Capillary Refill Less than 3 Seconds Skin: No rashes, No breakdown Musculoskeletal: No Tenderness to Palpation of Joints or Extremities, - - chemotherapy port in place Lymphatic: No Cervical, Supraclavicular, or Inguinal Adenopathy Neurological: Cranial nerves II-XII grossly intact Psych/Mental Status: Normal Affect, Appropriate, Alert and oriented to time, place, person, mood and affect Plan is for dc home today - Physical Exam Vitals/I&O's: Vital Signs Temp Pulse Resp BP Pulse Ox 97.7 F L 118 H 18 125/72 H 95 02/03/20 08:25 02/03/20 08:56 02/03/20 08:25 02/03/20 08:25 02/03/20 08:25 Oxygen Delivery Method Room Air Weight: 129 lb 4.782 oz Body Mass Index (BMI) 18.5 Intake and Output for Last 24 Hours 02/01/20 02/02/20 02/03/20 23:59 23:59 23:59 Intake Total 1619.42 / 2179.42 2410.58 / 3210.58 1530 / 1530 Output Total 600 / 600 Balance 1019.42 / 1579.42 2410.58 / 3210.58 1530 / 1530 Microbiology Past 72 Hours 01/31/20 17:35 Sputum, Expectorated/Coughed Gram Stain - Final 01/31/20 17:35 Sputum, Expectorated/Coughed Respiratory Culture - Final Presumptive C albicans Strep not Strep pneumo 01/31/20 11:45 Blood Culture (Wb) - Anticubital Left Blood Culture - Preliminary No growth in 48 hours. 01/31/20 11:35 Blood Culture (Wb) - Port Blood Culture - Preliminary No growth in 48 hours. 01/31/20 20:00 Urine, Random Legionella Antigen - Final 01/31/20 20:00 Urine, Random Streptococcus pneumoniae Antigen (M - Final Laboratory Results 02/01/20 06:45: Diff Path Review Reviewed 02/02/20 20:20: Vancomycin Trough 11.2 02/03/20 05:27: WBC 22.7 H, RBC 2.68 L, Hgb 9.0 L, Hct 26.8 L, MCV 100.0 H, MCH 33.6 H, MCHC 33.6, RDW Std Deviation 72.1 H, RDW Coeff of Ruhs 20.0 H, Plt Count 562 H, MPV 8.8, Immature Gran % (Auto) 1.400 H, Neut % (Auto) 91.1 H, Lymph % (Auto) 2.6 L, [place] % (Auto) 4.8, Eos % (Auto) 0.0, Baso % (Auto) 0.1, Absolute Neuts (auto) 20.6 H, Absolute Lymphs (auto) 0.60 L, Nucleated RBC % 0, Differential Comment SCANNED, Reactive Lymphocytes RARE, Ovalocytes RARE, Stomatocytes RARE 02/03/20 05:27: Sodium 132 L, Potassium 3.7, Chloride 99, Carbon Dioxide 28.0, Anion Gap 5, BUN 11, Creatinine 0.52 L, Estim Creat Clear Calc 130.02, Est GFR (MDRD) Af Amer 212, Est GFR (MDRD) Non-Af 176, BUN/Creatinine Ratio 21.4 H, Glucose 182 H, Calcium 8.5 Current Medications Acetaminophen (Tylenol) 650 mg PO Q6H PRN PRN PRN Reason: Pain Score 1-10/Temp > 100.7 F Last Admin: 02/01/20 02:18 Dose: 650 mg Documented by: Albuterol/Ipratropium (Duoneb) 3 ml INHALATION Q6H.RT [facility] Last Admin: 02/03/20 00:49 Dose: 3 ml Documented by: Amlodipine Besylate (Norvasc) 2.5 mg PO DAILY [facility] Last Admin: 02/03/20 08:18 Dose: 2.5 mg Documented by: Aspirin (Ecotrin) 81 mg PO DAILY@0800 [facility] Last Admin: 02/03/20 08:17 Dose: 81 mg Documented by: Baclofen (Lioresal) 5 mg PO TID [facility] Last Admin: 02/03/20 06:06 Dose: 5 mg Documented by: Enoxaparin Sodium (Lovenox) 40 mg SC DAILY [facility] Last Admin: 02/02/20 08:18 Dose: 40 mg Documented by: Guaifenesin (Mucinex) 1,200 mg PO BID [facility] Last Admin: 02/03/20 08:18 Dose: 1,200 mg Documented by: Heparin Sodium (Beef Lung) () 50 units IV UD PRN PRN Reason: Port-a-Cath (VAD)Heparin Flush Sodium Chloride () 250 mls @ 15 mls/hr IV .[id number] PRN PRN Reason: Saline Flush Last Infusion: 02/03/20 06:15 Dose: 0 mls/hr Documented by: Sodium Chloride () 250 mls @ 15 mls/hr IV .[id number] PRN PRN Reason: Additional IVPB Infusion Vancomycin IV Pharmacy to Dose (1 ea/ Sodium Chloride) 500 mls @ 250 mls/hr IV X1 PRN; Protocol PRN Reason: Rx to Dose Piperacillin Sod/Tazobactam (Sod 3.375 gm/ Sodium Chloride) 50 mls @ 12.5 mls/hr IV Q8 [facility] Last Admin: 02/03/20 06:07 Dose: 12.5 mls/hr Documented by: Vancomycin HCl 1,250 mg/ (Sodium Chloride) 275 mls @ 167 mls/hr IV Q8H [facility] Last Infusion: 02/03/20 05:54 Dose: Infused Documented by: Lidocaine/Diphenhydr/Alum/Mg/Simeth () 15 ml PO ACHS PRN PRN Reason: PAIN 1-10 Last Admin: 02/03/20 08:13 Dose: 15 ml Documented by: Lisinopril (Zestril) 20 mg PO QHS [facility] Last Admin: 02/02/20 22:17 Dose: 20 mg Documented by: Morphine Sulfate (Roxanol (Ir Oral Solution)) 10 mg PO Q4H PRN PRN PRN Reason: Pain Score 6-10/10 Last Admin: 02/03/20 08:12 Dose: 10 mg Documented by: Nutritional Formula (Lactose Free) (Ensure Enlive) 120 ml PO 4X/DAY [facility] Last Admin: 02/03/20 08:28 Dose: 120 ml Documented by: Ondansetron HCl (Zofran) 4 mg IV Q8H PRN PRN PRN Reason: NAUSEA/VOMITING Pantoprazole Sodium (Protonix) 20 mg PO DAILY [facility] Last Admin: 02/03/20 08:18 Dose: 20 mg Documented by: Prednisone () 40 mg PO DAILY@0800 [facility] Stop: 02/08/20 08:01 Last Admin: 02/03/20 08:28 Dose: 40 mg Documented by: Senna/Docusate Sodium (Senokot-S, Rachelle-Colace) 2 tablet PO BID PRN PRN PRN Reason: Constipation Sodium Chloride () 10 - 40 ml IV UD PRN PRN Reason: Port-a-Cath (VAD) Flush Last Admin: 02/03/20 06:07 Dose: 10 ml Documented by: Sodium Chloride (0.9% Nacl (Sterile) Posiflush) 10 - 40 ml IV UD PRN PRN Reason: Port access or dressing change Sucralfate (Carafate) 1 gm PO 1HR_ACHS [facility] Last Admin: 02/03/20 06:06 Dose: 1 gm Documented by: Zolpidem Tartrate (Ambien (Generic)) 5 mg PO QHS PRN PRN PRN Reason: INSOMNIA Discharge Diet: Low fat/ Low Cholesterol Discharge Activity: Return to Normal Activity Weight Bearing Status: Weight bearing as tolerated Call your doctor if you observe: Fever of 101 or Higher, Shortness of breath, Dizziness, Fainting spells, - - worsening cough Home Medications: Medications to take at Discharge Amlodipine [Norvasc] 2.5 mg PO DAILY 08/05/13 Lisinopril [Zestril] 20 mg PO QHS 08/05/13 Albuterol Sulfate [Ventolin Hfa] 2 puff IH Q4H PRN 05/05/16 Triamcinolone 0.1% Cream [Kenalog] 1 applic TP DAILY PRN 05/05/16 mometasone-formoterol HFA 200 mcg-5 mcg/actuation aerosol inhaler 2 puff INHALATION Q12H 05/07/18 Ergocalciferol [Vitamin D] 50,000 unit PO SA 07/22/18 albuterol sulfate 2.5 mg INHALATION Q4H PRN #180 ml 06/16/19 Aclidinium [place] [Tudorza Pressair] 1 inh INHALATION BID 10/13/19 aspirin 81 mg tablet,delayed release 81 mg PO DAILY #30 tab 10/25/19 Ondansetron [Ondansetron Odt] 8 mg PO Q8H PRN PRN 10 Days #30 tab.rapdis 11/09/19 Esomeprazole Mag Trihydrate [Nexium] 20 mg PO DAILY #30 cap 11/30/19 Magic Mouth Wash 15 ml PO Q6H PRN PRN #300 ml 12/07/19 Senna [Senokot] 2 tab PO DAILY #60 tab 01/04/20 Morphine Sulfate 10 mg PO Q4H PRN PRN #14 solution 01/12/20 Sucralfate [Carafate] 1 gm PO 4X/DAY #120 udc 01/12/20 Baclofen 5 mg PO TID #30 tab 01/24/20 predniSONE tablet 60 mg PO DAILY #15 tab 01/25/20 Amoxicillin/Potassium Clav [Augmentin 875-125 Tablet] 1 ea PO BID #60 tab 02/02/20 Doxycycline 100 mg PO BID #60 cap 02/02/20 Following Prescrptions Were Given to Patient: Amoxicillin/Potassium Clav [Augmentin 875-125 Tablet] 1 ea PO BID #60 tab Transmission Status: Received by Snappy shuttle #30 Doxycycline 100 mg PO BID #60 cap Transmission Status: Received by [facility] shuttle #30 Primary Care Physician: Triny Patel NP-C [Primary Care Provider] - Please Follow Up With: Triny Patel NP-C When: 1 week Please Follow Up With: Bogdan German MD When: Thursday Please Follow Up With: Carlos Mcqueen MD When: 2 weeks Patient Instructions: Healthcare-Associated Pneumonia Disposition: Home Minutes spent on discharge:: 35 Patient Condition:: Stable Medical Necessity - Tobacco Use Smoking Status: Former smoker Meaningful Use Info Meaningful Use Diagnoses (Choose all that apply): None applicable Inpatient E&M: 16088 [facility]
--- NOTE | 2020-02-03 10:57 | NURSING ---
PORT FLUSHED WITH SALINE & HEPARIN PRIOR TO REMOVING NEEDLE. PT TOLERATED WELL.
--- NOTE | 2020-02-06 10:48 | CASEMGMT ---
CAROLINA KWON Discharge Follow-up Phone Call: CALLIE: 12 Strata: 3 Call Date: 02/06/20 Discharge Date: 02/03/20 Time of Call: 1050 Duration: 3 min Admitting Diagnosis: HCAP CAROLINA KWON completed follow-up phone call after recent hospitalization. Patient states he is doing better but still tired. Patient had no questions or concerns regarding discharge instructions. Patient was able to fill prescriptions without any issues. Patient has follow-up appts scheduled. Patient had no further questions or concerns at this time.
== END 2020-02-03 11:00 | disposition home or self-care (01) | DRG 137 ==
LOC: ED 12:47 → MS3 13:33
PROVIDERS: Internal Medicine Critical Care Medicine; Admitting Provider Hospitalist; Emergency Provider Emergency Medicine; PCP Nurse Practitioner Family; Visit Provider Student in an Organized Health Care Education/Training Program
DX: J85.1 Abscess of lung with pneumonia (principal); E22.2 Syndrome of inappropriate secretion of antidiuretic hormone; C34.92 Malignant neoplasm of unspecified part of left bronchus or lung; D63.0 Anemia in neoplastic disease; D64.81 Anemia due to antineoplastic chemotherapy; J44.0 Chronic obstructive pulmonary disease with (acute) lower respiratory infection; J44.1 Chronic obstructive pulmonary disease with (acute) exacerbation; Z92.3 Personal history of irradiation; Z85.118 Personal history of other malignant neoplasm of bronchus and lung; T45.1X5A Adverse effect of antineoplastic and immunosuppressive drugs, initial encounter; K20.8 Other esophagitis; K21.9 Gastro-esophageal reflux disease without esophagitis; Y84.2 Radiological procedure and radiotherapy as the cause of abnormal reaction of the patient, or of later complication, without mention of misadventure at the time of the procedure; Z95.828 Presence of other vascular implants and grafts; Z87.891 Personal history of nicotine dependence; I10 Essential (primary) hypertension; Y95 Nosocomial condition; Z80.0 Family history of malignant neoplasm of digestive organs; Z80.1 Family history of malignant neoplasm of trachea, bronchus and lung; Z82.49 Family history of ischemic heart disease and other diseases of the circulatory system; Z79.82 Long term (current) use of aspirin; Z87.01 Personal history of pneumonia (recurrent); Z83.3 Family history of diabetes mellitus
CPT/HCPCS: 36415; 36591; 71045; 71046; 80048; 80053; 80202; 83605; 83615; 85025; 87040; 87070; 87106; 87205; 87449; 87641; 93005; 94640; 96365; 96368; 97802; 99251; 99283; J7030; J7050; A4216; G0463

== ENCOUNTER → 2020-02-23 14:51 | Outpatient (CLI) | payer MEDICAID, SELFPAY ==
[2019-10-31 11:02] VITALS: BMI 19.1
[2020-02-07 14:04] VITALS: BMI 17.6
[2020-02-23 16:32] LABS: Hematocrit 27.1 % (40-54); Hemoglobin 8.8 g/dL (13.0-16.5); Mean Corp Hgb Conc 32.5 g/dL (32-36); Mean Corpuscular Hgb 31.3 pg (27.0-32.0); Mean Corpuscular Volume 96.4 fL (80-94); Mean Platelet Vol. 9.5 fl (6.2-12.0); Platelet Count 470 K/mm3 (150-450); RBC Distribution Width CV 17.6 % (11.6-14.6); RBC Distribution Width SD 62.9 fl (35.1-43.9); Red Blood Count 2.81 M/mm3 (4.6-6.2); White Blood Count 11.2 K/mm3 (4.4-11.0)
[2020-02-23 17:06] LABS: Anion Gap 7 (5-15); BUN 10 mg/dL (7-18); Calcium,Total 8.7 mg/dL (8.5-10.1); Chloride 92 mmol/L (98-107); EST Glomerular Filtration Rate 235 mL/min (>60); Est Glom Filt Rate - Afr Amer 284 mL/min (>60); Glucose 116 mg/dL (74-106); Potassium 2.8 mmol/L (3.5-5.1); Sodium Level 127 mmol/L (136-145)
== END ==
PROVIDERS: PCP Nurse Practitioner Family; Referring Provider Internal Medicine Infectious Disease; Visit Provider Internal Medicine Infectious Disease
DX: J85.2 Abscess of lung without pneumonia (principal)
CPT/HCPCS: 36415; 80048; 85027

== ENCOUNTER → 2020-03-09 13:15 | Outpatient (CLI) | payer MEDICAID, SELFPAY ==
[2019-10-31 11:02] VITALS: BMI 19.1
[2020-02-29 13:20] VITALS: BMI 16.2
--- NOTE | 2020-03-09 13:17 | CT_ITS ---
STUDY: CT CHEST WITH CONTRAST REASON FOR EXAM: Male, 60 years old. RESTAGING LUNG CANCER. EXTREME SOB. RADIATION DOSAGE (If Supplied By Facility): CTDIvol = ( 8.23 ) mGy, DLP = ( 271.04 ) mGycm TECHNIQUE: Transaxial imaging was performed following intravenous administration of 100 mL of Isovue-300. Multiplanar coronal and sagittal images were reformatted. Individualized dose optimization techniques were used for this CT. COMPARISON: Comparison is made with prior examination dated January 25, 2020 and October 01, 2019. FINDINGS: Persistent mass in the left hilar and suprahilar region measuring 3.9 cm x 2.8 cm. This has progressed as compared to prior study. Once again, there is extensive bullous changes in both lungs superimposed on emphysema worse in the right upper lobe. The previously seen airspace disease in the posterior aspect of the right upper lobe with areas of bronchiectasis and cystic changes as improved. There now is evidence of extensive infiltration with bronchiectasis and cystic changes in the left upper lobe. Since prior study, there has been progressive scarring with bronchiectasis in the left lower lobe. Normal heart and pericardium. Normal mediastinum. Normal hilar regions. Normal enhanced pulmonary arteries. Normal aorta arch and descending thoracic aorta. There are multi-level degenerative changes of the thoracic spine. There is no demonstrated abnormality of the visualized upper abdomen. CT/Chest WITH Contrast IMPRESSION: There has been enlargement of the left suprahilar mass as compared to prior study with progressive infiltration and bronchiectasis in the left upper lobe as well as in the left lower lobe. Severe bilateral pulmonary emphysema worse in the upper lobes. Electronically Signed: Darren Chi, at 14:41 EDT , Service support ,
== END ==
PROVIDERS: Referring Provider Nurse Practitioner Family; Visit Provider Nurse Practitioner Family
DX: C34.90 Malignant neoplasm of unspecified part of unspecified bronchus or lung (principal)
CPT/HCPCS: 71260; Q9967

== ENCOUNTER 2020-03-30 06:27 | Inpatient (IN) | payer MEDICAID, SELFPAY ==
[2019-10-31 11:02] VITALS: BMI 19.1
[2020-03-28 11:01] VITALS: BMI 18.3
[2020-03-30] VITALS (38 sets, daily range): BP systolic 91–142; BP diastolic 52–101; PULSE 91–186; RESP 18–30; TEMP 36.5–37.3; O2SAT 3–100; BMI 20.3; BMI 17.9
[2020-03-30] MEDS: Adenosine 6 MG/2 ML Syringe IV (06:35)
[2020-03-30] MEDS: Adenosine 6 MG/2 ML Syringe 12 MG IV (06:38)
--- NOTE | 2020-03-30 06:39 | EKG12_ITS ---
Test Reason : REPEAT Blood Pressure : / mmHG Vent. Rate : 117 BPM Atrial Rate : 374 BPM P-R Int : 000 ms QRS Dur : 068 ms QT Int : 304 ms P-R-T Axes : 049 036 048 degrees QTc Int : 424 ms Atrial flutter with variable A-V block Nonspecific ST and T wave abnormality Abnormal ECG Confirmed by DELROY BEASLEY ([id number]), film and video editor GARRICK RIOJAS ([id number]) on 04/02/2020 2:17:26 PM Referred By: MAURO Confirmed By:DELROY BEASLEY
[2020-03-30] MEDS: dilTIAZem 25 MG/5 ML Vial 20 MG IV BOLUS (06:40)
--- NOTE | 2020-03-30 06:40 | ED.DCSUM_ITS ---
History of Present Illness Chief Complaint: Shortness of Breath Informant: Patient Narrative: Stated he said worsening shortness of breath for last couple days. He did not feel tachycardic. EMS arrived and did a prehospital EKG that shows she is in possible atrial flutter versus SVT at a rate of 188. Patient denies any chest pain. He has chronic shortness of breath secondary to stage III lung cancer. He is been battling pneumonia pneumonitis in the past. He is no longer on antibiotics. He has not had treatment for his lung cancer for the last 3 months. He had a heart cath in October that showed no significant blockages all less than 30%. Denies any chronic heart problems. He did know he had a abnormal heart rhythm at this time. - Past Medical History (1) Encounter for education Status: Acute (2) Malnutrition Status: Acute (3) Radiation pneumonitis Status: Acute (4) Anemia in neoplastic disease Status: Chronic (5) Radiation esophagitis Status: Chronic (6) Bronchiectasis Status: Acute (7) Pneumonia Status: Acute (8) Abnormal stress test Status: Chronic (9) Alcohol abuse Status: Chronic (10) Alcoholic fatty liver Status: Chronic (11) COPD (chronic obstructive pulmonary disease) Status: Chronic (12) GERD (gastroesophageal reflux disease) Status: Chronic (13) History of left heart catheterization Status: Chronic Comment: LEFT MAIN: Angiographically normal; LEFT ANTERIOR DESCENDING ARTERY: PROX LAD: Moderate calcification, Mild luminal irregularities less than 30%; CIRCUMFLEX ARTERY: Mild luminal irregularities less than 30%; RIGHT CORONARY ARTERY: MID RCA: Mild calcification, Mild luminal irregularities less than 30%. Per [facility] done 11/16/19 per [facility] @ [facility] (14) Hypertension Status: Chronic (15) Hyponatremia Status: Chronic (16) Nicotine dependence Status: Chronic (17) Pulmonary cachexia due to chronic obstructive pulmonary disease Status: Chronic (18) Smoking greater than 40 pack years Status: Chronic (19) Squamous cell lung cancer Status: Chronic (20) Stage 2 moderate COPD by GOLD classification Status: Chronic Comment: FEV1 56% (21) Vitamin D deficiency Status: Chronic Past Medical History - Allergies and Home Meds Allergies/Adverse Reactions: Allergies No Known Allergies Allergy (Verified 03/28/20 11:00) Primary Care Physician: Pauline Thornton [Primary Care Provider] - Prior records reviewed: Yes Past Medical History: - - See problem list Surgical History: - - Reviewed Smoking Status: Former smoker Drugs: None Review of Systems General: Denies: Chills, Fever, Sweats Eyes: Denies: Visual changes - bilaterally, Diplopia ENT: Denies: Rhinorrhea, Sore throat Cardiovascular: Denies: Chest pain, Palpitations Respiratory: Reports: Dyspnea. Denies: Cough, Dyspnea on exertion Gastrointestinal: Denies: Abdominal pain, Nausea, Vomiting, Diarrhea, Melena, Hematochezia Genitourinary: Denies: Dysuria, Hematuria, Frequency Musculoskeletal: Denies: Back pain, Extremity Pain Skin: Denies: Rash, Wounds Neurological: Denies: Headache, Weakness, Numbness Physical Exam Vital Signs/Narrative: Vital Signs Temp Pulse Resp BP Pulse Ox 03/30/20 06:31 186 H 03/30/20 06:28 98.9 F 182 H 30 H 108/81 H 98 General: Well nourished, Well developed, No Acute Distress Head: Normocephalic, Atraumatic Eyes: Perrl, EOMI ENT: Moist mucous membranes, No rhinorrhea Neck: Supple, Nontender Cardiovascular: No murmurs, Tachycardia Respiratory: No distress, CTA bilaterally, Chest nontender Abdomen: Soft, Nontender, Nondistended, Normal bowel sounds Back: Nontender, Normal Inspection Extremities: Nontender, No edema Skin: Normal color, No rash Neurological: Alert, Oriented x3, Cranial nerves II-XII grossly intact, Normal Strength, Normal Sensation Psychological: Normal affect, Normal Mood Diagnostic/Tx/Re-eval - Medical Decision Making EKG obtained upon arrival shows SVT versus atrial fibrillation at a rate greater than 180. Patient bear down and vagal numerous were obtained with no relief of tachycardia. Patient given adenosine 6 mg followed by 12 mg. It appears that he is in atrial flutter. This had a transient effect and then he went back into his tachycardic rhythm. Patient remains on nasal cannula oxygen. Lab work and chest x-ray obtained. Patient given a dose of IV Cardizem for rate control. Cardizem dropped his rate in the 120s. Appears he is in atrial flutter with rapid ventricular response. Patient placed on a Cardizem drip. Rate in the 80s. Resting comfortably. Will be signed out to the a.m. oncoming physician for final disposition ED Disposition - Plan for ED Patient: Referrals: Kai Perez,Pauline Walden [Primary Care Provider] -
[2020-03-30 06:46] LABS: Absolute Lymphocyte Count 0.84 X10^3/uL (0.83-4.51); Absolute Neutrophil Count 26.3 X10^3/uL (2.0-7.7); Basophil# 0.05 X10^3/uL; Basophil% 0.2 % (0-1); Eosinophil# 0.08 X10^3/uL; Eosinophils% 0.3 % (0-5); Hematocrit 31.2 % (40-54); Hemoglobin 10.3 g/dL (13.0-16.5); Lymphocyte # 0.84 X10^3/ul (4.0); Lymphocyte % 2.8 % (19-41); Mean Corpuscular Hgb 29.1 pg (27.0-32.0); Mean Corpuscular Volume 88.1 fL (80-94); Mean Platelet Vol. 8.2 fl (6.2-12.0); Monocyte% 4.1 % (0-10); NRBC Flagged by Analyzer 0.1 % (0-5); Neutrophil # 26.28 X10^3/uL (2.7-7.7); Neutrophil % 88.7 % (47-70); POSITIVE DIFFERENTIAL YES; POSITIVE MORPHOLOGY YES; Platelet Count 362 K/mm3 (150-450); RBC Distribution Width CV 21.1 % (11.6-14.6); RBC Distribution Width SD 66.6 fl (35.1-43.9); Red Blood Count 3.54 M/mm3 (4.6-6.2); White Blood Count 29.6 K/mm3 (4.4-11.0)
[2020-03-30] MEDS: dilTIAZem 25 MG/5 ML Vial IV BOLUS (06:51)
[2020-03-30 06:54] LABS: Differential Indicated SCAN CRITERIA MET
[2020-03-30 06:56] LABS: International Normalized Ratio 1.2; Partial Thromboplast Time 30.6 Seconds (24.1-36.2); Prothrombin Time (Protime)PT. 14.6 SECONDS (11.7-14.9)
--- NOTE | 2020-03-30 07:04 | RAD_ITS ---
STUDY: X-RAY CHEST REASON FOR EXAM: Male, 60 years old. Chest pain and short of breath. Lung cancer. TECHNIQUE: AP portable upright COMPARISON: 03/09/2020 CT chest. FINDINGS: Marked bullous emphysema of the upper lungs with multifocal opacities in the more inferior lungs, worse on the left, and left perihilar mass lesion similar to previous. No apparent pneumothorax or layering pleural effusion. Heart size remains normal. Right-sided port remains in place. RAD/Chest 1 View (Portable) IMPRESSION: Left perihilar mass and left greater than right perihilar airspace disease, concerning for pneumonia, with marked biapical bullous emphysema similar to prior. Electronically Signed: Eagle Larose, at 8:12 EDT Tel , Service support ,
[2020-03-30 07:10] LABS: Anion Gap 7 (5-15); BUN 16 mg/dL (7-18); BUN/Creat Ratio 42.8 RATIO (10-20); Calcium,Total 7.9 mg/dL (8.5-10.1); Chloride 93 mmol/L (98-107); Creatinine, Serum 0.37 mg/dL (0.70-1.30); EST Glomerular Filtration Rate 254 mL/min (>60); Est Glom Filt Rate - Afr Amer 307 mL/min (>60); Estimated Creatinine Clearance 198.23 ml/min; Glucose 96 mg/dL (74-106); Potassium 3.7 mmol/L (3.5-5.1); Sodium Level 128 mmol/L (136-145); Thyroid Stim Hormone (TSH) 1.03 uIU/mL (0.358-3.74)
--- NOTE | 2020-03-30 07:17 | ED.RN ---
PT ORDERED A COVID TEST BUT REFUSED IT.
[2020-03-30 07:22] LABS: Anisocytosis 1+; Differential Comment SCANNED; Hypochromasia RARE; Schistocytes RARE
--- NOTE | 2020-03-30 07:28 | EKG12_ITS ---
Test Reason : TACHY Blood Pressure : / mmHG Vent. Rate : 185 BPM Atrial Rate : 185 BPM P-R Int : 000 ms QRS Dur : 068 ms QT Int : 250 ms P-R-T Axes : 000 034 012 degrees QTc Int : 438 ms Supraventricular tachycardia Nonspecific ST and T wave abnormality Abnormal ECG Confirmed by DELROY BEASLEY ([id number]), telegraph editor GARRICK RIOJAS ([id number]) on 04/02/2020 2:17:51 PM Referred By: MAURO Confirmed By:DELROY BEASLEY
--- NOTE | 2020-03-30 07:38 | ED.VIS.GEN ---
History of Present Illness Chief Complaint: Shortness of Breath Informant: Patient Past Medical History - Allergies and Home Meds Allergies/Adverse Reactions: Allergies No Known Allergies Allergy (Verified 03/28/20 11:00) Primary Care Physician: Pauline Thornton [Primary Care Provider] - Surgical History: - - Reviewed Smoking Status: Former smoker Drugs: None Physical Exam Vital Signs/Narrative: Vital Signs Temp Pulse Resp BP Pulse Ox 03/30/20 07:33 141 H 03/30/20 07:25 124 H 28 H 113/74 03/30/20 06:52 91 111/58 L 99 03/30/20 06:45 138 H 21 H 110/62 99 03/30/20 06:31 186 H 03/30/20 06:28 98.9 F 182 H 30 H 108/81 H 98 Diagnostic/Tx/Re-eval - Medical Decision Making Patient is a 60-year-old male signed out to me by Dr. Hai samson at 0700. History of lung cancer who came in with tachycardia and dyspnea. Initially thought to be SVT given 2 doses of adenosine. Patient was then given Cardizem with good rate control. EKG shows atrial flutter. Will be started on Cardizem titration. Chest x-ray shows likely radiation pneumonitis versus persistent infiltrates. Patient had seen by oncologist Dr. German 2 days ago and was continued on Augmentin as well as Decadron. Immunotherapy was not started at this time given his continued pneumonitis vs. pneumonia. Refusing coronavirus testing at this time. Woke with Dr. Gordon who was agreeable with admitting the patient to stepdown. Patient stable at time of admission. ED Disposition - Plan for ED Patient: Referrals: Pauline Thornton [Primary Care Provider] -
--- NOTE | 2020-03-30 08:05 | HP.PCM_ITS ---
Problem List (1) Bronchiectasis Status: Chronic Qualifiers: Bronchiectasis type: with acute lower respiratory infection Qualified Code(s): J47.0 - Bronchiectasis with acute lower respiratory infection (2) Pulmonary cachexia due to chronic obstructive pulmonary disease Status: Chronic (3) Pneumonia Status: Acute Qualifiers: Pneumonia type: due to unspecified organism Laterality: right Lung location: middle lobe of lung Qualified Code(s): J18.9 - Pneumonia, unspecified organism (4) Encounter for education Status: Acute (5) Malnutrition Status: Acute (6) Radiation pneumonitis Status: Chronic (7) Squamous cell lung cancer Status: Chronic Qualifiers: Laterality: left Qualified Code(s): C34.92 - Malignant neoplasm of unspecified part of left bronchus or lung (8) Abnormal stress test Status: Chronic (9) 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 Per [facility] done 11/16/19 per [facility] @ [facility] (12) Smoking greater than 40 pack years Status: Chronic (13) Stage 2 moderate COPD by GOLD classification Status: Chronic Comment: FEV1 56% (14) Alcoholic fatty liver Status: Chronic (15) Nicotine dependence Status: Chronic Qualifiers: Nicotine product type: cigarettes Substance use status: in remission Qualified Code(s): F17.211 - Nicotine dependence, cigarettes, in remission (16) Alcohol abuse Status: Chronic (17) GERD (gastroesophageal reflux disease) Status: Chronic (18) Vitamin D deficiency Status: Chronic (19) Hypertension Status: Chronic (20) Hyponatremia Status: Chronic (21) COPD (chronic obstructive pulmonary disease) Status: Chronic Qualifiers: COPD type: emphysema Emphysema type: centrilobular Qualified Code(s): J 43.2 - Centrilobular emphysema (22) Afib Status: Acute History of Present Illness Date of Admission: 03/30/20 Chief Complaint: Shortness of breath The patient is a 60 year old M with multiple comorbidities including squamous cell carcinoma involving the left lung status post chemoradiation, COPD, recent admission in January 2020 for an infected pulmonary bullae who presented with shortness of breath. Patient symptoms started 2 days prior to coming in. Shortness of breath worse worsened with activity. In addition to above he did experience a persistent cough. Denied any fever no chills. He however did experience progressive generalized weakness. He presented to the emergency depa rtment as a result of worsening of his condition. Chest x-ray obtained demonstrated Left perihilar mass and left greater than right perihilar airspace disease, concerning for pneumonia, with marked biapical bullous emphysema similar to prior. Patient was also found to be tachycardic EKG demonstrated A. fib with RVR started on Cardizem drip admitted to the intensive care unit for further management Past Medical History Past Medical History (Chronic Problems): Chronic Problems (Last Reviewed 03/30/20 @ 11:[address] 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 Per [facility] done 11/16/19 per [facility] @ [facility] Smoking greater than 40 pack years (Chronic) Stage 2 moderate COPD by GOLD classification (Chronic) FEV1 56% Alcoholic fatty liver (Chronic) Nicotine dependence (Chronic) Alcohol abuse (Chronic) GERD (gastroesophageal reflux disease) (Chronic) Vitamin D deficiency (Chronic) Hypertension (Chronic) Hyponatremia (Chronic) COPD (chronic obstructive pulmonary disease) (Chronic) Medical History: Medical History (Last Reviewed 03/30/20 @ 11:[address] Pedro Gordon MD) Smoking greater than 40 pack years (Chronic) F17.210 Stage 2 moderate COPD by GOLD classification (Chronic) J44.9 FEV1 56% Alcoholic fatty liver (Chronic) K70.0 Nicotine dependence (Chronic) F17.200 Alcohol abuse (Chronic) F10.10 GERD (gastroesophageal reflux disease) (Chronic) K21.9 Vitamin D deficiency (Chronic) E55.9 Hypertension (Chronic) I10 Hyponatremia (Chronic) E87.1 COPD (chronic obstructive pulmonary disease) (Chronic) J44.9 PORT PLACEMENT Hypertension I10 Allergies No Known Allergies Allergy (Verified 03/28/20 11:00) Home Medications: Ambulatory Orders Medication Instructions Recorded Amlodipine [Norvasc] 2.5 mg PO DAILY 08/05/13 Lisinopril [Zestril] 20 mg PO QHS 08/05/13 Albuterol Sulfate [Ventolin Hfa] 2 puff IH Q4H PRN 05/05/16 Triamcinolone 0.1% Cream [Kenalog] 1 applic TP DAILY PRN 05/05/16 mometasone-formoterol HFA 200 2 puff INHALATION Q12H 05/07/18 mcg-5 mcg/actuation aerosol inhaler Ergocalciferol [Vitamin D] 50,000 unit PO SA 07/22/18 albuterol sulfate 2.5 mg INHALATION Q4H PRN #180 ml 06/16/19 Aclidinium [place] [Tudorza 1 inh INHALATION BID 10/13/19 [place]] aspirin 81 mg tablet,delayed 81 mg PO DAILY #30 tab 10/25/19 release Magic Mouth Wash 15 ml PO Q6H PRN PRN #300 ml 12/07/19 Senna [Senokot] 2 tab PO DAILY #60 tab 01/04/20 Morphine Sulfate 10 mg PO Q4H PRN PRN #14 solution 01/12/20 Sucralfate [Carafate] 1 gm PO 4X/DAY #120 udc 01/12/20 Baclofen 5 mg PO TID #30 tab 01/24/20 Amoxicillin/Potassium Clav 1 ea PO BID #60 tab 02/02/20 [Augmentin 875-125 Tablet] Doxycycline 100 mg PO BID #60 cap 02/02/20 Ondansetron [Ondansetron Odt] 8 mg PO Q8H PRN PRN 10 Days #30 02/13/20 tab.rapdis Dexamethasone [Decadron] 4 mg PO DAILY@0800 #30 tab 03/14/20 food supplemt, lactose-reduced 1 ea PO TID #6399 ml 03/22/20 0.06 gram-1 kcal/mL oral liquid Esomeprazole Mag Trihydrate 20 mg PO DAILY PRN 03/30/20 [Nexium] Surgical History: Surgical History (Last Reviewed 03/28/20 @ 11:00 by Moon Le) History of left heart catheterization (Chronic) Onset Date: 11/16/19 Z98.890 LEFT MAIN: Angiographically normal; LEFT ANTERIOR DESCENDING ARTERY: PROX LAD: Moderate calcification, Mild luminal irregularities less than 30%; CIRCUMFLEX ARTERY: Mild luminal irregularities less than 30%; RIGHT CORONARY ARTERY: MID RCA: Mild calcification, Mild luminal irregularities less than 30%. Per [facility] done 11/16/19 per [facility] @ [facility] Growth removed from throat Onset Date: ~[address] Springer Surgical History: - - Reviewed Psychiatric History: No pertinent psych hx Smoking Status: Former smoker Drugs: None - *Family History Maternal Family History: Family History (Last Reviewed 03/30/20 @ 11:[address] Pedro Gordon MD) Father Esophageal cancer Mother Lung cancer Diabetes Brother No problems noted. Brother CAD (coronary artery disease) Myocardial infarction Brother CAD (coronary artery disease) Myocardial infarction Other Cancer Hypertension Lung disease Review of Systems Constitutional: Reports: Malaise, Weakness, Fatigue HEENT: Denies: Head Aches, Sinus Congestion, Sinus Drainage Cardiovascular: Reports: Palpitations Respiratory: Reports: Cough, Shortness of Breath Gastrointestinal: Denies: Abdominal Pain, Hematemesis, Hematochezia, Nausea, Melena, Vomiting Genitourinary: Denies: Dysuria, Frequency, Hematuria, Urgency Musculoskeletal: Denies: Joint Pain, Joint Tenderness Skin: Denies: Rash Neurological: Denies: Focal weakness, Numbness, Tingling Psychiatric: Denies: Homicidal Ideations, Suicidal Ideations Hematologic/ Lymphatic: Denies: Easy Bruising, Easy Bleeding VTE Information - Inpt Only VTE Present on Admission: No VTE Mechan Device Prophylaxis: None VTE Pharm Prophylaxis ordered?: Yes Patient Problems: Active and Suspected Problems (Last Reviewed 03/30/20 @ 11:[address] Pedro Gordon MD) Afib (Acute) Encounter for education (Acute) Malnutrition (Acute) Objective: GENERAL: Dyspneic at rest HEENT: Atraumatic; EYES; Anicteric, Normal Conjunctiva NECK; supple, normal thyroid, RESPIRATORY: Diminished to auscultation CARDIOVASCULAR: Irregular S1-S2 tachycardic GI: soft, normoactive bowel sounds, : No Renal angle tenderness; EXTREMITIES: No edema, no clubbing, MUSCULOSKELETAL: no muscle waisting NEURO: Awake; no lateralizing signs. SKIN: No Rash PSYCH; Flat affect - Physical Exam Vitals/I&O's: Vital Signs Temp Pulse Resp BP Pulse Ox 98.9 F 137 H 23 H 106/70 99 03/30/20 06:28 03/30/20 07:58 03/30/20 07:58 03/30/20 07:58 03/30/20 06:52 Oxygen Flow Rate (L/min) 2 Oxygen Delivery Method Nasal Cannula Weight: 64.4 kg Body Mass Index (BMI) 20.3 Intake and Output for Last 24 Hours 03/28/20 03/29/20 03/30/20 23:59 23:59 23:59 Intake Total 2.75 / 2.75 Balance 2.75 / 2.75 Laboratory Results 03/30/20 06:40: WBC 29.6 H, RBC 3.54 L, Hgb 10.3 L, Hct 31.2 L, MCV 88.1, MCH 29.1, MCHC 33.0, RDW Std Deviation 66.6 H, RDW Coeff of Rush 21.1 H, Plt Count 362, MPV 8.2, Immature Gran % (Auto) 3.900 H, Neut % (Auto) 88.7 H, Lymph % (Auto) 2.8 L, [place] % (Auto) 4.1, Eos % (Auto) 0.3, Baso % (Auto) 0.2, Absolute Neuts (auto) 26.3 H, Absolute Lymphs (auto) 0.84, Nucleated RBC % 0.1, Differential Comment SCANNED, Hypochromasia RARE, Anisocytosis 1+, Schistocytes RARE 03/30/20 06:40: Sodium 128 L, Potassium 3.7, Chloride 93 L, Carbon Dioxide 28.0, Anion Gap 7, BUN 16, Creatinine 0.37 L, Estim Creat Clear Calc 198.23, Est GFR (MDRD) Af Amer 307, Est GFR (MDRD) Non-Af 254, BUN/Creatinine Ratio 42.8 H, Glucose 96, Calcium 7.9 L, Troponin I 0.027, TSH 1.03 03/30/20 06:40: PT 14.6, INR 1.2, APTT 30.6 Current Medications Diltiazem HCl 125 mg/ Dextrose 125 mls @ 5 mls/hr IV .Q25H GE; Protocol Last Titration: 03/30/20 07:58 Dose: 10 mg/hr, 10 mls/hr Documented by: Assessment/Plan All Active Problems (Last Reviewed 03/30/20 @ 11:[address] Pedro Gordon MD) Afib (Acute) Pneumonia (Acute) Encounter for education (Acute) Malnutrition (Acute) Patient is a 60-year-old gentleman with multiple pulmonary comorbidities presented with shortness of breath and palpitations 1. Acute hypoxic respiratory failure -secondary to the combination of suspected pneumonia with xxuhk-ouaz-knmwzlkan organisms, underlying history of COPD and bronchiectasis as well as his lung CA admitted to the intensive care unit where patient is being managed with treatment of the underlying conditions with consultation placed to pulmonary medicine 2. Suspected pneumonia with multidrug resistant organisms ? Chest x-ray obtained demonstrated Left perihilar mass and left greater than right perihilar airspace disease, concerning for pneumonia, with marked biapical bullous emphysema similar to prior. Patient was started on cefepime, azithromycin as well as vancomycin after cultures have been obtained. Patient was also placed on the droplet and contact isolation pending results of COVID testing (patient has elevated markers of inflammation) 3. A. fib with RVR ?new onset started on Cardizem drip titrated to keep heart rate less than 100. As part of his management did obtain d-dimer cardiac enzymes as well as BNP. Patient d-dimer came back elevated ordered CTA to rule out underlyingVTE will also order 2D echo for assessment of his valves as well as any regional wall motion abnormalities as well as pulmonary pressures 4. Severe protein calorie malnutrition As evidenced by low BMI of 17.9, muscle wasting as well as decreased energy level consultation placed to dietitian 5. 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 COPD Did continue with patient aerosol treatment. Has underlying history of bullous emphysema 1 of which was infected in January 2020. CT of the chest has been ordered for subsequent evaluation 7. GERD ?On PPI 8. Anemia -secondary to anemia of chronic disorder 9. DVT prophylaxis ?Lovenox Advance planning; did discuss with the patient and family regarding advanced directives as well as CODE STATUS. Did explain the various scenarios involved ( FULL CODE, DNR CCA, DNR CCA with no intubation, and DNR CC and what each meant) patient elected remain full code with intubation if warranted. Order was placed. Time spent on discussion 18 minutes. Inpatient E&M: 30446 Init Hosp L3 Procedures: 98930 Advncd Care Plan 30 Min
--- NOTE | 2020-03-30 09:31 | ECHOD_ITS ---
Reason For Study: A. fib Procedure This was a 2D Doppler, Color Flow transthoracic echocardiogram. The study was technically difficult. Patient in COVID precaution. Exam performed portable in ICU/CCU. Left Ventricle Normal size and thickness. The estimated ejection fraction is 65 %. No regional wall motion abnormalities noted. Right Ventricle Normal size and thickness. Normal systolic function. Atria Normal left atrium. Normal right atrium. Normal atrial septum. Mitral Valve The mitral valve is structurally normal. No prolapse or stenosis seen. Tricuspid Valve Normal tricuspid valve. Unable to estimate RV systolic pressure due to insufficient tricuspid regurgitant envelope. Aortic Valve Trisinus/trileaflet aortic valve. Mild diffuse aortic valve thickening. Trivial aortic valve insufficiency. Pulmonic Valve Normal pulmonic valve. Great Vessels Normal aortic root. Normal arch. Normal inferior vena cava. Inferior vena cava collapse with sniff. Pericardium/Pleural No pericardial effusion. MMode/2D Measurements & Calculations LVIDd: 3.6 cm IVSd: 1.0 cm Ao root diam: 3.0 cm LVIDs: 2.7 cm LVPWd: 0.86 cm RVDd: 3.5 cm FS: 25.2 % LAV(MOD-bp): 45.3 ml LVAd ap4: 21.8 cm2 SV(MOD-sp4): 32.5 ml LAV(MOD-bp) Indexed: 25.1 ml/m2 EDV(MOD-sp4): 55.7 ml LAV(MOD-sp2): 40.9 ml EDV(sp4-el): 56.6 ml LAV(MOD-sp4): 48.2 ml LVAs ap4: 12.7 cm2 ESV(MOD-sp4): 23.2 ml ESV(sp4-el): 23.3 ml EF(MOD-sp4): 58.4 % EF(sp4-el): 58.8 % SV(sp4-el): 33.3 ml LA A4 area: 16.6 cm2 LA dimension(2D): 2.3 cm RA A4 area: 11.8 cm2 Doppler Measurements & Calculations MV E max jorje: 81.2 cm/sec Lat Peak E' Jorje: 8.9 cm/sec Med Peak E' Jorje: 7.9 cm/sec MV A max jorje: 71.8 cm/sec E/E' lat: 9.2 E/E' med: 10.3 MV E/A: 1.1 Ao V2 max: 142.4 cm/sec LV V1 max: 96.6 cm/sec PA V2 max: 76.1 cm/sec Ao max P.1 mmHg LV V1 max P.7 mmHg Interpretation Summary The estimated ejection fraction is 65 %. Unable to estimate RV systolic pressure due to insufficient tricuspid regurgitant envelope. Trivial aortic valve insufficiency. Compared to echo report dated 11/07/2019, no appreciable changes noted. Ordering Physician: Pedro Gordon Performed By: Gudelia Snow RDCS
[2020-03-30] MEDS: 0.9% Normal Saline 1,000 ML 75 ML IV ×2 (10:24→23:17)
[2020-03-30] MEDS: Vancomycin IV 1,000 MG/200 ML BAG 200 MG IV ×2 (10:26→22:11)
[2020-03-30] MEDS: guaiFENesin 1,200 MG Tablet 1200 MG PO ×2 (10:28→22:57)
[2020-03-30] MEDS: oxyCODONE 5 MG Tablet PO (10:28)
[2020-03-30] MEDS: Aspirin E.C. 81 MG Tablet PO (10:28)
[2020-03-30 10:29] LABS: Fibrinogen 764 mg/dl (203-444)
[2020-03-30] MEDS: Polyethylene Glycol 3350 17 GM PACKET PO (10:30)
[2020-03-30] MEDS: Enoxaparin 60 MG/0.6 ML Syringe SC ×2 (10:30→21:44)
[2020-03-30 10:42] LABS: D-Dimer Quantitative (DVT/PE) 2.98 FEU/ug/m (0.27-0.49)
[2020-03-30 11:29] LABS: AST(SGOT) 22 U/L (15-37); Alanine Aminotransfer ALT/SGPT 41 U/L (16-61); Albumin, Serum 1.7 g/dL (3.2-5.0); Alkaline Phosphatase 89 U/L (45-117); Bilirubin, Direct 0.23 mg/dL (0.00-0.30); CPK Total, Creatine Kinase 22 U/L (39-308); Globulin 3.4 g/dL (2.2-4.2); LDH 172 U/L (87-241); Protein, Total 5.1 g/dL (6.4-8.2); Thyroid Stim Hormone (TSH) 0.94 uIU/mL (0.358-3.74)
--- NOTE | 2020-03-30 11:38 | CT_ITS ---
STUDY: CTA CHEST REASON FOR EXAM: Male, 60 years old. ELEVATED DDIMER, HX LUNG CA, COPD RADIATION DOSAGE (If Supplied By Facility): CTDIvol = ( 9.57 ) mGy, DLP = ( 355.81 ) mGycm TECHNIQUE: The examination was performed with the intravenous administration of 100ML ISOVUE 370. Post-processing of the angiographic images was performed, with multiplanar reformation and 3D reconstruction. Individualized dose optimization techniques were used for this CT. COMPARISON: 01/25/2020 FINDINGS: There is no evidence of pulmonary embolus. There is no evidence of thoracic aortic aneurysm or dissection. There is stable diffuse emphysematous changes with multiple large blebs in the upper lobes. Again noted are air-fluid levels within blebs in the lung apices. There is stable consolidation in the right upper lobe. When compared with the prior exam, there is new consolidation throughout the left lung. This is likely infectious in etiology. There is no pneumothorax. The heart and pericardium are within normal limits. There is no thoracic lymphadenopathy. 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 There are degenerative changes noted in the spine. CT/CTA Chest W/WO Contrast IMPRESSION: No evidence of pulmonary embolus. No evidence of thoracic aortic aneurysm or dissection. New consolidation throughout the left lung which is likely infectious in etiology. The remainder of the pulmonary parenchymal findings are unchanged. 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 If indicated, a CT angiogram of the abdomen can be performed. Electronically Signed: Diego Natarajan, at 15:50 EDT Tel , Service support ,
[2020-03-30 11:42] LABS: Procalcitonin 0.53 ng/mL (0.00-0.09)
[2020-03-30] MEDS: Morphine 2 MG/ML Syringe IV (12:31)
--- NOTE | 2020-03-30 12:47 | PCM.RX.CS ---
Consult Pharmacy has been consulted to manage selected antiobiotic: Vancomycin Type of Consult: New start Labs: Sodium 128 mmol/L (136-145) L 03/30/20 06:40 Potassium 3.7 mmol/L (3.5-5.1) 03/30/20 06:40 Chloride 93 mmol/L (98-107) L 03/30/20 06:40 Carbon Dioxide 28.0 mmol/L (21.0-32.0) 03/30/20 06:40 Anion Gap 7 (5-15) 03/30/20 06:40 BUN 16 mg/dL (7-18) 03/30/20 06:40 Creatinine 0.37 mg/dL (0.70-1.30) L 03/30/20 06:40 Est GFR (MDRD) Af Amer 307 mL/min (>60) 03/30/20 06:40 Est GFR (MDRD) Non-Af 254 mL/min (>60) 03/30/20 06:40 BUN/Creatinine Ratio 42.8 RATIO (10-20) H 03/30/20 06:40 Glucose 96 mg/dL (74-106) 03/30/20 06:40 Weight used for dosin kg Estimated Creatinine Clearance: 80-90 mL/m Goal Trough: 15-20 mcg/mL Pharmacy Plan for Drug Dosing: Hard to calculate CrCl due to current SCr. Recommend 1000mg IV q12h - as close to policy as possible - with trough prior to 4th dose. Pharmacy Service will continue to monitor and adjust dosing as required. Follow-Up Labs: Trough Vancomycin - 03/31 @ 2230
[2020-03-30] MEDS: Baclofen 10 MG Tablet 5 MG PO ×2 (14:36→21:43)
[2020-03-30] MEDS: Sucralfate 1 GM Tablet PO ×2 (14:36→21:43)
--- NOTE | 2020-03-30 16:15 | CASEMGMT ---
RN CM [facility] CM to room to meet with patient for initial transition planning/care coordination assessment. RN DOYLE introduced self and role at [facility]. Pt voices understanding and consents to assessment at this time. Pt sitting up in chair in room in no distress at this time. Pt is A/O at this time and answers all questions appropriately. Care providers, pharmacy, and demographics verified at this time. PCP: Pauline Walden [facility] Specialists: Dr German--oncology Preferred Pharmacy: [facility] Insurance: [employer] Prescription Benefit: Yes Living Will/HPOA: States does not have LW or HCPOA . Interested in more information but states does not want to talk with SW at this time to complete paperwork. Provided information on advanced directives and given Social Service rac card with number to call if chooses in the future to utilize [facility] social work for advanced directive completion. LNOK: Has 2 brothers, one is Get, who pt states helps him/is supportive. Living Arrangements: Lives in mobile home w/4 steps to enter w/rails. Pt's significant other, Meenakshi, lives w/him. Meenakshi had a stroke approx 5 yrs ago and has limitations/not able to help pt a lot. Pt states he is mostly independent w/ADL's, but has been more weak the past couple of months and it is taking him more time to complete tasks, but states, I manage. He states he and Meenakshi share home mgmt tasks and help each other out as much as we can Transportation: Pt states drives self and states no transportation concerns at this time. Brother, Get, will take him home @ D/C DME: Has a nebulizer. No home O2. Given list of local DME companies and preference is [facility] if he qualifies for O2 @ d/c. Pt states no need for further DME at this time. HHC/SNF: No history of either. Pt wishes to return home and states has no concerns with going home at time of discharge. Pt does not want HHC or OP therapy. He was made aware, if in the future, he decides he would like either, to discuss this with his PCP. Pt voices understanding. Staff to follow for home oxygen needs and any further discharge planning/needs. Pt voices no further concerns/needs at this time. Advised pt to ask for CM if any further questions/concerns/needs arise. Voices understanding. PLAN: Home. Pt may qualify for Home O2 @ discharge. [facility] [place] [facility]. Regulo BERRIOSN RN CM
[2020-03-30] MEDS: Lisinopril 20 MG Tablet PO (21:43)
[2020-03-30] MEDS: Ipratropium 0.5 MG/2.5 ML SOLUTION INHALATION (23:45)
[2020-03-31] VITALS (21 sets, daily range): BP systolic 102–123; BP diastolic 55–73; PULSE 95–117; RESP 16–24; TEMP 36.6–37.3; O2SAT 94–98
[2020-03-31] MEDS: oxyCODONE 5 MG Tablet PO ×2 (02:41→17:31)
[2020-03-31 06:11] LABS: Absolute Lymphocyte Count 0.58 X10^3/uL (0.83-4.51); Absolute Neutrophil Count 25.1 X10^3/uL (2.0-7.7); Basophil# 0.04 X10^3/uL; Basophil% 0.1 % (0-1); Eosinophil# 0.26 X10^3/uL; Hematocrit 26.8 % (40-54); Hemoglobin 8.7 g/dL (13.0-16.5); Lymphocyte # 0.58 X10^3/ul (4.0); Lymphocyte % 2.2 % (19-41); Mean Corp Hgb Conc 32.5 g/dL (32-36); Mean Corpuscular Hgb 28.9 pg (27.0-32.0); Mean Platelet Vol. 8.6 fl (6.2-12.0); Monocyte# 0.43 X10^3/uL; Monocyte% 1.6 % (0-10); NRBC Flagged by Analyzer 0 % (0-5); Neutrophil # 25.09 X10^3/uL (2.7-7.7); Neutrophil % 93.2 % (47-70); POSITIVE DIFFERENTIAL YES; POSITIVE MORPHOLOGY YES; Platelet Count 304 K/mm3 (150-450); RBC Distribution Width CV 21.2 % (11.6-14.6); RBC Distribution Width SD 67.8 fl (35.1-43.9); Red Blood Count 3.01 M/mm3 (4.6-6.2); White Blood Count 26.9 K/mm3 (4.4-11.0)
[2020-03-31 06:12] LABS: Differential Indicated SCAN CRITERIA MET
[2020-03-31] MEDS: Baclofen 10 MG Tablet 5 MG PO ×3 (06:19→22:24)
[2020-03-31] MEDS: Sucralfate 1 GM Tablet PO ×4 (06:19→22:23)
[2020-03-31 06:29] LABS: D-Dimer Quantitative (DVT/PE) 3.15 FEU/ug/m (0.27-0.49)
[2020-03-31 06:44] LABS: Differential Comment SCANNED
[2020-03-31 06:48] LABS: Schistocytes RARE
[2020-03-31 06:50] LABS: Anisocytosis 1+
[2020-03-31 06:54] LABS: ALB/GLOB Ratio 0.4 RATIO (0.9-2.4); AST(SGOT) 21 U/L (15-37); Alanine Aminotransfer ALT/SGPT 33 U/L (16-61); Albumin, Serum 1.4 g/dL (3.2-5.0); Alkaline Phosphatase 78 U/L (45-117); Anion Gap 9 (5-15); BUN 14 mg/dL (7-18); BUN/Creat Ratio 48.6 RATIO (10-20); Calcium,Total 7.5 mg/dL (8.5-10.1); Chloride 94 mmol/L (98-107); Creatinine, Serum 0.29 mg/dL (0.70-1.30); EST Glomerular Filtration Rate 343 mL/min (>60); Est Glom Filt Rate - Afr Amer 415 mL/min (>60); Estimated Creatinine Clearance 248.59 ml/min; Globulin 3.5 g/dL (2.2-4.2); Glucose 106 mg/dL (74-106); Potassium 3.2 mmol/L (3.5-5.1); Protein, Total 4.9 g/dL (6.4-8.2); Sodium Level 127 mmol/L (136-145)
[2020-03-31] MEDS: Budesonide Respules 0.5 MG/2 ML AMPUL.NEB. INHALATION ×2 (07:04→19:07)
[2020-03-31] MEDS: Ipratropium 0.5 MG/2.5 ML SOLUTION INHALATION ×2 (07:05→19:07)
--- NOTE | 2020-03-31 07:22 | PN_ITS ---
Patient Problems: Active and Suspected Problems (Last Reviewed 03/30/20 @ 11:[address] Pedro Gordon MD) Afib (Acute) Encounter for education (Acute) Malnutrition (Acute) Reason for Visit: Pneumonia with suspected MDR ?A. fib with RVR Subjective: Patient is a 60-year-old gentleman who presented with progressive shortness of breath as well as palpitations. An assessment of pneumonia with suspected [id number] was made. Patient in addition was found to be in A. fib with RVR admitted initially to the intensive care unit where COVID 19 as it was ruled out. Underwent subsequent evaluation with CT of the chest which demonstrated New consolidation throughout the left lung which is likely in fectious in etiology. There was no PE. Objective: GENERAL: Dyspneic at rest HEENT: Atraumatic; EYES; Anicteric, Normal Conjunctiva NECK; supple, normal thyroid, RESPIRATORY: Diminished to auscultation CARDIOVASCULAR: Irregular S1-S2 tachycardic GI: soft, normoactive bowel sounds, : No Renal angle tenderness; EXTREMITIES: bipedal edema, no clubbing, MUSCULOSKELETAL: no muscle waisting NEURO: Awake; no lateralizing signs. SKIN: No Rash PSYCH; Flat affect Vitals/I&O's: Vital Signs Temp Pulse Resp BP Pulse Ox 99.1 F 101 H 20 H 110/70 94 03/31/20 05:00 03/31/20 06:00 03/31/20 06:00 03/31/20 06:00 03/31/20 06:00 Oxygen Flow Rate (L/min) 2 Oxygen Delivery Method Nasal Cannula Weight: 63.3 kg Body Mass Index (BMI) 17.9 Intake and Output for Last 24 Hours 03/29/20 03/30/20 03/31/20 23:59 23:59 23:59 Intake Total 2535.08 / 2550.08 872.5 / 872.5 Balance 2535.08 / 2550.08 872.5 / 872.5 Microbiology Past 72 Hours 03/30/20 21:50 Sputum, Expectorated/Coughed Gram Stain - Preliminary 03/30/20 10:45 Mucosa - Nasopharyngeal Respiratory Panel (PCR) - Final Laboratory Results 03/30/20 06:40: Differential Comment SCANNED, Hypochromasia RARE, Anisocytosis 1+, Schistocytes RARE 03/30/20 06:40: Fibrinogen 764 H, D-Dimer Quant (PE/DVT) 2.98 H* 03/30/20 06:40: B-Natriuretic Peptide 250.0 H 03/30/20 10:15: Total Bilirubin 0.40, Direct Bilirubin 0.23, AST 22, ALT 41, Al kaline Phosphatase 89, Lactate Dehydrogenase 172, Total Creatine Kinase 22 L, Troponin I 0.021, C-React Prot Ext Range 173.00 H, Total Protein 5.1 L, Albumin 1.7 L, Globulin 3.4, TSH 0.94 03/30/20 10:15: Lactic Acid 1.0 03/30/20 10:15: Procalcitonin 0.53 H 03/30/20 10:15: Troponin I 0.018 03/30/20 10:45: COVID-19 (ANA) Not Detected 03/30/20 14:30: Troponin I < 0.015 03/31/20 04:50: WBC 26.9 H, RBC 3.01 L, Hgb 8.7 L, Hct 26.8 L, MCV 89.0, MCH 28.9, MCHC 32.5, RDW Std Deviation 67.8 H, RDW Coeff of Rush 21.2 H, Plt Count 304, MPV 8.6, Immature Gran % (Auto) 1.900 H, Neut % (Auto) 93.2 H, Lymph % (Auto) 2.2 L, Hood % (Auto) 1.6, Eos % (Auto) 1.0, Baso % (Auto) 0.1, Absolute Neuts (auto) 25.1 H, Absolute Lymphs (auto) 0.58 L, Nucleated RBC % 0, Differential Comment SCANNED, Anisocytosis 1+, Schistocytes RARE 03/31/20 04:50: Sodium 127 L, Potassium 3.2 L, Chloride 94 L, Carbon Dioxide 24.0, Anion Gap 9, BUN 14, Creatinine 0.29 L, Estim Creat Clear Calc 248.59, Est GFR (MDRD) Af Amer 415, Est GFR (MDRD) Non-Af 343, BUN/Creatinine Ratio 48.6 H, Glucose 106, Calcium 7.5 L, Total Bilirubin 0.60, AST 21, ALT 33, Alkaline Phosphatase 78, Total Protein 4.9 L, Albumin 1.4 L, Globulin 3.5, Albumin/Globulin Ratio 0.4 L 03/31/20 04:50: D-Dimer Quant (PE/DVT) 3.15 H* Current Medications Acetaminophen (Tylenol) 650 mg PO Q6H PRN PRN PRN Reason: Pain Score 1-3 /Temp>100.7 Al Hydroxide/Mg Hydroxide (Mylanta Ii) 30 ml PO Q6H PRN PRN PRN Reason: Gastric Burning Amlodipine Besylate (Norvasc) 2.5 mg PO DAILY [facility] Aspirin (Ecotrin) 81 mg PO DAILY [facility] Last Admin: 03/30/20 10:28 Dose: 81 mg Documented by: Baclofen (Lioresal) 5 mg PO TID [facility] Last Admin: 03/31/20 06:19 Dose: 5 mg Documented by: Budesonide (Pulmicort Aerosol) 0.5 mg INHALATION Q12H.RT [facility] Last Admin: 03/31/20 07:04 Dose: 0.5 mg Documented by: Dexamethasone (Decadron) 4 mg PO DAILY@0800 [facility] Docusate Sodium (Colace) 200 mg PO BID PRN PRN PRN Reason: Constipation Enoxaparin Sodium (Lovenox) 60 mg SC Q12 [facility] Last Admin: 03/30/20 21:44 Dose: 60 mg Documented by: Ergocalciferol (Vitamin D) 50,000 unit PO SA [facility] Guaifenesin (Mucinex) 1,200 mg PO BID [facility] Last Admin: 03/30/20 22:57 Dose: 1,200 mg Documented by: Diltiazem HCl 125 mg/ Dextrose 125 mls @ 5 mls/hr IV .Q25H [facility]; Protocol Last Titration: 03/31/20 06:00 Dose: 15 mg/hr, 15 mls/hr Documented by: Sodium Chloride () 1,000 mls @ 75 mls/hr IV .[id number] [facility] Last Infusion: 03/31/20 06:19 Dose: 0 mls/hr Documented by: Cefepime HCl 2 gm/ Sodium (Chloride) 100 mls @ 200 mls/hr IV Q8 [facility] Stop: 04/06/20 14:01 Last Admin: 03/31/20 06:19 Dose: 200 mls/hr Documented by: Azithromycin 500 mg/ Dextrose 255 mls @ 250 mls/hr IV Q24 [facility] Stop: 04/04/20 10:01 Last Infusion: 03/30/20 11:46 Dose: Infused Documented by: Vancomycin IV Pharmacy to Dose (1 ea/ Sodium Chloride) 500 mls @ 250 mls/hr IV X1 PRN; Protocol PRN Reason: Rx to Dose Vancomycin HCl (Vancomycin) 1,000 mg in 200 mls @ 200 mls/hr IV Q12H [facility] Last Infusion: 03/30/20 23:11 Dose: Infused Documented by: Ipratropium Sims (Atrovent) 0.5 mg INHALATION BID.RT [facility] Last Admin: 03/31/20 07:05 Dose: 0.5 mg Documented by: Lidocaine/Diphenhydr/Alum/Mg/Simeth () 15 ml PO Q6H PRN PRN PRN Reason: Mouth Pain Lisinopril (Zestril) 20 mg PO QHS [facility] Last Admin: 03/30/20 21:43 Dose: 20 mg Documented by: Magnesium Hydroxide (Milk Of Magnesia) 30 ml PO DAILY PRN PRN PRN Reason: Constipation Melatonin (Melatonin) 3 mg PO QHS PRN PRN PRN Reason: INSOMNIA Morphine Sulfate () 2 - 4 mg IV Q3H PRN PRN PRN Reason: Pain Score 6-10/10 Last Admin: 03/30/20 12:31 Dose: 2 mg Documented by: Nutritional Formula (Lactose Free) (Ensure Enlive) 120 ml PO 4X/DAY [facility] Ondansetron HCl (Zofran) 4 mg IV Q8H PRN PRN PRN Reason: Nausea Oxycodone HCl (Oxyir) 5 mg PO Q4H PRN PRN PRN Reason: Pain Score 4-5/10 Last Admin: 03/31/20 02:41 Dose: 5 mg Documented by: Pantoprazole Sodium (Protonix) 20 mg PO DAILY PRN PRN PRN Reason: REFLUX Polyethylene Glycol (Miralax) 17 gm PO DAILY [facility] Last Admin: 03/30/20 10:30 Dose: 17 gm Documented by: Sodium Chloride () 10 - 40 ml IV UD PRN PRN Reason: SALINE FLUSH Sucralfate (Carafate) 1 gm PO 1HR_ACHS [facility] Last Admin: 03/31/20 06:19 Dose: 1 gm Documented by: STROKE Vital Signs/Narrative: Vital Signs Temp Pulse Resp BP Pulse Ox 03/31/20 06:00 101 H 20 H 110/70 94 03/31/20 05:00 99.1 F 105 H 20 H 107/68 96 03/31/20 04:00 101 H 19 H 121/71 H 95 Medical Necessity - Tobacco Use Smoking Status: Former smoker Assessment/Plan All Active Problems (Last Reviewed 03/30/20 @ 11:[address] Pedro Gordon MD) Afib (Acute) Pneumonia (Acute) Encounter for education (Acute) Malnutrition (Acute) Patient is a 60-year-old gentleman with multiple pulmonary comorbidities presented with shortness of breath and palpitations 1. Acute hypoxic respiratory failure -secondary to the combination of suspected pneumonia with zdsyi-[id number] organisms, underlying history of COPD and bronchiectasis as well as his lung CA admitted to the intensive care unit where patient is being managed with treatment of the underlying conditions with consultation placed to pulmonary medicine 2. Suspected pneumonia with multidrug resistant organisms ? Chest x-ray obtained demonstrated Left perihilar mass and left greater than right perihilar airspace disease, concerning for pneumonia, with marked biapical bullous emphysema similar to prior. Patient was started on cefepime, azithromycin as well as vancomycin after cultures have been obtained. Patient was also placed on the droplet and contact isolation pending results of COVID testing (patient has elevated markers of inflammation) -03/31/2020: CT of the chest obtained demonstrated new consolidation throughout the left lung which is likely infectious in etiology. Patient COVID 19 assay came back negative. 3. A. fib with RVR ?new onset started on Cardizem drip titrated to keep heart rate less than 100. As part of his management did obtain d-dimer cardiac enzymes as well as BNP. Patient d-dimer came back elevated ordered CTA to rule out underlyingVTE will also order 2D echo for assessment of his valves as well as any regional wall motion abnormalities as well as pulmonary pressures -03/31/2020: Patient converted back to sinus rhythm. EKG this a.m. demonstrated sinus tachycardia. Echo demonstrated EF of 65%. 4. Severe protein calorie malnutrition As evidenced by low BMI of 17.9, muscle wasting as well as decreased energy level consultation placed to dietitian 5. 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 COPD Did continue with patient aerosol treatment. Has underlying history of bullous emphysema 1 of which was infected in January 2020. CT of the chest has been ordered for subsequent evaluation 7. GERD ?On PPI 8. Anemia -secondary to anemia of chronic disorder 9. DVT prophylaxis ?Lovenox 10. Bilateral pedal edema Do suspect a combination of hyperlipidemia as well as underlying pulmonary hypertension from patient chronic lung disease. Patient did receive Lasix in addition to consultation being placed to dietitian 11. 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 Clinical Impression(s) from Imaging Studies Chest X-Ray 03/30/20 07:04 IMPRESSION: Left perihilar mass and left greater than right perihilar airspace disease, concerning for pneumonia, with marked biapical bullous emphysema similar to prior. Electronically Signed: Eagle Larose, at 8:12 EDT Tel , Service support , Chest CTA 03/30/20 11:38 IMPRESSION: No evidence of pulmonary embolus. No evidence of thoracic aortic aneurysm or dissection. New consolidation throughout the left lung which is likely infectious in etiology. The remainder of the pulmonary parenchymal findings are unchanged. 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 If indicated, a CT angiogram of the abdomen can be performed. Electronically Signed: Diego Natarajan, at 15:50 EDT Tel , Service support , Inpatient E&M: [id number] [facility]
--- NOTE | 2020-03-31 07:25 | CON.PCM_ITS ---
Reason for Consult Date of Consultation: 03/31/20 Reason for Consultation: Pneumonia History of Present Illness: The patient is a 60-year-old male, with a history as outlined below, who presented to the emergency department on March 30 with complaints of shortness of breath. The patient has a history of non-small cell lung cancer which is managed by Dr. German of oncology. The patient is also followed by Dr. Johnson of pulmonary medicine due to a history of stage II COPD. The patient was admitted to the hospital in January 2020, during which time, he was treated for a COPD exacerbation due to healthcare associated pneumonia/infected bullae. The patient was evaluated by infectious diseases at that time and placed on a prolonged p.o. antibiotic course with doxycycline and Augmentin. On presentation to the emergency department, the patient was noted to be afebrile but was profoundly tachycardic and tachypneic. Laboratory evaluation revealed an elevated white blood cell count of 30,000. D-dimer was elevated to 2.98. Chemistry profile revealed a sodium of 128 and chloride of 93. Lactate was within normal limits. Troponin was negative. Coronavirus PCR was negative. A CTA chest was obtained which showed no evidence for PE. However, significant bilateral emphysematous changes and bullae were noted bilaterally with extensive infiltration throughout the left lung. Areas of bronchiectasis were also noted. Air-fluid levels were again noted in the apical bullae. The patient was subsequently placed on scheduled bronchodilators and IV antibiotics. He was subsequently admitted to the progressive care unit for further management. Past Medical History Past Medical History (Chronic Problems): Chronic Problems (Last Reviewed 03/30/20 @ 11:[address] 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 Per C done 11/16/19 per BLANCAN @ [facility] Smoking greater than 40 pack years (Chronic) Stage 2 moderate COPD by GOLD classification (Chronic) FEV1 56% Alcoholic fatty liver (Chronic) Nicotine dependence (Chronic) Alcohol abuse (Chronic) GERD (gastroesophageal reflux disease) (Chronic) Vitamin D deficiency (Chronic) Hypertension (Chronic) Hyponatremia (Chronic) COPD (chronic obstructive pulmonary disease) (Chronic) Medical History: Medical History (Last Reviewed 03/30/20 @ 11:[address] Pedro Gordon MD) Smoking greater than 40 pack years (Chronic) F17.210 Stage 2 moderate COPD by GOLD classification (Chronic) J44.9 FEV1 56% Alcoholic fatty liver (Chronic) K70.0 Nicotine dependence (Chronic) F17.200 Alcohol abuse (Chronic) F10.10 GERD (gastroesophageal reflux disease) (Chronic) K21.9 Vitamin D deficiency (Chronic) E55.9 Hypertension (Chronic) I10 Hyponatremia (Chronic) E87.1 COPD (chronic obstructive pulmonary disease) (Chronic) J44.9 [place] Hypertension I10 Allergies No Known Allergies Allergy (Verified 03/28/20 11:00) Home Medications: Ambulatory Orders Medication Instructions Recorded Amlodipine [Norvasc] 2.5 mg PO DAILY 08/05/13 Lisinopril [Zestril] 20 mg PO QHS 08/05/13 Albuterol Sulfate [Ventolin Hfa] 2 puff IH Q4H PRN 05/05/16 Triamcinolone 0.1% Cream [Kenalog] 1 applic TP DAILY PRN 05/05/16 mometasone-formoterol HFA 200 2 puff INHALATION Q12H 05/07/18 mcg-5 mcg/actuation aerosol inhaler Ergocalciferol [Vitamin D] 50,000 unit PO SA 07/22/18 albuterol sulfate 2.5 mg INHALATION Q4H PRN #180 ml 06/16/19 Aclidinium Lando [Tudorza 1 inh INHALATION BID 10/13/19 Pressair] aspirin 81 mg tablet,delayed 81 mg PO DAILY #30 tab 10/25/19 release Magic Mouth Wash 15 ml PO Q6H PRN PRN #300 ml 12/07/19 Senna [Senokot] 2 tab PO DAILY #60 tab 01/04/20 Morphine Sulfate 10 mg PO Q4H PRN PRN #14 solution 01/12/20 Sucralfate [Carafate] 1 gm PO 4X/DAY #120 udc 01/12/20 Baclofen 5 mg PO TID #30 tab 01/24/20 Amoxicillin/Potassium Clav 1 ea PO BID #60 tab 02/02/20 [Augmentin 875-125 Tablet] Doxycycline 100 mg PO BID #60 cap 02/02/20 Ondansetron [Ondansetron Odt] 8 mg PO Q8H PRN PRN 10 Days #30 02/13/20 tab.rapdis Dexamethasone [Decadron] 4 mg PO DAILY@0800 #30 tab 03/14/20 food supplemt, lactose-reduced 1 ea PO TID #6399 ml 03/22/20 0.06 gram-1 kcal/mL oral liquid Esomeprazole Mag Trihydrate 20 mg PO DAILY PRN 03/30/20 [Nexium] Surgical History: Surgical History (Last Reviewed 03/28/20 @ 11:00 by Moon Le) History of left heart catheterization (Chronic) Onset Date: 11/16/19 Z98.890 LEFT MAIN: Angiographically normal; LEFT ANTERIOR DESCENDING ARTERY: PROX LAD: Moderate calcification, Mild luminal irregularities less than 30%; CIRCUMFLEX ARTERY: Mild luminal irregularities less than 30%; RIGHT CORONARY ARTERY: MID RCA: Mild calcification, Mild luminal irregularities less than 30%. Per [facility] done 11/16/19 per CRYSTAL @ [facility] Growth removed from throat Onset Date: ~[address] Springer Surgical History: - - Reviewed Psychiatric History: No pertinent psych hx Smoking Status: Former smoker Drugs: None - *Family History Maternal Family History: Family History (Last Reviewed 03/30/20 @ 11:[address] Pedro Gordon MD) Father Esophageal cancer Mother Lung cancer Diabetes Brother No problems noted. Brother CAD (coronary artery disease) Myocardial infarction Brother CAD (coronary artery disease) Myocardial infarction Other Cancer Hypertension Lung disease Review of Systems Constitutional: Denies: Chills, Fever, Weight Change Eyes: Denies: Blurred vision, Double vision HEENT: Denies: Head Aches, Sinus Congestion, Sinus Drainage Cardiovascular: Denies: Chest Pain, Palpitations Respiratory: Reports: Cough, Shortness of Breath, Sputum production Gastrointestinal: Denies: Abdominal Pain, Nausea, Vomiting Genitourinary: Denies: Dysuria Musculoskeletal: Denies: Joint Pain, Joint Tenderness Skin: Denies: Rash, Wounds Neurological: Denies: Numbness, Tingling, Focal weakness Psychiatric: Denies: Anxiety, Depression, Homicidal Ideations, Suicidal Ideations Hematologic/ Lymphatic: Denies: Easy Bruising, Easy Bleeding Patient Problems: Active and Suspected Problems (Last Reviewed 03/30/20 @ 11:[address] Pedro Gordon MD) Afib (Acute) Objective: The patient's most recent lab work, culture data and imaging studies have all been personally reviewed. Strep and urine Legionella antigens are pending. Respiratory viral panel was negative. Sputum culture is pending. - Physical Exam Vitals/I&O's: Vital Signs Temp Pulse Resp BP Pulse Ox 99.1 F 101 H 20 H 110/70 94 03/31/20 05:00 03/31/20 06:00 03/31/20 06:00 03/31/20 06:00 03/31/20 06:00 Oxygen Flow Rate (L/min) 2 Oxygen Delivery Method Nasal Cannula Weight: 139 lb 8.842 oz Body Mass Index (BMI) 17.9 Intake and Output for Last 24 Hours 03/29/20 03/30/20 03/31/20 23:59 23:59 23:59 Intake Total 2535.08 / 2550.08 872.5 / 872.5 Balance 2535.08 / 2550.08 872.5 / 872.5 General: Alert, Cooperative, No apparent distress, - - Sitting in bedside recliner HEENT: Atraumatic, PERRLA, Normocephalic Oral: No Gingival or Mucosal Lesions/ Ulcerations Neck: Supple, No Nodes, Trachea Midline Lungs: Diminished, Rales, Rhonchi, - - Frequent paroxysms of coughing Cardiovascular: Normal S1, Normal S2, Irregular Rate, Tachycardic Abdomen: Bowel Sounds Present, Soft, Non Tender Extremities: No clubbing, No cyanosis, No edema Skin: No breakdown Musculoskeletal: No Tenderness to Palpation of Joints or Extremities Lymphatic: No Cervical, Supraclavicular, or Inguinal Adenopathy Neurological: Neuro grossly intact Psych/Mental Status: Normal Affect, Appropriate Labs (Last 48 Hours) 03/30/20 03/30/20 03/30/20 06:40 06:40 06:40 WBC 29.6 H RBC 3.54 L Hgb 10.3 L Hct 31.2 L MCV 88.1 MCH 29.1 MCHC 33.0 RDW Std Deviation 66.6 H RDW Coeff of Rush 21.1 H Plt Count 362 MPV 8.2 Immature Gran % (Auto) 3.900 H Neut % (Auto) 88.7 H Lymph % (Auto) 2.8 L Lander % (Auto) 4.1 Eos % (Auto) 0.3 Baso % (Auto) 0.2 Absolute Neuts (auto) 26.3 H Absolute Lymphs (auto) 0.84 Nucleated RBC % 0.1 Differential Comment SCANNED Hypochromasia RARE Anisocytosis 1+ Schistocytes RARE PT 14.6 INR 1.2 APTT 30.6 Fibrinogen D-Dimer Quant (PE/DVT) Sodium 128 L Potassium 3.7 Chloride 93 L Carbon Dioxide 28.0 Anion Gap 7 BUN 16 Creatinine 0.37 L Estim Creat Clear Calc 198.23 Est GFR (MDRD) Af Amer 307 Est GFR (MDRD) Non-Af 254 BUN/Creatinine Ratio 42.8 H Glucose 96 Lactic Acid Calcium 7.9 L Total Bilirubin Direct Bilirubin AST ALT Alkaline Phosphatase Lactate Dehydrogenase Total Creatine Kinase Troponin I 0.027 C-React Prot Ext Range B-Natriuretic Peptide Total Protein Albumin Globulin Albumin/Globulin Ratio Procalcitonin TSH 1.03 COVID-19 (ANA) 03/30/20 03/30/20 03/30/20 06:40 06:40 10:15 WBC RBC Hgb Hct MCV MCH MCHC RDW Std Deviation RDW Coeff of Rush Plt Count MPV Immature Gran % (Auto) Neut % (Auto) Lymph % (Auto) Lander % (Auto) Eos % (Auto) Baso % (Auto) Absolute Neuts (auto) Absolute Lymphs (auto) Nucleated RBC % Differential Comment Hypochromasia Anisocytosis Schistocytes PT INR APTT Fibrinogen 764 H D-Dimer Quant (PE/DVT) 2.98 H* Sodium Potassium Chloride Carbon Dioxide Anion Gap BUN Creatinine Estim Creat Clear Calc Est GFR (MDRD) Af Amer Est GFR (MDRD) Non-Af BUN/Creatinine Ratio Glucose Lactic Acid Calcium Total Bilirubin 0.40 Direct Bilirubin 0.23 AST 22 ALT 41 Alkaline Phosphatase 89 Lactate Dehydrogenase 172 Total Creatine Kinase 22 L Troponin I 0.021 C-React Prot Ext Range 173.00 H B-Natriuretic Peptide 250.0 H Total Protein 5.1 L Albumin 1.7 L Globulin 3.4 Albumin/Globulin Ratio Procalcitonin TSH 0.94 COVID-19 (ANA) 03/30/20 03/30/20 03/30/20 10:15 10:15 10:15 WBC RBC Hgb Hct MCV MCH MCHC RDW Std Deviation RDW Coeff of Rush Plt Count MPV Immature Gran % (Auto) Neut % (Auto) Lymph % (Auto) Lander % (Auto) Eos % (Auto) Baso % (Auto) Absolute Neuts (auto) Absolute Lymphs (auto) Nucleated RBC % Differential Comment Hypochromasia Anisocytosis Schistocytes PT INR APTT Fibrinogen D-Dimer Quant (PE/DVT) Sodium Potassium Chloride Carbon Dioxide Anion Gap BUN Creatinine Estim Creat Clear Calc Est GFR (MDRD) Af Amer Est GFR (MDRD) Non-Af BUN/Creatinine Ratio Glucose Lactic Acid 1.0 Calcium Total Bilirubin Direct Bilirubin AST ALT Alkaline Phosphatase Lactate Dehydrogenase Total Creatine Kinase Troponin I 0.018 C-React Prot Ext Range B-Natriuretic Peptide Total Protein Albumin Globulin Albumin/Globulin Ratio Procalcitonin 0.53 H TSH COVID-19 (ANA) 03/30/20 03/30/20 03/31/20 10:45 14:30 04:50 WBC 26.9 H RBC 3.01 L Hgb 8.7 L Hct 26.8 L MCV 89.0 MCH 28.9 MCHC 32.5 RDW Std Deviation 67.8 H RDW Coeff of Rush 21.2 H Plt Count 304 MPV 8.6 Immature Gran % (Auto) 1.900 H Neut % (Auto) 93.2 H Lymph % (Auto) 2.2 L Lander % (Auto) 1.6 Eos % (Auto) 1.0 Baso % (Auto) 0.1 Absolute Neuts (auto) 25.1 H Absolute Lymphs (auto) 0.58 L Nucleated RBC % 0 Differential Comment SCANNED Hypochromasia Anisocytosis 1+ Schistocytes RARE PT INR APTT Fibrinogen D-Dimer Quant (PE/DVT) Sodium Potassium Chloride Carbon Dioxide Anion Gap BUN Creatinine Estim Creat Clear Calc Est GFR (MDRD) Af Amer Est GFR (MDRD) Non-Af BUN/Creatinine Ratio Glucose Lactic Acid Calcium Total Bilirubin Direct Bilirubin AST ALT Alkaline Phosphatase Lactate Dehydrogenase Total Creatine Kinase Troponin I < 0.015 C-React Prot Ext Range B-Natriuretic Peptide Total Protein Albumin Globulin Albumin/Globulin Ratio Procalcitonin TSH COVID-19 (ANA) Not Detected 03/31/20 03/31/20 04:50 04:50 WBC RBC Hgb Hct MCV MCH MCHC RDW Std Deviation RDW Coeff of Rush Plt Count MPV Immature Gran % (Auto) Neut % (Auto) Lymph % (Auto) Lander % (Auto) Eos % (Auto) Baso % (Auto) Absolute Neuts (auto) Absolute Lymphs (auto) Nucleated RBC % Differential Comment Hypochromasia Anisocytosis Schistocytes PT INR APTT Fibrinogen D-Dimer Quant (PE/DVT) 3.15 H* Sodium 127 L Potassium 3.2 L Chloride 94 L Carbon Dioxide 24.0 Anion Gap 9 BUN 14 Creatinine 0.29 L Estim Creat Clear Calc 248.59 Est GFR (MDRD) Af Amer 415 Est GFR (MDRD) Non-Af 343 BUN/Creatinine Ratio 48.6 H Glucose 106 Lactic Acid Calcium 7.5 L Total Bilirubin 0.60 Direct Bilirubin AST 21 ALT 33 Alkaline Phosphatase 78 Lactate Dehydrogenase Total Creatine Kinase Troponin I C-React Prot Ext Range B-Natriuretic Peptide Total Protein 4.9 L Albumin 1.4 L Globulin 3.5 Albumin/Globulin Ratio 0.4 L Procalcitonin TSH COVID-19 (ANA) Microbiology 03/30/20 21:50 Sputum, Expectorated/Coughed Gram Stain - Preliminary 03/30/20 10:45 Mucosa - Nasopharyngeal Respiratory Panel (PCR) - Final Clinical Impression(s) from Imaging Studies Chest X-Ray 03/30/20 07:04 IMPRESSION: Left perihilar mass and left greater than right perihilar airspace disease, concerning for pneumonia, with marked biapical bullous emphysema similar to prior. Electronically Signed: Eagle Larose, at 8:12 EDT Tel , Service support , Chest CTA 03/30/20 11:38 IMPRESSION: No evidence of pulmonary embolus. No evidence of thoracic aortic aneurysm or dissection. New consolidation throughout the left lung which is likely infectious in etiology. The remainder of the pulmonary parenchymal findings are unchanged. 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 If indicated, a CT angiogram of the abdomen can be performed. Electronically Signed: Diego Natarajan, at 15:50 EDT Tel , Service support , Current Medications Acetaminophen (Tylenol) 650 mg PO Q6H PRN PRN PRN Reason: Pain Score 1-3 /Temp>100.7 Al Hydroxide/Mg Hydroxide (Mylanta Ii) 30 ml PO Q6H PRN PRN PRN Reason: Gastric Burning Amlodipine Besylate (Norvasc) 2.5 mg PO DAILY [facility] Aspirin (Ecotrin) 81 mg PO DAILY [facility] Last Admin: 03/30/20 10:28 Dose: 81 mg Documented by: Baclofen (Lioresal) 5 mg PO TID [facility] Last Admin: 03/31/20 06:19 Dose: 5 mg Documented by: Budesonide (Pulmicort Aerosol) 0.5 mg INHALATION Q12H.RT [facility] Last Admin: 03/31/20 07:04 Dose: 0.5 mg Documented by: Dexamethasone (Decadron) 4 mg PO DAILY@0800 [facility] Docusate Sodium (Colace) 200 mg PO BID PRN PRN PRN Reason: Constipation Enoxaparin Sodium (Lovenox) 60 mg SC Q12 [facility] Last Admin: 03/30/20 21:44 Dose: 60 mg Documented by: Ergocalciferol (Vitamin D) 50,000 unit PO SA [facility] Guaifenesin (Mucinex) 1,200 mg PO BID [facility] Last Admin: 03/30/20 22:57 Dose: 1,200 mg Documented by: Diltiazem HCl 125 mg/ Dextrose 125 mls @ 5 mls/hr IV .Q25H [facility]; Protocol Last Titration: 03/31/20 06:00 Dose: 15 mg/hr, 15 mls/hr Documented by: Sodium Chloride () 1,000 mls @ 75 mls/hr IV .[id number] [facility] Last Infusion: 03/31/20 06:19 Dose: 0 mls/hr Documented by: Cefepime HCl 2 gm/ Sodium (Chloride) 100 mls @ 200 mls/hr IV Q8 [facility] Stop: 04/06/20 14:01 Last Admin: 03/31/20 06:19 Dose: 200 mls/hr Documented by: Azithromycin 500 mg/ Dextrose 255 mls @ 250 mls/hr IV Q24 [facility] Stop: 04/04/20 10:01 Last Infusion: 03/30/20 11:46 Dose: Infused Documented by: Vancomycin IV Pharmacy to Dose (1 ea/ Sodium Chloride) 500 mls @ 250 mls/hr IV X1 PRN; Protocol PRN Reason: Rx to Dose Vancomycin HCl (Vancomycin) 1,000 mg in 200 mls @ 200 mls/hr IV Q12H [facility] Last Infusion: 03/30/20 23:11 Dose: Infused Documented by: Ipratropium Lando (Atrovent) 0.5 mg INHALATION BID.RT [facility] Last Admin: 03/31/20 07:05 Dose: 0.5 mg Documented by: Lidocaine/Diphenhydr/Alum/Mg/Simeth () 15 ml PO Q6H PRN PRN PRN Reason: Mouth Pain Lisinopril (Zestril) 20 mg PO QHS [facility] Last Admin: 03/30/20 21:43 Dose: 20 mg Documented by: Magnesium Hydroxide (Milk Of Magnesia) 30 ml PO DAILY PRN PRN PRN Reason: Constipation Melatonin (Melatonin) 3 mg PO QHS PRN PRN PRN Reason: INSOMNIA Morphine Sulfate () 2 - 4 mg IV Q3H PRN PRN PRN Reason: Pain Score 6-10/10 Last Admin: 03/30/20 12:31 Dose: 2 mg Documented by: Nutritional Formula (Lactose Free) (Ensure Enlive) 120 ml PO 4X/DAY [facility] Ondansetron HCl (Zofran) 4 mg IV Q8H PRN PRN PRN Reason: Nausea Oxycodone HCl (Oxyir) 5 mg PO Q4H PRN PRN PRN Reason: Pain Score 4-5/10 Last Admin: 03/31/20 02:41 Dose: 5 mg Documented by: Pantoprazole Sodium (Protonix) 20 mg PO DAILY PRN PRN PRN Reason: REFLUX Polyethylene Glycol (Miralax) 17 gm PO DAILY [facility] Last Admin: 03/30/20 10:30 Dose: 17 gm Documented by: Sodium Chloride () 10 - 40 ml IV UD PRN PRN Reason: SALINE FLUSH Sucralfate (Carafate) 1 gm PO 1HR_ACHS [facility] Last Admin: 03/31/20 06:19 Dose: 1 gm Documented by: Assessment/Plan All Active Problems (Last Reviewed 03/30/20 @ 11:[address] Pedro Gordon MD) Afib (Acute) Pneumonia (Acute) Encounter for education (Acute) Malnutrition (Acute) RECOMMENDATIONS: 1. Agree with broad antimicrobial coverage for now. 2. Await sputum culture results. 3. Agree with infectious diseases consultation. 4. Continue scheduled bronchodilators and inhaled corticosteroid. 5. Continue Decadron. 6. Wean supplemental oxygen as tolerated. IMPRESSIONS: 1. Acute hypoxemic respiratory insufficiency The patient appears to have progressive infiltrate throughout the left lung along with evidence suggestive of infected bullae, despite outpatient treatment with p.o. antibiotics. Repeat infectious work-up is currently underway. Broad- spectrum antimicrobials will be continued for now. Supplemental oxygen can be weaned to maintain saturations at or above 90%. Agree with obtaining infectious diseases consultation. 2. New onset atrial fibrillation with RVR The patient was initially managed symptomatically with rate control strategy, only did convert back to normal sinus rhythm on March 31. Continue current medical management. 3. History of non-small cell lung cancer/nicotine dependence in remission/GERD/protein calorie malnutrition Complicates care, management, recovery and prognosis. Continue home medications as indicated. This note was generated with [employer] dictation software. It may contain incorrect words, spelling, and punctuation that were not noted in checking the note bef ore signing. Inpatient E&M: 23144 Init Hosp L3
--- NOTE | 2020-03-31 07:31 | PCM.RX.CS ---
Consult Pharmacy has been consulted to manage selected antiobiotic: Vancomycin Type of Consult: Follow-up Labs: Sodium 127 mmol/L (136-145) L 03/31/20 04:50 Potassium 3.2 mmol/L (3.5-5.1) L 03/31/20 04:50 Chloride 94 mmol/L (98-107) L 03/31/20 04:50 Carbon Dioxide 24.0 mmol/L (21.0-32.0) 03/31/20 04:50 Anion Gap 9 (5-15) 03/31/20 04:50 BUN 14 mg/dL (7-18) 03/31/20 04:50 Creatinine 0.29 mg/dL (0.70-1.30) L 03/31/20 04:50 Est GFR (MDRD) Af Amer 415 mL/min (>60) 03/31/20 04:50 Est GFR (MDRD) Non-Af 343 mL/min (>60) 03/31/20 04:50 BUN/Creatinine Ratio 48.6 RATIO (10-20) H 03/31/20 04:50 Glucose 106 mg/dL (74-106) 03/31/20 04:50 Microbiology: Microbiology 03/30/20 21:50 Sputum, Expectorated/Coughed Gram Stain - Preliminary 03/30/20 10:45 Mucosa - Nasopharyngeal Respiratory Panel (PCR) - Final Goal Trough: 15-20 mcg/mL Pharmacy Plan for Drug Dosing: DAILY ASSESSMENT Current Vancomcyin Dose: 1000mg q12h (-) Number of Doses Received: x1 03/30 at 1145 Current Renal Function: 0.29 Renal Function Trend: improving Lab/Micro: Any Change in Vanc Plan: per previous visit, will increase dose to 1250mg q8h (12-06-18) Pending Level: 04/01/20 @ 1030 Pharmacy Service will continue to monitor and adjust dosing as required. Follow-Up Labs: Trough Vancomycin - 04/01 @ 1030
--- NOTE | 2020-03-31 07:40 | EKG12_ITS ---
Test Reason : SINUS TACH Blood Pressure : / mmHG Vent. Rate : 112 BPM Atrial Rate : 112 BPM P-R Int : 158 ms QRS Dur : 068 ms QT Int : 340 ms P-R-T Axes : 066 062 044 degrees QTc Int : 464 ms Sinus tachycardia with Premature supraventricular complexes Low Voltage QRS (Limb Leads) Confirmed by AISHA HERNANDEZ, SHANTELLE ([id number]), web editor NIKI LOVELACE ([id number]) on 04/04/2020 10:39:21 AM Referred By: RUCHI Confirmed By:SHANTELLE LEONARD MD
[2020-03-31] MEDS: 0.9% Saline Lock 10 ML Syringe IV ×2 (08:38→09:42)
[2020-03-31] MEDS: Furosemide 100 MG/10 ML Vial 80 MG IV (08:38)
[2020-03-31] MEDS: guaiFENesin 1,200 MG Tablet 1200 MG PO ×2 (09:41→22:24)
[2020-03-31] MEDS: Aspirin E.C. 81 MG Tablet PO (09:41)
[2020-03-31] MEDS: dexAMETHasone 4 MG Tablet PO (09:41)
[2020-03-31] MEDS: amLODIPine 2.5 MG Tablet PO (09:41)
[2020-03-31] MEDS: dilTIAZem CD 180 MG Capsule PO (09:41)
[2020-03-31] MEDS: Docusate Sodium 100 MG Capsule 200 MG PO (10:55)
[2020-03-31] MEDS: APIXABAN 5 MG TABLET PO ×2 (10:55→22:24)
[2020-03-31] MEDS: Lisinopril 20 MG Tablet PO (22:31)
[2020-04-01] VITALS (12 sets, daily range): BP systolic 104–115; BP diastolic 66–72; PULSE 83–108; RESP 16–23; TEMP 36.4–36.7; O2SAT 96–99
[2020-04-01 05:55] LABS: Absolute Neutrophil Count 23.5 X10^3/uL (2.0-7.7); Basophil# 0.04 X10^3/uL; Basophil% 0.2 % (0-1); Eosinophil# 0.03 X10^3/uL; Eosinophils% 0.1 % (0-5); Hematocrit 26.9 % (40-54); Hemoglobin 8.8 g/dL (13.0-16.5); Mean Corp Hgb Conc 32.7 g/dL (32-36); Mean Corpuscular Hgb 28.9 pg (27.0-32.0); Mean Corpuscular Volume 88.5 fL (80-94); Mean Platelet Vol. 8.9 fl (6.2-12.0); Monocyte# 0.48 X10^3/uL; Monocyte% 1.9 % (0-10); NRBC Flagged by Analyzer 0 % (0-5); Neutrophil # 23.45 X10^3/uL (2.7-7.7); Neutrophil % 93.8 % (47-70); POSITIVE DIFFERENTIAL YES; POSITIVE MORPHOLOGY YES; Platelet Count 292 K/mm3 (150-450); RBC Distribution Width CV 20.3 % (11.6-14.6); RBC Distribution Width SD 65.4 fl (35.1-43.9); Red Blood Count 3.04 M/mm3 (4.6-6.2)
[2020-04-01 05:59] LABS: Differential Indicated SCAN CRITERIA MET
[2020-04-01] MEDS: Baclofen 10 MG Tablet 5 MG PO ×3 (06:07→21:46)
[2020-04-01] MEDS: Sucralfate 1 GM Tablet PO ×2 (06:07→21:45)
[2020-04-01 06:20] LABS: ALB/GLOB Ratio 0.4 RATIO (0.9-2.4); AST(SGOT) 21 U/L (15-37); Alanine Aminotransfer ALT/SGPT 35 U/L (16-61); Albumin, Serum 1.5 g/dL (3.2-5.0); Alkaline Phosphatase 87 U/L (45-117); Anion Gap 8 (5-15); BUN 16 mg/dL (7-18); BUN/Creat Ratio 60.8 RATIO (10-20); Calcium,Total 8.2 mg/dL (8.5-10.1); Chloride 95 mmol/L (98-107); Creatinine, Serum 0.26 mg/dL (0.70-1.30); Differential Comment SCANNED; EST Glomerular Filtration Rate 381 mL/min (>60); Est Glom Filt Rate - Afr Amer 461 mL/min (>60); Globulin 3.9 g/dL (2.2-4.2); Glucose 110 mg/dL (74-106); Hypochromasia RARE; Microcytosis RARE; Potassium 3.7 mmol/L (3.5-5.1); Protein, Total 5.4 g/dL (6.4-8.2); Sodium Level 128 mmol/L (136-145)
[2020-04-01] MEDS: Budesonide Respules 0.5 MG/2 ML AMPUL.NEB. INHALATION ×2 (06:39→19:19)
[2020-04-01] MEDS: Ipratropium 0.5 MG/2.5 ML SOLUTION INHALATION ×2 (06:40→19:20)
--- NOTE | 2020-04-01 07:32 | PCM.PN.PUL ---
Patient Problems: Active and Suspected Problems (Last Reviewed 03/30/20 @ 11:[address] Pedro Gordon MD) Afib (Acute) Subjective: The patient was seen and examined at the bedside this morning. Events from the last 24 hours have been reviewed. The patient is currently afebrile, hemodynamically stable and maintaining appropriate oxygen saturations on 2 L/min via nasal cannula. The patient does report some interval improvement in his shortness of breath this morning. He does report the presence of a cough, which has been intermittently productive of brown and yellow sputum. Objective: The patient's most recent lab work, culture data and imaging studies have all been personally reviewed. Surface echocardiogram revealed normal LV size and thickness with an ejection fraction of 65%. Strep and urine Legionella antigens were negative. Respiratory viral panel was negative. Blood and sputum cultures are pending. - Physical Exam Vitals/I&O's: Vital Signs Temp Pulse Resp BP Pulse Ox 98.0 F 91 19 H 107/72 97 04/01/20 02:51 04/01/20 07:24 04/01/20 02:51 04/01/20 02:51 04/01/20 02:51 Oxygen Flow Rate (L/min) 2 Oxygen Delivery Method Nasal Cannula Weight: 138 lb 14.259 oz Body Mass Index (BMI) 17.9 Intake and Output for Last 24 Hours 03/30/20 03/31/20 04/01/20 23:59 23:59 23:59 Intake Total 2535.08 / 2550.08 2486.25 / 2846.25 965 / 965 Balance 2535.08 / 2550.08 2486.25 / 2846.25 965 / 965 General: Alert, Cooperative, No apparent distress HEENT: Atraumatic, PERRLA, Normocephalic Oral: No Gingival or Mucosal Lesions/ Ulcerations Neck: Supple, No Nodes, Trachea Midline Lungs: Diminished, Rales - Left Base Cardiovascular: Regular rate, Regular Rhythm, Normal S1, Normal S2, - - Normal sinus rhythm on telemetry Abdomen: Bowel Sounds Present, Soft, Non Tender Extremities: No clubbing, No cyanosis, Edema - Lower extremity pitting Skin: No breakdown Musculoskeletal: No Tenderness to Palpation of Joints or Extremities Lymphatic: No Cervical, Supraclavicular, or Inguinal Adenopathy Neurological: Cranial nerves II-XII grossly intact, Neuro grossly intact Psych/Mental Status: Alert and oriented to time, place, person, mood and affect M Labs (Last 48 Hours) 03/30/20 03/30/20 03/30/20 06:40 06:40 10:15 WBC RBC Hgb Hct MCV MCH MCHC RDW Std Deviation RDW Coeff of Rush Plt Count MPV Immature Gran % (Auto) Neut % (Auto) Lymph % (Auto) [place] % (Auto) Eos % (Auto) Baso % (Auto) Absolute Neuts (auto) Absolute Lymphs (auto) Nucleated RBC % Differential Comment Hypochromasia Anisocytosis Microcytosis Schistocytes Fibrinogen 764 H D-Dimer Quant (PE/DVT) 2.98 H* Sodium Potassium Chloride Carbon Dioxide Anion Gap BUN Creatinine Estim Creat Clear Calc Est GFR (MDRD) Af Amer Est GFR (MDRD) Non-Af BUN/Creatinine Ratio Glucose Lactic Acid Calcium Total Bilirubin 0.40 Direct Bilirubin 0.23 AST 22 ALT 41 Alkaline Phosphatase 89 Lactate Dehydrogenase 172 Total Creatine Kinase 22 L Troponin I 0.021 C-React Prot Ext Range 173.00 H B-Natriuretic Peptide 250.0 H Total Protein 5.1 L Albumin 1.7 L Globulin 3.4 Albumin/Globulin Ratio Procalcitonin TSH 0.94 COVID-19 (ANA) 03/30/20 03/30/20 03/30/20 10:15 10:15 10:15 WBC RBC Hgb Hct MCV MCH MCHC RDW Std Deviation RDW Coeff of Rush Plt Count MPV Immature Gran % (Auto) Neut % (Auto) Lymph % (Auto) [place] % (Auto) Eos % (Auto) Baso % (Auto) Absolute Neuts (auto) Absolute Lymphs (auto) Nucleated RBC % Differential Comment Hypochromasia Anisocytosis Microcytosis Schistocytes Fibrinogen D-Dimer Quant (PE/DVT) Sodium Potassium Chloride Carbon Dioxide Anion Gap BUN Creatinine Estim Creat Clear Calc Est GFR (MDRD) Af Amer Est GFR (MDRD) Non-Af BUN/Creatinine Ratio Glucose Lactic Acid 1.0 Calcium Total Bilirubin Direct Bilirubin AST ALT Alkaline Phosphatase Lactate Dehydrogenase Total Creatine Kinase Troponin I 0.018 C-React Prot Ext Range B-Natriuretic Peptide Total Protein Albumin Globulin Albumin/Globulin Ratio Procalcitonin 0.53 H TSH COVID-19 (ANA) 03/30/20 03/30/2003/31/20 10:45 14:30 04:50 WBC 26.9 H RBC 3.01 L Hgb 8.7 L Hct 26.8 L MCV 89.0 MCH 28.9 MCHC 32.5 RDW Std Deviation 67.8 H RDW Coeff of Rush 21.2 H Plt Count 304 MPV 8.6 Immature Gran % (Auto) 1.900 H Neut % (Auto) 93.2 H Lymph % (Auto) 2.2 L [place] % (Auto) 1.6 Eos % (Auto) 1.0 Baso % (Auto) 0.1 Absolute Neuts (auto) 25.1 H Absolute Lymphs (auto) 0.58 L Nucleated RBC % 0 Differential Comment SCANNED Hypochromasia Anisocytosis 1+ Microcytosis Schistocytes RARE Fibrinogen D-Dimer Quant (PE/DVT) Sodium Potassium Chloride Carbon Dioxide Anion Gap BUN Creatinine Estim Creat Clear Calc Est GFR (MDRD) Af Amer Est GFR (MDRD) Non-Af BUN/Creatinine Ratio Glucose Lactic Acid Calcium Total Bilirubin Direct Bilirubin AST ALT Alkaline Phosphatase Lactate Dehydrogenase Total Creatine Kinase Troponin I < 0.015 C-React Prot Ext Range B-Natriuretic Peptide Total Protein Albumin Globulin Albumin/Globulin Ratio Procalcitonin TSH COVID-19 (ANA) Not Detected 03/31/20 03/31/20 04/01/20 04:50 04:50 04:58 WBC 25.0 H RBC 3.04 L Hgb 8.8 L Hct 26.9 L MCV 88.5 MCH 28.9 MCHC 32.7 RDW Std Deviation 65.4 H RDW Coeff of Rush 20.3 H Plt Count 292 MPV 8.9 Immature Gran % (Auto) 2.000 H Neut % (Auto) 93.8 H Lymph % (Auto) 2.0 L [place] % (Auto) 1.9 Eos % (Auto) 0.1 Baso % (Auto) 0.2 Absolute Neuts (auto) 23.5 H Absolute Lymphs (auto) 0.50 L Nucleated RBC % 0 Differential Comment SCANNED Hypochromasia RARE Anisocytosis Microcytosis RARE Schistocytes Fibrinogen D-Dimer Quant (PE/DVT) 3.15 H* Sodium 127 L Potassium 3.2 L Chloride 94 L Carbon Dioxide 24.0 Anion Gap 9 BUN 14 Creatinine 0.29 L Estim Creat Clear Calc 248.59 Est GFR (MDRD) Af Amer 415 Est GFR (MDRD) Non-Af 343 BUN/Creatinine Ratio 48.6 H Glucose 106 Lactic Acid Calcium 7.5 L Total Bilirubin 0.60 Direct Bilirubin AST 21 ALT 33 Alkaline Phosphatase 78 Lactate Dehydrogenase Total Creatine Kinase Troponin I C-React Prot Ext Range B-Natriuretic Peptide Total Protein 4.9 L Albumin 1.4 L Globulin 3.5 Albumin/Globulin Ratio 0.4 L Procalcitonin TSH COVID-19 (ANA) 04/01/20 04:58 WBC RBC Hgb Hct MCV MCH MCHC RDW Std Deviation RDW Coeff of Rush Plt Count MPV Immature Gran % (Auto) Neut % (Auto) Lymph % (Auto) [place] % (Auto) Eos % (Auto) Baso % (Auto) Absolute Neuts (auto) Absolute Lymphs (auto) Nucleated RBC % Differential Comment Hypochromasia Anisocytosis Microcytosis Schistocytes Fibrinogen D-Dimer Quant (PE/DVT) Sodium 128 L Potassium 3.7 Chloride 95 L Carbon Dioxide 25.0 Anion Gap 8 BUN 16 Creatinine 0.26 L Estim Creat Clear Calc 275.96 Est GFR (MDRD) Af Amer 461 Est GFR (MDRD) Non-Af 381 BUN/Creatinine Ratio 60.8 H Glucose 110 H Lactic Acid Calcium 8.2 L Total Bilirubin 0.40 Direct Bilirubin AST 21 ALT 35 Alkaline Phosphatase 87 Lactate Dehydrogenase Total Creatine Kinase Troponin I C-React Prot Ext Range B-Natriuretic Peptide Total Protein 5.4 L Albumin 1.5 L Globulin 3.9 Albumin/Globulin Ratio 0.4 L Procalcitonin TSH COVID-19 (ANA) Microbiology 03/30/20 21:50 Sputum, Expectorated/Coughed Gram Stain - Final 03/30/20 21:50 Sputum, Expectorated/Coughed Respiratory Culture - Preliminary Culture exhibits no growth. 03/31/20 06:55 Urine, Clean Catch Streptococcus pneumoniae Antigen (M - Final 03/31/20 06:55 Urine, Clean Catch Legionella Antigen - Final 03/30/20 10:45 Mucosa - Nasopharyngeal Respiratory Panel (PCR) - Final Clinical Impression(s) from Imaging Studies Chest X-Ray 03/30/20 07:04 IMPRESSION: Left perihilar mass and left greater than right perihilar airspace disease, concerning for pneumonia, with marked biapical bullous emphysema similar to prior. Electronically Signed: Eagle Larose, at 8:12 EDT Tel , Service support , Chest CTA 03/30/20 11:38 IMPRESSION: No evidence of pulmonary embolus. No evidence of thoracic aortic aneurysm or dissection. New consolidation throughout the left lung which is likely infectious in etiology. The remainder of the pulmonary parenchymal findings are unchanged. 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 If indicated, a CT angiogram of the abdomen can be performed. Electronically Signed: Diego Natarajan, at 15:50 EDT Tel , Service support , Current Medications Acetaminophen (Tylenol) 650 mg PO Q6H PRN PRN PRN Reason: Pain Score 1-3 /Temp>100.7 Al Hydroxide/Mg Hydroxide (Mylanta Ii) 30 ml PO Q6H PRN PRN PRN Reason: Gastric Burning Amlodipine Besylate (Norvasc) 2.5 mg PO DAILY [facility] Last Admin: 03/31/20 09:41 Dose: 2.5 mg Documented by: Apixaban (Eliquis) 5 mg PO BID [facility] Last Admin: 03/31/20 22:24 Dose: 5 mg Documented by: Aspirin (Ecotrin) 81 mg PO DAILY [facility] Last Admin: 03/31/20 09:41 Dose: 81 mg Documented by: Baclofen (Lioresal) 5 mg PO TID [facility] Last Admin: 04/01/20 06:07 Dose: 5 mg Documented by: Budesonide (Pulmicort Aerosol) 0.5 mg INHALATION Q12H.RT [facility] Last Admin: 04/01/20 06:39 Dose: 0.5 mg Documented by: Dexamethasone (Decadron) 4 mg PO DAILY@0800 [facility] Last Admin: 03/31/20 09:41 Dose: 4 mg Documented by: Diltiazem HCl (Cardizem Cd) 180 mg PO DAILY [facility] Last Admin: 03/31/20 09:41 Dose: 180 mg Documented by: Docusate Sodium (Colace) 200 mg PO BID PRN PRN PRN Reason: Constipation Last Admin: 07/04/20 10:55 Dose: 200 mg Documented by: Ergocalciferol (Vitamin D) 50,000 unit PO SA [facility] Last Admin: 03/31/20 09:41 Dose: 50,000 unit Documented by: Guaifenesin (Mucinex) 1,200 mg PO BID [facility] Last Admin: 03/31/20 22:24 Dose: 1,200 mg Documented by: Cefepime HCl 2 gm/ Sodium (Chloride) 100 mls @ 200 mls/hr IV Q8 [facility] Stop: 04/06/20 14:01 Last Infusion: 04/01/20 06:50 Dose: Infused Documented by: Azithromycin 500 mg/ Dextrose 255 mls @ 250 mls/hr IV Q24 [facility] Stop: 04/04/20 10:01 Last Infusion: 03/31/20 09:46 Dose: Infused Documented by: Vancomycin IV Pharmacy to Dose (1 ea/ Sodium Chloride) 500 mls @ 250 mls/hr IV X1 PRN; Protocol PRN Reason: Rx to Dose Vancomycin HCl 1,250 mg/ (Sodium Chloride) 275 mls @ 167 mls/hr IV Q8H [facility] Last Infusion: 04/01/20 04:50 Dose: Infused Documented by: Ipratropium [place] (Atrovent) 0.5 mg INHALATION BID.RT [facility] Last Admin: 04/01/20 06:40 Dose: 0.5 mg Documented by: Lidocaine/Diphenhydr/Alum/Mg/Simeth () 15 ml PO Q6H PRN PRN PRN Reason: Mouth Pain Lisinopril (Zestril) 20 mg PO QHS [facility] Last Admin: 03/31/20 22:31 Dose: 20 mg Documented by: Magnesium Hydroxide (Milk Of Magnesia) 30 ml PO DAILY PRN PRN PRN Reason: Constipation Melatonin (Melatonin) 3 mg PO QHS PRN PRN PRN Reason: INSOMNIA Morphine Sulfate () 2 - 4 mg IV Q3H PRN PRN PRN Reason: Pain Score 6-10/10 Last Admin: 03/30/20 12:31 Dose: 2 mg Documented by: Nutritional Formula (Lactose Free) (Ensure Enlive) 120 ml PO 4X/DAY [facility] Last Admin: 04/01/20 06:09 Dose: 120 ml Documented by: Ondansetron HCl (Zofran) 4 mg IV Q8H PRN PRN PRN Reason: Nausea Oxycodone HCl (Oxyir) 5 mg PO Q4H PRN PRN PRN Reason: Pain Score 4-5/10 Last Admin: 03/31/20 17:31 Dose: 5 mg Documented by: Pantoprazole Sodium (Protonix) 20 mg PO DAILY PRN PRN PRN Reason: REFLUX Polyethylene Glycol (Miralax) 17 gm PO DAILY [facility] Last Admin: 03/31/20 09:47 Dose: Not Given Documented by: Potassium Chloride (K-Dur) 20 meq PO BIDCM [facility] Last Admin: 03/31/20 17:31 Dose: 20 meq Documented by: Sodium Chloride () 10 - 40 ml IV UD PRN PRN Reason: SALINE FLUSH Last Admin: 03/31/20 09:42 Dose: 10 ml Documented by: Sucralfate (Carafate) 1 gm PO 1HR_ACHS [facility] Last Admin: 04/01/20 06:07 Dose: 1 gm Documented by: Medical Necessity - Tobacco Use Smoking Status: Former smoker Assessment/Plan All Active Problems (Last Reviewed 03/30/20 @ 11:[address] Pedro Gordon MD) Afib (Acute) Pneumonia (Acute) Encounter for education (Acute) Malnutrition (Acute) RECOMMENDATIONS: 1. Agree with broad antimicrobial coverage for now. 2. Await sputum culture results. If infectious work-up is unrevealing, patient may require bronchoscopy. 3. Agree with infectious diseases consultation. 4. Continue scheduled bronchodilators and inhaled corticosteroid. 5. Continue Decadron. 6. Wean supplemental oxygen as tolerated. IMPRESSIONS: 1. Acute hypoxemic respiratory insufficiency The patient appears to have progressive infiltrate throughout the left lung along with evidence suggestive of infected bullae, despite outpatient treatment with p.o. antibiotics. Repeat infectious work-up is currently underway. Broad-spectrum antimicrobials will be continued for now. Supplemental oxygen can be weaned to maintain saturations at or above 90%. Agree with obtaining infectious diseases consultation. If infectious work-up is unrevealing, patient may require bronchoscopic airway evaluation and bronchial alveolar lavage. 2. New onset atrial fibrillation with RVR Resolved. The patient was initially managed symptomatically with rate control strategy, only to convert back to normal sinus rhythm on March 31. Continue current medical management. 3. History of non-small cell lung cancer/nicotine dependence in remission/GERD/protein calorie malnutrition Complicates care, management, recovery and prognosis. Continue home medications as indicated. This note was generated with [employer]ative [employer] software. It may contain incorrect words, spelling, and punctuation that were not noted in checking the note before signing. Inpatient E&M: 59702 Subs Hosp L2
--- NOTE | 2020-04-01 07:45 | PCM.PN.HOSP ---
Patient Problems: Active and Suspected Problems (Last Reviewed 03/30/20 @ 11:[address] Pedro Gordon MD) Afib (Acute) Reason for Visit: Acute respiratory failure Subjective: Since seen report some improvement in overall condition. Has intermittent cough which is productive. Sodium levels remain low. Currently undergoing evaluation for suspected SIADH Objective: GENERAL: Dyspneic at rest HEENT: Atraumatic; EYES; Anicteric, Normal Conjunctiva NECK; supple, normal thyroid, RESPIRATORY: Diminished to auscultation CARDIOVASCULAR: Irregular S1-S2 tachycardic GI: soft, normoactive bowel sounds, : No Renal angle tenderness; EXTREMITIES: bipedal edema, no clubbing, MUSCULOSKELETAL: no muscle waisting NEURO: Awake; no lateralizing signs. SKIN: No Rash PSYCH; Flat affect Vitals/I&O's: Vital Signs Temp Pulse Resp BP Pulse Ox 98.0 F 91 19 H 107/72 97 04/01/20 02:51 04/01/20 07:24 04/01/20 02:51 04/01/20 02:51 04/01/20 02:51 Oxygen Flow Rate (L/min) 2 Oxygen Delivery Method Nasal Cannula Weight: 63 kg Body Mass Index (BMI) 17.9 Intake and Output for Last 24 Hours 03/30/20 03/31/20 04/01/20 23:59 23:59 23:59 Intake Total 2535.08 / 2550.08 2486.25 / 2846.25 965 / 965 Balance 2535.08 / 2550.08 2486.25 / 2846.25 965 / 965 Microbiology Past 72 Hours 03/30/20 21:50 Sputum, Expectorated/Coughed Gram Stain - Final 03/30/20 21:50 Sputum, Expectorated/Coughed Respiratory Culture - Preliminary Culture exhibits no growth. 03/31/20 06:55 Urine, Clean Catch Streptococcus pneumoniae Antigen (M - Final 03/31/20 06:55 Urine, Clean Catch Legionella Antigen - Final 03/30/20 10:45 Mucosa - Nasopharyngeal Respiratory Panel (PCR) - Final Laboratory Results 04/01/20 04:58: WBC 25.0 H, RBC 3.04 L, Hgb 8.8 L, Hct 26.9 L, MCV 88.5, MCH 28.9, MCHC 32.7, RDW Std Deviation 65.4 H, RDW Coeff of Rush 20.3 H, Plt Count 292, MPV 8.9, Immature Gran % (Auto) 2.000 H, Neut % (Auto) 93.8 H, Lymph % (Auto) 2.0 L, [place] % (Auto) 1.9, Eos % (Auto) 0.1, Baso % (Auto) 0.2, Absolute Neuts (auto) 23.5 H, Absolute Lymphs (auto) 0.50 L, Nucleated RBC % 0, Differential Comment SCANNED, Hypochromasia RARE, Microcytosis RARE 04/01/20 04:58: Sodium 128 L, Potassium 3.7, Chloride 95 L, Carbon Dioxide 25.0, Anion Gap 8, BUN 16, Creatinine 0.26 L, Estim Creat Clear Calc 275.96, Est GFR (MDRD) Af Amer 461, Est GFR (MDRD) Non-Af 381, BUN/Creatinine Ratio 60.8 H, Glucose 110 H, Calcium 8.2 L, Total Bilirubin 0.40, AST 21, ALT 35, Alkaline Phosphatase 87, Total Protein 5.4 L, Albumin 1.5 L, Globulin 3.9, Albumin/Globulin Ratio 0.4 L Current Medications Acetaminophen (Tylenol) 650 mg PO Q6H PRN PRN PRN Reason: Pain Score 1-3 /Temp>100.7 Al Hydroxide/Mg Hydroxide (Mylanta Ii) 30 ml PO Q6H PRN PRN PRN Reason: Gastric Burning Amlodipine Besylate (Norvasc) 2.5 mg PO DAILY [facility] Last Admin: 03/31/20 09:41 Dose: 2.5 mg Documented by: Apixaban (Eliquis) 5 mg PO BID [facility] Last Admin: 03/31/20 22:24 Dose: 5 mg Documented by: Aspirin (Ecotrin) 81 mg PO DAILY [facility] Last Admin: 03/31/20 09:41 Dose: 81 mg Documented by: Baclofen (Lioresal) 5 mg PO TID [facility] Last Admin: 04/01/20 06:07 Dose: 5 mg Documented by: Budesonide (Pulmicort Aerosol) 0.5 mg INHALATION Q12H.RT [facility] Last Admin: 04/01/20 06:39 Dose: 0.5 mg Documented by: Dexamethasone (Decadron) 4 mg PO DAILY@0800 [facility] Last Admin: 03/31/20 09:41 Dose: 4 mg Documented by: Diltiazem HCl (Cardizem Cd) 180 mg PO DAILY [facility] Last Admin: 03/31/20 09:41 Dose: 180 mg Documented by: Docusate Sodium (Colace) 200 mg PO BID PRN PRN PRN Reason: Constipation Last Admin: 03/31/20 10:55 Dose: 200 mg Documented by: Ergocalciferol (Vitamin D) 50,000 unit PO SA [facility] Last Admin: 03/31/20 09:41 Dose: 50,000 unit Documented by: Guaifenesin (Mucinex) 1,200 mg PO BID [facility] Last Admin: 03/31/20 22:24 Dose: 1,200 mg Documented by: Cefepime HCl 2 gm/ Sodium (Chloride) 100 mls @ 200 mls/hr IV Q8 [facility] Stop: 04/06/20 14:01 Last Infusion: 04/01/20 06:50 Dose: Infused Documented by: Azithromycin 500 mg/ Dextrose 255 mls @ 250 mls/hr IV Q24 [facility] Stop: 04/04/20 10:01 Last Infusion: 03/31/20 09:46 Dose: Infused Documented by: Vancomycin IV Pharmacy to Dose (1 ea/ Sodium Chloride) 500 mls @ 250 mls/hr IV X1 PRN; Protocol PRN Reason: Rx to Dose Vancomycin HCl 1,250 mg/ (Sodium Chloride) 275 mls @ 167 mls/hr IV Q8H [facility] Last Infusion: 04/01/20 04:50 Dose: Infused Documented by: Ipratropium [place] (Atrovent) 0.5 mg INHALATION BID.RT [facility] Last Admin: 04/01/20 06:40 Dose: 0.5 mg Documented by: Lidocaine/Diphenhydr/Alum/Mg/Simeth () 15 ml PO Q6H PRN PRN PRN Reason: Mouth Pain Lisinopril (Zestril) 20 mg PO QHS [facility] Last Admin: 03/31/20 22:31 Dose: 20 mg Documented by: Magnesium Hydroxide (Milk Of Magnesia) 30 ml PO DAILY PRN PRN PRN Reason: Constipation Melatonin (Melatonin) 3 mg PO QHS PRN PRN PRN Reason: INSOMNIA Morphine Sulfate () 2 - 4 mg IV Q3H PRN PRN PRN Reason: Pain Score 6-10/10 Last Admin: 03/30/20 12:31 Dose: 2 mg Documented by: Nutritional Formula (Lactose Free) (Ensure Enlive) 120 ml PO 4X/DAY [facility] Last Admin: 04/01/20 06:09 Dose: 120 ml Documented by: Ondansetron HCl (Zofran) 4 mg IV Q8H PRN PRN PRN Reason: Nausea Oxycodone HCl (Oxyir) 5 mg PO Q4H PRN PRN PRN Reason: Pain Score 4-5/10 Last Admin: 03/31/20 17:31 Dose: 5 mg Documented by: Pantoprazole Sodium (Protonix) 20 mg PO DAILY PRN PRN PRN Reason: REFLUX Polyethylene Glycol (Miralax) 17 gm PO DAILY [facility] Last Admin: 03/31/20 09:47 Dose: Not Given Documented by: Potassium Chloride (K-Dur) 20 meq PO BIDCM [facility] Last Admin: 03/31/20 17:31 Dose: 20 meq Documented by: Sodium Chloride () 10 - 40 ml IV UD PRN PRN Reason: SALINE FLUSH Last Admin: 03/31/20 09:42 Dose: 10 ml Documented by: Sucralfate (Carafate) 1 gm PO 1HR_ACHS [facility] Last Admin: 04/01/20 06:07 Dose: 1 gm Documented by: STROKE Vital Signs/Narrative: Vital Signs Pulse 04/01/20 07:24 91 04/01/20 04:03 91 Medical Necessity - Tobacco Use Smoking Status: Former smoker Assessment/Plan All Active Problems (Last Reviewed 03/30/20 @ 11:[address] Pedro Gordon MD) Afib (Acute) Pneumonia (Acute) Encounter for education (Acute) Malnutrition (Acute) Patient is a 60-year-old gentleman with multiple pulmonary comorbidities presented with shortness of breath and palpitations 1. Acute hypoxic respiratory failure -secondary to the combination of suspected pneumonia with wnhco-lhtk-aytjohthd organisms, underlying history of COPD and bronchiectasis as well as his lung CA admitted to the intensive care unit where patient is being managed with treatment of the underlying conditions with consultation placed to pulmonary medicine 2. Suspected pneumonia with multidrug resistant organisms ? Chest x-ray obtained demonstrated Left perihilar mass and left greater than right perihilar airspace disease, concerning for pneumonia, with marked biapical bullous emphysema similar to prior. Patient was started on cefepime, azithromycin as well as vancomycin after cultures have been obtained. Patient was also placed on the droplet and contact isolation pending results of COVID testing (patient has elevated markers of inflammation) -03/31/2020: CT of the chest obtained demonstrated new consolidation throughout the left lung which is likely infectious in etiology. Patient COVID 19 assay came back negative. 3. A. fib with RVR ?new onset started on Cardizem drip titrated to keep heart rate less than 100. As part of his management did obtain d-dimer cardiac enzymes as well as BNP. Patient d-dimer came back elevated ordered CTA to rule out underlyingVTE will also order 2D echo for assessment of his valves as well as any regional wall motion abnormalities as well as pulmonary pressures -03/31/2020: Patient converted back to sinus rhythm. EKG this a.m. demonstrated sinus tachycardia. Echo demonstrated EF of 65%. 4. Severe protein calorie malnutrition As evidenced by low BMI of 17.9, muscle wasting as well as decreased energy level consultation placed to dietitian 5. 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 COPD Did continue with patient aerosol treatment. Has underlying history of bullous emphysema 1 of which was infected in January 2020. CT of the chest has been ordered for subsequent evaluation 7. GERD ?On PPI 8. Anemia -secondary to anemia of chronic disorder 9. DVT prophylaxis ?Lovenox 10. Bilateral pedal edema Do suspect a combination of hyperlipidemia as well as underlying pulmonary hypertension from patient chronic lung disease. Patient did receive 1 dose of Lasix in addition to consultation being placed to dietitian 11. 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 Hyponatremia ?Do suspect SIADH in view of patient chronic lung disease. As part of evaluation ordered urine sodium serum osmolality and urine osmolality. Patient was placed on fluid restriction pending results of above investigations 14. Physical deconditioning - Requested for PT OT eval and social media director to assist with discharge planning Inpatient E&M: 63246 Subs Hosp L2
[2020-04-01] MEDS: dexAMETHasone 4 MG Tablet PO (07:54)
[2020-04-01 09:24] LABS: Osmolality, Serum 263 mOsm/KG (275-295)
--- NOTE | 2020-04-01 09:42 | NURSING ---
Pt verbalizing repeated frustration concerning bed alarm, chair alarms. Pt yelling and cursing at multiple staff members and feels as if though he is being treated like a child. He verbalizes that he knows his limitations and will call if and when he needs help. Educated pt on fall risk assessment, to which pt replied I don't need this shit and you can take that sign off the door and I will call if I need you. This RN left alarms off at this time. Pt easily pushing IV pole and manipulating oxygen tubing as he ambulates around the room. He denies needing time to stop to catch breath. Will monitor.
[2020-04-01] MEDS: dilTIAZem CD 180 MG Capsule PO (09:48)
[2020-04-01] MEDS: guaiFENesin 1,200 MG Tablet 1200 MG PO ×2 (09:49→21:47)
[2020-04-01] MEDS: amLODIPine 2.5 MG Tablet PO (09:49)
[2020-04-01] MEDS: Aspirin E.C. 81 MG Tablet PO (09:49)
[2020-04-01] MEDS: APIXABAN 5 MG TABLET PO ×2 (09:49→21:46)
[2020-04-01] MEDS: oxyCODONE 5 MG Tablet PO (09:55)
[2020-04-01 11:23] LABS: Vancomycin, Trough Level 14.2 ug/mL (5.0-15.0)
[2020-04-01] MEDS: 0.9% Saline Lock 10 ML Syringe IV ×2 (13:35→21:51)
[2020-04-01] MEDS: Lisinopril 20 MG Tablet PO (21:50)
[2020-04-02] VITALS (12 sets, daily range): BP systolic 107–120; BP diastolic 60–74; PULSE 74–106; RESP 18–20; TEMP 36.4–36.6; O2SAT 92–99
[2020-04-02] MEDS: oxyCODONE 5 MG Tablet PO ×3 (03:18→20:07)
[2020-04-02] MEDS: Acetaminophen 325 MG Tablet 650 MG PO ×3 (03:18→20:07)
[2020-04-02] MEDS: Baclofen 10 MG Tablet 5 MG PO ×2 (05:35→13:47)
[2020-04-02] MEDS: 0.9% Saline Lock 10 ML Syringe IV (05:39)
[2020-04-02 05:46] LABS: Absolute Lymphocyte Count 0.49 X10^3/uL (0.83-4.51); Absolute Neutrophil Count 20.8 X10^3/uL (2.0-7.7); Basophil# 0.04 X10^3/uL; Basophil% 0.2 % (0-1); Eosinophil# 0.03 X10^3/uL; Eosinophils% 0.1 % (0-5); Hematocrit 27.6 % (40-54); Hemoglobin 8.8 g/dL (13.0-16.5); Lymphocyte # 0.49 X10^3/ul (4.0); Lymphocyte % 2.2 % (19-41); Mean Corp Hgb Conc 31.9 g/dL (32-36); Mean Corpuscular Hgb 28.3 pg (27.0-32.0); Mean Corpuscular Volume 88.7 fL (80-94); Mean Platelet Vol. 8.6 fl (6.2-12.0); Monocyte# 0.68 X10^3/uL; NRBC Flagged by Analyzer 0 % (0-5); Neutrophil # 20.82 X10^3/uL (2.7-7.7); POSITIVE DIFFERENTIAL YES; POSITIVE MORPHOLOGY YES; Platelet Count 301 K/mm3 (150-450); RBC Distribution Width CV 20.4 % (11.6-14.6); Red Blood Count 3.11 M/mm3 (4.6-6.2); White Blood Count 22.4 K/mm3 (4.4-11.0)
[2020-04-02 05:57] LABS: Urine Sodium 114 mmol/L (Not Establ.)
[2020-04-02 06:06] LABS: ALB/GLOB Ratio 0.5 RATIO (0.9-2.4); AST(SGOT) 31 U/L (15-37); Alanine Aminotransfer ALT/SGPT 42 U/L (16-61); Albumin, Serum 1.5 g/dL (3.2-5.0); Alkaline Phosphatase 93 U/L (45-117); Anion Gap 8 (5-15); BUN 18 mg/dL (7-18); BUN/Creat Ratio 61.9 RATIO (10-20); Calcium,Total 8.1 mg/dL (8.5-10.1); Chloride 97 mmol/L (98-107); Creatinine, Serum 0.29 mg/dL (0.70-1.30); EST Glomerular Filtration Rate 339 mL/min (>60); Est Glom Filt Rate - Afr Amer 410 mL/min (>60); Estimated Creatinine Clearance 247.41 ml/min; Glucose 116 mg/dL (74-106); Potassium 4.4 mmol/L (3.5-5.1); Protein, Total 4.5 g/dL (6.4-8.2); Sodium Level 130 mmol/L (136-145)
[2020-04-02 06:07] LABS: Differential Indicated SCAN CRITERIA MET
[2020-04-02 06:18] LABS: Differential Comment SCANNED; Hypochromasia RARE; Polychromasia RARE; Reactive Lymphocyte RARE
[2020-04-02] MEDS: Ipratropium 0.5 MG/2.5 ML SOLUTION INHALATION ×2 (06:45→19:21)
[2020-04-02] MEDS: Budesonide Respules 0.5 MG/2 ML AMPUL.NEB. INHALATION ×2 (06:45→19:21)
[2020-04-02 06:46] LABS: Osmolality, Urine 641 mOsm/KG
[2020-04-02] MEDS: dexAMETHasone 4 MG Tablet PO (08:35)
[2020-04-02] MEDS: dilTIAZem CD 180 MG Capsule PO (08:36)
[2020-04-02] MEDS: guaiFENesin 1,200 MG Tablet 1200 MG PO ×2 (08:37→21:07)
[2020-04-02] MEDS: APIXABAN 5 MG TABLET PO ×2 (08:37→21:07)
[2020-04-02] MEDS: amLODIPine 2.5 MG Tablet PO ×2 (08:40→08:41)
[2020-04-02] MEDS: Aspirin E.C. 81 MG Tablet PO (09:04)
--- NOTE | 2020-04-02 10:41 | PCM.PN.PUL ---
Patient Problems: Active and Suspected Problems (Last Reviewed 03/30/20 @ 11:[address] Pedro Gordon MD) Afib (Acute) Subjective: Patient did well overnight. No acute issues were reported. Patient has been able to be weaned to room air at rest. Patient continues to have a productive cough, but feels that it is lightening up in color and is less frequent. Patient is denying any chest pain at this time. - Physical Exam Vitals/I&O's: Vital Signs Temp Pulse Resp BP Pulse Ox 36.6 C 91 20 H 116/67 99 04/02/20 08:30 04/02/20 08:30 04/02/20 08:30 04/02/20 08:30 04/02/20 08:30 Oxygen Flow Rate (L/min) 2 Oxygen Delivery Method Nasal Cannula Weight: 64.3 kg Body Mass Index (BMI) 17.9 Intake and Output for Last 24 Hours 03/31/20 04/01/20 04/02/20 23:59 23:59 23:59 Intake Total 2486.25 / 2846.25 2510 / 2510 225 / 225 Balance 2486.25 / 2846.25 2510 / 2510 225 / 225 General: Alert, Oriented x3, Cooperative, - - Mild conversational dyspnea. Appears older than stated age. HEENT: Atraumatic, PERRLA, EOMI, Normocephalic, - - No scleral icterus or injection noted Oral: Moist Mucosa, No Gingival or Mucosal Lesions/ Ulcerations Neck: Supple, No JVD, No Nodes, Trachea Midline Lungs: No rhonchi, No wheeze, Diminished, Rales - Left base, - - Symmetric expansion Cardiovascular: Regular rate, Regular Rhythm, Normal S1, Normal S2, No murmurs, No rub noted, No Gallop Abdomen: Bowel Sounds Present, Soft, Non Tender, Non-Distended Extremities: No clubbing, No cyanosis, Edema - Bilateral lower extremities Skin: No breakdown Musculoskeletal: No Tenderness to Palpation of Joints or Extremities Lymphatic: No Cervical, Supraclavicular, or Inguinal Adenopathy Neurological: Cranial nerves II-XII grossly intact, Neuro grossly intact, Motor Exam 5/5 strength throughout Psych/Mental Status: Alert and oriented to time, place, person, mood and affect Microbiology Past 72 Hours 07/03/20 21:50 Sputum, Expectorated/Coughed Gram Stain - Final 03/30/20 21:50 Sputum, Expectorated/Coughed Respiratory Culture - Final Pseudomonas aeroginosa 03/30/20 10:15 Blood Culture (Wb) - Anticubital Left Blood Culture - Preliminary No growth in 48 hours. 03/31/20 06:55 Urine, Clean Catch Streptococcus pneumoniae Antigen (M - Final 03/31/20 06:55 Urine, Clean Catch Legionella Antigen - Final 03/30/20 10:45 Mucosa - Nasopharyngeal Respiratory Panel (PCR) - Final Laboratory Results 04/01/20 10:30: Vancomycin Trough 14.2 04/02/20 05:20: WBC 22.4 H, RBC 3.11 L, Hgb 8.8 L, Hct 27.6 L, MCV 88.7, MCH 28.3, MCHC 31.9 L, RDW Std Deviation 65.0 H, RDW Coeff of Rush 20.4 H, Plt Count 301, MPV 8.6, Immature Gran % (Auto) 1.500 H, Neut % (Auto) 93.0 H, Lymph % (Auto) 2.2 L, [place] % (Auto) 3.0, Eos % (Auto) 0.1, Baso % (Auto) 0.2, Absolute Neuts (auto) 20.8 H, Absolute Lymphs (auto) 0.49 L, Nucleated RBC % 0, Differential Comment SCANNED, Reactive Lymphocytes RARE, Polychromasia RARE, Hypochromasia RARE 04/02/20 05:20: Sodium 130 L, Potassium 4.4, Chloride 97 L, Carbon Dioxide 25.0, Anion Gap 8, BUN 18, Creatinine 0.29 L, Estim Creat Clear Calc 247.41, Est GFR (MDRD) Af Amer 410, Est GFR (MDRD) Non-Af 339, BUN/Creatinine Ratio 61.9 H, Glucose 116 H, Calcium 8.1 L, Total Bilirubin 0.30, AST 31, ALT 42, Alkaline Phosphatase 93, Total Protein 4.5 L, Albumin 1.5 L, Globulin 3.0, Albumin/Globulin Ratio 0.5 L 04/02/20 05:30: Urine Osmolality 641 04/02/20 05:30: Ur Random Sodium 114 Current Medications Acetaminophen (Tylenol) 650 mg PO Q6H PRN PRN PRN Reason: Pain Score 1-3 /Temp>100.7 Last Admin: 04/02/20 08:44 Dose: 650 mg Documented by: Al Hydroxide/Mg Hydroxide (Mylanta Ii) 30 ml PO Q6H PRN PRN PRN Reason: Gastric Burning Amlodipine Besylate (Norvasc) 2.5 mg PO DAILY [facility] Last Admin: 04/02/20 08:41 Dose: 2.5 mg Documented by: Apixaban (Eliquis) 5 mg PO BID [facility] Last Admin: 04/02/20 08:37 Dose: 5 mg Documented by: Aspirin (Ecotrin) 81 mg PO DAILY [facility] Last Admin: 04/02/20 09:04 Dose: 81 mg Documented by: Baclofen (Lioresal) 5 mg PO TID [facility] Last Admin: 04/02/20 05:35 Dose: 5 mg Documented by: Budesonide (Pulmicort Aerosol) 0.5 mg INHALATION Q12H.RT [facility] Last Admin: 04/02/20 06:45 Dose: 0.5 mg Documented by: Dexamethasone (Decadron) 4 mg PO DAILY@0800 [facility] Last Admin: 04/02/20 08:35 Dose: 4 mg Documented by: Diltiazem HCl (Cardizem Cd) 180 mg PO DAILY [facility] Last Admin: 04/02/20 08:36 Dose: 180 mg Documented by: Docusate Sodium (Colace) 200 mg PO BID PRN PRN PRN Reason: Constipation Last Admin: 03/31/20 10:55 Dose: 200 mg Documented by: Ergocalciferol (Vitamin D) 50,000 unit PO SA [facility] Last Admin: 03/31/20 09:41 Dose: 50,000 unit Documented by: Guaifenesin (Mucinex) 1,200 mg PO BID [facility] Last Admin: 04/02/20 08:37 Dose: 1,200 mg Documented by: Cefepime HCl 2 gm/ Sodium (Chloride) 100 mls @ 200 mls/hr IV Q8 [facility] Stop: 04/06/20 14:01 Last Infusion: 04/02/20 06:09 Dose: Infused Documented by: Ipratropium [place] (Atrovent) 0.5 mg INHALATION BID.RT [facility] Last Admin: 04/02/20 06:45 Dose: 0.5 mg Documented by: Lidocaine/Diphenhydr/Alum/Mg/Simeth () 15 ml PO Q6H PRN PRN PRN Reason: Mouth Pain Lisinopril (Zestril) 20 mg PO QHS [facility] Last Admin: 04/01/20 21:50 Dose: 20 mg Documented by: Magnesium Hydroxide (Milk Of Magnesia) 30 ml PO DAILY PRN PRN PRN Reason: Constipation Melatonin (Melatonin) 3 mg PO QHS PRN PRN PRN Reason: INSOMNIA Nutritional Formula (Lactose Free) (Ensure Enlive) 120 ml PO 4X/DAY [facility] Last Admin: 04/02/20 05:34 Dose: 120 ml Documented by: Ondansetron HCl (Zofran) 4 mg IV Q8H PRN PRN PRN Reason: Nausea Oxycodone HCl (Oxyir) 5 mg PO Q4H PRN PRN PRN Reason: Pain Score 4-5/10 Last Admin: 04/02/20 08:44 Dose: 5 mg Documented by: Pantoprazole Sodium (Protonix) 20 mg PO DAILY PRN PRN PRN Reason: REFLUX Polyethylene Glycol (Miralax) 17 gm PO DAILY [facility] Last Admin: 04/02/20 08:38 Dose: Not Given Documented by: Potassium Chloride (K-Dur) 20 meq PO BIDCM [facility] Last Admin: 04/02/20 08:35 Dose: 20 meq Documented by: Sodium Chloride () 10 - 40 ml IV UD PRN PRN Reason: SALINE FLUSH Last Admin: 04/02/20 05:39 Dose: 10 ml Documented by: Sucralfate (Carafate) 1 gm PO 1HR_ACHS [facility] Last Admin: 04/02/20 06:07 Dose: Not Given Documented by: Medical Necessity - Tobacco Use Smoking Status: Former smoker Assessment/Plan All Active Problems (Last Reviewed 03/30/20 @ 11:[address] Pedro Gordon MD) Afib (Acute) Pneumonia (Acute) Encounter for education (Acute) Malnutrition (Acute) RECOMMENDATIONS: 1. Agree with broad antimicrobial coverage for now. 2. Consider narrowing antibiotic spectrum to cover Pseudomonas. 3. Await infectious diseases consultation. 4. Continue scheduled bronchodilators. 5. Continue Decadron. 6. Wean supplemental oxygen as tolerated. IMPRESSIONS: 1. Acute hypoxemic respiratory insufficiency The patient appears to have progressive infiltrate throughout the left lung along with evidence suggestive of infected bullae, despite outpatient treatment with p.o. antibiotics. Patient has grown relatively sensitive pseudomonal sputum. Supplemental oxygen can be weaned to maintain saturations at or above 90%. Will obtain a walking oximetry prior to discharge. Agree with obtaining infectious diseases consultation. Defer to infectious disease before proceeding with bronchoscopic airway evaluation and bronchial alveolar lavage. 2. New onset atrial fibrillation with RVR Resolved. The patient was initially managed symptomatically with rate control strategy, only to convert back to normal sinus rhythm on March 31. Continue current medical management. 3. History of non-small cell lung cancer/nicotine dependence in remission/GERD/protein calorie malnutrition Complicates care, management, recovery and prognosis. Continue home medications as indicated. Inpatient E&M: 45329 Subs Hosp L2
--- NOTE | 2020-04-02 14:58 | PN_ITS ---
Patient Problems: Active and Suspected Problems (Last Reviewed 03/30/20 @ 11:[address] Pedro Gordon MD) Afib (Acute) Subjective: Says that he is breathing a little bit better Vitals/I&O's: Vital Signs Temp Pulse Resp BP Pulse Ox 97.8 F 96 20 H 116/67 92 04/02/20 08:30 04/02/20 12:00 04/02/20 08:30 04/02/20 08:30 04/02/20 10:45 Oxygen Flow Rate (L/min) 2 Oxygen Delivery Method Nasal Cannula Weight: 141 lb 12.116 oz Body Mass Index (BMI) 17.9 Intake and Output for Last 24 Hours 03/31/20 04/01/20 04/02/20 23:59 23:59 23:59 Intake Total 2486.25 / 2846.25 2510 / 2510 805 / 805 Balance 2486.25 / 2846.25 2510 / 2510 805 / 805 General: Alert, Oriented x3, Cooperative, No apparent distress HEENT: Atraumatic, PERRLA, EOMI, Normocephalic Oral: Moist Mucosa Neck: Supple, No JVD Lungs: Clear to auscultation, Normal air movement, No rhonchi, No wheeze, No rales, Diminished Cardiovascular: Regular rate, Regular Rhythm, Normal S1, Normal S2, No murmurs Abdomen: Soft, Non Tender, Non-Distended, No Hepato-splenomegaly Extremities: No edema, Capillary Refill Less than 3 Seconds Skin: No rashes, No breakdown Neurological: Neuro grossly intact, Sensory exam intact to light touch and pain Psych/Mental Status: Normal Affect, Appropriate Microbiology Past 72 Hours 04/01/20 16:05 Sputum, Expectorated/Coughed Gram Stain - Final 04/01/20 16:05 Sputum, Expectorated/Coughed Respiratory Culture - Preliminary Culture exhibits no growth. 03/30/20 21:50 Sputum, Expectorated/Coughed Gram Stain - Final 03/30/20 21:50 Sputum, Expectorated/Coughed Respiratory Culture - Final Pseudomonas aeroginosa 03/30/20 10:15 Blood Culture (Wb) - Anticubital Left Blood Culture - Preliminary No growth in 48 hours. 03/31/20 06:55 Urine, Clean Catch Streptococcus pneumoniae Antigen (M - Final 03/31/20 06:55 Urine, Clean Catch Legionella Antigen - Final 03/30/20 10:45 Mucosa - Nasopharyngeal Respiratory Panel (PCR) - Final Laboratory Results 04/02/20 05:20: WBC 22.4 H, RBC 3.11 L, Hgb 8.8 L, Hct 27.6 L, MCV 88.7, MCH 28.3, MCHC 31.9 L, RDW Std Deviation 65.0 H, RDW Coeff of Rush 20.4 H, Plt Count 301, MPV 8.6, Immature Gran % (Auto) 1.500 H, Neut % (Auto) 93.0 H, Lymph % (Auto) 2.2 L, [place] % (Auto) 3.0, Eos % (Auto) 0.1, Baso % (Auto) 0.2, Absolute Neuts (auto) 20.8 H, Absolute Lymphs (auto) 0.49 L, Nucleated RBC % 0, Differential Comment SCANNED, Reactive Lymphocytes RARE, Polychromasia RARE, Hypochromasia RARE 04/02/20 05:20: Sodium 130 L, Potassium 4.4, Chloride 97 L, Carbon Dioxide 25.0, Anion Gap 8, BUN 18, Creatinine 0.29 L, Estim Creat Clear Calc 247.41, Est GFR (MDRD) Af Amer 410, Est GFR (MDRD) Non-Af 339, BUN/Creatinine Ratio 61.9 H, Glucose 116 H, Calcium 8.1 L, Total Bilirubin 0.30, AST 31, ALT 42, Alkaline Phosphatase 93, Total Protein 4.5 L, Albumin 1.5 L, Globulin 3.0, Albumin/Globulin Ratio 0.5 L 04/02/20 05:30: Urine Osmolality 641 04/02/20 05:30: Ur Random Sodium 114 Current Medications Acetaminophen (Tylenol) 650 mg PO Q6H PRN PRN PRN Reason: Pain Score 1-3 /Temp>100.7 Last Admin: 04/02/20 08:44 Dose: 650 mg Documented by: Al Hydroxide/Mg Hydroxide (Mylanta Ii) 30 ml PO Q6H PRN PRN PRN Reason: Gastric Burning Amlodipine Besylate (Norvasc) 2.5 mg PO DAILY [facility] Last Admin: 04/02/20 08:41 Dose: 2.5 mg Documented by: Apixaban (Eliquis) 5 mg PO BID [facility] Last Admin: 04/02/20 08:37 Dose: 5 mg Documented by: Aspirin (Ecotrin) 81 mg PO DAILY [facility] Last Admin: 04/02/20 09:04 Dose: 81 mg Documented by: Baclofen (Lioresal) 5 mg PO TID [facility] Last Admin: 04/02/20 13:47 Dose: 5 mg Documented by: Budesonide (Pulmicort Aerosol) 0.5 mg INHALATION Q12H.RT [facility] Last Admin: 04/02/20 06:45 Dose: 0.5 mg Documented by: Dexamethasone (Decadron) 4 mg PO DAILY@0800 [facility] Last Admin: 04/02/20 08:35 Dose: 4 mg Documented by: Diltiazem HCl (Cardizem Cd) 180 mg PO DAILY [facility] Last Admin: 04/02/20 08:36 Dose: 180 mg Documented by: Docusate Sodium (Colace) 200 mg PO BID PRN PRN PRN Reason: Constipation Last Admin: 03/31/20 10:55 Dose: 200 mg Documented by: Ergocalciferol (Vitamin D) 50,000 unit PO SA [facility] Last Admin: 03/31/20 09:41 Dose: 50,000 unit Documented by: Guaifenesin (Mucinex) 1,200 mg PO BID [facility] Last Admin: 04/02/20 08:37 Dose: 1,200 mg Documented by: Cefepime HCl 2 gm/ Sodium (Chloride) 100 mls @ 200 mls/hr IV Q8 [facility] Stop: 04/06/20 14:01 Last Infusion: 04/02/20 14:23 Dose: Infused Documented by: Ipratropium [place] (Atrovent) 0.5 mg INHALATION BID.RT [facility] Last Admin: 04/02/20 06:45 Dose: 0.5 mg Documented by: Lidocaine/Diphenhydr/Alum/Mg/Simeth () 15 ml PO Q6H PRN PRN PRN Reason: Mouth Pain Lisinopril (Zestril) 20 mg PO QHS [facility] Last Admin: 04/01/20 21:50 Dose: 20 mg Documented by: Magnesium Hydroxide (Milk Of Magnesia) 30 ml PO DAILY PRN PRN PRN Reason: Constipation Melatonin (Melatonin) 3 mg PO QHS PRN PRN PRN Reason: INSOMNIA Nutritional Formula (Lactose Free) (Ensure Enlive) 120 ml PO 4X/DAY [facility] Last Admin: 04/02/20 13:48 Dose: 120 ml Documented by: Ondansetron HCl (Zofran) 4 mg IV Q8H PRN PRN PRN Reason: Nausea Oxycodone HCl (Oxyir) 5 mg PO Q4H PRN PRN PRN Reason: Pain Score 4-5/10 Last Admin: 04/02/20 08:44 Dose: 5 mg Documented by: Pantoprazole Sodium (Protonix) 20 mg PO DAILY PRN PRN PRN Reason: REFLUX Polyethylene Glycol (Miralax) 17 gm PO DAILY [facility] Last Admin: 04/02/20 08:38 Dose: Not Given Documented by: Potassium Chloride (K-Dur) 20 meq PO BIDCM [facility] Last Admin: 04/02/20 08:35 Dose: 20 meq Documented by: Sodium Chloride () 10 - 40 ml IV UD PRN PRN Reason: SALINE FLUSH Last Admin: 04/02/20 05:39 Dose: 10 ml Documented by: Sucralfate (Carafate) 1 gm PO 1HR_ACHS [facility] Last Admin: 04/02/20 12:16 Dose: Not Given Documented by: STROKE Vital Signs/Narrative: Vital Signs Pulse 04/02/20 12:00 96 Medical Necessity - Tobacco Use Smoking Status: Former smoker Assessment/Plan All Active Problems (Last Reviewed 03/30/20 @ 11:[address] Pedro Gordon MD) Afib (Acute) Pneumonia (Acute) Encounter for education (Acute) Malnutrition (Acute) 1. Acute hypoxic respiratory insufficiency secondary to pseudomonal pneumonia and a COPD exacerbation as well as a history of bronchiectasis -Cultures are growing Pseudomonas, he is been continued on the cefepime -Appreciate infectious disease input -Continue with oxygen therapy, he will likely need an ambulatory pulse ox prior to discharge for home O2 -COVID was negative -Continue with his inhalers 2. 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 New onset A. fib with RVR/bilateral lower extremity pitting edema -He is currently normal sinus and he reverted to normal sinus on a Cardizem drip -Given his history of cancer as well as his A. fib, he was started on Eliquis which she will continue. His echo showed an EF of 65% -He did receive a dose of Lasix, his echo is unremarkable for any CHF. He does have a severe protein calorie malnutrition with hypoalbuminemia which is likely contributing. We will continue to monitor 4. Severe protein calorie malnutrition -BMI is 17.9, albumin is 1.5 -Appreciate dietary recommendations 5. GERD -Stable -Continue with PPI 6. Anemia of chronic disease -Related to his cancer and treatment -His hemoglobin is baseline 7. Hyponatremia secondary to SIADH -Pictures confused with his bilateral lower extremity edema. As stated previously this is likely related to his hypoalbuminemia -He does not have any signs of cirrhosis and his LFTs are normal -His urine sodium is elevated indicating likely SIADH -We will continue with his fluid restriction, sodium is 130 DVT: Eliquis Inpatient E&M: 95626 Subs Hosp L2
--- NOTE | 2020-04-02 15:10 | PCM.HP.ID ---
Reason for Consult: Pseudomonas aeruginosa pneumonia Consulted by: Dr. Gordon History of Present Illness: The patient is a 60 year old M [] 60-year-old gentleman with a known history of squamous lung carcinoma initially diagnosed roughly 6 months ago and has undergone chemotherapy as well as radiation therapy, and may there is concerned of an infected lung bullae and was treated with prolonged course of oral antibiotics. More recently patient was admitted with progressive shortness of breath and productive phlegm. Patient also was found to be in new onset atrial fibrillation. Patient denies any fevers at home. His admission chest x-ray and CT scan of the chest shows extensive lung disease and a sputum cultures growing pseudomonas aeruginosa with sensitivities reviewed. Patient denies any hemoptysis. He recently had a port placed in his right chest and he was mentioning to me about starting immunotherapy by oncology. No gastrointestinal distress. No headaches or any changes in neurological condition. - Medical History Past Medical History (Chronic Problems): Chronic Problems (Last Reviewed 03/30/20 @ 11:[address] 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 Per [facility] done 11/16/19 per [facility] @ [facility] Smoking greater than 40 pack years (Chronic) Stage 2 moderate COPD by GOLD classification (Chronic) FEV1 56% Alcoholic fatty liver (Chronic) Nicotine dependence (Chronic) Alcohol abuse (Chronic) GERD (gastroesophageal reflux disease) (Chronic) Vitamin D deficiency (Chronic) Hypertension (Chronic) Hyponatremia (Chronic) COPD (chronic obstructive pulmonary disease) (Chronic) Allergies/Adverse Reactions: Allergies No Known Allergies Allergy (Verified 03/28/20 11:00) Home Medications: Ambulatory Orders Medication Instructions Recorded Amlodipine [Norvasc] 2.5 mg PO DAILY 08/05/13 Lisinopril [Zestril] 20 mg PO QHS 08/05/13 Albuterol Sulfate [Ventolin Hfa] 2 puff IH Q4H PRN 05/05/16 Triamcinolone 0.1% Cream [Kenalog] 1 applic TP DAILY PRN 05/05/16 mometasone-formoterol HFA 200 2 puff INHALATION Q12H 05/07/18 mcg-5 mcg/actuation aerosol inhaler Ergocalciferol [Vitamin D] 50,000 unit PO SA 07/22/18 albuterol sulfate 2.5 mg INHALATION Q4H PRN #180 ml 06/16/19 Aclidinium [place] [Tudorza 1 inh INHALATION BID 10/13/19 [place]air] aspirin 81 mg tablet,delayed 81 mg PO DAILY #30 tab 10/25/19 release Magic Mouth Wash 15 ml PO Q6H PRN PRN #300 ml 12/07/19 Senna [Senokot] 2 tab PO DAILY #60 tab 01/04/20 Morphine Sulfate 10 mg PO Q4H PRN PRN #14 solution 01/12/20 Sucralfate [Carafate] 1 gm PO 4X/DAY #120 udc 01/12/20 Baclofen 5 mg PO TID #30 tab 01/24/20 Amoxicillin/Potassium Clav 1 ea PO BID #60 tab 02/02/20 [Augmentin 875-125 Tablet] Doxycycline 100 mg PO BID #60 cap 02/02/20 Ondansetron [Ondansetron Odt] 8 mg PO Q8H PRN PRN 10 Days #30 02/13/20 tab.rapdis Dexamethasone [Decadron] 4 mg PO DAILY@0800 #30 tab 03/14/20 food supplemt, lactose-reduced 1 ea PO TID #6399 ml 03/22/20 0.06 gram-1 kcal/mL oral liquid Esomeprazole Mag Trihydrate 20 mg PO DAILY PRN 03/30/20 [Nexium] - Social History SMOKING STATUS:: Former smoker Vital Signs Temp Pulse Resp BP Pulse Ox 97.8 F 96 20 H 116/67 92 04/02/20 08:30 04/02/20 12:00 04/02/20 08:30 04/02/20 08:30 04/02/20 10:45 Oxygen Flow Rate (L/min) 2 Oxygen Delivery Method Nasal Cannula Weight: 64.3 kg Body Mass Index (BMI) 17.9 Conversive in no acute distress currently on room air lungs some coarse breath sounds heart exam S1-S2 abdomen soft nontender Microbiology Past 72 Hours 04/01/20 16:05 Gram Stain - Final Sputum, Expectorated/Coughed Respiratory Culture - Preliminary Culture exhibits no growth. 03/30/20 21:50 Gram Stain - Final Sputum, Expectorated/Coughed Respiratory Culture - Final Pseudomonas aeroginosa 03/30/20 10:15 Blood Culture - Preliminary Blood Culture (Wb) - Anticubital Left No growth in 48 hours. 03/31/20 06:55 Streptococcus pneumoniae Antigen (M - Final Urine, Clean Catch 03/31/20 06:55 Legionella Antigen - Final Urine, Clean Catch 03/30/20 10:45 Respiratory Panel (PCR) - Final Mucosa - Nasopharyngeal Laboratory Tests Past 24 Hrs 04/02/20 04/02/20 04/02/20 05:20 05:20 05:30 WBC 22.4 H RBC 3.11 L Hgb 8.8 L Hct 27.6 L MCV 88.7 MCH 28.3 MCHC 31.9 L RDW Std Deviation 65.0 H RDW Coeff of [place] 20.4 H Plt Count 301 MPV 8.6 Immature Gran % (Auto) 1.500 H Neut % (Auto) 93.0 H Lymph % (Auto) 2.2 L [place] % (Auto) 3.0 Eos % (Auto) 0.1 Baso % (Auto) 0.2 Absolute Neuts (auto) 20.8 H Absolute Lymphs (auto) 0.49 L Nucleated RBC % 0 Differential Comment SCANNED Reactive Lymphocytes RARE Polychromasia RARE Hypochromasia RARE Sodium 130 L Potassium 4.4 Chloride 97 L Carbon Dioxide 25.0 Anion Gap 8 BUN 18 Creatinine 0.29 L Estim Creat Clear Calc 247.41 Est GFR (MDRD) Af Amer 410 Est GFR (MDRD) Non-Af 339 BUN/Creatinine Ratio 61.9 H Glucose 116 H Calcium 8.1 L Total Bilirubin 0.30 AST 31 ALT 42 Alkaline Phosphatase 93 Total Protein 4.5 L Albumin 1.5 L Globulin 3.0 Albumin/Globulin Ratio 0.5 L Urine Osmolality 641 Ur Random Sodium 04/02/20 05:30 WBC RBC Hgb Hct MCV MCH MCHC RDW Std Deviation RDW Coeff of [place] Plt Count MPV Immature Gran % (Auto) Neut % (Auto) Lymph % (Auto) [place] % (Auto) Eos % (Auto) Baso % (Auto) Absolute Neuts (auto) Absolute Lymphs (auto) Nucleated RBC % Differential Comment Reactive Lymphocytes Polychromasia Hypochromasia Sodium Potassium Chloride Carbon Dioxide Anion Gap BUN Creatinine Estim Creat Clear Calc Est GFR (MDRD) Af Amer Est GFR (MDRD) Non-Af BUN/Creatinine Ratio Glucose Calcium Total Bilirubin AST ALT Alkaline Phosphatase Total Protein Albumin Globulin Albumin/Globulin Ratio Urine Osmolality Ur Random Sodium 114 - Other Studies Radiology: [] Other Studies: [] Route of nutrition/ use of supplements: [] Nutritional Intake: [] IV Site: [] Macdonald Catheter: [] - Assessment/Plan Antibiotics: [] Assessment/Plan: [] Active and Suspected Problems (Last Reviewed 03/30/20 @ 11:[address] Pedro Gordon MD) Afib (Acute) Pseudomonas aeruginosa pneumonia, at this point will treat with levofloxacin 750 mg daily; discontinue cefepime. Continue supportive care.
[2020-04-02] MEDS: levoFLOXacin 750 MG Tablet PO (16:35)
--- NOTE | 2020-04-02 16:49 | CASEMGMT ---
Social Work SW received message that pt's sister in law would like SW to assist pt with appointing brother CANDIS. SW met with pt and offered to assist with POA and pt does not want to complete documents at this time. Pt is aware of the importance of this but states he does not want to mess with it right now. SW explained that SW will remain available should he change his mind. DANIEL Worrell
[2020-04-02] MEDS: Lisinopril 20 MG Tablet PO (21:07)
[2020-04-02] MEDS: Sucralfate 1 GM Tablet PO (22:35)
[2020-04-02] MEDS: MELATONIN 3 MG TABLET PO (23:44)
[2020-04-03] VITALS (7 sets, daily range): BP systolic 115–118; BP diastolic 57–74; PULSE 82–109; RESP 16–22; TEMP 36.4–36.6; O2SAT 91–99
[2020-04-03] MEDS: levoFLOXacin 750 MG Tablet PO (06:01)
[2020-04-03] MEDS: Sucralfate 1 GM Tablet PO (06:01)
[2020-04-03] MEDS: Baclofen 10 MG Tablet 5 MG PO (06:03)
[2020-04-03] MEDS: oxyCODONE 5 MG Tablet PO (06:18)
[2020-04-03] MEDS: Acetaminophen 325 MG Tablet 650 MG PO (06:19)
[2020-04-03 06:27] LABS: Absolute Lymphocyte Count 0.61 X10^3/uL (0.83-4.51); Absolute Neutrophil Count 17.6 X10^3/uL (2.0-7.7); Basophil# 0.03 X10^3/uL; Basophil% 0.2 % (0-1); Eosinophil# 0.02 X10^3/uL; Eosinophils% 0.1 % (0-5); Hematocrit 28.9 % (40-54); Hemoglobin 9.2 g/dL (13.0-16.5); Lymphocyte # 0.61 X10^3/ul (4.0); Lymphocyte % 3.2 % (19-41); Mean Corp Hgb Conc 31.8 g/dL (32-36); Mean Corpuscular Hgb 28.8 pg (27.0-32.0); Mean Corpuscular Volume 90.3 fL (80-94); Mean Platelet Vol. 8.5 fl (6.2-12.0); Monocyte# 0.78 X10^3/uL; NRBC Flagged by Analyzer 0 % (0-5); Neutrophil # 17.57 X10^3/uL (2.7-7.7); Neutrophil % 91.2 % (47-70); POSITIVE MORPHOLOGY YES; Platelet Count 309 K/mm3 (150-450); RBC Distribution Width CV 20.5 % (11.6-14.6); RBC Distribution Width SD 67.1 fl (35.1-43.9); White Blood Count 19.3 K/mm3 (4.4-11.0)
[2020-04-03 06:40] LABS: Differential Indicated SCAN CRITERIA MET
[2020-04-03 06:53] LABS: Anion Gap 6 (5-15); BUN 14 mg/dL (7-18); BUN/Creat Ratio 50.7 RATIO (10-20); Calcium,Total 8.4 mg/dL (8.5-10.1); Chloride 94 mmol/L (98-107); Creatinine, Serum 0.28 mg/dL (0.70-1.30); EST Glomerular Filtration Rate 360 mL/min (>60); Est Glom Filt Rate - Afr Amer 436 mL/min (>60); Glucose 95 mg/dL (74-106); Potassium 4.2 mmol/L (3.5-5.1); Sodium Level 127 mmol/L (136-145)
[2020-04-03 07:01] LABS: Anisocytosis 2+; Differential Comment SCANNED; Toxic Granulation 1+
[2020-04-03] MEDS: Budesonide Respules 0.5 MG/2 ML AMPUL.NEB. INHALATION (07:05)
[2020-04-03] MEDS: Ipratropium 0.5 MG/2.5 ML SOLUTION INHALATION (07:05)
--- NOTE | 2020-04-03 08:01 | PCM.PN.PUL ---
Patient Problems: Active and Suspected Problems (Last Reviewed 03/30/20 @ 11:[address] Pedro Gordon MD) Afib (Acute) Subjective: Patient did well overnight. No acute issues were reported. Patient feels subjectively improved compared to previous. No supplemental oxygen has been required. Patient states his mucus is turning clear. - Physical Exam Vitals/I&O's: Vital Signs Temp Pulse Resp BP Pulse Ox 36.4 C L 103 H 22 H 117/65 99 04/03/20 06:09 04/03/20 07:45 04/03/20 07:05 04/03/20 06:09 04/03/20 07:05 Oxygen Flow Rate (L/min) 2 Oxygen Delivery Method Room Air Weight: 64.4 kg Body Mass Index (BMI) 17.9 Intake and Output for Last 24 Hours 04/01/20 04/02/20 04/03/20 23:59 23:59 23:59 Intake Total 2510 / 2510 1265 / 1265 100 / 100 Balance 2510 / 2510 1265 / 1265 100 / 100 General: Alert, Oriented x3, Cooperative, No apparent distress, - - Speaking in full sentences. HEENT: Atraumatic, PERRLA, EOMI, Normocephalic, - - No scleral icterus or injection noted Oral: Moist Mucosa, No Gingival or Mucosal Lesions/ Ulcerations Neck: Supple, No JVD, No Nodes, Trachea Midline Lungs: No rhonchi, No rales, Diminished, Wheezes, - - Symmetric expansion Cardiovascular: Normal S1, Normal S2, No murmurs, No rub noted, No Gallop, Tachycardic Abdomen: Bowel Sounds Present, Soft, Non Tender, Non-Distended Extremities: No clubbing, No cyanosis, Capillary Refill Less than 3 Seconds Skin: No rashes, No breakdown Musculoskeletal: No Tenderness to Palpation of Joints or Extremities Lymphatic: No Cervical, Supraclavicular, or Inguinal Adenopathy Neurological: Cranial nerves II-XII grossly intact, Neuro grossly intact, Motor Exam 5/5 strength throughout Psych/Mental Status: Alert and oriented to time, place, person, mood and affect Microbiology Past 72 Hours 04/01/20 16:05 Sputum, Expectorated/Coughed Gram Stain - Final 04/01/20 16:05 Sputum, Expectorated/Coughed Respiratory Culture - Preliminary Culture exhibits no growth. 03/30/20 21:50 Sputum, Expectorated/Coughed Gram Stain - Final 03/30/20 21:50 Sputum, Expectorated/Coughed Respiratory Culture - Final Pseudomonas aeroginosa 03/30/20 10:15 Blood Culture (Wb) - Anticubital Left Blood Culture - Preliminary No growth in 48 hours. 03/31/20 06:55 Urine, Clean Catch Streptococcus pneumoniae Antigen (M - Final 03/31/20 06:55 Urine, Clean Catch Legionella Antigen - Final Laboratory Results 04/03/20 05:35: WBC 19.3 H, RBC 3.20 L, Hgb 9.2 L, Hct 28.9 L, MCV 90.3, MCH 28.8, MCHC 31.8 L, RDW Std Deviation 67.1 H, RDW Coeff of Rush 20.5 H, Plt Count 309, MPV 8.5, Immature Gran % (Auto) 1.300 H, Neut % (Auto) 91.2 H, Lymph % (Auto) 3.2 L, [place] % (Auto) 4.0, Eos % (Auto) 0.1, Baso % (Auto) 0.2, Absolute Neuts (auto) 17.6 H, Absolute Lymphs (auto) 0.61 L, Nucleated RBC % 0, Differential Comment SCANNED, Toxic Granulation 1+, Anisocytosis 2+ 04/03/20 05:35: Sodium 127 L, Potassium 4.2, Chloride 94 L, Carbon Dioxide 27.0, Anion Gap 6, BUN 14, Creatinine 0.28 L, Estim Creat Clear Calc 261.94, Est GFR (MDRD) Af Amer 436, Est GFR (MDRD) Non-Af 360, BUN/Creatinine Ratio 50.7 H, Glucose 95, Calcium 8.4 L Current Medications Acetaminophen (Tylenol) 650 mg PO Q6H PRN PRN PRN Reason: Pain Score 1-3 /Temp>100.7 Last Admin: 04/03/20 06:19 Dose: 650 mg Documented by: Al Hydroxide/Mg Hydroxide (Mylanta Ii) 30 ml PO Q6H PRN PRN PRN Reason: Gastric Burning Amlodipine Besylate (Norvasc) 2.5 mg PO DAILY GE Last Admin: 04/02/20 08:41 Dose: 2.5 mg Documented by: Apixaban (Eliquis) 5 mg PO BID [facility] Last Admin: 04/02/20 21:07 Dose: 5 mg Documented by: Aspirin (Ecotrin) 81 mg PO DAILY [facility] Last Admin: 04/02/20 09:04 Dose: 81 mg Documented by: Baclofen (Lioresal) 5 mg PO TID [facility] Last Admin: 04/03/20 06:03 Dose: 5 mg Documented by: Budesonide (Pulmicort Aerosol) 0.5 mg INHALATION Q12H.RT [facility] Last Admin: 04/03/20 07:05 Dose: 0.5 mg Documented by: Dexamethasone (Decadron) 4 mg PO DAILY@0800 [facility] Last Admin: 04/02/20 08:35 Dose: 4 mg Documented by: Diltiazem HCl (Cardizem Cd) 180 mg PO DAILY [facility] Last Admin: 04/02/20 08:36 Dose: 180 mg Documented by: Docusate Sodium (Colace) 200 mg PO BID PRN PRN PRN Reason: Constipation Last Admin: 03/31/20 10:55 Dose: 200 mg Documented by: Ergocalciferol (Vitamin D) 50,000 unit PO SA [facility] Last Admin: 03/31/20 09:41 Dose: 50,000 unit Documented by: Guaifenesin (Mucinex) 1,200 mg PO BID [facility] Last Admin: 04/02/20 21:07 Dose: 1,200 mg Documented by: Ipratropium [place] (Atrovent) 0.5 mg INHALATION BID.RT [facility] Last Admin: 04/03/20 07:05 Dose: 0.5 mg Documented by: Levofloxacin (Levaquin Tablet) 750 mg PO DAILY@0600 [facility] Last Admin: 04/03/20 06:01 Dose: 750 mg Documented by: Lidocaine/Diphenhydr/Alum/Mg/Simeth () 15 ml PO Q6H PRN PRN PRN Reason: Mouth Pain Lisinopril (Zestril) 20 mg PO QHS [facility] Last Admin: 04/02/20 21:07 Dose: 20 mg Documented by: Magnesium Hydroxide (Milk Of Magnesia) 30 ml PO DAILY PRN PRN PRN Reason: Constipation Melatonin (Melatonin) 3 mg PO QHS PRN PRN PRN Reason: INSOMNIA Last Admin: 04/02/20 23:44 Dose: 3 mg Documented by: Nutritional Formula (Lactose Free) (Ensure Enlive) 120 ml PO 4X/DAY [facility] Last Admin: 04/02/20 20:09 Dose: 120 ml Documented by: Ondansetron HCl (Zofran) 4 mg IV Q8H PRN PRN PRN Reason: Nausea Oxycodone HCl (Oxyir) 5 mg PO Q4H PRN PRN PRN Reason: Pain Score 4-5/10 Last Admin: 04/03/20 06:18 Dose: 5 mg Documented by: Pantoprazole Sodium (Protonix) 20 mg PO DAILY PRN PRN PRN Reason: REFLUX Polyethylene Glycol (Miralax) 17 gm PO DAILY [facility] Last Admin: 04/02/20 08:38 Dose: Not Given Documented by: Potassium Chloride (K-Dur) 20 meq PO BIDCM [facility] Last Admin: 04/02/20 16:35 Dose: 20 meq Documented by: Sodium Chloride () 10 - 40 ml IV UD PRN PRN Reason: SALINE FLUSH Last Admin: 04/02/20 05:39 Dose: 10 ml Documented by: Sucralfate (Carafate) 1 gm PO 1HR_ACHS [facility] Last Admin: 04/03/20 06:01 Dose: 1 gm Documented by: Medical Necessity - Tobacco Use Smoking Status: Former smoker Assessment/Plan All Active Problems (Last Reviewed 03/30/20 @ 11:[address] Pedro Gordon MD) Afib (Acute) Pneumonia (Acute) Encounter for education (Acute) Malnutrition (Acute) RECOMMENDATIONS: 1. Clarify with infectious disease on antibiotic plan 2. No need for bronchoscopy at this time 3. Likely okay to wean steroids per oncology 4. Continue scheduled bronchodilators. 5. Follow-up with nurse practitioner in 2 weeks in our office IMPRESSIONS: 1. Acute hypoxemic respiratory insufficiency The patient appears to have progressive infiltrate throughout the left lung along with evidence suggestive of infected bullae, despite outpatient treatment with p.o. antibiotics. Patient has grown relatively sensitive pseudomonal sputum. Supplemental oxygen can be weaned to maintain saturations at or above 90%. Will obtain a walking oximetry prior to discharge. No bronchoscopy required. Will need to clarify antibiotic plan with infectious disease before discharge. Patient can follow-up in our office in 2 weeks with nurse practitioner in addition to infectious disease 2. New onset atrial fibrillation with RVR Resolved. The patient was initially managed symptomatically with rate control strategy, only to convert back to normal sinus rhythm on March 31. Continue current medical management. 3. History of non-small cell lung cancer/nicotine dependence in remission/GERD/protein calorie malnutrition Complicates care, management, recovery and prognosis. Continue home medications as indicated. Inpatient E&M: 95286 Subs Hosp L2
[2020-04-03] MEDS: Aspirin E.C. 81 MG Tablet PO (08:14)
[2020-04-03] MEDS: APIXABAN 5 MG TABLET PO (08:14)
[2020-04-03] MEDS: amLODIPine 2.5 MG Tablet PO (08:14)
[2020-04-03] MEDS: guaiFENesin 1,200 MG Tablet 1200 MG PO (08:14)
[2020-04-03] MEDS: dexAMETHasone 4 MG Tablet PO (08:15)
[2020-04-03] MEDS: dilTIAZem CD 180 MG Capsule PO (08:16)
--- NOTE | 2020-04-03 10:03 | CASEMGMT ---
Per Dia FIGUEROA, pt does not qualify for home oxygen at this time. Pt has been independent in room. Masha FIGUEROA CM
--- NOTE | 2020-04-03 10:39 | DCINST_ITS ---
- Discharge Diagnoses Current Active Problems: Current Active and Chronic Problems (Last Reviewed 03/30/20 @ 11:[address] Pedro Gordon MD) Afib (Acute) You will use the following diet at home:: Regular, Fluid restricted (specify 2000 mls, 1500 mls) - 1500 Your food should be the consistency of: Regular Your liquids should be the consistency of: Regular/Thin Discharge Activity: Return to Normal Activity Call your doctor if you observe: Fever of 101 or Higher, Shortness of breath, Dizziness, Fainting spells, Swelling in the ankles, Chest pain, Increased palpitations (irregular heartbeat) Allergies/Adverse Reactions: Allergies No Known Allergies Allergy (Verified 03/28/20 11:00) Medications to take at Discharge Amlodipine [Norvasc] 2.5 mg PO DAILY 08/05/13 Albuterol Sulfate [Ventolin Hfa] 2 puff IH Q4H PRN 05/05/16 Triamcinolone 0.1% Cream [Kenalog] 1 applic TP DAILY PRN 05/05/16 mometasone-formoterol HFA 200 mcg-5 mcg/actuation aerosol inhaler 2 puff INHALATION Q12H 05/07/18 Ergocalciferol [Vitamin D] 50,000 unit PO SA 07/22/18 albuterol sulfate 2.5 mg INHALATION Q4H PRN #180 ml 06/16/19 Aclidinium [place] [Tudorza Pressair] 1 inh INHALATION BID 10/13/19 aspirin 81 mg tablet,delayed release 81 mg PO DAILY #30 tab 10/25/19 Magic Mouth Wash 15 ml PO Q6H PRN PRN #300 ml 12/07/19 Senna [Senokot] 2 tab PO DAILY #60 tab 01/04/20 Morphine Sulfate 10 mg PO Q4H PRN PRN #14 solution 01/12/20 Sucralfate [Carafate] 1 gm PO 4X/DAY #120 udc 01/12/20 Baclofen 5 mg PO TID #30 tab 01/24/20 Ondansetron [Ondansetron Odt] 8 mg PO Q8H PRN PRN 10 Days #30 tab.rapdis 02/13/20 Dexamethasone [Decadron] 4 mg PO DAILY@0800 #30 tab 03/14/20 food supplemt, lactose-reduced 0.06 gram-1 kcal/mL oral liquid 1 ea PO TID #6399 ml 03/22/20 Esomeprazole Mag Trihydrate [Nexium] 20 mg PO DAILY PRN 03/30/20 Apixaban [Eliquis] 5 mg PO BID #60 tab 04/03/20 Diltiazem CD [Cardizem CD] 180 mg PO DAILY #30 cap 04/03/20 Lisinopril [Zestril] 10 mg PO QHS #0 04/03/20 levoFLOXacin tablet [Levaquin tablet] 750 mg PO DAILY@0600 #14 tab 04/03/20 The following prescriptions were given: Diltiazem CD [Cardizem CD] 180 mg PO DAILY #30 cap Transmission Status: Pending to [facility] Apixaban [Eliquis] 5 mg PO BID #60 tab Transmission Status: Pending to [facility] levoFLOXacin tablet [Levaquin tablet] 750 mg PO DAILY@0600 #14 tab Transmission Status: Pending to [facility] Primary Care Physician: Pauline Thornton [Primary Care Provider] - Please follow up with your Primary Care Physician in: 3-5 days Test Results: Test results from this visit will be discussed in further detail at your follow- up appointment, if applicable. Please Follow Up With: CT scan Please Follow Up With: Bogdan German MD Please Follow Up With: Pauline Walden Please Follow Up With: Zoey Nuno When: 2-4 weeks
--- NOTE | 2020-04-03 10:42 | PCM.DC.SUM ---
Discharge Date and Diagnosis - Problem List Patient Problems: Active and Suspected Problems (Last Reviewed 03/30/20 @ 11:[address] Pedro Gordon MD) Afib (Acute) Date of Admission: 03/30/20 Date of Discharge: 04/03/20 - Primary Discharge Diagnosis Acute Problems: Active Problems (Last Reviewed 03/30/20 @ 11:[address] Pedro Gordon MD) Afib (Acute) - Secondary Discharge Diagnosis Chronic Problems: Chronic Problems (Last Reviewed 03/30/20 @ 11:[address] 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 Per C done 11/16/19 per [facility] @ [facility] Smoking greater than 40 pack years (Chronic) Stage 2 moderate COPD by GOLD classification (Chronic) FEV1 56% Alcoholic fatty liver (Chronic) Nicotine dependence (Chronic) Alcohol abuse (Chronic) GERD (gastroesophageal reflux disease) (Chronic) Vitamin D deficiency (Chronic) Hypertension (Chronic) Hyponatremia (Chronic) COPD (chronic obstructive pulmonary disease) (Chronic) Hospital Course and Treatment Imaging Results: CXR: IMPRESSION: Left perihilar mass and left greater than right perihilar airspace disease, concerning for pneumonia, with marked biapical bullous emphysema similar to prior. CTA Chest: IMPRESSION: No evidence of pulmonary embolus. No evidence of thoracic aortic aneurysm or dissection. New consolidation throughout the left lung which is likely infectious in etiology. The remainder of the pulmonary parenchymal findings are unchanged. 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 If indicated, a CT angiogram of the abdomen can be performed. Echo: Interpretation Summary The estimated ejection fraction is 65 %. Unable to estimate RV systolic pressure due to insufficient tricuspid regurgitant envelope. Trivial aortic valve insufficiency. Compared to echo report dated 11/07/2019, no appreciable changes noted. Consults: ID Pulmonology Operations: None Procedures: 2-D Echocardiogram Summary of Care Provided: Per HPI: The patient is a 60 year old M with multiple comorbidities including squamous cell carcinoma involving the left lung status post chemoradiation, COPD, recent admission in January 2020 for an infected pulmonary bullae who presented with shortness of breath. Patient symptoms started 2 days prior to coming in. Shortness of breath worse worsened with activity. In addition to above he did experience a persistent cough. Denied any fever no chills. He however did experience progressive generalized weakness. He presented to the emergency department as a result of worsening of his condition. Chest x-ray obtained demonstrated Left perihilar mass and left greater than right perihilar airspace disease, concerning for pneumonia, with marked biapical bullous emphysema similar to prior. Patient was also found to be tachycardic EKG demonstrated A. fib with RVR started on Cardizem drip admitted to the intensive care unit for further management Hospital Course: 1. Acute hypoxic respiratory insufficiency secondary to pseudomonal pneumonia and a COPD exacerbation as well as a history of [id number]-old male with squamous cell carcinoma of the left lung presented after chemoradiation with shortness of breath. In January 2020 he had had a infected pulmonary bullae and had been on Augmentin doxycycline for about 2 months and now presents with a pseudomonal infection. He had been started on cefepime since admission and infectious disease was consulted and transitioned him to p.o. Levaquin. In discussion with infectious disease, they are okay with a 14-day course and discontinuation of his Augmentin and doxycycline. He will need to follow-up with pulmonology in 2 to 4 weeks for further evaluation. He also has an appoint with his oncologist in 3 weeks to possibly start immunotherapy. He is breathing much better today and states that a lot of his symptoms have significantly improved. He has been on room air since yesterday afternoon and an ambulatory pulse ox today did not demonstrate a need for home O2. I discussed the discharge plan with him and he expressed understanding of the risks and benefits of going home today. 2. 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 His blood pressure has been stable therefore since lisinopril can cause SIADH, his dose was decreased from 20 mg daily to 10 mg daily. He was also discharged on a fluid restriction of 1500 cc/day. 3. New onset A. fib with RVR-he was started on a Cardizem drip and reverted to normal sinus rhythm on March 31. He has been stable on Cardizem of 180 mg daily. He is also started on Eliquis for his A. fib as well as for the fact that he does have an active cancer. He will be discharged on both Eliquis and Cardizem and will need to follow-up with his primary care doctor on discharge. He also does have bilateral lower extremity pitting edema though he does not have a diagnosis of CHF. His echo was unremarkable and therefore it is felt that his edema secondary to hypoalbuminemia. 4. Severe protein calorie malnutrition, GERD, anemia of chronic disease, squamous cell carcinoma of the left lung were monitored and his home medications were continued where appropriate. These diagnoses complicate his care. Patient Problems: Active and Suspected Problems (Last Reviewed 03/30/20 @ 11:[address] Pedro Gordon MD) Afib (Acute) - Physical Exam Vitals/I&O's: Vital Signs Temp Pulse Resp BP Pulse Ox 97.7 F L 91 16 115/74 98 04/03/20 09:35 04/03/20 09:35 04/03/20 09:35 04/03/20 09:35 04/03/20 09:35 Oxygen Flow Rate (L/min) 2 Oxygen Delivery Method Room Air Weight: 141 lb 15.643 oz Body Mass Index (BMI) 17.9 Intake and Output for Last 24 Hours 04/01/20 04/02/20 04/03/20 23:59 23:59 23:59 Intake Total 2510 / 2510 1265 / 1265 100 / 100 Balance 2510 / 2510 1265 / 1265 100 / 100 General: Alert, Oriented x3, Cooperative, No apparent distress HEENT: Atraumatic, PERRLA, EOMI, Normocephalic Oral: Moist Mucosa Neck: Supple, No JVD Lungs: Clear to auscultation, Normal air movement, No rhonchi, No wheeze, No rales, Diminished Cardiovascular: Regular rate, Regular Rhythm, Normal S1, Normal S2, No murmurs Abdomen: Soft, Non Tender, Non-Distended, No Hepato-splenomegaly Extremities: Capillary Refill Less than 3 Seconds, 2+ pitting edema bilateral lower extremities Skin: No rashes, No breakdown Neurological: Neuro grossly intact, Sensory exam intact to light touch and pain Psych/Mental Status: Normal Affect, Appropriate Microbiology Past 72 Hours 04/01/20 16:05 Sputum, Expectorated/Coughed Gram Stain - Final 04/01/20 16:05 Sputum, Expectorated/Coughed Respiratory Culture - Preliminary GNR Poss Pseudomonas sp Presumptive C albicans 03/30/20 21:50 Sputum, Expectorated/Coughed Gram Stain - Final 03/30/20 21:50 Sputum, Expectorated/Coughed Respiratory Culture - Final Pseudomonas aeroginosa 03/30/20 10:15 Blood Culture (Wb) - Anticubital Left Blood Culture - Preliminary No growth in 48 hours. 03/31/20 06:55 Urine, Clean Catch Streptococcus pneumoniae Antigen (M - Final 03/31/20 06:55 Urine, Clean Catch Legionella Antigen - Final Laboratory Results 04/03/20 05:35: WBC 19.3 H, RBC 3.20 L, Hgb 9.2 L, Hct 28.9 L, MCV 90.3, MCH 28.8, MCHC 31.8 L, RDW Std Deviation 67.1 H, RDW Coeff of Rush 20.5 H, Plt Count 309, MPV 8.5, Immature Gran % (Auto) 1.300 H, Neut % (Auto) 91.2 H, Lymph % (Auto) 3.2 L, [place] % (Auto) 4.0, Eos % (Auto) 0.1, Baso % (Auto) 0.2, Absolute Neuts (auto) 17.6 H, Absolute Lymphs (auto) 0.61 L, Nucleated RBC % 0, Differential Comment SCANNED, Toxic Granulation 1+, Anisocytosis 2+ 04/03/20 05:35: Sodium 127 L, Potassium 4.2, Chloride 94 L, Carbon Dioxide 27.0, Anion Gap 6, BUN 14, Creatinine 0.28 L, Estim Creat Clear Calc 261.94, Est GFR (MDRD) Af Amer 436, Est GFR (MDRD) Non-Af 360, BUN/Creatinine Ratio 50.7 H, Glucose 95, Calcium 8.4 L Current Medications Acetaminophen (Tylenol) 650 mg PO Q6H PRN PRN PRN Reason: Pain Score 1-3 /Temp>100.7 Last Admin: 04/03/20 06:19 Dose: 650 mg Documented by: Al Hydroxide/Mg Hydroxide (Mylanta Ii) 30 ml PO Q6H PRN PRN PRN Reason: Gastric Burning Amlodipine Besylate (Norvasc) 2.5 mg PO DAILY [facility] Last Admin: 04/03/20 08:14 Dose: 2.5 mg Documented by: Apixaban (Eliquis) 5 mg PO BID [facility] Last Admin: 04/03/20 08:14 Dose: 5 mg Documented by: Aspirin (Ecotrin) 81 mg PO DAILY [facility] Last Admin: 04/03/20 08:14 Dose: 81 mg Documented by: Baclofen (Lioresal) 5 mg PO TID [facility] Last Admin: 04/03/20 06:03 Dose: 5 mg Documented by: Budesonide (Pulmicort Aerosol) 0.5 mg INHALATION Q12H.RT [facility] Last Admin: 04/03/20 07:05 Dose: 0.5 mg Documented by: Dexamethasone (Decadron) 4 mg PO DAILY@0800 [facility] Last Admin: 04/03/20 08:15 Dose: 4 mg Documented by: Diltiazem HCl (Cardizem Cd) 180 mg PO DAILY [facility] Last Admin: 04/03/20 08:16 Dose: 180 mg Documented by: Docusate Sodium (Colace) 200 mg PO BID PRN PRN PRN Reason: Constipation Last Admin: 03/31/20 10:55 Dose: 200 mg Documented by: Ergocalciferol (Vitamin D) 50,000 unit PO SA [facility] Last Admin: 03/31/20 09:41 Dose: 50,000 unit Documented by: Guaifenesin (Mucinex) 1,200 mg PO BID [facility] Last Admin: 04/03/20 08:14 Dose: 1,200 mg Documented by: Ipratropium [place] [place] (Atrovent) 0.5 mg INHALATION BID.RT [facility] Last Admin: 04/03/20 07:05 Dose: 0.5 mg Documented by: Levofloxacin (Levaquin Tablet) 750 mg PO DAILY@0600 [facility] Last Admin: 04/03/20 06:01 Dose: 750 mg Documented by: Lidocaine/Diphenhydr/Alum/Mg/Simeth () 15 ml PO Q6H PRN PRN PRN Reason: Mouth Pain Lisinopril (Zestril) 20 mg PO QHS [facility] Last Admin: 04/02/20 21:07 Dose: 20 mg Documented by: Magnesium Hydroxide (Milk Of Magnesia) 30 ml PO DAILY PRN PRN PRN Reason: Constipation Melatonin (Melatonin) 3 mg PO QHS PRN PRN PRN Reason: INSOMNIA Last Admin: 04/02/20 23:44 Dose: 3 mg Documented by: Nutritional Formula (Lactose Free) (Ensure Enlive) 120 ml PO 4X/DAY [facility] Last Admin: 04/03/20 08:16 Dose: 120 ml Documented by: Ondansetron HCl (Zofran) 4 mg IV Q8H PRN PRN PRN Reason: Nausea Oxycodone HCl (Oxyir) 5 mg PO Q4H PRN PRN PRN Reason: Pain Score 4-5/10 Last Admin: 04/03/20 06:18 Dose: 5 mg Documented by: Pantoprazole Sodium (Protonix) 20 mg PO DAILY PRN PRN PRN Reason: REFLUX Polyethylene Glycol (Miralax) 17 gm PO DAILY [facility] Last Admin: 04/03/20 08:15 Dose: Not Given Documented by: Potassium Chloride (K-Dur) 20 meq PO BIDCM [facility] Last Admin: 04/03/20 08:14 Dose: 20 meq Documented by: Sodium Chloride () 10 - 40 ml IV UD PRN PRN Reason: SALINE FLUSH Last Admin: 04/02/20 05:39 Dose: 10 ml Documented by: Sucralfate (Carafate) 1 gm PO 1HR_ACHS [facility] Last Admin: 04/03/20 06:01 Dose: 1 gm Documented by: Discharge Activity: Return to Normal Activity Call your doctor if you observe: Fever of 101 or Higher, Shortness of breath, Dizziness, Fainting spells, Swelling in the ankles, Chest pain, Increased palpitations (irregular heartbeat) Home Medications: Medications to take at Discharge Amlodipine [Norvasc] 2.5 mg PO DAILY 08/05/13 Albuterol Sulfate [Ventolin Hfa] 2 puff IH Q4H PRN 05/05/16 Triamcinolone 0.1% Cream [Kenalog] 1 applic TP DAILY PRN 05/05/16 mometasone-formoterol HFA 200 mcg-5 mcg/actuation aerosol inhaler 2 puff INHALATION Q12H 05/07/18 Ergocalciferol [Vitamin D] 50,000 unit PO SA 07/22/18 albuterol sulfate 2.5 mg INHALATION Q4H PRN #180 ml 06/16/19 Aclidinium [facility] [place] [Tudorza Pressair] 1 inh INHALATION BID 10/13/19 aspirin 81 mg tablet,delayed release 81 mg PO DAILY #30 tab 10/25/19 Magic Mouth Wash 15 ml PO Q6H PRN PRN #300 ml 12/07/19 Senna [Senokot] 2 tab PO DAILY #60 tab 01/04/20 Morphine Sulfate 10 mg PO Q4H PRN PRN #14 solution 01/12/20 Sucralfate [Carafate] 1 gm PO 4X/DAY #120 udc 01/12/20 Baclofen 5 mg PO TID #30 tab 01/24/20 Ondansetron [Ondansetron Odt] 8 mg PO Q8H PRN PRN 10 Days #30 tab.rapdis 02/13/20 Dexamethasone [Decadron] 4 mg PO DAILY@0800 #30 tab 03/14/20 food supplemt, lactose-reduced 0.06 gram-1 kcal/mL oral liquid 1 ea PO TID #6399 ml 03/22/20 Esomeprazole Mag Trihydrate [Nexium] 20 mg PO DAILY PRN 03/30/20 Apixaban [Eliquis] 5 mg PO BID #60 tab 04/03/20 Diltiazem CD [Cardizem CD] 180 mg PO DAILY #30 cap 04/03/20 Lisinopril [Zestril] 10 mg PO QHS #0 04/03/20 levoFLOXacin tablet [Levaquin tablet] 750 mg PO DAILY@0600 #14 tab 04/03/20 Following Prescrptions Were Given to Patient: Diltiazem CD [Cardizem CD] 180 mg PO DAILY #30 cap Transmission Status: Pending to [facility] Apixaban [Eliquis] 5 mg PO BID #60 tab Transmission Status: Pending to [facility] levoFLOXacin tablet [Levaquin tablet] 750 mg PO DAILY@0600 #14 tab Transmission Status: Pending to [facility] Primary Care Physician: Pauline Thornton [Primary Care Provider] - Please follow up with your Primary Care Physician in: 3-5 days Please Follow Up With: CT scan Please Follow Up With: Bogdan German MD Please Follow Up With: Pauline Walden Please Follow Up With: Zoey Nuno When: 2-4 weeks Disposition: Home Minutes spent on discharge:: 35 Patient Condition:: Stable Medical Necessity - Tobacco Use Smoking Status: Former smoker Meaningful Use Info Meaningful Use Diagnoses (Choose all that apply): None applicable Inpatient E&M: [id number] [facility]
--- NOTE | 2020-04-03 12:46 | PHA.DC.MC ---
Pharmacy Service has performed discharge medication reconciliation and counseling for this patient. The patient was counseled on the following discharge medications and changes in medications for homegoing were reviewed. 1. Levaquin 2. Eliquis 3. Cardizem The Reason for Use, instructions for use, and potential side effects were reviewed for all new medications. The patient's questions regarding all of their medications were answered. The patient demonstrated some understanding but would benefit from further education and reinforcement. Home Medications Amlodipine [Norvasc] 2.5 mg PO DAILY 08/05/13 Albuterol Sulfate [Ventolin Hfa] 2 puff IH Q4H PRN 05/05/16 Triamcinolone 0.1% Cream [Kenalog] 1 applic TP DAILY PRN 05/05/16 mometasone-formoterol HFA 200 mcg-5 mcg/actuation aerosol inhaler 2 puff INHALATION Q12H 05/07/18 Ergocalciferol [Vitamin D] 50,000 unit PO SA 07/22/18 albuterol sulfate 2.5 mg INHALATION Q4H PRN #180 ml 06/16/19 Aclidinium [place] [Tudorza Pressair] 1 inh INHALATION BID 10/13/19 aspirin 81 mg tablet,delayed release 81 mg PO DAILY #30 tab 10/25/19 Magic Mouth Wash 15 ml PO Q6H PRN PRN #300 ml 12/07/19 Senna [Senokot] 2 tab PO DAILY #60 tab 01/04/20 Morphine Sulfate 10 mg PO Q4H PRN PRN #14 solution 01/12/20 Baclofen 5 mg PO TID #30 tab 01/24/20 Ondansetron [Ondansetron Odt] 8 mg PO Q8H PRN PRN 10 Days #30 tab.rapdis 02/13/20 Dexamethasone [Decadron] 4 mg PO DAILY@0800 #30 tab 03/14/20 food supplemt, lactose-reduced 0.06 gram-1 kcal/mL oral liquid 1 ea PO TID #6399 ml 03/22/20 Esomeprazole Mag Trihydrate [Nexium] 20 mg PO DAILY PRN 03/30/20 Apixaban [Eliquis] 5 mg PO BID #60 tab 04/03/20 Diltiazem CD [Cardizem CD] 180 mg PO DAILY #30 cap 04/03/20 Lisinopril [Zestril] 10 mg PO QHS #0 04/03/20 levoFLOXacin tablet [Levaquin tablet] 750 mg PO DAILY@0600 #14 tab 04/03/20 The patient's discharge medication list was reviewed for discrepancies and discrepancies were resolved.
--- NOTE | 2020-04-04 14:29 | CASEMGMT ---
CAROLINA KWON Discharge F/U Phone Call LACKandi: 14 Strata: 4 Discharge date: 04/03/2020 Call date: 04/04/2020 Call time: [id number] Admission dx: Afib, pna Pt states he feels like 'I am starting all over again'. Pt states has had pneumonia for '13 weeks' and states he is hoping the antibx they put him on this time works. Pt states that his cancer treatment has been on hold d/t him not feeling well and pt states 'that mass is just getting bigger.' Pt states plans to keep f/u appt's. Pt states that he is worried about using albuterol for nebulizer as he was told not to while in the hospital d/t tachycardia. This CAROLINA KWON advised pt to call pulmonology office kee and let them know about nebulizer med concerns and pt voices understanding. Pt voices no further questions/concerns/needs at this time and thanks this RN DOYLE for the call. SStaten CAROLINA KWON
--- NOTE | 2020-04-11 11:04 | CASEMGMT ---
Social Work Discharge follow up Phone call: Discharge Date: 04/03/20 Call Date: 04/11/20 Callt Time: 1105 Reason for Follow up: advanced care planning. During admission pt family requesting pt complete and pt did not feel up to it at that time. Followup to see if pt was now ready to discuss advanced care planning. Summary of Call: Left message to call this telegraphic typewriter installer back. Interventions: If pt returns call, will address advance care planning. DANIEL Worrell
== END 2020-04-03 13:10 | disposition home or self-care (01) | DRG 140 ==
LOC: ED 07:42 → PCU 04-01 09:33 → ICU 04-02 09:41 → PCU 04-02 09:41
PROVIDERS: Emergency Medicine; Admitting Provider Internal Medicine; Emergency Provider Emergency Medicine; Visit Provider Family Medicine
DX: J47.0 Bronchiectasis with acute lower respiratory infection (principal); J47.1 Bronchiectasis with (acute) exacerbation; J43.2 Centrilobular emphysema; J15.1 Pneumonia due to Pseudomonas; J96.01 Acute respiratory failure with hypoxia; J70.0 Acute pulmonary manifestations due to radiation; I48.91 Unspecified atrial fibrillation; D63.0 Anemia in neoplastic disease; K20.8 Other esophagitis; R64 Cachexia; K70.0 Alcoholic fatty liver; E55.9 Vitamin D deficiency, unspecified; I10 Essential (primary) hypertension; E87.1 Hypo-osmolality and hyponatremia; Y90.9 Presence of alcohol in blood, level not specified; C34.92 Malignant neoplasm of unspecified part of left bronchus or lung; E88.09 Other disorders of plasma-protein metabolism, not elsewhere classified; E43 Unspecified severe protein-calorie malnutrition; Y84.2 Radiological procedure and radiotherapy as the cause of abnormal reaction of the patient, or of later complication, without mention of misadventure at the time of the procedure; F10.10 Alcohol abuse, uncomplicated; Z68.1 Body mass index [BMI] 19.9 or less, adult; Z92.21 Personal history of antineoplastic chemotherapy; Z92.3 Personal history of irradiation; Z79.899 Other long term (current) drug therapy; Z79.82 Long term (current) use of aspirin; Z87.891 Personal history of nicotine dependence
CPT/HCPCS: 36415; 36593; 71045; 71275; 80048; 80053; 80076; 80202; 82550; 83605; 83615; 83880; 83930; 83935; 84145; 84300; 84439; 84443; 84481; 84484; 85025; 85379; 85384; 85610; 85730; 86140; 87040; 87070; 87077; 87184; 87186; 87205; 87449; 87633; 87635; 93005; 93306; 94640; 99251; 99285; G2023; J2997; J7030; J7050; Q9957; Q9967; A4216; G0463; J0153; J1940; U0003

== ENCOUNTER 2020-04-09 10:46 | Inpatient (IN) | payer MEDICAID, SELFPAY ==
[2019-10-31 11:02] VITALS: BMI 19.1
[2020-03-30 10:55] VITALS: BMI 17.9
[2020-04-09] VITALS (24 sets, daily range): BP systolic 97–137; BP diastolic 57–73; PULSE 112–135; RESP 12–24; TEMP 36.7–38.1; O2SAT 92–98; BMI 18.6; BMI 19.4
--- NOTE | 2020-04-09 10:57 | EKG12_ITS ---
Test Reason : Blood Pressure : / mmHG Vent. Rate : 124 BPM Atrial Rate : 124 BPM P-R Int : 136 ms QRS Dur : 076 ms QT Int : 310 ms P-R-T Axes : 053 065 063 degrees QTc Int : 445 ms Sinus tachycardia Possible Left atrial enlargement Borderline ECG Confirmed by AISHA HERNANDEZ, SHANTELLE ([id number]), assignment editor GARRICK RIOJAS ([id number]) on 04/11/2020 1:10:45 PM Referred By: RAJNI Confirmed By:SHANTELLE LEONARD MD
--- NOTE | 2020-04-09 10:59 | ED.RN ---
[facility] CONTACTED FOR MEDICATION LIST
[2020-04-09 11:10] LABS: Absolute Lymphocyte Count 0.72 X10^3/uL (0.83-4.51); Absolute Neutrophil Count 11.9 X10^3/uL (2.0-7.7); Basophil# 0.02 X10^3/uL; Basophil% 0.1 % (0-1); Eosinophil# 0.29 X10^3/uL; Eosinophils% 1.9 % (0-5); Hematocrit 20.2 % (40-54); Hemoglobin 6.5 g/dL (13.0-16.5); Lymphocyte # 0.72 X10^3/ul (4.0); Lymphocyte % 4.8 % (19-41); Mean Corp Hgb Conc 32.2 g/dL (32-36); Mean Corpuscular Volume 87.1 fL (80-94); Mean Platelet Vol. 8.6 fl (6.2-12.0); Monocyte# 1.48 X10^3/uL; Monocyte% 9.9 % (0-10); NRBC Flagged by Analyzer 0 % (0-5); Neutrophil # 11.92 X10^3/uL (2.7-7.7); Neutrophil % 80.3 % (47-70); POSITIVE MORPHOLOGY YES; Platelet Count 248 K/mm3 (150-450); RBC Distribution Width CV 20.6 % (11.6-14.6); RBC Distribution Width SD 64.1 fl (35.1-43.9); Red Blood Count 2.32 M/mm3 (4.6-6.2); White Blood Count 14.9 K/mm3 (4.4-11.0)
--- NOTE | 2020-04-09 11:11 | ED.VIS.GEN ---
History of Present Illness Chief Complaint: Shortness of Breath Narrative: 60-year-old male with past medical history of atrial fibrillation, hypertension, stage III lung cancer presents with concern for continued shortness of breath and cough. Patient states that he has had pneumonia over the past 3 months. Was recently admitted to the hospital for new onset atrial fibrillation as well as worsening pneumonia. States that he is unable to care for himself at home. Dyspnea on exertion. Patient is concerned because he is so weak that he cannot eat. States that he lives at home with his girlfriend who had a stroke in which he cares for her at this time. Past Medical History - Allergies and Home Meds Allergies/Adverse Reactions: Allergies No Known Allergies Allergy (Verified 03/28/20 11:00) Prior records reviewed: Yes Past Medical History: - - Atrial fibrillation and lung cancer Surgical History: - - Reviewed Lives: Spouse/ Significant Other Smoking Status: Current some day smoker Alcohol: None Drugs: None Review of Systems General: Denies: Chills, Fever, Sweats Eyes: Denies: Visual changes - bilaterally, Diplopia ENT: Denies: Rhinorrhea, Sore throat Cardiovascular: Denies: Chest pain, Palpitations Respiratory: Reports: Dyspnea, Cough, Dyspnea on exertion Gastrointestinal: Denies: Abdominal pain, Nausea, Vomiting, Diarrhea, Melena, Hematochezia Genitourinary: Denies: Dysuria, Hematuria, Frequency Musculoskeletal: Denies: Back pain, Extremity Pain Skin: Denies: Rash, Wounds Neurological: Reports: Weakness. Denies: Headache, Numbness Physical Exam Vital Signs/Narrative: Vital Signs Temp Pulse Resp BP Pulse Ox 04/09/20 11:03 98.7 F 04/09/20 10:49 98.7 F 123 H 24 H 103/73 93 04/09/20 10:47 98.7 F 123 H 24 H 103/73 93 Inital Vital Signs reviewed: Yes General: Cachectic, No Acute Distress Head: Normocephalic, Atraumatic Eyes: Perrl, EOMI ENT: Moist mucous membranes, No rhinorrhea Neck: Supple, Nontender Cardiovascular: Regular rate, Regular rhythm, No murmurs Respiratory: No distress, Chest nontender, - - Coarse breath sounds bilaterally without wheezing. Abdomen: Soft, Nontender, Nondistended, Normal bowel sounds Back: Nontender, Normal Inspection Extremities: Nontender, No edema Skin: Normal color, No rash Neurological: Alert, Oriented x3, Cranial nerves II-XII grossly intact, Normal Strength, Normal Sensation Psychological: Normal affect, Normal Mood Diagnostic/Tx/Re-eval Chest X-Ray - ED: 1 View, Read by ED Physician, - - Chronic left sided changes with stable pneumonitis and mass. Clinical Impression(s) from Imaging Studies Chest X-Ray 04/09/20 11:18 IMPRESSION: No new focal patchy airspace opacities Stable multiple focal airspace opacities/left lung mass Stable COPD/emphysema with bullous changes Stable left-sided volume loss with elevated diaphragm Right-sided Mediport catheter in position Electronically Signed: Harvey Yeager, DO at 11:51 EDT Tel , Service support , Laboratory Data 04/09/20 04/09/20 04/09/20 10:55 10:55 10:55 WBC 14.9 H RBC 2.32 L Hgb 6.5 L Hct 20.2 L MCV 87.1 MCH 28.0 MCHC 32.2 RDW Std Deviation 64.1 H RDW Coeff of [place] 20.6 H Plt Count 248 MPV 8.6 Immature Gran % (Auto) 3.000 H Neut % (Auto) 80.3 H Lymph % (Auto) 4.8 L [place] % (Auto) 9.9 Eos % (Auto) 1.9 Baso % (Auto) 0.1 Absolute Neuts (auto) 11.9 H Absolute Lymphs (auto) 0.72 L Nucleated RBC % 0 Platelet Estimate ADEQUATE Polychromasia RARE Hypochromasia 2+ Anisocytosis 2+ PT 22.9 H INR 2.1 APTT 41.1 H Sodium 127 L Potassium 3.6 Chloride 96 L Carbon Dioxide 25.0 Anion Gap 6 BUN 17 Creatinine 0.39 L Estim Creat Clear Calc 171.71 Est GFR (MDRD) Af Amer 293 Est GFR (MDRD) Non-Af 242 BUN/Creatinine Ratio 43.6 H Glucose 87 Lactic Acid Calcium 7.5 L Total Bilirubin 0.40 AST 57 H ALT 58 Alkaline Phosphatase 98 Troponin I < 0.015 Total Protein 4.9 L Albumin 1.3 L Globulin 3.6 Albumin/Globulin Ratio 0.4 L COVID-19 (ANA) Blood Type Antibody Screen Crossmatch 04/09/20 04/09/20 04/09/20 10:55 11:05 12:15 WBC RBC Hgb Hct MCV MCH MCHC RDW Std Deviation RDW Coeff of [place] Plt Count MPV Immature Gran % (Auto) Neut % (Auto) Lymph % (Auto) [place] % (Auto) Eos % (Auto) Baso % (Auto) Absolute Neuts (auto) Absolute Lymphs (auto) Nucleated RBC % Platelet Estimate Polychromasia Hypochromasia Anisocytosis PT INR APTT Sodium Potassium Chloride Carbon Dioxide Anion Gap BUN Creatinine Estim Creat Clear Calc Est GFR (MDRD) Af Amer Est GFR (MDRD) Non-Af BUN/Creatinine Ratio Glucose Lactic Acid 1.3 Calcium Total Bilirubin AST ALT Alkaline Phosphatase Troponin I Total Protein Albumin Globulin Albumin/Globulin Ratio COVID-19 (ANA) Not Detected Blood Type A POSITIVE Antibody Screen NEGATIVE Crossmatch See Detail - Rhythm Strip Rhythm Strip: Sinus Tach Rate: 124 Ectopy: None - EKG Initial EKG Interpretation: Sinus Tachycardia - Sinus tachycardia to 124 bpm. QTC of 445 ms. HI interval [address] changes. No significant elevation or depression at this time. - Medical Decision Making Patient appears thin and pale upon arrival. Tachycardic without hypotension. Evidence of anemia which is decreased approximately 3 g from previous baseline. Patient was recently placed on Eliquis. Rectal exam shows black stool. Occult blood negative for testing but I feel this is likely a false negative. Patient also has a chronic hyponatremia likely secondary to SIADH. Chest x-ray unchanged. Patient shortness of breath is likely secondary to his new anemia. Patient was given 2 units of packed red blood cells. Lactic acid negative with a leukocytosis. No antibiotics will be given at this time. Spoke with hospitalist who is agreeable with admission. Patient also agreeable and admitted in stable condition. 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
[2020-04-09 11:12] LABS: Differential Indicated SCAN CRITERIA MET
[2020-04-09 11:15] LABS: International Normalized Ratio 2.1; Prothrombin Time (Protime)PT. 22.9 SECONDS (11.7-14.9)
[2020-04-09 11:16] LABS: Partial Thromboplast Time 41.1 Seconds (24.1-36.2)
--- NOTE | 2020-04-09 11:18 | RAD_ITS ---
STUDY: X-RAY CHEST REASON FOR EXAM: Male, 60 years old. increase sob. diagnosed with pneumonia 3 months ago TECHNIQUE: Single AP portable view of the chest. COMPARISON: March 30. FINDINGS: Right-sided Mediport catheter in position. Cardiac silhouette unremarkable. Pulmonary vascularity unremarkable. Aorta minimally calcified. Stable multifocal air space opacities/left lung mass. Stable COPD/emphysema with bullous changes. Stable left-sided volume loss with elevated diaphragm. No new focal patchy airspace opacities or effusions. Upper abdomen unremarkable. Osseous structures intact with mild degenerative features. No pneumothorax. RAD/Chest 1 View (Portable) IMPRESSION: No new focal patchy airspace opacities Stable multiple focal airspace opacities/left lung mass Stable COPD/emphysema with bullous changes Stable left-sided volume loss with elevated diaphragm Right-sided Mediport catheter in position Electronically Signed: Harvey Yeager DO at 11:51 EDT Tel , Service support ,
[2020-04-09 11:28] LABS: ALB/GLOB Ratio 0.4 RATIO (0.9-2.4); AST(SGOT) 57 U/L (15-37); Alanine Aminotransfer ALT/SGPT 58 U/L (16-61); Albumin, Serum 1.3 g/dL (3.2-5.0); Alkaline Phosphatase 98 U/L (45-117); Anion Gap 6 (5-15); BUN 17 mg/dL (7-18); BUN/Creat Ratio 43.6 RATIO (10-20); Calcium,Total 7.5 mg/dL (8.5-10.1); Chloride 96 mmol/L (98-107); Creatinine, Serum 0.39 mg/dL (0.70-1.30); EST Glomerular Filtration Rate 242 mL/min (>60); Est Glom Filt Rate - Afr Amer 293 mL/min (>60); Estimated Creatinine Clearance 171.71 ml/min; Globulin 3.6 g/dL (2.2-4.2); Glucose 87 mg/dL (74-106); Potassium 3.6 mmol/L (3.5-5.1); Protein, Total 4.9 g/dL (6.4-8.2); Sodium Level 127 mmol/L (136-145)
[2020-04-09 11:43] LABS: Lactic Acid 1.3 mmol/L (0.4-1.9)
[2020-04-09 11:45] LABS: Anisocytosis 2+; Platelet Estimate ADEQUATE (ADEQ)
[2020-04-09 11:46] LABS: Hypochromasia 2+; Polychromasia RARE
--- NOTE | 2020-04-09 13:21 | PCM.HP.STD ---
History of Present Illness Date of Admission: 04/09/20 Chief Complaint: shortness of breath The patient is a 60 year old M with an extensive past medical history as outlined including squamous cell carcinoma of the lung for which he has undergone chemotherapy is currently undergoing radiotherapy. He was under through the ED on 04/09/2020 with a complaint of persistent shortness of breath. Patient was recently treated for pneumonia and states he has been undergoing treatment for pneumonia for the past 3 months. He was also recently admitted and managed for new onset A. fib as well as pneumonia and was discharged home. He was put on Eliquis. Patient states he has been getting weaker and more short of breath at home and has not been able to eat or take care of himself. He noticed that his stools were also getting dark. His shortness of breath and weakness gradually progressed until he felt it was best for him to come into the hospital to be evaluated. He denied any chest pain and admits to a cough which is still productive. He denies any nausea vomiting or diarrhea. He says he had a colonoscopy in the past and thinks he is due for another one this year or next year. His previous colonoscopy revealed that he had polyps but he states he was told it was benign. Review of symptoms otherwise negative. He does admit to black stools but denies seeing any porfirio blood in his stools. Admission in the ED, vitals were significant for temperature of 98.7 with blood pressure of 103/73. Pulse rate was 123 respiratory rate was 24. Oxygen saturation was 97% on 2 L of oxygen. Chemistry showed sodium of 127 and this is chronically low. Creatinine was 0.39 and bicarb was 25. CBC showed hemoglobin of 6.5 with white cell count of 14.9 and platelets of 248. This x-ray done showed no new focal patchy airspace opacities and showed stable multiple focal airspace opacities in left lung mass with stable COPD and emphysema and left sided stable volume loss with elevated diaphragm. EKG showed no acute ST changes. He has been admitted to be managed for symptomatic acute on chronic anemia [] Past Medical History Past Medical History (Chronic Problems): Chronic Problems (Last Reviewed 03/30/20 @ 11:[address] 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 Per LHC done 11/16/19 per DJN @ [facility] Smoking greater than 40 pack years (Chronic) Stage 2 moderate COPD by GOLD classification (Chronic) FEV1 56% Alcoholic fatty liver (Chronic) Nicotine dependence (Chronic) Alcohol abuse (Chronic) GERD (gastroesophageal reflux disease) (Chronic) Vitamin D deficiency (Chronic) Hypertension (Chronic) Hyponatremia (Chronic) COPD (chronic obstructive pulmonary disease) (Chronic) Medical History: Medical History (Last Reviewed 03/30/20 @ 11:[address] Pedro Gordon MD) Smoking greater than 40 pack years (Chronic) F17.210 Stage 2 moderate COPD by GOLD classification (Chronic) J44.9 FEV1 56% Alcoholic fatty liver (Chronic) K70.0 Nicotine dependence (Chronic) F17.200 Alcohol abuse (Chronic) F10.10 GERD (gastroesophageal reflux disease) (Chronic) K21.9 Vitamin D deficiency (Chronic) E55.9 Hypertension (Chronic) I10 Hyponatremia (Chronic) E87.1 COPD (chronic obstructive pulmonary disease) (Chronic) J44.9 PORT PLACEMENT Hypertension I10 Allergies No Known Allergies Allergy (Verified 03/28/20 11:00) Home Medications: Ambulatory Orders Medication Instructions Recorded Amlodipine [Norvasc] 2.5 mg PO DAILY 08/05/13 Albuterol Sulfate [Ventolin Hfa] 2 puff IH Q4H PRN 05/05/16 Ergocalciferol [Vitamin D] 50,000 unit PO SA 07/22/18 aspirin 81 mg tablet,delayed 81 mg PO DAILY #30 tab 10/25/19 release Dexamethasone [Decadron] 4 mg PO DAILY@0800 #30 tab 03/14/20 Apixaban [Eliquis] 5 mg PO BID #60 tab 04/03/20 Diltiazem CD [Cardizem CD] 180 mg PO DAILY #30 cap 04/03/20 levoFLOXacin tablet [Levaquin 750 mg PO DAILY@0600 #14 tab 04/03/20 tablet] Lisinopril 20 mg PO DAILY 04/09/20 Mometasone/Formoterol [Dulera 200 2 puff INHALATION BID 04/09/20 Mcg/5 Mcg Inhaler] Surgical History: Surgical History (Last Reviewed 03/28/20 @ 11:00 by Moon Le) History of left heart catheterization (Chronic) Onset Date: 11/16/19 Z98.890 LEFT MAIN: Angiographically normal; LEFT ANTERIOR DESCENDING ARTERY: PROX LAD: Moderate calcification, Mild luminal irregularities less than 30%; CIRCUMFLEX ARTERY: Mild luminal irregularities less than 30%; RIGHT CORONARY ARTERY: MID RCA: Mild calcification, Mild luminal irregularities less than 30%. Per LHC done 11/16/19 per BLANCAN @ [facility] Growth removed from throat Onset Date: ~[address] Springer Surgical History: - - Reviewed Psychiatric History: No pertinent psych hx Lives: Spouse/ Significant Other Smoking Status: Current some day smoker Tobacco Use: - Alcohol: None Drugs: None - *Family History Maternal Family History: Family History (Last Reviewed 03/30/20 @ 11:[address] Pedro Gordon MD) Father Esophageal cancer Mother Lung cancer Diabetes Brother No problems noted. Brother CAD (coronary artery disease) Myocardial infarction Brother CAD (coronary artery disease) Myocardial infarction Other Cancer Hypertension Lung disease Review of Systems Constitutional: Reports: Anorexia, Chills, Malaise, Weakness, Fatigue. Denies: Fever, Night Sweats Eyes: Denies: Blurred vision HEENT: Denies: Head Aches, Sinus Congestion, Sinus Drainage Cardiovascular: Denies: Chest Pain, Palpitations Respiratory: Reports: Cough, Shortness of Breath, Shortness of breath at rest, Shortness of breath upon exertion, Sputum production Gastrointestinal: Reports: - - dark stools. Denies: Abdominal Pain, Nausea, Vomiting Genitourinary: Denies: Dysuria Musculoskeletal: Denies: Joint Pain, Joint Tenderness Skin: Denies: Rash, Wounds Neurological: Denies: Numbness, Tingling, Focal weakness Psychiatric: Denies: Anxiety, Depression, Homicidal Ideations, Suicidal Ideations Hematologic/ Lymphatic: Denies: Easy Bruising, Easy Bleeding VTE Information - Inpt Only VTE Present on Admission: No VTE Mechan Device Prophylaxis: SCD's VTE Pharm Prophylaxis ordered?: Yes Reason prophylaxis not ordered:: Medical Contraindication - dark stools, suspect GI bleed Patient Problems: Active and Suspected Problems (Last Reviewed 03/30/20 @ 11:[address] Pedro Gordon MD) Afib (Acute) GI bleed (Acute) Acute blood loss anemia (Acute) Squamous cell carcinoma of lung, stage III (Acute) - Physical Exam Vitals/I&O's: Vital Signs Temp Pulse Resp BP Pulse Ox 98.6 F 121 H 20 H 106/60 98 04/09/20 12:21 04/09/20 12:21 04/09/20 12:21 04/09/20 12:21 04/09/20 12:21 Oxygen Flow Rate (L/min) 2 Oxygen Delivery Method Nasal Cannula Weight: 129 lb 10.109 oz Body Mass Index (BMI) 18.6 General: Alert, Oriented x3, Cooperative, Lethargic HEENT: Atraumatic, PERRLA, EOMI, Normocephalic Oral: Dry Mucosa Neck: Supple, No JVD, Negative Carotid Bruits Lungs: - - decreased breath sounds bibasally, no wheezes or crackles.on 2L of oxygen Cardiovascular: Normal S1, Normal S2, No murmurs, Irregular Rate, Tachycardic Abdomen: Bowel Sounds Present, Soft, Non Tender Extremities: No clubbing, No cyanosis, No edema, Capillary Refill Less than 3 Seconds Skin: No rashes, No breakdown Musculoskeletal: No Tenderness to Palpation of Joints or Extremities, - - mediport in place Lymphatic: No Cervical, Supraclavicular, or Inguinal Adenopathy Neurological: Cranial nerves II-XII grossly intact, Neuro grossly intact, Motor Exam 5/5 strength throughout Psych/Mental Status: Normal Affect, Appropriate, Alert and oriented to time, place, person, mood and affect Microbiology Past 72 Hours 04/09/20 12:00 Stool Stool Occult Blood (PAT) - Final Laboratory Results 04/09/20 10:55: WBC 14.9 H, RBC 2.32 L, Hgb 6.5 L, Hct 20.2 L, MCV 87.1, MCH 28.0, MCHC 32.2, RDW Std Deviation 64.1 H, RDW Coeff of Rush 20.6 H, Plt Count 248, MPV 8.6, Immature Gran % (Auto) 3.000 H, Neut % (Auto) 80.3 H, Lymph % (Auto) 4.8 L, [place] % (Auto) 9.9, Eos % (Auto) 1.9, Baso % (Auto) 0.1, Absolute Neuts (auto) 11.9 H, Absolute Lymphs (auto) 0.72 L, Nucleated RBC % 0, Platelet Estimate ADEQUATE, Polychromasia RARE, Hypochromasia 2+, Anisocytosis 2+ 04/09/20 10:55: PT 22.9 H, INR 2.1, APTT 41.1 H 04/09/20 10:55: Sodium 127 L, Potassium 3.6, Chloride 96 L, Carbon Dioxide 25.0, Anion Gap 6, BUN 17, Creatinine 0.39 L, Estim Creat Clear Calc 171.71, Est GFR (MDRD) Af Amer 293, Est GFR (MDRD) Non-Af 242, BUN/Creatinine Ratio 43.6 H, Glucose 87, Calcium 7.5 L, Total Bilirubin 0.40, AST 57 H, ALT 58, Alkaline Phosphatase 98, Troponin I < 0.015, Total Protein 4.9 L, Albumin 1.3 L, Globulin 3.6, Albumin/Globulin Ratio 0.4 L 04/09/20 10:55: Lactic Acid 1.3 04/09/20 11:05: COVID-19 (ANA) Pending 04/09/20 12:15: Blood Type Pending, Antibody Screen Pending, Crossmatch See Detail Diagnostic Data Chest X-Ray 04/09/20 11:18 IMPRESSION: No new focal patchy airspace opacities Stable multiple focal airspace opacities/left lung mass Stable COPD/emphysema with bullous changes Stable left-sided volume loss with elevated diaphragm Right-sided Mediport catheter in position Electronically Signed: Harvey Yeager DO at 11:51 EDT Tel , Service support , Assessment/Plan All Active Problems (Last Reviewed 03/30/20 @ 11:[address] Pedro Gordon MD) Afib (Acute) GI bleed (Acute) Acute blood loss anemia (Acute) Squamous cell carcinoma of lung, stage III (Acute) Pneumonia (Acute) Encounter for education (Acute) Malnutrition (Acute) 60 y/o admitted with a complaint of worsening shortness of breath 1. Acute on chronic anemia Hemoglobin is 6.5 today with a baseline of around 8. Patient was recently started on Eliquis for A. fib. stool for occult blood was negative hold eliquis. transfuse with 2 units of PRBCs consult general surgery IV protonix 40mg bid keep on clear liquids for now until general surgery evaluates 2. Acute hypoxic respiratory insufficiency Requiring 2 L of oxygen to maintain saturation above 95%. Likely due to pneumonia that he has been treated for recently. COVID test is pending, cover test in the past has been negative. Titrate oxygen to maintain saturation above 90%. Give breathing treatments with DuoNeb's. Continue Dulera and continue levofloxacin antibiotics. 3. A. fib: Was tachycardic on admission but currently rate controlled. On Cardizem. Will continue. Hold eliquis 4. History of squamous cell carcinoma Mediport in place. Has undergone chemotherapy and is to start radiotherapy. Follows with Dr. Schmidt. Currently stable. 5. DVT prophylaxis; SCDs Code status: full code Patient counseled extensively about different types of CODE STATUS including full code, DNR CCA and DNR CCA. Patient elects to be full code. Total [id number] time 16 minutes. Inpatient E&M: 32382 Init Hosp L3 Procedures: 50966 Advncd Care Plan 30 Min
--- NOTE | 2020-04-09 13:25 | NURSING ---
PCU GI BLEED, KORAM
--- NOTE | 2020-04-09 14:02 | NURSING ---
102 ACUTE ON CHRONIC HEART FAILURE DAVID
[2020-04-09] MEDS: Albuterol 2.5 MG/3 ML VIAL.NEB. INHALATION ×2 (15:30→18:54)
--- NOTE | 2020-04-09 16:15 | PCM.CONS.GEN ---
Reason for Consult Date of Consultation: 04/09/20 History of Present Illness: The patient is a 60 year old M presented to the ER due to fatigue/shortness of breath. Patient states is gotten a lot worse in the last week. Patient states he has been having dark stools for the last month off and on. Patient denies taking iron or Pepto-Bismol. Patient denies any abdominal pain. Denies any previous history of EGD, states he had a colonoscopy by Dr. Hwang at [facility] about 3 to 4 years ago and may be due shortly. Patient's hemoglobin was 6.5 on admit he got 2 units packed red blood cells ordered. Patient states his breathing is a little bit better currently on nasal cannula as he is resting in bed. Past Medical History Past Medical History (Chronic Problems): Chronic Problems (Last Reviewed 03/30/20 @ 11:[address] 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 Per [facility] done 11/16/19 per DJN @ [facility] Smoking greater than 40 pack years (Chronic) Stage 2 moderate COPD by GOLD classification (Chronic) FEV1 56% Alcoholic fatty liver (Chronic) Nicotine dependence (Chronic) Alcohol abuse (Chronic) GERD (gastroesophageal reflux disease) (Chronic) Vitamin D deficiency (Chronic) Hypertension (Chronic) Hyponatremia (Chronic) COPD (chronic obstructive pulmonary disease) (Chronic) Medical History: Medical History (Last Reviewed 03/30/20 @ 11:[address] Pedro Gordon MD) Smoking greater than 40 pack years (Chronic) F17.210 Stage 2 moderate COPD by GOLD classification (Chronic) J44.9 FEV1 56% Alcoholic fatty liver (Chronic) K70.0 Nicotine dependence (Chronic) F17.200 Alcohol abuse (Chronic) F10.10 GERD (gastroesophageal reflux disease) (Chronic) K21.9 Vitamin D deficiency (Chronic) E55.9 Hypertension (Chronic) I10 Hyponatremia (Chronic) E87.1 COPD (chronic obstructive pulmonary disease) (Chronic) J44.9 PORT PLACEMENT Hypertension I10 Allergies No Known Allergies Allergy (Verified 03/28/20 11:00) Home Medications: Ambulatory Orders Medication Instructions Recorded Amlodipine [Norvasc] 2.5 mg PO DAILY 08/05/13 Albuterol Sulfate [Ventolin Hfa] 2 puff IH Q4H PRN 05/05/16 Ergocalciferol [Vitamin D] 50,000 unit PO SA 07/22/18 aspirin 81 mg tablet,delayed 81 mg PO DAILY #30 tab 10/25/19 release Dexamethasone [Decadron] 4 mg PO DAILY@0800 #30 tab 03/14/20 Apixaban [Eliquis] 5 mg PO BID #60 tab 04/03/20 Diltiazem CD [Cardizem CD] 180 mg PO DAILY #30 cap 04/03/20 levoFLOXacin tablet [Levaquin 750 mg PO DAILY@0600 #14 tab 04/03/20 tablet] Lisinopril 10 mg PO DAILY 04/09/20 Mometasone/Formoterol [Dulera 200 2 puff INHALATION BID 04/09/20 Mcg/5 Mcg Inhaler] Surgical History: Surgical History (Last Reviewed 03/28/20 @ 11:00 by Moon Le) History of left heart catheterization (Chronic) Onset Date: 11/16/19 Z98.890 LEFT MAIN: Angiographically normal; LEFT ANTERIOR DESCENDING ARTERY: PROX LAD: Moderate calcification, Mild luminal irregularities less than 30%; CIRCUMFLEX ARTERY: Mild luminal irregularities less than 30%; RIGHT CORONARY ARTERY: MID RCA: Mild calcification, Mild luminal irregularities less than 30%. Per LHC done 11/16/19 per CRYSTAL @ [facility] Growth removed from throat Onset Date: ~[address] Springer Surgical History: - - Reviewed Psychiatric History: No pertinent psych hx Lives: Spouse/ Significant Other Smoking Status: Former smoker Tobacco Use: - Alcohol: None Drugs: None - *Family History Maternal Family History: Family History (Last Reviewed 03/30/20 @ 11:[address] Pedro Gordon MD) Father Esophageal cancer Mother Lung cancer Diabetes Brother No problems noted. Brother CAD (coronary artery disease) Myocardial infarction Brother CAD (coronary artery disease) Myocardial infarction Other Cancer Hypertension Lung disease Review of Systems Constitutional: Denies: Fever Eyes: Denies: Blurred vision HEENT: Denies: Difficulty Swallowing Cardiovascular: Denies: Chest Pain Respiratory: Reports: Shortness of breath at rest Gastrointestinal: Reports: Melena - Patient states that he has dark stools. Denies: Abdominal Pain, Nausea, Vomiting Genitourinary: Denies: Dysuria Psychiatric: Denies: Depression Hematologic/ Lymphatic: Denies: Easy Bleeding Patient Problems: Active and Suspected Problems (Last Reviewed 03/30/20 @ 11:[address] Pedro Gordon MD) Afib (Acute) GI bleed (Acute) Acute blood loss anemia (Acute) Squamous cell carcinoma of lung, stage III (Acute) - Physical Exam Vitals/I&O's: Vital Signs Temp Pulse Resp BP Pulse Ox 98.1 F 120 H 22 H 117/62 98 04/09/20 14:39 04/09/20 15:30 04/09/20 15:30 04/09/20 14:40 04/09/20 15:30 Oxygen Flow Rate (L/min) 2 Oxygen Delivery Method Nasal Cannula Weight: 135 lb 4.8 oz Body Mass Index (BMI) 19.4 Intake and Output for Last 24 Hours 04/07/20 04/08/20 04/09/20 23:59 23:59 23:59 Intake Total 110 / 110 Balance 110 / 110 General: Alert, Oriented x3, Cooperative, No apparent distress HEENT: Atraumatic Lungs: Normal air movement Cardiovascular: Regular rate Abdomen: Soft, Non Tender, Non-Distended Neurological: Cranial nerves II-XII grossly intact Psych/Mental Status: Normal Affect Microbiology Past 72 Hours 04/09/20 12:00 Stool Stool Occult Blood (PAT) - Final Laboratory Results 04/09/20 10:55: WBC 14.9 H, RBC 2.32 L, Hgb 6.5 L, Hct 20.2 L, MCV 87.1, MCH 28.0, MCHC 32.2, RDW Std Deviation 64.1 H, RDW Coeff of [place] 20.6 H, Plt Count 248, MPV 8.6, Immature Gran % (Auto) 3.000 H, Neut % (Auto) 80.3 H, Lymph % (Auto) 4.8 L, [place] % (Auto) 9.9, Eos % (Auto) 1.9, Baso % (Auto) 0.1, Absolute Neuts (auto) 11.9 H, Absolute Lymphs (auto) 0.72 L, Nucleated RBC % 0, Platelet Estimate ADEQUATE, Polychromasia RARE, Hypochromasia 2+, Anisocytosis 2+ 04/09/20 10:55: PT 22.9 H, INR 2.1, APTT 41.1 H 04/09/20 10:55: Sodium 127 L, Potassium 3.6, Chloride 96 L, Carbon Dioxide 25.0, Anion Gap 6, BUN 17, Creatinine 0.39 L, Estim Creat Clear Calc 171.71, Est GFR (MDRD) Af Amer 293, Est GFR (MDRD) Non-Af 242, BUN/Creatinine Ratio 43.6 H, Glucose 87, Calcium 7.5 L, Total Bilirubin 0.40, AST 57 H, ALT 58, Alkaline Phosphatase 98, Troponin I < 0.015, Total Protein 4.9 L, Albumin 1.3 L, Globulin 3.6, Albumin/Globulin Ratio 0.4 L 04/09/20 10:55: Lactic Acid 1.3 04/09/20 11:05: COVID-19 (ANA) Not Detected 04/09/20 12:15: Blood Type A POSITIVE, Antibody Screen NEGATIVE, Crossmatch See Detail Current Medications Albuterol Sulfate (Ventolin Aerosols) 2.5 mg INHALATION Q4H PRN PRN PRN Reason: SOB &/OR WHEEZING Albuterol Sulfate (Ventolin Aerosols) 2.5 mg INHALATION Q6HWA.RT GE Last Admin: 04/09/20 15:30 Dose: 2.5 mg Documented by: Amlodipine Besylate (Norvasc) 2.5 mg PO DAILY GE Budesonide (Pulmicort Aerosol) 0.5 mg INHALATION Q12H.RT [facility] Dexamethasone (Decadron) 4 mg PO DAILY@0800 GE Dextrose (D50w Syringe) 0 gm IV X1 PRN; Protocol PRN Reason: Hypoglycemia Diltiazem HCl (Cardizem Cd) 180 mg PO DAILY [facility] Ergocalciferol (Vitamin D) 50,000 unit PO SA GE Glucagon () 1 mg IM .X1 PRN PRN Reason: Hypoglycemia Sodium Chloride () 1,000 mls @ 150 mls/hr IV .Q6H40M GE Stop: 04/10/20 04:29 Levofloxacin (Levaquin Tablet) 750 mg PO DAILY@0600 [facility] Lisinopril (Zestril) 20 mg PO DAILY [facility] Ondansetron HCl (Zofran) 4 mg IV Q8H PRN PRN PRN Reason: NAUSEA/VOMITING Sodium Chloride () 10 - 40 ml IV UD PRN PRN Reason: SALINE FLUSH Assessment/Plan All Active Problems (Last Reviewed 03/30/20 @ 11:[address] Pedro Gordon MD) Afib (Acute) GI bleed (Acute) Acute blood loss anemia (Acute) Squamous cell carcinoma of lung, stage III (Acute) Pneumonia (Acute) Encounter for education (Acute) Malnutrition (Acute) 60-year-old male with anemia, dark stools 2 units packed red blood ordered. I have discussed the above with the patient. I have offered the patient EGD for evaluation. Discussed with patient I not find an obvious source may need to do a bowel prep and a colonoscopy the following day. I have explained the risks/benefits of the procedure and described the procedure. I have discussed the risks with the patient, including but not limited to: infection, bleeding, perforation of the GI tract requiring emergency surgery, inability to complete the procedure, injury to any internal organs, complications of anesthesia, etc. - the patient understands and agrees to proceed. I have answered all the patient's questions to the patient's satisfaction and the patient has no further questions. Procedure essential: Yes On 12/13/2019 the [place] Department of Health ([facility]) Public Order signed by [facility] Director Sofy Arias M.D., regarding the Management of Non-Essential Surgeries and Procedures for the purpose of preserving Personal Protective Equipment (PPE) and critical hospital capacity and resources within [place] went into effect as of 12/14/2019 at 5:00PM. According to the [facility] Public Order: This action will remain in full force and effect until the State of Emergency declared by the Governor no longer exists or the Director of the [facility] rescinds or modifies this Order. This [facility] order stated all non-essential or elective surgeries and procedures that utilize PPE should be delayed unless there is undue risk to the current or future health of a patient. After reviewing the aforementioned [facility] Public Order and the patients clinical case, I have determined that the scheduled procedure meets the criteria to go forward. Reason for performing procedure: There is a risk of rapidly worsening to severe symptoms (time sensitive). Eda Goldsmith M.D. Pager: [phone] [facility] [address] [place] [address], [address] [place] [address] Office: [phone] Inpatient E&M: 03058 Init Hosp L2
[2020-04-09] MEDS: Budesonide Respules 0.5 MG/2 ML AMPUL.NEB. INHALATION (18:54)
[2020-04-09] MEDS: BENZOCAINE/MENTHOL 1 LOZENGE MUCOUS MEM (21:37)
[2020-04-09] MEDS: Lisinopril 20 MG Tablet PO (21:52)
[2020-04-09] MEDS: 0.9% Saline Lock 10 ML Syringe IV (21:53)
[2020-04-10] VITALS (28 sets, daily range): BP systolic 94–176; BP diastolic 54–95; PULSE 75–136; RESP 16–26; TEMP 36.3–38.1; O2SAT 87–98; BMI 19.4
[2020-04-10] MEDS: BENZOCAINE/MENTHOL 1 LOZENGE MUCOUS MEM ×4 (00:09→14:27)
[2020-04-10] MEDS: Acetaminophen 325 MG Tablet PO ×3 (00:21→14:42)
[2020-04-10] MEDS: oxyCODONE 5 MG Tablet PO ×4 (00:21→15:22)
[2020-04-10] MEDS: 0.9% Saline Lock 10 ML Syringe IV ×2 (00:24→01:17)
[2020-04-10] MEDS: 0.9% Normal Saline 1,000 ML 150 ML IV ×2 (01:17→08:25)
[2020-04-10 02:52] LABS: Bacteria 0 SEEN /hpf (None Seen); Mucous, Urine 0 SEEN /hpf (<or=2+); Red Blood Cells-Urine 0 SEEN /hpf (0-5); Squamous Epithelial Cells - UA 0 SEEN /hpf (0-5); White Blood Cells 0 SEEN /hpf (0-5)
[2020-04-10 02:55] LABS: Color, Urine Yellow (Yellow); Glucose, Dipstick Normal (Normal); Ketone-Dipstick Negative (Negative); Leukocyte Esterase-Dipstick Negative /ul (Negative); Nitrite-Dipstick Negative (Negative); Occult Blood-Urine Negative /ul (Negative); Protein-Dipstick 15 mg/dl (Negative); Urine Bilirubin Dipstick Negative (Negative); Urine Clarity Clear (Clear); Urine Urobilinogen 1 mg/dl (Normal)
[2020-04-10 05:10] LABS: Absolute Lymphocyte Count 0.63 X10^3/uL (0.83-4.51); Absolute Neutrophil Count 10.6 X10^3/uL (2.0-7.7); Basophil# 0.03 X10^3/uL; Basophil% 0.2 % (0-1); Eosinophil# 0.44 X10^3/uL; Eosinophils% 3.2 % (0-5); Hematocrit 26.9 % (40-54); Hemoglobin 9.2 g/dL (13.0-16.5); Lymphocyte # 0.63 X10^3/ul (4.0); Lymphocyte % 4.6 % (19-41); Mean Corp Hgb Conc 34.2 g/dL (32-36); Mean Corpuscular Hgb 28.9 pg (27.0-32.0); Mean Corpuscular Volume 84.6 fL (80-94); Mean Platelet Vol. 8.4 fl (6.2-12.0); Monocyte% 10.2 % (0-10); NRBC Flagged by Analyzer 0 % (0-5); Neutrophil # 10.61 X10^3/uL (2.7-7.7); Neutrophil % 77.8 % (47-70); Platelet Count 223 K/mm3 (150-450); RBC Distribution Width CV 17.7 % (11.6-14.6); RBC Distribution Width SD 52.6 fl (35.1-43.9); Red Blood Count 3.18 M/mm3 (4.6-6.2); White Blood Count 13.7 K/mm3 (4.4-11.0)
[2020-04-10 05:18] LABS: International Normalized Ratio 1.5; Prothrombin Time (Protime)PT. 17.7 SECONDS (11.7-14.9)
[2020-04-10 05:42] LABS: Anion Gap 7 (5-15); BUN 10 mg/dL (7-18); BUN/Creat Ratio 33.7 RATIO (10-20); Calcium,Total 7.4 mg/dL (8.5-10.1); Chloride 97 mmol/L (98-107); EST Glomerular Filtration Rate 331 mL/min (>60); Est Glom Filt Rate - Afr Amer 401 mL/min (>60); Estimated Creatinine Clearance 232.98 ml/min; Glucose 98 mg/dL (74-106); Potassium 3.5 mmol/L (3.5-5.1); Sodium Level 128 mmol/L (136-145)
[2020-04-10] MEDS: levoFLOXacin 750 MG Tablet PO (06:55)
[2020-04-10] MEDS: Budesonide Respules 0.5 MG/2 ML AMPUL.NEB. INHALATION (06:59)
--- NOTE | 2020-04-10 06:59 | CPS ---
Pt complained that the aerosol was taking my air away so aerosol was stopped. R.T. will observe his reaction at 1300 when aerosol only has Albuterol and no Pulmicort.
[2020-04-10] MEDS: Albuterol 2.5 MG/3 ML VIAL.NEB. INHALATION ×3 (07:00→19:35)
--- NOTE | 2020-04-10 09:15 | NURSING ---
Unaccessed port to right chest
[2020-04-10] MEDS: Lactated Ringers 1,000 ML 100 ML IV (09:51)
--- NOTE | 2020-04-10 10:30 | IMM_PTH ---
PATIENT: ERIK HUERTAS LOC: PCU U#:[id number] AGE/SX: 60/M ROOM: [facility] RE04/09/[address]: Dr. Zachery Aguiar DO : 1960 BED: 1 DIS: 04/13/2020 SPEC #: [id number] RECD: 04/11/20 09:53 STATUS: MARGARET REQ #: [id number] LUCINA: 04/10/20 10:[address]: Eda Goldsmith DEPT: IMMUNOHISTOCHEMISTRY RECD BY: Chantelle Donovan ENTERED: 04/11/20 09:58 SP TYPE: IMMUNO OTHR DR: DO Dr. Jacki Pagan MD [facility] Tissues: A - Stomach, NOS Procedures: H Pylori (initial) PHYSICIAN & INSTITUTION [place] [id number] SPECIMEN INFORMATION: Tissue Source: EGD ([facility] [place]) Clinical Info: Anemia, dark stools Specimen Number: [id number] CPT code: 68886 METHODOLOGY: Deparaffinized sections of prefer/formalin-fixed tissue or PAP/DQ stained slides are incubated with monoclonal/polyclonal antibodies/oligonucleotide probes. Localization is made via biotin free immunoperoxidase method. Appropriate controls are performed and reacted as expected. Results on target cell population are indicated in the following table: RESULTS: ANTIBODY / CLONE RESULT Block A H Pylori (polyclonal) negative These tests were developed and their performance characteristics determined by [facility]. They may not have been cleared or approved by the U.S. Food and Drug Administration. The FDA has determined that such clearance or approval is not necessary. INTERPRETATION: A. Prepyloric biopsy: Negative for Helicobacter pylori organisms. SJ:pema 04/12/20
--- NOTE | 2020-04-10 10:30 | EGD_PTH ---
PATIENT: ERIK HUERTAS LOC: PCU U#:[id number] AGE/SX: 60/M ROOM: [facility] RE04/09/[address]: Dr. Zachery Aguiar DO : 1960 BED: 1 DIS: 04/13/2020 SPEC #: [id number] RECD: 04/10/20 14:07 STATUS: MARGARET REDereje #: [id number] LUCINA: 04/10/20 10:[address]: Eda Goldsmith DEPT: SURGICAL PATHOLOGY RECD BY: Rommel Whitley ENTERED: 04/11/20 11:29 SP TYPE: EGD BIOPSY OTHR DR: DO Dr. Jacki Pagan MD [facility] Tissues: A - Gastric mucous membrane B - Gastric mucous membrane C - Esophagus, NOS Procedures: Special Stain Group I Surgery Specimen Level IV GMS Stain (control) HEADER OPERATION: EGD (MAC) PRE-OP DIAGNOSIS: Anemia, dark stools TISSUE SUBMITTED: A - Prepyloric biopsy for histo and H. pylori, B - GE junction biopsy, C - Esophagus biopsy at 25 cm MICROSCOPIC DIAGNOSIS A. Prepyloric biopsy: Mild gastritis. See microscopic description and comment. B. GE junction, biopsy: A fragment of squamous mucosa with acute and chronic inflammation. Special stain for fungi is positive for organisms (yeast and pseudohyphae) consistent with Candice species; matched control is appropriate. Focal bacterial colonization. C. Esophagus at 25 cm, biopsy: A fragment of squamous mucosa with focal ulceration, acute inflammation and fibrinopurulent exudation. Special stain for fungi is negative for organism; matched control is appropriate. Focal changes suspicious for viral cytopathic effects.. SJ:pema 04/12/20 COMMENT A. The results of immunohistochemistry for Helicobacter pylori will be reported separately ([id number]). C. Clinical correlation and appropriate follow up are necessary. Case has been reviewed in consultation with Dr. Tidwell who concurs with the above diagnosis. IDC:AM MICROSCOPIC DESCRIPTION Slides are reviewed. A. The specimen shows fragments of gastric mucosa with chronic inflammatory cell infiltrates in the lamina propria consisting of lymphocytes and plasma cells, consistent with mild chronic gastritis. GROSS DESCRIPTION A - Received in fixative is one container labeled with the patient's name and designated prepyloric biopsy. The specimen consists of one irregular fragment of light stanton soft tissue that measures 0.3 x 0.3 x 0.1 cm. The specimen is totally submitted in one cassette. B - Received in fixative is one container labeled with the patient's name and designated GE junction biopsy. The specimen consists of one irregular fragment of light stanton soft tissue that measures 0.3 x 0.3 x 0.1 cm. The specimen is totally submitted in one cassette. C - Received in fixative is one container labeled with the patient's name and designated esophagus at 25 cm. The specimen consists of one irregular fragment of light stanton soft tissue that measures 0.3 x 0.3 x 0.1 cm. The specimen is totally submitted in one cassette. / SJ:rg 04/11/20 TC:2 [facility]: [id number] x3, [id number] x2
--- NOTE | 2020-04-10 11:23 | OP.EGD_ITS ---
Patient Name: Amor Bethea Procedure Date: 04/10/2020 10:48 AM Date of : 1960 Age: 60 Procedure: Upper GI endoscopy Indications: Iron deficiency anemia, Melena Providers: Eda Goldsmith MD Medicines: Monitored Anesthesia Care Patient Profile: This is a 60 year old male. Complications: No immediate complications. Procedure: Pre-Anesthesia Assessment: - Prior to the procedure, a History and Physical was performed, and patient medications and allergies were reviewed. The patient's tolerance of previous anesthesia was also reviewed. The risks and benefits of the procedure and the sedation options and risks were discussed with the patient. All questions were answered, and informed consent was obtained. Prior Anticoagulants: The patient has taken Eliquis (apixaban), last dose was 2 days prior to procedure. ASA Grade Assessment: Per anesthesia. After reviewing the risks and benefits, the patient was deemed in satisfactory condition to undergo the procedure. After obtaining informed consent, the endoscope was passed under direct vision. Throughout the procedure, the patient's blood pressure, pulse, and oxygen saturations were monitored continuously. The gastroscope was introduced through the mouth, and advanced to the second part of duodenum. The upper GI endoscopy was accomplished without difficulty. The patient tolerated the procedure well. Scope In: 10:59:37 AM Scope Out: 11:07:47 AM Total Procedure Duration Time 0 hours 8 minutes 10 seconds Findings: The Z-line was variable and was found 45 cm from the incisors. Biopsies were taken with a cold forceps for histology. Localized mild erythema was found in the upper third of the esophagus at 25 cm. Biopsies were taken with a cold forceps for histology. LA Grade A (one or more mucosal breaks less than 5 mm, not extending between tops of 2 mucosal folds) esophagitis with no bleeding was found 43 to 45 cm from the incisors. Localized moderately erythematous mucosa without bleeding was found in the prepyloric region of the stomach. Biopsies were taken with a cold forceps for Helicobacter pylori cultures. Biopsies were taken with a cold forceps for histology. The examined duodenum was normal. Impression: - Z-line variable, 45 cm from the incisors. Biopsied. - Erythema in the upper third of the esophagus. Biopsied. - LA Grade A esophagitis. - Erythematous mucosa in the prepyloric region of the stomach. Biopsied. - Normal examined duodenum. Recommendation: - Await pathology results. - Full liquid diet. - Use Protonix (pantoprazole) 40 mg PO BID. - Use sucralfate tablets 1 gram PO QID for 1 month. - Continue present medications. Procedure Code(s): --- Professional --- 80592, Esophagogastroduodenoscopy, flexible, transoral; with biopsy, single or multiple Diagnosis Code(s): --- Professional --- K22.8, Other specified diseases of esophagus K20.9, Esophagitis, unspecified K31.89, Other diseases of stomach and duodenum D50.9, Iron deficiency anemia, unspecified K92.1, Melena (includes Hematochezia) CPT copyright 2017 [employer]. All rights reserved. The codes documented in this report are preliminary and upon package delivery driver review may be revised to meet current compliance requirements. MD Eda Stone MD 04/10/2020 11:23:23 AM This report has been signed electronically. Number of Addenda: 0 Note Initiated On: 04/10/2020 10:48 AM
--- NOTE | 2020-04-10 11:24 | OP.CCLET_ITS ---
04/10/2020 Pauline Walden [facility] Re : Upper GI endoscopy procedure for Amor Bethea [facility] This procedure was performed on Friday, April 10, 2020. My impressions and recommendations are as follows: Impressions : - Z-line variable, 45 cm from the incisors. Biopsied. - Erythema in the upper third of the esophagus. Biopsied. - LA Grade A esophagitis. - Erythematous mucosa in the prepyloric region of the stomach. Biopsied. - Normal examined duodenum. Recommendations : - Await pathology results. - Full liquid diet. - Use Protonix (pantoprazole) 40 mg PO BID. - Use sucralfate tablets 1 gram PO QID for 1 month. - Continue present medications. My findings are described in the full procedure note, which is enclosed. If I can be of further assistance, please feel free to contact me at Doctor phone number(s): , Work: . Sincerely, MD Eda Stone MD 04/10/2020 11:23:23 AM This report has been signed electronically.
[2020-04-10] MEDS: dexAMETHasone 4 MG Tablet PO (12:12)
[2020-04-10] MEDS: dilTIAZem CD 180 MG Capsule PO (12:12)
[2020-04-10] MEDS: amLODIPine 2.5 MG Tablet PO (12:13)
--- NOTE | 2020-04-10 14:00 | PCM.PN.HOSP ---
Patient Problems: Active and Suspected Problems (Last Reviewed 03/30/20 @ 11:[address] Pedro Gordon MD) Afib (Acute) GI bleed (Acute) Acute blood loss anemia (Acute) Squamous cell carcinoma of lung, stage III (Acute) Reason for Visit: SOB Subjective: Pt seen and examined post EGD. Found to have esophagitis and prepyloric erythema and placed on PPI BID with carafate. He is doing well with no abdominal pain, nausea, vomiting, or diarrhea. He c/o SOB, productive cough, and chills. Vitals/I&O's: Vital Signs Temp Pulse Resp BP Pulse Ox 97.9 F 114 H 22 H 125/74 H 92 04/10/20 12:08 04/10/20 13:22 04/10/20 13:22 04/10/20 12:08 04/10/20 13:22 Oxygen Flow Rate (L/min) 3 Oxygen Delivery Method Nasal Cannula Weight: 135 lb 4.8 oz Body Mass Index (BMI) 19.4 Intake and Output for Last 24 Hours 04/08/20 04/09/20 04/10/20 23:59 23:59 23:59 Intake Total 1430 / 1430 2282.5 / 2282.5 Output Total 400 / 400 400 / 400 Balance 1030 / 1030 1882.5 / 1882.5 General: Alert, Oriented x3, Cooperative, - - cachectic HEENT: Atraumatic, PERRLA, EOMI, Normocephalic Neck: Supple, No JVD, Negative Carotid Bruits Lungs: Clear to auscultation, Normal air movement Cardiovascular: Regular rate, Regular Rhythm, No murmurs Abdomen: Bowel Sounds Present, Soft, Non Tender Extremities: No edema, Capillary Refill Less than 3 Seconds Skin: No rashes, No breakdown Musculoskeletal: No Tenderness to Palpation of Joints or Extremities Neurological: Cranial nerves II-XII grossly intact Psych/Mental Status: Normal Affect, Appropriate, Alert and oriented to time, place, person, mood and affect Microbiology Past 72 Hours 04/10/20 02:44 Urine, Random Urine Culture - Preliminary Culture exhibits no growth. 04/09/20 12:00 Stool Stool Occult Blood (PAT) - Final Laboratory Results 04/09/20 11:05: COVID-19 (ANA) Not Detected 04/09/20 12:15: Blood Type A POSITIVE, Antibody Screen NEGATIVE, Crossmatch See Detail 04/10/20 02:44: Urine Color Yellow, Urine Clarity Clear, Urine pH 7.0, Ur Specific [place] 1.010, Urine Protein 15 H, Urine Glucose (UA) Normal, Urine Ketones Negative, Urine Occult Blood Negative, Urine Nitrite Negative, Urine Bilirubin Negative, Urine Urobilinogen 1 H, Ur Leukocyte Esterase Negative, Urine RBC 0 SEEN, Urine WBC 0 SEEN, Ur Squamous Epith Cells 0 SEEN, Urine Bacteria 0 SEEN, Urine Mucus 0 SEEN 04/10/20 05:04: WBC 13.7 H, RBC 3.18 L, Hgb 9.2 L, Hct 26.9 L, MCV 84.6, MCH 28.9, MCHC 34.2 D, RDW Std Deviation 52.6 H, RDW Coeff of Rush 17.7 H, Plt Count 223, MPV 8.4, Immature Gran % (Auto) 4.000 H, Neut % (Auto) 77.8 H, Lymph % (Auto) 4.6 L, [place] % (Auto) 10.2 H, Eos % (Auto) 3.2, Baso % (Auto) 0.2, Absolute Neuts (auto) 10.6 H, Absolute Lymphs (auto) 0.63 L, Nucleated RBC % 0 04/10/20 05:04: PT 17.7 H, INR 1.5, APTT 37.0 H 04/10/20 05:04: Sodium 128 L, Potassium 3.5, Chloride 97 L, Carbon Dioxide 24.0, Anion Gap 7, BUN 10, Creatinine 0.30 L, Estim Creat Clear Calc 232.98, Est GFR (MDRD) Af Amer 401, Est GFR (MDRD) Non-Af 331, BUN/Creatinine Ratio 33.7 H, Glucose 98, Calcium 7.4 L Current Medications Acetaminophen (Tylenol) 325 mg PO TID PRN PRN PRN Reason: Pain Score 1-1010 Last Admin: 04/10/20 07:45 Dose: 325 mg Documented by: Albuterol Sulfate (Ventolin Aerosols) 2.5 mg INHALATION Q4H PRN PRN PRN Reason: SOB &/OR WHEEZING Last Admin: 04/09/20 18:54 Dose: 2.5 mg Documented by: Albuterol Sulfate (Ventolin Aerosols) 2.5 mg INHALATION Q6HWA.RT [facility] Last Admin: 04/10/20 07:00 Dose: 2.5 mg Documented by: Amlodipine Besylate (Norvasc) 2.5 mg PO DAILY [facility] Last Admin: 04/10/20 12:13 Dose: 2.5 mg Documented by: Budesonide (Pulmicort Aerosol) 0.5 mg INHALATION Q12H.RT [facility] Last Admin: 04/10/20 06:59 Dose: 0.5 mg Documented by: Dexamethasone (Decadron) 4 mg PO DAILY@0800 [facility] Last Admin: 04/10/20 12:12 Dose: 4 mg Documented by: Dextrose (D50w Syringe) 0 gm IV X1 PRN; Protocol PRN Reason: Hypoglycemia Diltiazem HCl (Cardizem Cd) 180 mg PO DAILY [facility] Last Admin: 04/10/20 12:12 Dose: 180 mg Documented by: Ergocalciferol (Vitamin D) 50,000 unit PO SA [facility] Glucagon () 1 mg IM .X1 PRN PRN Reason: Hypoglycemia Levofloxacin (Levaquin Tablet) 750 mg PO DAILY@0600 [facility] Last Admin: 04/10/20 06:55 Dose: 750 mg Documented by: Lisinopril (Zestril) 20 mg PO DAILY@2200 [facility] Last Admin: 04/09/20 21:52 Dose: 20 mg Documented by: Ondansetron HCl (Zofran) 4 mg IV Q8H PRN PRN PRN Reason: NAUSEA/VOMITING Oxycodone HCl (Oxyir) 5 mg PO TID PRN PRN PRN Reason: Pain Score 6-10/10 Last Admin: 04/10/20 07:45 Dose: 5 mg Documented by: Pantoprazole Sodium (Protonix) 40 mg PO BID [facility] Sodium Chloride () 10 - 40 ml IV UD PRN PRN Reason: SALINE FLUSH Last Admin: 04/10/20 01:17 Dose: 10 ml Documented by: Sucralfate (Carafate) 1 gm PO 1HR_ACHS [facility] Throat Lozenges (Cepacol Sore Throat Lozenge) 1 lozenge MUCOUS MEM Q2H PRN PRN PRN Reason: COUGH Last Admin: 04/10/20 07:45 Dose: 1 lozenge Documented by: STROKE Vital Signs/Narrative: Vital Signs Temp Pulse Resp BP Pulse Ox 04/10/20 13:22 114 H 22 H 92 04/10/20 12:54 110 H 04/10/20 12:08 97.9 F 106 H 18 125/74 H 94 04/10/20 11:52 97.6 F L 106 H 18 111/64 92 04/10/20 11:35 102 H 18 111/64 92 04/10/20 11:30 97.9 F 102 H 16 96/54 L 92 04/10/20 11:25 102 H 18 94/66 92 04/10/20 11:20 109 H 18 95/63 95 Medical Necessity - Tobacco Use Smoking Status: Former smoker Tobacco Use: - Assessment/Plan All Active Problems (Last Reviewed 03/30/20 @ 11:[address] Pedro Gordon MD) Afib (Acute) GI bleed (Acute) Acute blood loss anemia (Acute) Squamous cell carcinoma of lung, stage III (Acute) Pneumonia (Acute) Encounter for education (Acute) Malnutrition (Acute) 1. Acute on chronic blood loss anemia unclear etiology - Received 2 units. EGD with esophagitis, placed on ppi bid and carafate. Eliquis held. Guiac neg. Trop neg. 2. Recurrent pna - levaquin. hx pseudomonas suspectible to quinolones. obtain sputum cx and urine antigens. TMAX 100.5 overnight. + Leukocytosis and left shift. UA neg, Covid Neg. Blood cx pending. 3. Afib - continue cardizem hold eliquis. mild tachy worsened by anemia and infection. 4. Hyponatremia - likely paraneoplastic 5. Squamous cell lung cancer - Pt of Dr. German. Chemoport in place. 6. COPD - no exacerbation DVT ppx: SCDs DC planning: Needs SNF, very debilitated. This patient was seen by Shimon Aragon PA-C under the supervision of Doctor Aguiar.
--- NOTE | 2020-04-10 14:33 | CASEMGMT ---
SUMIT received voice mails from patient's sister in law, Beverly Bethea. She asked that SW complete healthcare POA and Healthcare Living Will with patient. She also said he is not able to care for himself at home and he needs help. She requested a return call. SUMIT met with patient, introduced self and role at [facility]. SW spoke with patient about Healthcare Power of Division Toll Wire Chief and Healthcare Living Will. He said he wants to complete them while he is here. He said he will name his brother Get as his POA. He said he does not want any alternates listed. SW then spoke with patient about going somewhere for rehab and he was in agreement. SW showed him the list of facilities that were in network with his insurance. He chose [facility] and asked SW to call his brother while SW was in his room. SUMIT called patient's brother and explained that patient will need to go somewhere for rehab and he was choosing [facility]. He said that is fine if that is where patient would like to go. He asked about visitation and SUMIT told him that right now nursing homes are not allowing any visitors. He said he would be in to see patient tomorrow so he can see him before he would go to a [facility]. SUMIT also told him SW is going to complete Healthcare POA papers and living will with patient while he is here in [facility]. He thanked SUMIT for the call. SUMIT let patient know what his brother said. Patient was having a hard time catching his breath and he was eating his lunch. SUMIT told him SW can fill in the blanks on the forms and come back for him to sign. He was in agreement with this plan. SUMIT to make a referral to [facility]. Anna DOMINGUEZ MSW
--- NOTE | 2020-04-10 15:19 | CASEMGMT ---
SW spoke with patient and explained both documents. Documents were completed, copies made and given to patient along with originals. A copy of each was also placed in his chart. Anna ASTORGA
--- NOTE | 2020-04-10 15:21 | CASEMGMT ---
SUMIT called Dr German's office to check on patient's treatment. The nurse was going to check with Dr German and get back with SUMIT. Anna DOMINGUEZ MSW
[2020-04-10] MEDS: Sucralfate 1 GM Tablet PO ×2 (15:24→21:49)
--- NOTE | 2020-04-10 17:08 | NT.THERAPY_ITS ---
Nutrition Therapy Report - History Nutrition Services has been consulted to:: Manage nutrient details of diet order Current diet / nutrition support order:: Regular diet - Anthropometric Measurements Height:: 5 ft 10 in Weight:: 61.4 kg Body Mass Index (BMI):: 19.4 - Relevant Labs Relevant Labs:: WBC 13.7 K/mm3 (4.4-11.0) H 04/10/20 05:04 RBC 3.18 M/mm3 (4.6-6.2) L 04/10/20 05:04 Hgb 9.2 g/dL (13.0-16.5) L 04/10/20 05:04 Hct 26.9 % (40-54) L 04/10/20 05:04 RDW Std Deviation 52.6 fl (35.1-43.9) H 04/10/20 05:04 RDW Coeff of Rush 17.7 % (11.6-14.6) H 04/10/20 05:04 Immature Gran % (Auto) 4.000 % (0.0-0.9) H 04/10/20 05:04 Neut % (Auto) 77.8 % (47-70) H 04/10/20 05:04 Lymph % (Auto) 4.6 % (19-41) L 04/10/20 05:04 [place] % (Auto) 10.2 % (0-10) H 04/10/20 05:04 Absolute Neuts (auto) 10.6 X10^3/uL (2.0-7.7) H 04/10/20 05:04 Absolute Lymphs (auto) 0.63 X10^3/uL (0.83-4.51) L 04/10/20 05:04 PT 17.7 SECONDS (11.7-14.9) H 04/10/20 05:04 APTT 37.0 Seconds (24.1-36.2) H 04/10/20 05:04 Sodium 128 mmol/L (136-145) L 04/10/20 05:04 Chloride 97 mmol/L (98-107) L 04/10/20 05:04 Creatinine 0.30 mg/dL (0.70-1.30) L 04/10/20 05:04 BUN/Creatinine Ratio 33.7 RATIO (10-20) H 04/10/20 05:04 Calcium 7.4 mg/dL (8.5-10.1) L 04/10/20 05:04 AST 57 U/L (15-37) H 04/09/20 10:55 Total Protein 4.9 g/dL (6.4-8.2) L 04/09/20 10:55 Albumin 1.3 g/dL (3.2-5.0) L 04/09/20 10:55 Albumin/Globulin Ratio 0.4 RATIO (0.9-2.4) L 04/09/20 10:55 - Assessment Food / Nutrition-Related History:: Pt was NPO for EGD then advanced to full liquids & pending regular diet at dinner today. Pt reports ongoing decreased appetite/intake and wt loss. Recent admit wt 64.4 Kg 1-2 weeks ago; calculated~4-5% wt loss is significant for malnutrition. Pt shows physical signs of moderate to severe muscle/fat wasting in the face, clavicle and upper body. Pt accepting of ensure enlive, ensure pudding and magic cup. BLLE 3+ pitting e bernadette noted. 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 Evidence of Malnutrition Exists:: Yes Severe PCM:: Chronic Illness - Nutrition Intervention Nutrition Prescription:: Estimated Nutrition Needs for repletion~9566-3071 kcal and ~70-90 gm protein per day. Will supplment meal intake with oral nutrition supplements between and with meals. - Food / Nutrient Delivery Interventions Summary of nutrition intervention:: Continue regular diet as tolerated--liberalize to promote improved intake. Will add 120 ml ensure enlive 4 times per day w/ medpass. Will add ONS with meals. May need to consider TF support to supplement PO nutrition if pro/roe depletion continues. Nutrition support ordered as / adjusted to:: No Nutition Support ordered at this time. Nutrition education provided?: Yes - MNT Monitoring Further MNT monitoring and evaluation required?: Yes MNT Follow-up in:: 3-5 days
[2020-04-10] MEDS: Lisinopril 20 MG Tablet PO (21:50)
[2020-04-10] MEDS: Pantoprazole Sodium 40 MG Tablet PO (21:52)
[2020-04-11] VITALS (14 sets, daily range): BP systolic 98–112; BP diastolic 51–65; PULSE 83–142; RESP 16–22; TEMP 36.3–36.6; O2SAT 92–98
[2020-04-11] MEDS: Acetaminophen 325 MG Tablet PO ×2 (02:56→07:55)
[2020-04-11] MEDS: BENZOCAINE/MENTHOL 1 LOZENGE MUCOUS MEM ×5 (02:56→23:19)
[2020-04-11] MEDS: oxyCODONE 5 MG Tablet PO ×2 (02:57→07:55)
[2020-04-11] MEDS: Sucralfate 1 GM Tablet PO ×4 (06:10→21:11)
[2020-04-11] MEDS: levoFLOXacin 750 MG Tablet PO (06:10)
[2020-04-11] MEDS: Budesonide Respules 0.5 MG/2 ML AMPUL.NEB. INHALATION ×2 (06:36→18:49)
[2020-04-11] MEDS: Albuterol 2.5 MG/3 ML VIAL.NEB. INHALATION ×2 (06:36→13:15)
[2020-04-11 09:11] LABS: Absolute Lymphocyte Count 0.66 X10^3/uL (0.83-4.51); Absolute Neutrophil Count 13.7 X10^3/uL (2.0-7.7); Basophil# 0.04 X10^3/uL; Basophil% 0.3 % (0-1); Eosinophil# 0.02 X10^3/uL; Eosinophils% 0.1 % (0-5); Hemoglobin 9.9 g/dL (13.0-16.5); Lymphocyte # 0.66 X10^3/ul (4.0); Lymphocyte % 4.2 % (19-41); Mean Corp Hgb Conc 34.1 g/dL (32-36); Mean Corpuscular Hgb 28.8 pg (27.0-32.0); Mean Corpuscular Volume 84.3 fL (80-94); Mean Platelet Vol. 8.8 fl (6.2-12.0); Monocyte# 0.82 X10^3/uL; Monocyte% 5.2 % (0-10); NRBC Flagged by Analyzer 0 % (0-5); Neutrophil # 13.71 X10^3/uL (2.7-7.7); Neutrophil % 87.6 % (47-70); Platelet Count 287 K/mm3 (150-450); RBC Distribution Width CV 17.8 % (11.6-14.6); RBC Distribution Width SD 53.4 fl (35.1-43.9); Red Blood Count 3.44 M/mm3 (4.6-6.2); White Blood Count 15.7 K/mm3 (4.4-11.0)
[2020-04-11] MEDS: Pantoprazole Sodium 40 MG Tablet PO ×2 (09:51→21:11)
[2020-04-11] MEDS: dilTIAZem CD 180 MG Capsule PO (09:51)
[2020-04-11] MEDS: amLODIPine 2.5 MG Tablet PO (09:51)
--- NOTE | 2020-04-11 10:20 | CASEMGMT ---
SUMIT received a note to call patient's brother, Get. SW called Get and he just wanted to make sure patient wasn't going to the long-term permanently. SUMIT told him the plan is for him to go to the long-term short term for rehab. He said when he comes home he and his live on the same property and plan on helping him even if it means they need to go stay with him. He and patient are both in agreement with going to [facility] short term. SUMIT called [facility] with referral as well as faxed information to [facility]. Anna DOMINGUEZ ACCOUNTING RECRUITER
--- NOTE | 2020-04-11 11:28 | EKG12_ITS ---
Test Reason : RHYTHM Blood Pressure : / mmHG Vent. Rate : 130 BPM Atrial Rate : 141 BPM P-R Int : 000 ms QRS Dur : 084 ms QT Int : 314 ms P-R-T Axes : 000 047 058 degrees QTc Int : 462 ms Atrial fibrillation Abnormal ECG When compared with ECG of 09-APR-2020 11:15, MANUAL COMPARISON REQUIRED, DATA IS UNCONFIRMED Confirmed by ASHLEY HERNANDEZ, SUNIL ([id number]), online editor GARRICK RIOJAS ([id number]) on 04/13/2020 9:13:03 AM Referred By: DESTINY Confirmed By:CB RAMIREZ MD
[2020-04-11] MEDS: Metoprolol Tartrate 5 MG/5 ML Vial IV (12:27)
[2020-04-11] MEDS: 0.9% Saline Lock 10 ML Syringe IV (12:27)
--- NOTE | 2020-04-11 12:39 | PN_ITS ---
Patient Problems: Active and Suspected Problems (Last Reviewed 03/30/20 @ 11:[address] Pedro Gordon MD) Afib (Acute) GI bleed (Acute) Acute blood loss anemia (Acute) Squamous cell carcinoma of lung, stage III (Acute) Reason for Visit: SOB Subjective: SOB improved, still present. Ongoing cough with thick sputum production, difficulty clearing mucus. Tachy with afib but no palp or CP. No LE edema. No nausea/vomiting / diarrhea. No fever/chills. Vitals/I&O's: Vital Signs Temp Pulse Resp BP Pulse Ox 97.4 F L 131 H 18 103/51 L 96 04/11/20 09:44 04/11/20 12:27 04/11/20 09:44 04/11/20 09:44 04/11/20 09:44 Oxygen Flow Rate (L/min) 1 Oxygen Delivery Method Nasal Cannula Weight: 135 lb 5.821 oz Body Mass Index (BMI) 19.4 Intake and Output for Last 24 Hours 04/09/20 04/10/20 04/11/20 23:59 23:59 23:59 Intake Total 1430 / 1430 3340.0 / 3340.0 480 / 480 Output Total 400 / 400 700 / 700 200 / 200 Balance 1030 / 1030 2640.0 / 2640.0 280 / 280 General: Alert, Oriented x3, Cooperative HEENT: Atraumatic, PERRLA, EOMI, Normocephalic Neck: Supple, No JVD, Negative Carotid Bruits Lungs: Clear to auscultation, Diminished Cardiovascular: Irregular Rate, Tachycardic Abdomen: Bowel Sounds Present, Soft, Non Tender Extremities: No edema, Capillary Refill Less than 3 Seconds Skin: No rashes, No breakdown Musculoskeletal: No Tenderness to Palpation of Joints or Extremities Neurological: Cranial nerves II-XII grossly intact Psych/Mental Status: Normal Affect, Appropriate, Alert and oriented to time, place, person, mood and affect Microbiology Past 72 Hours 04/09/20 11:05 Blood Culture (Wb) - Anticubital Right Blood Culture - Preliminary No growth in 48 hours. 04/09/20 10:55 Blood Culture (Wb) - Anticubital Left Blood Culture - Preliminary No growth in 48 hours. 04/10/20 22:30 Urine, Clean Catch Legionella Antigen - Final 04/10/20 22:30 Urine, Clean Catch Streptococcus pneumoniae Antigen (M - Final 04/11/20 03:00 Sputum, Expectorated/Coughed Gram Stain - Preliminary 04/10/20 02:20 Urine, Random Urine Culture - Preliminary Culture exhibits no growth. 04/09/20 12:00 Stool Stool Occult Blood (PAT) - Final Laboratory Results 04/11/20 08:45: WBC 15.7 H, RBC 3.44 L, Hgb 9.9 L, Hct 29.0 L, MCV 84.3, MCH 28.8, MCHC 34.1, RDW Std Deviation 53.4 H, RDW Coeff of Rush 17.8 H, Plt Count 287, MPV 8.8, Immature Gran % (Auto) 2.600 H, Neut % (Auto) 87.6 H, Lymph % (Auto) 4.2 L, Rutherford % (Auto) 5.2, Eos % (Auto) 0.1, Baso % (Auto) 0.3, Absolute Neuts (auto) 13.7 H, Absolute Lymphs (auto) 0.66 L, Nucleated RBC % 0 Current Medications Acetaminophen (Tylenol) 325 mg PO TID PRN PRN PRN Reason: Pain Score 1-10/10 Last Admin: 04/11/20 07:55 Dose: 325 mg Documented by: Albuterol Sulfate (Ventolin Aerosols) 2.5 mg INHALATION Q4H PRN PRN PRN Reason: SOB &/OR WHEEZING Last Admin: 04/10/20 18:50 Dose: 2.5 mg Documented by: Albuterol Sulfate (Ventolin Aerosols) 2.5 mg INHALATION Q6HWA.RT [facility] Last Admin: 04/11/20 06:36 Dose: 2.5 mg Documented by: Amlodipine Besylate (Norvasc) 2.5 mg PO DAILY [facility] Last Admin: 04/11/20 09:51 Dose: 2.5 mg Documented by: Budesonide (Pulmicort Aerosol) 0.5 mg INHALATION Q12H.RT [facility] Last Admin: 04/11/20 06:36 Dose: 0.5 mg Documented by: Dextrose (D50w Syringe) 0 gm IV X1 PRN; Protocol PRN Reason: Hypoglycemia Diltiazem HCl (Cardizem Cd) 180 mg PO DAILY [facility] Last Admin: 04/11/20 09:51 Dose: 180 mg Documented by: Ergocalciferol (Vitamin D) 50,000 unit PO SA [facility] Glucagon () 1 mg IM .X1 PRN PRN Reason: Hypoglycemia Levofloxacin (Levaquin Tablet) 750 mg PO DAILY@0600 [facility] Last Admin: 04/11/20 06:10 Dose: 750 mg Documented by: Lisinopril (Zestril) 20 mg PO DAILY@2200 [facility] Last Admin: 04/10/20 21:50 Dose: 20 mg Documented by: Nutritional Formula (Lactose Free) (Ensure Enlive) 120 ml PO 4X/DAY [facility] Last Admin: 04/11/20 09:51 Dose: 120 ml Documented by: Ondansetron HCl (Zofran) 4 mg IV Q8H PRN PRN PRN Reason: NAUSEA/VOMITING Oxycodone HCl (Oxyir) 5 - 10 mg PO TID PRN PRN PRN Reason: Pain Score 6-10/10 Last Admin: 04/11/20 07:55 Dose: 10 mg Documented by: Pantoprazole Sodium (Protonix) 40 mg PO BID [facility] Last Admin: 04/11/20 09:51 Dose: 40 mg Documented by: Sodium Chloride () 10 - 40 ml IV UD PRN PRN Reason: SALINE FLUSH Last Admin: 04/11/20 12:27 Dose: 10 ml Documented by: Sucralfate (Carafate) 1 gm PO 1HR_ACHS [facility] Last Admin: 04/11/20 09:51 Dose: 1 gm Documented by: Throat Lozenges (Cepacol Sore Throat Lozenge) 1 lozenge MUCOUS MEM Q2H PRN PRN PRN Reason: COUGH Last Admin: 04/11/20 02:56 Dose: 1 lozenge Documented by: STROKE Vital Signs/Narrative: Vital Signs Temp Pulse Resp BP Pulse Ox 04/11/20 12:27 131 H 04/11/20 11:07 131 H 04/11/20 09:44 97.4 F L 94 18 103/51 L 96 Medical Necessity - Tobacco Use Smoking Status: Former smoker Tobacco Use: - Assessment/Plan All Active Problems (Last Reviewed 03/30/20 @ 11:[address] Pedro Gordon MD) Afib (Acute) GI bleed (Acute) Acute blood loss anemia (Acute) Squamous cell carcinoma of lung, stage III (Acute) Pneumonia (Acute) Encounter for education (Acute) Malnutrition (Acute) 1. Acute on chronic blood loss anemia unclear etiology - Received 2 units. EGD with esophagitis, placed on ppi bid and carafate. Eliquis held. Guiac neg. Trop neg. 2. Recurrent pna - levaquin. hx pseudomonas suspectible to quinolones. sputum cx pending. wbc elevated but pt received decadron. repeat CXR. urine antigens pending. blood cultures negative. added IS, PEP therapy, mucinex, duonebs. 3. pAfib now with RVR - continue cardizem hold eliquis. IV metoprolol, if effective will schedule oral lopressor. decrease frequency of albuterol. 4. Hyponatremia - likely paraneoplastic 5. Squamous cell lung cancer - Pt of Dr. German. Chemoport in place. 6. COPD - no exacerbation continue aerosols, budesonide. DVT ppx: SCDs DC planning: Needs SNF, very debilitated. This patient was seen by Shimon Aragon PA-C under the supervision of Doctor Chelsy rivera.
--- NOTE | 2020-04-11 13:45 | CASEMGMT ---
[facility] can accept patient and they will start pre-cert request. Plan: [facility] pending insurance approval and patient being medically ready. Anna DOMINGUEZ MSW
--- NOTE | 2020-04-11 14:02 | RAD_ITS ---
STUDY: X-RAY CHEST REASON FOR EXAM: Male, 60 years old. INCREASE SOB. PNEUMONIA TECHNIQUE: PA and lateral views of the chest. COMPARISON: Comparison is made with prior examination dated April 09, 2020. FINDINGS: A right sided elvis catheter seen with the tip in the midportion of the superior cava. Once again, multiple cystic areas in both upper lobes are seen with the multiple air-fluid levels. The air-fluid levels after progressive as compared to prior study. Persistent dense opacification in the left midlung and a mild degree of increased markings in the right midlung. Normal size heart. Normal mediastinum and thong. Normal visualized pulmonary arteries. There is atherosclerotic tortuosity of the aortic arch and descending thoracic aorta. Normal visualized thoracic spine. Normal visualized ribs, clavicles, and shoulders. There is no demonstrated abnormality of the visualized soft tissue structures of the upper abdomen. RAD/Chest PA and Lateral IMPRESSION: Since prior study, there has been progressive air fluid levels in both lungs suggestive of a progressive inflammatory changes within the bullous changes. Stable infiltrates in the left lung as well as in the right midlung. Electronically Signed: Darren Cih, at 14:25 EDT , Service support ,
--- NOTE | 2020-04-11 14:40 | CASEMGMT ---
Readmission chart review: Pt initially admitted 03/30-04/03/2020 for Afib/pna. Pt with a hx of squamous cell lung cancer and COPD. Pt states did receive some treatment but that he has had pneumonia for '13 weeks' and cannot continue cancer treatment until it clears up. Pt did not qualify for home oxygen at discharge. Pt was scheduled to see Pauline Walden on 04/09/2020 at 1500 but came back to ED prior to appt for increased SOB all weekend. Pt with hemoglobin of 6.5 and admitted for acute on chronic anemia. Pt received 2 units of PRBC's during this visit. Pt has been on 2-4liters of oxygen during visit and tachypnic. Pt's plan is to go to [facility] at discharge. CM to follow for any further discharge planning/needs. Masha FIGUEROA CM
[2020-04-11] MEDS: Ipratropium/Albuterol Sulfate 3 ML AMPUL.NEB INHALATION (18:49)
[2020-04-11] MEDS: guaiFENesin 1,200 MG Tablet 1200 MG PO (21:11)
[2020-04-11] MEDS: Lisinopril 20 MG Tablet PO (21:11)
[2020-04-12] VITALS (14 sets, daily range): BP systolic 105–116; BP diastolic 60–70; PULSE 92–141; RESP 16–30; TEMP 36.6–36.9; O2SAT 95–97
[2020-04-12 05:23] LABS: Absolute Lymphocyte Count 0.68 X10^3/uL (0.83-4.51); Absolute Neutrophil Count 11.3 X10^3/uL (2.0-7.7); Basophil# 0.03 X10^3/uL; Basophil% 0.2 % (0-1); Eosinophil# 0.21 X10^3/uL; Eosinophils% 1.5 % (0-5); Hemoglobin 8.7 g/dL (13.0-16.5); Lymphocyte # 0.68 X10^3/ul (4.0); Mean Corp Hgb Conc 33.5 g/dL (32-36); Mean Corpuscular Hgb 28.4 pg (27.0-32.0); Mean Platelet Vol. 8.9 fl (6.2-12.0); Monocyte# 1.02 X10^3/uL; Monocyte% 7.5 % (0-10); NRBC Flagged by Analyzer 0 % (0-5); Neutrophil # 11.32 X10^3/uL (2.7-7.7); Neutrophil % 83.4 % (47-70); Platelet Count 259 K/mm3 (150-450); RBC Distribution Width CV 17.7 % (11.6-14.6); RBC Distribution Width SD 53.7 fl (35.1-43.9); Red Blood Count 3.06 M/mm3 (4.6-6.2); White Blood Count 13.6 K/mm3 (4.4-11.0)
[2020-04-12 05:37] LABS: Anion Gap 7 (5-15); BUN 11 mg/dL (7-18); BUN/Creat Ratio 42.5 RATIO (10-20); Calcium,Total 7.9 mg/dL (8.5-10.1); Chloride 97 mmol/L (98-107); Creatinine, Serum 0.26 mg/dL (0.70-1.30); EST Glomerular Filtration Rate 388 mL/min (>60); Est Glom Filt Rate - Afr Amer 469 mL/min (>60); Estimated Creatinine Clearance 268.95 ml/min; Glucose 111 mg/dL (74-106); Potassium 3.8 mmol/L (3.5-5.1); Sodium Level 130 mmol/L (136-145)
[2020-04-12] MEDS: Sucralfate 1 GM Tablet PO ×3 (06:00→17:33)
[2020-04-12] MEDS: levoFLOXacin 750 MG Tablet PO (06:00)
[2020-04-12] MEDS: BENZOCAINE/MENTHOL 1 LOZENGE MUCOUS MEM (06:52)
[2020-04-12] MEDS: Ipratropium/Albuterol Sulfate 3 ML AMPUL.NEB INHALATION ×2 (07:00→18:22)
[2020-04-12] MEDS: Budesonide Respules 0.5 MG/2 ML AMPUL.NEB. INHALATION (07:00)
[2020-04-12] MEDS: dilTIAZem CD 180 MG Capsule PO (09:28)
[2020-04-12] MEDS: Pantoprazole Sodium 40 MG Tablet PO (09:28)
[2020-04-12] MEDS: guaiFENesin 1,200 MG Tablet 1200 MG PO (09:28)
[2020-04-12] MEDS: amLODIPine 2.5 MG Tablet PO (09:28)
--- NOTE | 2020-04-12 09:30 | CASEMGMT ---
SUMIT received 2 voice mails from patient's brother. He was asking if patient could go to [facility] instead of [facility]. SUMIT called patient's brother and explained that the pre-cert has already been started and everything would have to be withdrawn and re-started at [facility]. SUMIT explained patient's insurance has been taking awhile to approve patients so this would delay his discharge. He said they were mixed up and thought [facility] was the new place since it was on [facility]. He said he talked with family and they had some bad experiences at [facility]. He would really like for patient to go to [facility]. SUMIT told him SUMIT will check with the physician about d/c and send referral to [facility]. SUMIT called [facility] and Citlalli is out for a couple of days and everyone else is in morning meeting. SUMIT faxed referral to [facility] and will call to check on referral. Anna DOMINGUEZ MSW
[2020-04-12] MEDS: Morphine 2 MG/ML Syringe 1 MG IV (11:25)
[2020-04-12] MEDS: 0.9% Saline Lock 10 ML Syringe IV ×3 (11:26→23:39)
[2020-04-12] MEDS: oxyCODONE 5 MG Tablet PO ×2 (11:30→20:14)
[2020-04-12] MEDS: Acetaminophen 325 MG Tablet PO (11:30)
--- NOTE | 2020-04-12 11:31 | CASEMGMT ---
SUMIT received a call from Allegra at [facility]. She said they can accept patient. She wanted SW to let him know they are a smoke free facility and he will not be able to smoke. SW will let patient know. SUMIT also told her that patient is considering Hospice. SUMIT told her that SW will need to call [facility] and ask them to cancel pre-cert request and then she can re-start pre-cert. Allegra asked SW to please call her cell phone at [phone]. SUMIT called Dona at [facility] and asked her to please withdrawal the pre-cert request as family had their facilities mixed up and they want [facility]. Anna DOMINGUEZ MSW
[2020-04-12] MEDS: Albuterol 2.5 MG/3 ML VIAL.NEB. INHALATION (12:54)
--- NOTE | 2020-04-12 13:36 | CASEMGMT ---
Nurse Practitioner spoke with patient and his brother, Get. They agreed to a Hospice referral. SUMIT called [facility] and spoke with Marina regarding referral. SUMIT also faxed information. She will call patient's brother to set up appt. SUMIT called Allegra at [place] and let her know patient may be coming on Hospice. She originally did not think [facility] would pay for Hospice at a half-way, however SW checked with numerous other people and he would just need pre-cert for intermediate level of care. Allegra will start pre-cert request. SUMIT received a return call from Marina and she will be meeting with patient and his brother at 230 today. Patient's brother wanted to know if his could come to the meeting. SUMIT checked with appropriate people and she can come as well. SUMIT called patient's brother Get and let him know. Anna ASTORGA
--- NOTE | 2020-04-12 14:24 | PN_ITS ---
Patient Problems: Active and Suspected Problems (Last Reviewed 03/30/20 @ 11:[address] Pedro Gordon MD) Afib (Acute) GI bleed (Acute) Acute blood loss anemia (Acute) Squamous cell carcinoma of lung, stage III (Acute) Subjective: Patient seen and examined. Had extensive discussion with patient regarding plan of care. Patient states he knows he is going to . He states he wants to be comfortable. Discussed palliative/hospice with patient and he is agreeable to hospice consult. - Physical Exam Vitals/I&O's: Vital Signs Temp Pulse Resp BP Pulse Ox 97.8 F 98 16 116/60 95 04/12/20 09:00 04/12/20 12:55 04/12/20 12:55 04/12/20 09:00 04/12/20 09:00 Oxygen Flow Rate (L/min) 2 Oxygen Delivery Method Nasal Cannula Weight: 135 lb 5.821 oz Body Mass Index (BMI) 19.4 Intake and Output for Last 24 Hours 04/10/20 04/11/20 04/12/20 23:59 23:59 23:59 Intake Total 3340.0 / 3340.0 1200 / 1200 120 / 120 Output Total 700 / 700 850 / 850 200 / 200 Balance 2640.0 / 2640.0 350 / 350 -80 / -80 General: Alert, Oriented x3, Cooperative HEENT: Atraumatic, PERRLA, EOMI, Normocephalic Neck: Supple, No JVD, Negative Carotid Bruits Lungs: Diminished, Rhonchi Cardiovascular: Regular Rhythm, No murmurs, Tachycardic Abdomen: Bowel Sounds Present, Soft, Non Tender, Non-Distended Extremities: No clubbing, No cyanosis, No edema, Capillary Refill Less than 3 Seconds Skin: No rashes, No breakdown Musculoskeletal: No Tenderness to Palpation of Joints or Extremities, Cachexia, Muscle Wasting Neurological: Cranial nerves II-XII grossly intact, Neuro grossly intact Psych/Mental Status: Flat Affect Microbiology Past 72 Hours 04/11/20 03:00 Sputum, Expectorated/Coughed Gram Stain - Final 04/11/20 03:00 Sputum, Expectorated/Coughed Respiratory Culture - Preliminary Appears to be normal respiratory lisa. Further studies to follow. 04/10/20 02:20 Urine, Random Urine Culture - Final Culture exhibits no growth. 04/09/20 11:05 Blood Culture (Wb) - Anticubital Right Blood Culture - Preliminary No growth in 48 hours. 04/09/20 10:55 Blood Culture (Wb) - Anticubital Left Blood Culture - Preliminary No growth in 48 hours. 04/10/20 22:30 Urine, Clean Catch Legionella Antigen - Final 04/10/20 22:30 Urine, Clean Catch Streptococcus pneumoniae Antigen (M - Final 04/09/20 12:00 Stool Stool Occult Blood (PAT) - Final Laboratory Results 04/12/20 05:12: WBC 13.6 H, RBC 3.06 L, Hgb 8.7 L, Hct 26.0 L, MCV 85.0, MCH 28.4, MCHC 33.5, RDW Std Deviation 53.7 H, RDW Coeff of Rush 17.7 H, Plt Count 259, MPV 8.9, Immature Gran % (Auto) 2.400 H, Neut % (Auto) 83.4 H, Lymph % (Auto) 5.0 L, Lawrence % (Auto) 7.5, Eos % (Auto) 1.5, Baso % (Auto) 0.2, Absolute Neuts (auto) 11.3 H, Absolute Lymphs (auto) 0.68 L, Nucleated RBC % 0 04/12/20 05:12: Sodium 130 L, Potassium 3.8, Chloride 97 L, Carbon Dioxide 26.0, Anion Gap 7, BUN 11, Creatinine 0.26 L, Estim Creat Clear Calc 268.95, Est GFR (MDRD) Af Amer 469, Est GFR (MDRD) Non-Af 388, BUN/Creatinine Ratio 42.5 H, Glucose 111 H, Calcium 7.9 L Current Medications Acetaminophen (Tylenol) 325 mg PO TID PRN PRN PRN Reason: Pain Score 1-10/10 Last Admin: 04/12/20 11:30 Dose: 325 mg Documented by: Albuterol Sulfate (Ventolin Aerosols) 2.5 mg INHALATION Q6H PRN PRN PRN Reason: SOB &/OR WHEEZING Last Admin: 04/12/20 12:54 Dose: 2.5 mg Documented by: Albuterol/Ipratropium (Duoneb) 3 ml INHALATION Q6HWA.RT [facility] Last Admin: 04/12/20 12:55 Dose: Not Given Documented by: Amlodipine Besylate (Norvasc) 2.5 mg PO DAILY [facility] Last Admin: 04/12/20 09:28 Dose: 2.5 mg Documented by: Budesonide (Pulmicort Aerosol) 0.5 mg INHALATION Q12H.RT [facility] Last Admin: 04/12/20 07:00 Dose: 0.5 mg Documented by: Dextrose (D50w Syringe) 0 gm IV X1 PRN; Protocol PRN Reason: Hypoglycemia Diltiazem HCl (Cardizem Cd) 180 mg PO DAILY [facility] Last Admin: 04/12/20 09:28 Dose: 180 mg Documented by: Ergocalciferol (Vitamin D) 50,000 unit PO SA [facility] Glucagon () 1 mg IM .X1 PRN PRN Reason: Hypoglycemia Guaifenesin (Mucinex) 1,200 mg PO BID [facility] Last Admin: 04/12/20 09:28 Dose: 1,200 mg Documented by: Levofloxacin (Levaquin Tablet) 750 mg PO DAILY@0600 [facility] Last Admin: 04/12/20 06:00 Dose: 750 mg Documented by: Lisinopril (Zestril) 20 mg PO DAILY@2200 [facility] Last Admin: 04/11/20 21:11 Dose: 20 mg Documented by: Morphine Sulfate () 1 - 2 mg IV Q3H PRN PRN PRN Reason: Pain Score 6-10/10 Nutritional Formula (Lactose Free) (Ensure Enlive) 120 ml PO 4X/DAY [facility] Last Admin: 04/12/20 09:27 Dose: Not Given Documented by: Ondansetron HCl (Zofran) 4 mg IV Q8H PRN PRN PRN Reason: NAUSEA/VOMITING Oxycodone HCl (Oxyir) 5 - 10 mg PO TID PRN PRN PRN Reason: Pain Score 6-10/10 Last Admin: 04/12/20 11:30 Dose: 10 mg Documented by: Pantoprazole Sodium (Protonix) 40 mg PO BID [facility] Last Admin: 04/12/20 09:28 Dose: 40 mg Documented by: Sodium Chloride () 10 - 40 ml IV UD PRN PRN Reason: SALINE FLUSH Last Admin: 04/12/20 11:26 Dose: 20 ml Documented by: Sucralfate (Carafate) 1 gm PO 1HR_ACHS [facility] Last Admin: 04/12/20 11:26 Dose: 1 gm Documented by: Throat Lozenges (Cepacol Sore Throat Lozenge) 1 lozenge MUCOUS MEM Q2H PRN PRN PRN Reason: COUGH Last Admin: 04/12/20 06:52 Dose: 1 lozenge Documented by: Medical Necessity - Tobacco Use Smoking Status: Former smoker Tobacco Use: - Assessment/Plan All Active Problems (Last Reviewed 03/30/20 @ 11:[address] Pedro Gordon MD) Afib (Acute) GI bleed (Acute) Acute blood loss anemia (Acute) Squamous cell carcinoma of lung, stage III (Acute) Pneumonia (Acute) Encounter for education (Acute) Malnutrition (Acute) 1. Acute on chronic blood loss anemia-status post 2 units PRBC. EGD showed esophagitis. On PPI and Carafate. Eliquis on hold. Trend CBC. 2. Recurrent pneumonia-history of Pseudomonas. Sputum culture shows normal respiratory lisa. Continue oral Levaquin to complete course. Blood cultures negative. 3. Squamous cell lung cancer- following with Dr. German. 4. Paroxysmal atrial fibrillation-rate improved. Continue Cardizem. Eliquis on hold secondary to #1. 5. Chronic COPD-no exacerbation. As needed albuterol aerosol. 6. Chronic hyponatremia-stable. 7. Hypertension-stable, continue lisinopril, Cardizem, amlodipine. DVT prophylaxis-Eliquis on hold Discharge planning: SNF pending acceptance. Hospice meeting today with patient and patient's family. Possible SNF with hospice. This patient was seen by ALIZA Patten under the supervision of Dr. Aguiar.
--- NOTE | 2020-04-12 15:57 | CASEMGMT ---
Marina from Hospice spoke with patient and his brother and Hospice papers were signed. SUMIT let Marina, patient, and his brother know that we are still waiting on insurance to approve him to go to [facility]. SW let them know it will likely be tomorrow. They thanked SUMIT for the update. Plan: [facility] pending insurance approval for intermediate level of care. Anna DOMINGUEZ MSW
--- NOTE | 2020-04-12 22:48 | RAD_ITS ---
STUDY: X-RAY CHEST REASON FOR EXAM: Male, 60 years old. DYSPNEA TECHNIQUE: Single AP portable view of the chest. COMPARISON: Prior study of 04/11/2020 FINDINGS: monitoring specialist leads are present. There is a right-sided MediPort with catheter tip in the region of the mid SVC. There are numerous cystic foci of the upper lung sosa. Air-fluid level seen on the previous day''s study are not appreciated on the current study. There remains dense opacification of the left midlung field and increased pulmonary density of the right midlung field when compared to the previous day''s study. There is no demonstrated pleural abnormality. The left cardiac margin is obscured by the left mid lung field consolidation. Normal mediastinum and thong. Normal visualized pulmonary arteries. There are calcified plaques of the aortic arch. Normal visualized thoracic spine. Normal visualized ribs, clavicles, and shoulders. There is no demonstrated abnormality of the visualized soft tissue structures of the upper abdomen. RAD/Chest 1 View (Portable) IMPRESSION: Numerous cystic foci of the upper lung sosa again noted. Air-fluid level seen within on the previous day''s study are not evident currently. Bilateral pulmonary consolidations, left side more severely affected than right. Left-sided pulmonic density appears stable. There is an increase of density of the right midlung field in the interval. Electronically Signed: Eagle Diaz MD at 23:04 EDT , Service support ,
[2020-04-12] MEDS: dilTIAZem 25 MG/5 ML Vial 10 MG IV BOLUS (23:14)
--- NOTE | 2020-04-12 23:15 | CCHN_ITS ---
Hospitalist Note Patient per staff with worsening dyspnea and increased respiratory rate. Evaluated patient with confirmed conversational dyspnea, evidence of increased respiratory rate and accessory muscle usage, coarse breath sounds bilaterally, diminished bases. Currently hyperventilating, ABG consistent. Chest x-ray obtained. Discussed current status with patient and confirmed that he is in fact a DNR CC with plan transition to hospice. CODE STATUS changed to DNR CC and per discussion with patient will transition to hospice orders including com fort measures. Patient declined any usage of BiPAP at this time but amenable to morphine administration.
[2020-04-12] MEDS: Morphine 2 MG/ML Syringe IV (23:39)
[2020-04-12 23:40] LABS: Hematocrit 29.5 % (40-54)
[2020-04-13] VITALS (7 sets, daily range): BP systolic 93–115; BP diastolic 60–79; PULSE 105–122; RESP 18–22; TEMP 36.4–37.1; O2SAT 93–100
--- NOTE | 2020-04-13 00:18 | CPS ---
GLORIA COLLECTED. TALKED TO PATIENT ABOUT BIPAP, PATIENT REFUSES TO WEAR BIPAP DR. VELOZ AWARE
[2020-04-13] MEDS: LORazepam 0.5 MG Tablet SL/PO ×2 (00:50→04:00)
[2020-04-13] MEDS: 0.9% Saline Lock 10 ML Syringe IV (01:41)
[2020-04-13] MEDS: Morphine 2 MG/ML Syringe IV (01:41)
[2020-04-13] MEDS: Ipratropium/Albuterol Sulfate 3 ML AMPUL.NEB INHALATION (06:56)
[2020-04-13] MEDS: Budesonide Respules 0.5 MG/2 ML AMPUL.NEB. INHALATION (06:56)
[2020-04-13] MEDS: dilTIAZem CD 180 MG Capsule PO (09:49)
[2020-04-13] MEDS: amLODIPine 2.5 MG Tablet PO (09:49)
[2020-04-13] MEDS: Pantoprazole Sodium 40 MG Tablet PO (09:49)
[2020-04-13] MEDS: guaiFENesin 1,200 MG Tablet 1200 MG PO (09:49)
--- NOTE | 2020-04-13 10:36 | CASEMGMT ---
Social Work SW spoke with FELICITY Farias who states pt worsened overnight and is now questioning if pt would be appropriate for the inpatient hospice unit. Dinora spoke with pt about this and he is agreeable. Phone call to Goyo at [facility] and a nurse will come to [facility] today to assess for IPU appropriateness. Physician and [employer] updated. DANIEL Worrell
[2020-04-13] MEDS: HYDROcodone Bitartrate/Apap 5/325 Tablet PO (10:53)
--- NOTE | 2020-04-13 12:08 | CASEMGMT ---
Social Work Return call from Goyo at Hospice. Pt has been evaluated by hospice nurse and does not qualify for IPU at this time but is appropriate for hospice services. Plan: [facility] [place] with Hospice services. DANIEL Worrell
--- NOTE | 2020-04-13 12:59 | PCM.EXTCARCO ---
- Diet 04/10/20 14:56 Diet: Regular Diet Is pt able to select menu?: Yes - Routine Orders/Code Status Enema Type: Fleetz Enema Frequency: Daily PRN Suppository Type: Dulcolax 10mg Suppository Frequency: Daily PRN O2 Liters per Minute: 3-5 O2 Frequency: Continuous Keep PO Greater than or Equal to (%): 90 Code Status: DNRCC - Problem/Diagnosis (1) Acute blood loss anemia Status: Acute Current Visit: Yes (2) Squamous cell carcinoma of lung, stage III Status: Acute Current Visit: Yes (3) COPD (chronic obstructive pulmonary disease) Status: Chronic Current Visit: No (4) Malnutrition Status: Chronic Current Visit: No (5) Hypertension Status: Chronic Current Visit: No - Allergies/Procedures Done in Hospital Allergies/Adverse Reactions: Allergies No Known Allergies Allergy (Verified 03/28/20 11:00) Procedures: EGD - Type of Care/Length of Stay Estimated LOS: More Than 30 Days Type of Care Needed: Intermediate Rehab Potential: Poor Prognosis: Poor - Additional Orders/Day of Discharge H&P will serve as current which was dated: 04/09/20 Day of Discharge: 04/13/20 - Dietary and Speech Recommendations Dietitian Recommendations/Changes: Continue regular diet as tolerated--liberalize to promote improved intake. Will continue ONS w/ meals and at medpass. Recommend consideration of alternative nutrition support if pt unable to meet adequate nutrition needs via PO diet and if coincides w/ pt and family wishes. - Follow Up Care Primary Care Physician: Pauline Thornton [Primary Care Provider] - Please follow up with your Primary Care Physician in: No - follow up. Hospice at [place]
--- NOTE | 2020-04-13 13:03 | PCM.DC.SUM ---
Discharge Date and Diagnosis Date of Admission: 04/09/20 Date of Discharge: 04/13/20 - Primary Discharge Diagnosis Acute Problems: Active Problems (Last Reviewed 03/30/20 @ 11:[address] Pedro Gordon MD) 1. Acute on chronic blood loss anemia 2. Acute hypoxic respiratory failure secondary to recurrent pneumonia, chronic COPD and worsening squamous cell lung cancer 3. Recurrent pneumonia-history of Pseudomonas. 4. Squamous cell lung cancer 5. Paroxysmal atrial fibrillation 6. Chronic COPD 7. Chronic hyponatremia 8. Hypertension 9. Hospice transition - Secondary Discharge Diagnosis Chronic Problems: Chronic Problems (Last Reviewed 03/30/20 @ 11:[address] 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 Per [facility] done 11/16/19 per [facility] @ [facility] Smoking greater than 40 pack years (Chronic) Stage 2 moderate COPD by GOLD classification (Chronic) FEV1 56% Alcoholic fatty liver (Chronic) Nicotine dependence (Chronic) Alcohol abuse (Chronic) GERD (gastroesophageal reflux disease) (Chronic) Vitamin D deficiency (Chronic) Hypertension (Chronic) Hyponatremia (Chronic) COPD (chronic obstructive pulmonary disease) (Chronic) Hospital Course and Treatment Imaging Results: Diagnostic Data Chest X-Ray 04/12/20 22:48 IMPRESSION: Numerous cystic foci of the upper lung sosa again noted. Air-fluid level seen within on the previous day''s study are not evident currently. Bilateral pulmonary consolidations, left side more severely affected than right. Left-sided pulmonic density appears stable. There is an increase of density of the right midlung field in the interval. Electronically Signed: Eagle Diaz MD at 23:04 EDT , Service support , Dr. Goldsmith- Surgery Operations: None Procedures: EGD Summary of Care Provided: The patient is a 60 year old M admitted 04/09/2020 due to shortness of breath. 1. Acute on chronic blood loss anemia-status post 2 units PRBC. EGD showed esophagitis. On PPI and Carafate. Eliquis on hold. Hemoglobin stable at discharge. 2. Acute hypoxic respiratory failure secondary to recurrent pneumonia, chronic COPD and worsening squamous cell lung cancer-continue supplement oxygen to maintain O2 at or above 90%. 3. Recurrent pneumonia-history of Pseudomonas. Sputum culture shows normal respiratory lisa. Continue oral Levaquin to complete course. Blood cultures negative. 3. Squamous cell lung cancer- following with Dr. German. Hospice transition at discharge. 4. Paroxysmal atrial fibrillation-rate improved. Continue Cardizem. Eliquis discontinued secondary to #1. 5. Chronic COPD-no exacerbation. As needed albuterol aerosol. 6. Chronic hyponatremia-stable. 7. Hypertension-stable, continue lisinopril, Cardizem, amlodipine. 8. Hospice transition-SNF at discharge with hospice. General: Alert, Oriented x3, Cooperative HEENT: Atraumatic, PERRLA, EOMI, Normocephalic Neck: Supple, No JVD, Negative Carotid Bruits Lungs: Diminished, Rhonchi Cardiovascular: Regular Rhythm, No murmurs, Tachycardic Abdomen: Bowel Sounds Present, Soft, Non Tender, Non-Distended Extremities: No clubbing, No cyanosis, No edema, Capillary Refill Less than 3 Seconds Skin: No rashes, No breakdown Musculoskeletal: No Tenderness to Palpation of Joints or Extremities, Cachexia, Muscle Wasting Neurological: Cranial nerves II-XII grossly intact, Neuro grossly intact Psych/Mental Status: Flat Affect Patient seen and examined prior to discharge. Physical assessment as noted above. Patient is stable for discharge with follow up recommendations as noted above. This patient was seen by ALIZA Patten under the supervision of Dr. Aguiar. - Physical Exam Vitals/I&O's: Vital Signs Temp Pulse Resp BP Pulse Ox 98.7 F 118 H 20 H 93/63 98 04/13/20 10:51 04/13/20 10:51 04/13/20 10:51 04/13/20 10:51 04/13/20 10:51 Oxygen Flow Rate (L/min) 3 Oxygen Delivery Method Nasal Cannula Weight: 135 lb 5.821 oz Body Mass Index (BMI) 19.4 Intake and Output for Last 24 Hours 04/11/20 04/12/20 04/13/20 23:59 23:59 23:59 Intake Total 1200 / 1200 700 / 700 240 / 240 Output Total 850 / 850 800 / 800 1000 / 1000 Balance 350 / 350 -100 / -100 -760 / -760 Microbiology Past 72 Hours 04/11/20 03:00 Sputum, Expectorated/Coughed Gram Stain - Final 04/11/20 03:00 Sputum, Expectorated/Coughed Respiratory Culture - Final Presumptive C albicans Mixed Lisa 04/10/20 02:20 Urine, Random Urine Culture - Final Culture exhibits no growth. 04/09/20 11:05 Blood Culture (Wb) - Anticubital Right Blood Culture - Preliminary No growth in 48 hours. 04/09/20 10:55 Blood Culture (Wb) - Anticubital Left Blood Culture - Preliminary No growth in 48 hours. 04/10/20 22:30 Urine, Clean Catch Legionella Antigen - Final 04/10/20 22:30 Urine, Clean Catch Streptococcus pneumoniae Antigen (M - Final Laboratory Results 04/12/20 22:55: Hgb 10.0 L, Hct 29.5 L Current Medications Acetaminophen (Tylenol) 325 mg PO TID PRN PRN PRN Reason: Pain Score 1-10/10 Last Admin: 04/12/20 11:30 Dose: 325 mg Documented by: Acetaminophen (Tylenol Liquid) 650 mg PO Q4H PRN PRN PRN Reason: Temp>101F or Pain Score 1-10 Al Hydroxide/Mg Hydroxide (Mylanta Ii) 30 ml PO Q4H PRN PRN PRN Reason: Epigastric Distress Albuterol Sulfate (Ventolin Aerosols) 2.5 mg INHALATION Q6H PRN PRN PRN Reason: SOB &/OR WHEEZING Last Admin: 04/12/20 12:54 Dose: 2.5 mg Documented by: Albuterol/Ipratropium (Duoneb) 3 ml INHALATION Q6HWA.RT GE Last Admin: 04/13/20 06:56 Dose: 3 ml Documented by: Amlodipine Besylate (Norvasc) 2.5 mg PO DAILY [facility] Last Admin: 04/13/20 09:49 Dose: 2.5 mg Documented by: Atropine Sulfate (Atropisol) 4 drop PO Q3H PRN PRN PRN Reason: Congestion Benzonatate (Tessalon Perle) 100 mg PO TID PRN PRN PRN Reason: Non-Productive Cough Budesonide (Pulmicort Aerosol) 0.5 mg INHALATION Q12H.RT [facility] Last Admin: 04/13/20 06:56 Dose: 0.5 mg Documented by: Dextrose (D50w Syringe) 0 gm IV X1 PRN; Protocol PRN Reason: Hypoglycemia Diltiazem HCl (Cardizem Cd) 180 mg PO DAILY [facility] Last Admin: 04/13/20 09:49 Dose: 180 mg Documented by: Diphenhydramine HCl (Benadryl) 25 mg PO Q4H PRN PRN PRN Reason: Extrapyridimal Spasm/Itching Ergocalciferol (Vitamin D) 50,000 unit PO SA [facility] Glucagon () 1 mg IM .X1 PRN PRN Reason: Hypoglycemia Guaifenesin (Mucinex) 1,200 mg PO BID [facility] Last Admin: 04/13/20 09:49 Dose: 1,200 mg Documented by: Guaifenesin (Robitussin) 10 - 20 ml PO Q4H PRN PRN PRN Reason: Productive Cough Guaifenesin (Robitussin Dm) 5 - 10 ml PO Q4H PRN PRN PRN Reason: Non-Productive Cough Haloperidol (Haldol) 1 mg PO Q2H PRN PRN PRN Reason: Opioid Induced Nausa/Vomiting Haloperidol Lactate (Haloperidol Lactate) 0 mg SL/PO Q1H PRN PRN PRN Reason: Hyperactivity/Anxiety Ibuprofen (Motrin Liquid) 400 - 600 mg PO Q4H PRN PRN PRN Reason: Bone or Musculoskeletal Pain Levofloxacin (Levaquin Tablet) 750 mg PO DAILY@0600 [facility] Last Admin: 04/13/20 06:04 Dose: Not Given Documented by: Lisinopril (Zestril) 20 mg PO DAILY@2200 [facility] Last Admin: 04/12/20 23:21 Dose: Not Given Documented by: Loperamide HCl (Imodium Liquid) 2 mg PO UD PRN PRN Reason: After each liquid stool Loperamide HCl (Imodium) 2 mg PO UD PRN PRN Reason: After each liquid stool Lorazepam (Ativan) 0.5 mg SL/PO Q3H PRN PRN PRN Reason: Restlessness/Anxiety Last Admin: 04/13/20 04:00 Dose: 0.5 mg Documented by: Morphine Sulfate () 2 mg IV Q2H PRN PRN PRN Reason: pain 1-10, dyspnea Last Admin: 04/13/20 01:41 Dose: 2 mg Documented by: Nutritional Formula (Lactose Free) (Ensure Enlive) 120 ml PO 4X/DAY [facility] Last Admin: 04/13/20 09:50 Dose: Not Given Documented by: Ondansetron HCl (Zofran) 4 mg IV Q8H PRN PRN PRN Reason: NAUSEA/VOMITING Oxycodone HCl (Oxyir) 5 - 10 mg PO TID PRN PRN PRN Reason: Pain Score 6-10/10 Last Admin: 04/12/20 20:14 Dose: 10 mg Documented by: Pantoprazole Sodium (Protonix) 40 mg PO BID [facility] Last Admin: 04/13/20 09:49 Dose: 40 mg Documented by: Promethazine HCl (Phenergan Tablet) 12.5 mg PO Q6H PRN PRN PRN Reason: UNSPECIFIED NAUSEA/VOMITING Sodium Chloride () 10 - 40 ml IV UD PRN PRN Reason: SALINE FLUSH Last Admin: 04/13/20 01:41 Dose: 10 ml Documented by: Sucralfate (Carafate) 1 gm PO 1HR_ACHS [facility] Last Admin: 04/13/20 06:04 Dose: Not Given Documented by: Throat Lozenges (Cepacol Sore Throat Lozenge) 1 lozenge MUCOUS MEM Q2H PRN PRN PRN Reason: COUGH Last Admin: 04/12/20 06:52 Dose: 1 lozenge Documented by: Home Medications: Medications to take at Discharge Amlodipine [Norvasc] 2.5 mg PO DAILY 08/05/13 Albuterol Sulfate [Ventolin Hfa] 2 puff IH Q4H PRN 05/05/16 Ergocalciferol [Vitamin D] 50,000 unit PO SA 07/22/18 Dexamethasone [Decadron] 4 mg PO DAILY@0800 #30 tab 03/14/20 Diltiazem CD [Cardizem CD] 180 mg PO DAILY #30 cap 04/03/20 levoFLOXacin tablet [Levaquin tablet] 750 mg PO DAILY@0600 #14 tab 04/03/20 Lisinopril 10 mg PO DAILY 04/09/20 Mometasone/Formoterol [Dulera 200 Mcg-5 Mcg Inhaler] 2 puff INHALATION BID 04/09/20 Pantoprazole Sodium [Protonix] 40 mg PO BID tab 04/13/20 Sucralfate [Carafate] 1 gm PO 1HR_ACHS tab 04/13/20 Primary Care Physician: Pauline Thornton [Primary Care Provider] - Please follow up with your Primary Care Physician in: No - follow up. [facility] at [place] Please Follow Up With: Zara Nuno NP-C Please Follow Up With: Bogdan German MD Please Follow Up With: Cyril Rangel MD Please Follow Up With: Pauline Walden Disposition: Care Home facility - With hospice Minutes spent on discharge:: 35 Patient Condition:: Guarded Medical Necessity - Tobacco Use Smoking Status: Former smoker Tobacco Use: - Meaningful Use Info Meaningful Use Diagnoses (Choose all that apply): None applicable
[2020-04-13] MEDS: Sucralfate 1 GM Tablet PO (13:05)
--- NOTE | 2020-04-13 13:58 | PHA.DC.MR ---
Pharmacy Service has performed discharge medication reconciliation for this patient upon transfer to [facility]. The patient's discharge medication list was reviewed for discrepancies and discrepancies were resolved. Home Medications Amlodipine [Norvasc] 2.5 mg PO DAILY 08/05/13 Albuterol Sulfate [Ventolin Hfa] 2 puff IH Q4H PRN 05/05/16 Ergocalciferol [Vitamin D] 50,000 unit PO SA 07/22/18 Dexamethasone [Decadron] 4 mg PO DAILY@0800 #30 tab 03/14/20 Diltiazem CD [Cardizem CD] 180 mg PO DAILY #30 cap 04/03/20 levoFLOXacin tablet [Levaquin tablet] 750 mg PO DAILY@0600 #14 tab 04/03/20 Lisinopril 10 mg PO DAILY 04/09/20 Mometasone/Formoterol [Dulera 200 Mcg-5 Mcg Inhaler] 2 puff INHALATION BID 04/09/20 Pantoprazole Sodium [Protonix] 40 mg PO BID tab 04/13/20 Sucralfate [Carafate] 1 gm PO 1HR_ACHS tab 04/13/20
--- NOTE | 2020-04-13 15:48 | CASEMGMT ---
Social Work Phone call from Allegra at [facility] and they are able to accept pt today. HENS [id number] completed and Covid screen completed. Orders faxed to [facility] and to [facility]. [facility] for 4:30 pickup by cot. Pt and pt brother Get notified of discharge plan and agreeable. Marina at hospice notified of discharge time and hospice will meet pt at [facility] to start services. Allegar at [facility] and RN notified of d/c time. DANIEL Worrell
[2020-04-16 06:20] LABS: Base Excess 4 mmol/L (-2 to +2); Bicarbonate 26.7 mmol/L (22-26); PO2 64 mmHG (75-100); SO2 95 % (95-99); Total Carbon Dioxide 28 mmol/L; pCO2 29.8 mmHg (35-45); pH 7.56 (7.35-7.45)
[2020-04-16 12:42] LABS: Blood Gas Specimen Type ART; O2 Delivery Device Nasal Can
== END 2020-04-13 16:30 | disposition skilled nursing facility (03) | DRG 663 ==
LOC: ED 12:10 → PCU 14:11
PROVIDERS: Family Medicine; Physician Assistant; Surgery; Admitting Provider Student in an Organized Health Care Education/Training Program; Emergency Provider Emergency Medicine; Visit Provider Internal Medicine
PROC: 0DJ08ZZ Inspection of Upper Intestinal Tract, Via Natural or Artificial Opening Endoscopic (ICD-10-PCS; CPT 43235; principal; 2020-04-10 10:25)
DX: D62 Acute posthemorrhagic anemia (principal); J44.0 Chronic obstructive pulmonary disease with (acute) lower respiratory infection; C34.90 Malignant neoplasm of unspecified part of unspecified bronchus or lung; K21.0 Gastro-esophageal reflux disease with esophagitis; I48.0 Paroxysmal atrial fibrillation; J96.01 Acute respiratory failure with hypoxia; E87.1 Hypo-osmolality and hyponatremia; I10 Essential (primary) hypertension; D63.0 Anemia in neoplastic disease; Z87.01 Personal history of pneumonia (recurrent); Z92.21 Personal history of antineoplastic chemotherapy; Z66 Do not resuscitate; K22.8 Other specified diseases of esophagus; K31.89 Other diseases of stomach and duodenum; D50.9 Iron deficiency anemia, unspecified; K92.1 Melena; Z20.828 Contact with and (suspected) exposure to other viral communicable diseases; Z79.01 Long term (current) use of anticoagulants; Z79.51 Long term (current) use of inhaled steroids; Z79.82 Long term (current) use of aspirin; Z80.0 Family history of malignant neoplasm of digestive organs; Z80.1 Family history of malignant neoplasm of trachea, bronchus and lung; Z82.49 Family history of ischemic heart disease and other diseases of the circulatory system; Z83.3 Family history of diabetes mellitus; Z79.899 Other long term (current) drug therapy; F17.200 Nicotine dependence, unspecified, uncomplicated
CPT/HCPCS: 36415; 36600; 71045; 71046; 80048; 80053; 81001; 82274; 82803; 83605; 84484; 85014; 85018; 85025; 85610; 85730; 86850; 86900; 86901; 86920; 86922; 87040; 87070; 87086; 87205; 87449; 87635; 88305; 88312; 88342; 93005; 94640; 94667; 94668; 97110; 97162; 97166; 97530; 97802; 99251; 99285; J7030; J7040; J7120; P9040; A4216; G0463; J2405; U0003